=== PATIENT | male | born 1970 | race Caucasian/White ===

== ENCOUNTER 2022-05-15 11:40 | Emergency (ER) | payer MEDICARE, MEDICAID, SELFPAY ==
--- NOTE | ~2022-05-15 | XR_ITS ---
EXAMINATION: XR FINGER, LEFT CLINICAL INFORMATION: Index finger and infection COMPARISON: None TECHNIQUE: Three views of the left index finger. FINDINGS: Soft tissue swelling of the distal index finger with no soft tissue gas, radiopaque foreign body, or cortical erosion/periostitis to suggest osteomyelitis. There are degenerative changes of the distal interphalangeal joints, particularly the 2nd DIP joint. No acute osseous abnormalities. XR/XR finger LT min 2V IMPRESSION: Soft tissue swelling and possible skin defect at the dorsal aspect of the distal index finger. No soft tissue gas, radiopaque foreign body, or acute osseous abnormality.
[2022-05-15 12:18] VITALS: BP 130/76; BP 146/77; PULSE 108; PULSE 116; RESP 17; TEMP 36.4; O2SAT 96; BMI 40.7
--- NOTE | 2022-05-15 12:24 | ED.SKABFB ---
HPI - Skin/Abscess/Foreign Bdy General Chief complaint: Extremity Problem Stated complaint: FINGER PAIN /INF ON ANTIBIOTICS FROM SNF, PER EMS Time Seen by Provider: 05/15/22 12:09 Source: patient and old records reviewed Mode of arrival: EMS Limitations: other (dementia) History of Present Illness HPI narrative: 51 yo male with hx of dementia HTN obesity here with L index finger infection for 3 days started on doxycycline 05/12 - started as paronychia was not drained area is now more red and swollen. Not responding to doxycycline MD complaint: lesion Onset (ago): day(s) (3) Tetanus up to date: yes Location: L hand (index finger) Severity: mild Quality: dull Relieving factors: none Exacerbating factors: palpation Context: other (paronychia no drainage) Associated symptoms: denies other symptoms Treatments prior to arrival: antibiotic Related Data Allergies Allergy/AdvReac Type Severity Reaction Status Date / Time No Known Allergies Allergy Unverified 05/17/20 16:35 Review of Systems Review of Systems: Constitutional : No Fever, No Chills ENT/Mouth : No sore throat, No Rhinorrhea Eyes: No Eye Pain, No Swelling, No Redness Cardiovascular : No Chest Pain, No SOB Respiratory : No Cough, No Sputum Gastrointestinal : No Nausea, No Vomiting, No Diarrhea, No abdominal Pain Genitourinary : No Dysuria, No Hematuria Musculoskeletal : No joint pain, No Myalgias, No Joint Swelling Skin : No Skin Lesions, positive skin rash Neuro : No Weakness, No Numbness, No Headache Psych : No Anxiety, No Depression Heme/Lymph: No Bruising, No Bleeding,No Lymphadenopathy Endocrine : No Polyuria, No Polydipsia All other systems reviewed and are negative [facility] Past Medical History Attestation statement: The following information was validated with the patient. Medical History Dementia HTN (hypertension) Obesity Social History Social History (Updated 05/15/22 @ 12:39 by Jennie Muhammad DO) Alcohol intake: never Patient Tobacco Use Status: Never used Tobacco Use of substances other than those prescribed or required for medical reasons: No Advance Directives: Yes Advance Directives Information Provided: Yes Advance Directives on File: No Physical Exam Vital Signs: Vital Signs: Last Vital Signs Temp 97.6 F 05/15/22 12:18 Pulse 108 H 05/15/22 12:18 Resp 17 05/15/22 12:18 BP 146/77 H 05/15/22 12:18 Pulse Ox 96 05/15/22 12:18 O2 Del Method 05/15/22 12:18 BMI result Body Mass Index 40.7 Appearance: Alert. Oriented X to place and self. No acute distress. Eyes: Pupils equal, round and reactive to light. ENT: Pharynx normal. Neck: Normal inspection. Neck supple. CVS: Normal heart rate and rhythm. Pulses normal. Respiratory: No respiratory distress. Breath sounds normal. Abdomen: Soft and non-tender. Skin: Skin warm and dry. Normal skin color. L index finger moderate sized paronychia with overlying thin fragile blister ecchymosis and purulence noted - erythema extends on dorsum of distal phalanx and crosses the joint minimally he has full ROM no ttp or swelling on palmar surface no tendon ttp full flexion and extension Extremities: No lower extremity edema. Neuro: Oriented X 2. No motor deficit. No sensory deficit. Course Course Course Narrative: discussed with Dr. Ontiveros - send back to SNF will place midline and do IV abx at facility xray negative MDM - Skin/Abscess/Foreign Bdy MDM Narrative Medical decision making narrative: 51 yo male with hx of dementia HTN obesity here with L index finger infection for 3 days - at this time will obtain labs and start on vancomycin and zosyn there is no signs of deeper space infection what he has is progression of paronychia that needs to be drained. Will I/D at bedside. I suspect he can go back to SNF with either oral or IV abx - attending doctor at [facility] is aware agrees with plan Lab Data Result diagrams: 05/15/22 12:19 05/15/22 12:19 Labs: Lab Results 05/15/22 05/15/22 05/15/22 Range/Units 12:19 12:19 12:19 WBC 10.0 (4.8-10.8) X10*3/uL RBC 5.20 (4.60-5.80) X10*6/uL Hgb 14.7 (14.0-18.0) g/dl Hct 45.1 (42.0-52.0) % MCV 86.7 (80.0-98.0) fL MCH 28.3 (27.0-33.0) pg MCHC 32.6 (31.0-36.0) g/dl RDW 13.2 (11.0-16.0) % Plt Count 328 (160-400) X10*3/uL MPV 9.7 (9.4-12.4) fL Immature Gran % (Auto) 0.9 H (0.0-0.4) % Neut % (Auto) 69.8 (45-73) % Lymph % (Auto) 15.7 L (20-40) % [place] % (Auto) 9.2 (2-11) % Eos % (Auto) 4.1 H (0-4) % Baso % (Auto) 0.3 (0-2) % Lymph # (Auto) 1.6 (1.2-4.9) X10*3/uL [place] # (Auto) 0.9 (0.1-1.2) X10*3/uL Eos # (Auto) 0.4 (0.0-0.4) X10*3/uL Baso # (Auto) 0.0 (0.0-0.2) X10*3/uL Abs Immat Gran (auto) 0.09 H (0.00-0.03) X10*3/uL Absolute Neuts (auto) 7.0 (2.0-8.3) x10*3/uL Absolute Nucleated RBC 0.000 (0.0-0.012) X10*3/uL Nucleated RBC % (auto) 0.0 (0.0-0.2) /100WBC PT 11.6 (10.0-13.1) SEC INR 1.0 (0.9-1.1) Sodium 136 (135-145) mmol/L Potassium 4.7 (3.3-5.1) mmol/L Chloride 100 (96-108) mmol/L Carbon Dioxide 24 (22-29) mmol/L Anion Gap 17 (12-20) BUN 14 (9-16) mg/dL Creatinine 0.71 (0.5-1.4) mg/dL Estim Creat Clear Calc 167.0 Estimated GFR > 60 Random Glucose 80 (60-115) mg/dL Lactic Acid (0.5-2.0) mmol/L Calcium 9.6 (8.4-10.2) mg/dL Magnesium 2.0 (1.6-2.6) mg/dL COVID-19 ([facility]UARD) (Negative) COVID-19 Clin Com 05/15/22 05/15/22 Range/Units 12:19 13:30 WBC (4.8-10.8) X10*3/uL RBC (4.60-5.80) X10*6/uL Hgb (14.0-18.0) g/dl Hct (42.0-52.0) % MCV (80.0-98.0) fL MCH (27.0-33.0) pg MCHC (31.0-36.0) g/dl RDW (11.0-16.0) % Plt Count (160-400) X10*3/uL MPV (9.4-12.4) fL Immature Gran % (Auto) (0.0-0.4) % Neut % (Auto) (45-73) % Lymph % (Auto) (20-40) % [place] % (Auto) (2-11) % Eos % (Auto) (0-4) % Baso % (Auto) (0-2) % Lymph # (Auto) (1.2-4.9) X10*3/uL [place] # (Auto) (0.1-1.2) X10*3/uL Eos # (Auto) (0.0-0.4) X10*3/uL Baso # (Auto) (0.0-0.2) X10*3/uL Abs Immat Gran (auto) (0.00-0.03) X10*3/uL Absolute Neuts (auto) (2.0-8.3) x10*3/uL Absolute Nucleated RBC (0.0-0.012) X10*3/uL Nucleated RBC % (auto) (0.0-0.2) /100WBC PT (10.0-13.1) SEC INR (0.9-1.1) Sodium (135-145) mmol/L Potassium (3.3-5.1) mmol/L Chloride (96-108) mmol/L Carbon Dioxide (22-29) mmol/L Anion Gap (12-20) BUN (9-16) mg/dL Creatinine (0.5-1.4) mg/dL Estim Creat Clear Calc Estimated GFR Random Glucose (60-115) mg/dL Lactic Acid 0.8 (0.5-2.0) mmol/L Calcium (8.4-10.2) mg/dL Magnesium (1.6-2.6) mg/dL COVID-19 ([facility]) Negative (Negative) COVID-19 Clin Com See Note Procedures Abscess I/D Site: hand (L index finger) Side (if applicable): left Local Anesthetic: other anesthetic (LMX topical ) Amount of anesthesia used (mL): 3 Technique: incised with blade (unroofed skin that was sloughing off with scissors and forcep underlying was pink tissue, purulence noted) Amount of fluid expressed (mL): 3 Sent for culture/gram staining?: No Irrigation: Yes (also did betadine wash after and sterile non stick dressing) Packing used?: none Discharge Plan Discharge Clinical Impression: Paronychia of finger, Blister Cellulitis Qualifiers: Site of cellulitis of extremity: finger Laterality: left Patient Disposition: Xfer SNF Transfer Details: [facility] Instructions: Paronychia (ED), Cellulitis (ED) Additional Instructions: return to ED for any worsening symptoms or concerns continue IV antibiotics - zosyn and vancomcyin as planned, daily dressing changes would watch closely to make sure the redness does not extend onto hand or onto the palmar surface of the finger
[2022-05-15] MEDS: Lidocaine 4 % Cream KIT 1 APPL TOPICAL (12:32)
[2022-05-15 12:35] LABS: MANUAL DIFF FLAG NO
[2022-05-15 12:37] LABS: Basophils Percent Auto 0.3 % (0-2); Eosinophils Absolute Auto 0.4 X10*3/uL (0.0-0.4); Eosinophils Percent Auto 4.1 % (0-4); Hematocrit 45.1 % (42.0-52.0); Hemoglobin 14.7 g/dl (14.0-18.0); Imm Gran Abs Auto 0.09 X10*3/uL (0.00-0.03); Imm Gran Pct Auto 0.9 % (0.0-0.4); Lymphocytes Absolute Auto 1.6 X10*3/uL (1.2-4.9); Lymphocytes Percent Auto 15.7 % (20-40); Mean Corpuscular HGB Conc 32.6 g/dl (31.0-36.0); Mean Corpuscular Hemoglobin 28.3 pg (27.0-33.0); Mean Corpuscular Volume 86.7 fL (80.0-98.0); Mean Platelet Volume 9.7 fL (9.4-12.4); Monocytes Absolute Auto 0.9 X10*3/uL (0.1-1.2); Monocytes Percent Auto 9.2 % (2-11); Neutrophils Percent Auto 69.8 % (45-73); Platelet Count 328 X10*3/uL (160-400); Red Cell Distribution Width 13.2 % (11.0-16.0)
[2022-05-15 12:47] LABS: Lactic Acid 0.8 mmol/L (0.5-2.0)
[2022-05-15 12:48] LABS: Prothrombin Time 11.6 SEC (10.0-13.1)
[2022-05-15 12:51] LABS: Anion Gap 17 (12-20); Blood Urea Nitrogen 14 mg/dL (9-16); Calcium 9.6 mg/dL (8.4-10.2); Carbon Dioxide 24 mmol/L (22-29); Chloride 100 mmol/L (96-108); Estimated Glomerular Filt Rate > 60; Glucose Random 80 mg/dL (60-115); Potassium 4.7 mmol/L (3.3-5.1); Sodium 136 mmol/L (135-145)
[2022-05-15 13:59] LABS: COVID-19 Test Negative (Negative)
[2022-05-15] MEDS: Piperacillin Sodium/Tazobactam 3.375 GM in 0.9 % Sodium Chloride 50 ML IV (14:39)
== END 2022-05-15 19:19 | disposition skilled nursing facility (03) ==
PROVIDERS: Emergency Provider Emergency Medicine; PCP Hospitalist
DX: L03.012 Cellulitis of left finger (principal); L02.512 Cutaneous abscess of left hand; Z79.899 Other long term (current) drug therapy; Z20.822 Contact with and (suspected) exposure to COVID-19
CPT/HCPCS: 26010; 73140; 80048; 83605; 83735; 85025; 85610; 87040; 87635; 96365; 96366; 96367; 99284; J2543; J3370

== ENCOUNTER 2022-10-11 03:19 | Inpatient (IN) | payer MEDICARE, MEDICAID, SELFPAY ==
[2022-10-11] VITALS (11 sets, daily range): BP systolic 136–180; BP diastolic 73–97; PULSE 102–125; RESP 18–29; TEMP 36.1–37; O2SAT 93–97; BMI 41.7; BMI 41.5
--- NOTE | ~2022-10-11 | CT_ITS ---
EXAMINATION: CT CHEST, ABDOMEN AND PELVIS WITH CONTRAST CLINICAL INFORMATION: Shortness of breath, hypoxia. Abdominal pain, distention, vomiting. COMPARISON: Chest radiograph done earlier the same day. TECHNIQUE: Contiguous axial thin section helical images of the chest, abdomen and pelvis were performed following the administration of oral contrast and 100 mL of intravenous Omnipaque 350. The data set was reformatted in the coronal and sagittal planes and reviewed on an independent workstation. This CT examination was performed using dose optimization techniques as appropriate, variously including the following: *Automated exposure control *Adjustment of mA and/or kV according to patient size (this includes techniques or standardized protocols for targeted exams where dose is matched to indication/reason for exam; i.e. extremities or head) *Use of iterative reconstruction technique DLP: 2510 mGy-cm. FINDINGS: LUNGS: Evaluation somewhat limited secondary to patient motion. Bilateral dependent atelectasis. No large, confluent airspace consolidation. Subpleural nodule within the left lower lobe measuring up to 1.0 cm (axial image 332/517). No additional significant nodule or large pulmonary mass. PLEURA: No pleural effusion or pneumothorax. No pleural mass or thickening. MEDIASTINUM: Borderline cardiomegaly. No significant pericardial effusion. No coronary artery calcifications. No thoracic aortic dilatation or dissection. No significant mediastinal or hilar lymphadenopathy. CHEST WALL/AXILLA: No lymphadenopathy. THYROID: Unremarkable LIVER, GALLBLADDER, AND BILIARY TREE: Normal size, shape, and attenuation. No focal hepatic lesion. No intra or extrahepatic biliary ductal dilatation. The gallbladder is unremarkable with no evidence of radiopaque gallstones, gallbladder wall thickening, or obvious pericholecystic inflammatory changes. PANCREAS: Unremarkable. SPLEEN: Unremarkable. ADRENAL GLANDS: Unremarkable. KIDNEYS AND URETERS: Normal size, shape, and attenuation. Left mid/lower pole renal stones measuring up to 0.4 and 0.2 cm. These are located approximately 12.1 and 11.4 cm from the posterior axillary line. No additional renal or ureteral stone. No hydronephrosis or hydroureter. No perinephric stranding. BLADDER: Unremarkable. GASTROINTESTINAL TRACT: Severe stool within the rectum, which could indicate a degree of fecal impaction. There is prominent air and stool within the colon proximal to the rectum. No bowel wall thickening or inflammatory change. Largely nondistended and unremarkable small bowel. No evidence of bowel perforation. Appendix not identified; however, no right lower quadrant inflammatory change to suggest acute appendicitis. PERITONEAL CAVITY: No intra-abdominal free air or free fluid. No intra-abdominal mass or organized fluid collection/abscess formation. ABDOMINAL WALL: Fat-containing periumbilical hernia with a neck measuring up to 2.8 cm in ML dimension without associated inflammatory or ischemic change. LYMPH NODES: No significant lymphadenopathy. VASCULAR: Contrast opacifies the abdominal aorta and its branch vessels. No abdominal aortic dilatation or dissection. Scattered atherosclerotic calcifications. The IVC is unremarkable. PELVIC VISCERA: Unremarkable OSSEOUS STRUCTURES: Severe left hip osteoarthritis with bony remodeling and large marginal osteophytes. No acute fracture or dislocation. No concerning lytic or blastic osseous lesion. CT/CT abdomen pelvis w IV con IMPRESSION: 1. Severe stool within the rectum, which could indicate a degree of fecal impaction. Prominent air and stool within the colon proximal to the rectum. No bowel wall thickening or inflammatory change. No small-bowel obstruction. No evidence of bowel perforation. Appendix not identified; however, no right lower quadrant inflammatory change to suggest acute appendicitis. 2. No intra-abdominal mass, lymphadenopathy, or ascites. 3. Left-sided nonobstructing renal stones measuring up to 0.4 cm. No hydronephrosis or hydroureter. 4. Fat-containing periumbilical hernia without associated inflammatory or ischemic change. 5. Left lower lobe subpleural nodule measuring up to 1.0 cm. According to the UPDATED 2017 Fleischner Society recommendations, the advised followup imaging for a single solid nodule measuring 8 mm or greater is: Consider CT, PET/CT, or tissue sampling at 3 months.
--- NOTE | ~2022-10-11 | XR_ITS ---
EXAMINATION: XR CHEST CLINICAL INFORMATION: Dyspnea. Wheezing. COMPARISON: 08/20/2015 TECHNIQUE: Frontal view of the chest was obtained. FINDINGS: No significant abnormality is noted involving the heart, lungs, mediastinum, bony thorax or soft tissues. XR/XR chest 1V IMPRESSION: Unremarkable examination.
--- NOTE | ~2022-10-11 | CT_ITS ---
EXAMINATION: CT ABDOMEN AND PELVIS WITHOUT CONTRAST CLINICAL INFORMATION: Reassess fecal impaction and dilated colon COMPARISON: Previous CT of the abdomen and pelvis October 2022 TECHNIQUE: Multidetector volumetric imaging was performed from the superior aspect of the liver through the pubic symphysis. Sagittal and coronal reformatted images were obtained on the technologist's workstation. This CT examination was performed using dose optimization techniques as appropriate, variously including the following: *Automated exposure control *Adjustment of mA and/or kV according to patient size (this includes techniques or standardized protocols for targeted exams where dose is matched to indication/reason for exam; i.e. extremities or head) *Use of iterative reconstruction technique DLP: 1031 mGy-cm FINDINGS: LUNG BASES: Bilateral lower lobe atelectasis/consolidation. This is increased from previous exam. LIVER, GALLBLADDER, AND BILIARY TREE: The liver is normal in size, shape, and attenuation. No focal hepatic lesion or biliary ductal dilatation is present. The gallbladder is unremarkable with no evidence of radiopaque gallstones, gallbladder wall thickening, or obvious pericholecystic inflammatory changes. PANCREAS: Unremarkable. SPLEEN: Unremarkable. ADRENAL GLANDS: Unremarkable. KIDNEYS AND URETERS: Small nonobstructing left renal stones. The kidneys are otherwise normal. BLADDER: Unremarkable. GASTROINTESTINAL TRACT: There is still large amount of stool in the colon suggestive of constipation and fecal impaction. The colon appears less dilated than seen on prior exam. There is question of mild wall thickening of the distal sigmoid colon and stranding of the surrounding fat. This may represent stercoral colitis related to chronic constipation. No evidence of free air. No abscess. Normal appendix. Normal small bowel.. ABDOMINAL WALL: Upper midline ventral and umbilical and periumbilical hernias containing fat. LYMPH NODES: Normal. VASCULAR: Unremarkable. PELVIC VISCERA: Unremarkable. OSSEOUS STRUCTURES: Severe left hip arthritis. CT/CT abdomen pelvis wo IV con IMPRESSION: Severe constipation and fecal impaction. Question mild stercoral colitis of the sigmoid colon. Colon appears slightly less dilated than October 2022 exam. Left renal stones. Increasing bilateral lower lobe atelectasis/consolidation.. Fleischner guidelines were followed.
--- NOTE | 2022-10-11 03:36 | ECG_ITS ---
Test Reason : SOB Blood Pressure : / mmHG Vent. Rate : 115 BPM Atrial Rate : 115 BPM P-R Int : 186 ms QRS Dur : 094 ms QT Int : 322 ms P-R-T Axes : 018 056 021 degrees QTc Int : 445 ms Sinus tachycardia Septal infarct , age undetermined Possible Inferior infarct (cited on or before 27-APR-2009) Abnormal ECG When compared with ECG of 20-AUG-2015 16:03, Septal infarct is now Present Referred By: Generic ED Physician Electronically Signed By:QUINCY HERNANDEZ MD
[2022-10-11 03:56] LABS: MANUAL DIFF FLAG NO
[2022-10-11 03:57] LABS: Basophils Percent Auto 0.1 % (0-2); Eosinophils Percent Auto 0.1 % (0-4); Hematocrit 45.2 % (42.0-52.0); Hemoglobin 14.9 g/dl (14.0-18.0); Imm Gran Abs Auto 0.12 X10*3/uL (0.00-0.03); Imm Gran Pct Auto 0.6 % (0.0-0.4); Lymphocytes Absolute Auto 1.2 X10*3/uL (1.2-4.9); Lymphocytes Percent Auto 5.7 % (20-40); Mean Corpuscular Hemoglobin 27.9 pg (27.0-33.0); Mean Corpuscular Volume 84.6 fL (80.0-98.0); Mean Platelet Volume 9.3 fL (9.4-12.4); Monocytes Absolute Auto 1.4 X10*3/uL (0.1-1.2); Monocytes Percent Auto 6.5 % (2-11); Neutrophils Absolute Auto 18.8 x10*3/uL (2.0-8.3); Platelet Count 336 X10*3/uL (160-400); Red Blood Count 5.34 X10*6/uL (4.60-5.80); Red Cell Distribution Width 13.6 % (11.0-16.0); White Blood Count 21.6 X10*3/uL (4.8-10.8)
[2022-10-11 04:24] LABS: Troponin-I High Sensitivity 3.4 ng/L (<3.5-35.0)
[2022-10-11 04:33] LABS: Influenza A PCR NEGATIVE (Negative); Influenza B PCR NEGATIVE (Negative); Resp Syncy Virus RNA Qual PCR NEGATIVE (Negative); SARS COV2 PCR INHOUSE NEGATIVE (Negative)
[2022-10-11 04:34] LABS: Anion Gap 19 (12-20); Blood Urea Nitrogen 18 mg/dL (9-16); Calcium 9.5 mg/dL (8.4-10.2); Carbon Dioxide 22 mmol/L (22-29); Chloride 101 mmol/L (96-108); Creatinine Clr Calc Pharmacy 158.3; Estimated Glomerular Filt Rate > 60; Glucose Random 135 mg/dL (60-115); Potassium 4.3 mmol/L (3.3-5.1); Sodium 138 mmol/L (135-145)
[2022-10-11 04:41] LABS: B Type Natriuretic Peptide 76 pg/mL (<100)
--- OUTSIDE RECORDS SUMMARY | 2022-10-11 05:32 | XMS_ITS ---
:1970 Author Organization [facility] Address [address] [place] [address] Care Team Providers Name Role Phone EddieYoandy lindquist Jr Unavailable Unavailable PROBLEMS Type Condition ICD9-CM Code VEF74-LP Code Onset Condition SNO MED Code Dates Status Problem Colon cancer Z12.11 Active 0990209 04 screening ALLERGIES No Known Allergies ENCOUNTERS Encounter Location Date Diagnosis [facility] [address] [facility] [address] [place], [place] Z12.11 [id number] IMMUNIZATIONS Vaccine Route Administration Date Status Influenza Unknown Jul 03, 2021 Administered SOCIAL HISTORY Qualifiers Date Never Smoker REASON FOR REFERRAL FUNCTIONAL STATUS PLAN OF CARE VITAL SIGNS Weight 275 lbs 2021 Height 72 in 2021 BMI 37.29 kg/m2 2021 Temperature 97.3 degrees Fahrenheit 2021 Blood pressure systolic 000 mm Hg 2021 Blood pressure diastolic 00 mm Hg 2021 MEDICATIONS Medication Instructions Dosage Frequency Start End Duration Statu s Date Date OLANZapine 10 MG Orally Once a 1 tablet 24h 30 day(s ) Active day Breo Ellipta Inhalation Once 1 puff 24h Act lizbeth 100-25 MCG/INH a day Fleet Enema 7-19 as directed Act lizbeth GM/118ML Metoprolol & Diet as directed Ac tive Manage Prod 50 MG Multivitamin - as directed Activ e Dimethicone 1 % as directed Acti ve ibuprofen 1 tab 14 days Active Loperamide HCl 2 Orally Four 1 tablet as 6h Active MG times a day needed guaiFENesin AC Orally every 4 10 ml as 4h A ctive 100-10 MG/5ML hrs needed Omeprazole 20 MG Orally Once a 1 capsule 24h 30 day( s) Active day 30 minutes before morning meal Aspirin 81 81 MG Orally Once a 1 tablet 24h 30 day(s ) Active day Lisinopril 40 MG Orally Once a 1 tablet 24h 30 day(s ) Active day amLODIPine as directed Active Besy-Benazepril HCl 10-20 MG DocQLace 100 MG Orally Once a 1 capsule 24h 30 day(s ) Active day as needed Acetaminophen 325 Orally every 4 1 tablet as 4h Active MG hrs needed Senna 187 MG as directed Active Turmeric 500 MG as directed Acti ve Atorvastatin Orally Once a 1 tablet 24h 30 day(s) Ac tive Calcium 10 MG day Hibiclens 4 % as directed Active PROCEDURES Procedure Date Ordered Result Body Site [facility] 2021 RESULTS No Results REASON FOR VISIT Patient presents today for a screening colonoscopy Insurance Providers [facility] Member Patient Patient Patient Patient Patient Subscriber Subscriber Subscriber Group Insurance Plan Plan Plan Plan ID Relationship Address Phone Name Date of ID Name Date of No Type Insurance Insurance Insurance Coverage to Subscriber Address Phone Name Dates MEDICARE [phone] MEDICARE self RUPALI [id number] [place] [address] [place] [id number] CARE ONE [phone] CARE ONE self RUPALI [id number] [facility] [address] USE [place] [address]
--- NOTE | 2022-10-11 07:07 | ECG_ITS ---
Test Reason : SOB Blood Pressure : / mmHG Vent. Rate : 115 BPM Atrial Rate : 115 BPM P-R Int : 186 ms QRS Dur : 094 ms QT Int : 322 ms P-R-T Axes : 018 056 021 degrees QTc Int : 445 ms Sinus tachycardia Septal infarct , age undetermined Possible Inferior infarct (cited on or before 27-APR-2009) Abnormal ECG When compared with ECG of 20-AUG-2015 16:03, Septal infarct is now Present Referred By: Katerin Gonzales Electronically Signed By:QUICNY HERNANDEZ MD
--- NOTE | 2022-10-11 07:08 | ED_ITS ---
HPI - Abdominal Pain General Chief Complaint: Dyspnea Stated Complaint: nausea and vomiting Time Seen by Provider: 10/11/22 06:37 Source: patient Mode of arrival: EMS History of Present Illness HPI narrative: 52-year-old male who arrives, not oxygen dependent but currently on nasal cannula with onset of abdominal pain with multiple episodes of nausea and vomiting, hypoxia. Related Data Allergies Allergy/AdvReac Type Severity Reaction Status Date / Time No Known Allergies Allergy Unverified 05/17/20 16:35 Review of Systems Review of Systems Pertinent positives and negatives as stated in HPI [facility] Past Medical History Source: nursing notes reviewed Medical History Dementia HTN (hypertension) Obesity Social History Social History Alcohol intake: never Patient Tobacco Use Status: Never used Tobacco Advance Directives: No Advance Directives Information Provided: Yes Physical Exam ED Vital Signs: Vital Signs - 24 hr 10/11/22 03:31 10/11/22 04:14 10/11/22 04:17 Temperature 98.1 F 97.0 F Pulse Rate 118 H 125 H 123 H Respiratory Rate 26 H 28 H 20 Blood Pressure 149/97 H 149/97 H Pulse Oximetry 96 95 Oxygen Delivery Method Nasal Cannula Nasal Cannula Oxygen Flow Rate 2 10/11/22 06:29 10/11/22 08:06 10/11/22 10:39 Temperature 97.9 F 98.4 F Pulse Rate 117 H 115 H 116 H Respiratory Rate 18 29 H 20 Blood Pressure 163/91 H 180/90 H 153/87 H Pulse Oximetry 93 97 97 Oxygen Delivery Method Nasal Cannula Room Air Nasal Cannula Nasal Cannula Oxygen Flow Rate 2 3 3 BMI result Body Mass Index 41.7 VITAL SIGNS: Reviewed. GENERAL: Elevated BMI, Poor hygiene, vomitus on patient's chest in moderate distress. HEAD: Normocephalic/atraumatic EYES: PERRLA, EOMI EARS: Ext canals without abnormality OROPHARYNX: no oral lesions noted, posterior pharynx clear LUNGS: Patient is tachypneic, crackles noted in bilateral lung mora and decreased by basilar. SpO2<93> on nasal cannula 2 L CARDIOVASCULAR: Regular rate and rhythm without noted murmurs, no JVD bilateral lower extremity 1+ pitting ABDOMEN: Soft, diffusely tender, umbilical hernia noted that is tender to palpation and unable to reduce, distended with tympany, hypoactive bowel sounds. MUSCULOSKELETAL: No tenderness, deformities, or effusions noted on gross inspection. EXTREMITIES: No cyanosis, clubbing or edema. SKIN: Inspection of the skin reveals no rashes NEUROLOGIC: Alert and oriented x 3. Strength and sensation to light touch were grossly intact x 4. Procedures Rectal Disimpaction Time out performed rectal disimpaction: No Indication: fecal impaction Procedural Sedation: No Sedation/Analgesia: none Technique: manual disimpaction with gloved finger Result: unable to disimpact Patient Tolerated Procedure: well Complications: pain and unable to tolerate Medical Decision Making Medical Decision Making [facility] Narrative: 0709: I just received this patient on arrival to my shift and I suspect infection. 52-year-old male and I suspect possible bowel obstruction secondary to incarcerated umbilical hernia with multiple episodes of vomiting and concerns regarding possible aspiration pneumonia. Review of all investigations and my interpretation is that patient has significant fecal impaction that is likely led to multiple episodes of nausea and vomiting but he appears to be proximally decompressed and does not require an NG tube and the nausea and vomiting has progressively improved, patient has been rehydrated as well as provided with antiemetics. The significant leukocytosis that is noted is likely secondary to the vomiting inducing a stress response. I did attempt a fecal disimpaction, however patient was unable to tolerate. There was brown, claylike stool, there was blood intermixed as well. I discussed this with General surgery as well as the inpatient hospitalist and patient will be admitted for repeated enemas and as needed fecal disimpaction. Differential Diagnosis Differential Diagnoses: The differential diagnosis associated with the presentation includes Please see the discussion above. Consult Healthcare Provider Management of the patient was discussed with: Nurse Supervisor 1055: I discussed the case with General surgery, Dr. Garza, she currently recommends admission for repeated enemas and as needed disimpaction, the hernia does not appear to be incarcerated/strangulated and small bowel appears in good condition. 1159: I discussed with the inpatient hospitalist who accepts admission. Lab Data [facility] Lab Attestation statement: I reviewed the patient's lab results. Please see the above discussion 10/11/22 03:49 10/11/22 03:49 Labs: Lab Results 02/11/23 02/11/23 02/11/23 Range/Units 03:48 03:49 03:49 WBC 21.6 H (4.8-10.8) X10*3/uL RBC 5.34 (4.60-5.80) X10*6/uL Hgb 14.9 (14.0-18.0) g/dl Hct 45.2 (42.0-52.0) % MCV 84.6 (80.0-98.0) fL MCH 27.9 (27.0-33.0) pg MCHC 33.0 (31.0-36.0) g/dl RDW 13.6 (11.0-16.0) % Plt Count 336 (160-400) X10*3/uL MPV 9.3 L (9.4-12.4) fL Immature Gran % (Auto) 0.6 H (0.0-0.4) % Neut % (Auto) 87.0 H (45-73) % Lymph % (Auto) 5.7 L (20-40) % [place] % (Auto) 6.5 (2-11) % Eos % (Auto) 0.1 (0-4) % Baso % (Auto) 0.1 (0-2) % Lymph # (Auto) 1.2 (1.2-4.9) X10*3/uL [place] # (Auto) 1.4 H (0.1-1.2) X10*3/uL Eos # (Auto) 0.0 (0.0-0.4) X10*3/uL Baso # (Auto) 0.0 (0.0-0.2) X10*3/uL Abs Immat Gran (auto) 0.12 H (0.00-0.03) X10*3/uL Absolute Neuts (auto) 18.8 H (2.0-8.3) x10*3/uL Absolute Nucleated RBC 0.000 (0.0-0.012) X10*3/uL Nucleated RBC % (auto) 0.0 (0.0-0.2) /100WBC PT (10.0-13.1) SEC INR (0.9-1.1) Sodium 138 (135-145) mmol/L Potassium 4.3 (3.3-5.1) mmol/L Chloride 101 (96-108) mmol/L Carbon Dioxide 22 (22-29) mmol/L Anion Gap 19 (12-20) BUN 18 H (9-16) mg/dL Creatinine 0.75 (0.5-1.4) mg/dL Estim Creat Clear Calc 158.3 Estimated GFR > 60 Random Glucose 135 H (60-115) mg/dL Lactic Acid (0.5-2.0) mmol/L Calcium 9.5 (8.4-10.2) mg/dL Total Bilirubin 0.9 (0.0-1.0) mg/dL Direct Bilirubin 0.3 (0.0-0.5) mg/dL AST 20 (5-37) U/L ALT 22 (0-40) U/L Alkaline Phosphatase 122 H (39-117) U/L Troponin I High Sens (<3.5-35.0) ng/L B-Natriuretic Peptide (<100) pg/mL Total Protein 7.9 (6.5-8.0) g/dL Albumin 4.6 (3.5-5.0) g/dL Lipase 18 (8-78) U/L Urine Color Urine Appearance Urine pH (5.0-9.0) Ur Specific [place] (1.005-1.025) Urine Protein (Neg-Trace) mg/dL Urine Glucose (UA) (Negative) mg/dL Urine Ketones (Negative) mg/dL Urine Blood (Negative) Urine Nitrite (Negative) Ur Leukocyte Esterase (Negative) Influenza Type A (PCR) NEGATIVE (Negative) Influenza Type B (PCR) NEGATIVE (Negative) RSV RNA Qual (PCR) NEGATIVE (Negative) SARS-CoV-2 RNA (RT-PCR) NEGATIVE (Negative) 10/11/22 10/11/22 10/11/22 Range/Units 03:49 03:49 07:37 WBC (4.8-10.8) X10*3/uL RBC (4.60-5.80) X10*6/uL Hgb (14.0-18.0) g/dl Hct (42.0-52.0) % MCV (80.0-98.0) fL MCH (27.0-33.0) pg MCHC (31.0-36.0) g/dl RDW (11.0-16.0) % Plt Count (160-400) X10*3/uL MPV (9.4-12.4) fL Immature Gran % (Auto) (0.0-0.4) % Neut % (Auto) (45-73) % Lymph % (Auto) (20-40) % [place] % (Auto) (2-11) % Eos % (Auto) (0-4) % Baso % (Auto) (0-2) % Lymph # (Auto) (1.2-4.9) X10*3/uL [place] # (Auto) (0.1-1.2) X10*3/uL Eos # (Auto) (0.0-0.4) X10*3/uL Baso # (Auto) (0.0-0.2) X10*3/uL Abs Immat Gran (auto) (0.00-0.03) X10*3/uL Absolute Neuts (auto) (2.0-8.3) x10*3/uL Absolute Nucleated RBC (0.0-0.012) X10*3/uL Nucleated RBC % (auto) (0.0-0.2) /100WBC PT 13.1 (10.0-13.1) SEC INR 1.1 (0.9-1.1) Sodium (135-145) mmol/L Potassium (3.3-5.1) mmol/L Chloride (96-108) mmol/L Carbon Dioxide (22-29) mmol/L Anion Gap (12-20) BUN (9-16) mg/dL Creatinine (0.5-1.4) mg/dL Estim Creat Clear Calc Estimated GFR Random Glucose (60-115) mg/dL Lactic Acid (0.5-2.0) mmol/L Calcium (8.4-10.2) mg/dL Total Bilirubin (0.0-1.0) mg/dL Direct Bilirubin (0.0-0.5) mg/dL AST (5-37) U/L ALT (0-40) U/L Alkaline Phosphatase (39-117) U/L Troponin I High Sens 3.4 (<3.5-35.0) ng/L B-Natriuretic Peptide 76 (<100) pg/mL Total Protein (6.5-8.0) g/dL Albumin (3.5-5.0) g/dL Lipase (8-78) U/L Urine Color Urine Appearance Urine pH (5.0-9.0) Ur Specific [place] (1.005-1.025) Urine Protein (Neg-Trace) mg/dL Urine Glucose (UA) (Negative) mg/dL Urine Ketones (Negative) mg/dL Urine Blood (Negative) Urine Nitrite (Negative) Ur Leukocyte Esterase (Negative) Influenza Type A (PCR) (Negative) Influenza Type B (PCR) (Negative) RSV RNA Qual (PCR) (Negative) SARS-CoV-2 RNA (RT-PCR) (Negative) 10/11/22 10/11/22 Range/Units 07:37 12:11 WBC (4.8-10.8) X10*3/uL RBC (4.60-5.80) X10*6/uL Hgb (14.0-18.0) g/dl Hct (42.0-52.0) % MCV (80.0-98.0) fL MCH (27.0-33.0) pg MCHC (31.0-36.0) g/dl RDW (11.0-16.0) % Plt Count (160-400) X10*3/uL MPV (9.4-12.4) fL Immature Gran % (Auto) (0.0-0.4) % Neut % (Auto) (45-73) % Lymph % (Auto) (20-40) % [place] % (Auto) (2-11) % Eos % (Auto) (0-4) % Baso % (Auto) (0-2) % Lymph # (Auto) (1.2-4.9) X10*3/uL [place] # (Auto) (0.1-1.2) X10*3/uL Eos # (Auto) (0.0-0.4) X10*3/uL Baso # (Auto) (0.0-0.2) X10*3/uL Abs Immat Gran (auto) (0.00-0.03) X10*3/uL Absolute Neuts (auto) (2.0-8.3) x10*3/uL Absolute Nucleated RBC (0.0-0.012) X10*3/uL Nucleated RBC % (auto) (0.0-0.2) /100WBC PT (10.0-13.1) SEC INR (0.9-1.1) Sodium (135-145) mmol/L Potassium (3.3-5.1) mmol/L Chloride (96-108) mmol/L Carbon Dioxide (22-29) mmol/L Anion Gap (12-20) BUN (9-16) mg/dL Creatinine (0.5-1.4) mg/dL Estim Creat Clear Calc Estimated GFR Random Glucose (60-115) mg/dL Lactic Acid 1.6 (0.5-2.0) mmol/L Calcium (8.4-10.2) mg/dL Total Bilirubin (0.0-1.0) mg/dL Direct Bilirubin (0.0-0.5) mg/dL AST (5-37) U/L ALT (0-40) U/L Alkaline Phosphatase (39-117) U/L Troponin I High Sens (<3.5-35.0) ng/L B-Natriuretic Peptide (<100) pg/mL Total Protein (6.5-8.0) g/dL Albumin (3.5-5.0) g/dL Lipase (8-78) U/L Urine Color Dark Yellow Urine Appearance Clear Urine pH 6.0 (5.0-9.0) Ur Specific [place] >= 1.030 H (1.005-1.025) Urine Protein 100 (2+) H (Neg-Trace) mg/dL Urine Glucose (UA) Negative (Negative) mg/dL Urine Ketones 15 (Negative) mg/dL Urine Blood Negative (Negative) Urine Nitrite Negative (Negative) Ur Leukocyte Esterase Negative (Negative) Influenza Type A (PCR) (Negative) Influenza Type B (PCR) (Negative) RSV RNA Qual (PCR) (Negative) SARS-CoV-2 RNA (RT-PCR) (Negative) Independent Interpretation I performed an independent interpretation of an: EKG Interpretation: Sinus tachycardia, HR-115, right bundle branch block, AL/QRS/QTC is within normal limits. Radiology Impression Radiologist Impression: My interpretation is in agreement with radiology's impression of the imaging studies. External Record Review External record reviewed: Outpatient record and Prior outpatient labs Chronic Conditions Patient?s care impacted by: Hypertension Medications Administered Discontinued Medications Generic Name Dose Route Start Last Admin Trade Name Freq PRN Reason Stop Dose Admin Piperacillin Sod/Tazobactam 50 mls @ 100 mls/hr 10/11/22 07:06 10/11/22 08:45 Sod 3.375 gm/ Sodium Chloride IV 10/11/22 07:35 Infused ONCE ONE Infusion Sodium Chloride 1,000 mls @ 999 mls/hr 10/11/22 07:15 10/11/22 08:56 Ns IV 10/11/22 08:15 Infused .Q1H1M TOYIN Infusion Sodium Chloride 2,259 mls @ 2,259 mls/hr 10/11/22 08:40 10/11/22 10:03 Ns IV 10/11/22 09:39 Infused .Q1H STA Infusion Iohexol 100 ml 10/11/22 09:02 10/11/22 09:03 Iohexol 350 Mg/Ml 100 Ml Infus..Btl IV 10/11/22 09:03 100 ml ONCE ONE Administration Levalbuterol HCl 1.25 mg 10/11/22 03:54 10/11/22 03:58 Levalbuterol Hcl 1.25 Mg/0.5 Ml Vial.Neb INHALE 10/11/22 03:55 1.25 mg ONCE ONE Administration Critical Care Time Critical Care Time Critical Care Time: Yes Total Critical Care Time: 60 Attestation: I personally attest to this time spent taking care of the patient. Discharge Plan Discharge Clinical Impression: Fecal impaction, Dehydration, Nausea & vomiting Patient Disposition: Admitted As Inpatient
[2022-10-11 07:50] LABS: INTERNATIONAL NORM RATIO 1.1 (0.9-1.1); Prothrombin Time 13.1 SEC (10.0-13.1)
[2022-10-11] MEDS: Piperacillin Sodium/Tazobactam 3.375 GM in 0.9 % Sodium Chloride 50 ML IV (07:53)
[2022-10-11] MEDS: 0.9 % Sodium Chloride 1,000 ML 999 ML IV (07:53)
[2022-10-11 07:55] LABS: Lactic Acid 1.6 mmol/L (0.5-2.0)
--- NOTE | 2022-10-11 08:14 | PC.NURSE ---
Patient on O2 with good effect, patient vomiting dark brown vomit, ABD firm distendend BS hypoactive. HERNANDEZ alert to person place situation and confused to time with easy redirection. No guarding withauscultation light palpation. No respiratory distress or chest pain reported. Patient tolerating IVF and IV ABX with no ill effect. Second IV access obtained patient to CT will CTM
[2022-10-11] MEDS: 0.9 % Sodium Chloride 2,259 ML 2259 ML IV (08:50)
--- NOTE | 2022-10-11 08:56 | PC.NURSE ---
Verified fluid orders with MD will give total ordered for sepsis workup 8080 tolerating well will CTM
[2022-10-11] MEDS: iohexoL 350 MG/ML 100 ML INFUS..BTL IV (09:03)
[2022-10-11 09:10] LABS: Alanine Aminotransferase 22 U/L (0-40); Albumin Level 4.6 g/dL (3.5-5.0); Alkaline Phosphatase 122 U/L (39-117); Aspartate Amino Transferase 20 U/L (5-37); Bilirubin Direct 0.3 mg/dL (0.0-0.5); Bilirubin Total 0.9 mg/dL (0.0-1.0); Lipase 18 U/L (8-78); Total Protein 7.9 g/dL (6.5-8.0)
--- NOTE | 2022-10-11 10:05 | PC.NURSE ---
total of 2259 ml of NS admin as ordered report to Lora HENDERSON
[2022-10-11 12:18] LABS: Appearance Urine Clear; Color Urine Dark Yellow; Glucose Urine UA Negative (Negative); Leukocyte Esterase Urine Negative (Negative); Nitrite Urine Negative (Negative); Specific Gravity - Urine >= 1.030 (1.005-1.025); UMIC TRIGGER UACC YES; Urine Blood Negative (Negative); Urine Ketones 15 mg/dL (Negative); Urine Protein 100 (2+) mg/dL (Neg-Trace)
[2022-10-11 12:28] LABS: Bacteria Urine None Seen (None Seen); Calcium Oxalate Crystals Urine Present; Hyaline Casts Urine 0-2 /LPF (0-2); Other Crystals Urine Present; Squamous Epithelial Cell Urine 0-2 /HPF (0-2); WBC Urine 0-5 /HPF (0-5)
[2022-10-11] MEDS: ondansetron HCL 4 MG/2 ML VIAL IVPUSH (12:36)
--- NOTE | 2022-10-11 12:52 | PHA.MEDREC ---
Pharmacy Consult ? Medication Reconciliation Pharmacy has completed the medication reconciliation. Utilized med list from [email or web address].
--- NOTE | 2022-10-11 13:30 | P.HPHOSP_ITS ---
History of Present Illness Date of Service: 10/11/22 Attending physician on admission: Maria De Jesus Calero Chief Complaint: Vomiting, SOB This is a 52 year old [facility] resident who was sent to the emergency department for evaluation of vomiting. Patient reportedly had numerous episodes of vom iting overnight with associated left-sided abdominal pain. In the emergency department basic lab work was obtained which showed leukocytosis of 21.6. He was noted to have abdominal distension and umbilical hernia that was unable to be, Initially there was concern for incarcerated hernia. He underwent CT scan of the abdomen which showed severe stool within the rectum indicating a degree of fecal impaction, no bowel wall thickening or inflammatory changes, no evidence of obstruction, perforation. It noted fat containing periumbilical hernia without associated inflammatory or ischemic change. Manual disimpaction was attempted in the emergency department but patient was unable to tolerate. Case was discussed with the surgeon on-call who recommended admission for Fleet enemas. Patient also reports shortness of breath but denies and also describes cough which seemed to begin after vomiting. He denies any associated fever or chills. Review of Systems Review of Systems: Yes all other systems are reviewed and are negative Constitutional: Constitutional: Denies chills and Denies fever(s) Cardiovascular: Cardiovascular: Denies chest pain and Reports dyspnea Respiratory: Respiratory: Reports cough and Reports dyspnea Gastrointestinal: Gastrointestinal: Reports abdominal pain, Reports constipation and Reports vomiting [facility] Medical History (Updated 10/12/22 @ 11:23 by LINDA Knight) COPD (chronic obstructive pulmonary disease) Dementia Dysarthria HTN (hypertension) Mood disorder Obesity Osteoarthritis Functional capacity: wheelchair bound Social History (Updated 10/11/22 @ 13:37 by LINDA Knight) Household Members: Other Housing: Shelter Do you presently have visiting nurse or other home services: Yes Alcohol intake: never Patient Tobacco Use Status: Former Tobacco user Use of substances other than those prescribed or required for medical reasons: No Currently Displaying Signs/Symptoms of Drug Intoxication Withdrawal: No Have you been hit, kicked, punched, or otherwise hurt by someone within the past year? If so, by whom?: No Do you feel safe in your current relationship?: No Current Relationship Is there a partner from a previous relationship who is making you feel unsafe now?: No Are you made to feel afraid or neglected: No Advance Directives: No Advance Directives Information Provided: Yes Do you have thoughts of harming others: None Do you have a plan to hurt others: No Plan Recently lost weight without trying: No Eating poorly because of decreased appetite: No service: No Current occupational status: disabled Meds Allergies Allergy/AdvReac Type Severity Reaction Status Date / Time No Known Allergies Allergy Unverified 05/17/20 16:35 Active Medications: Current Medications Acetaminophen (Acetaminophen 325 Mg Tablet) 650 mg PO Q6H PRN PRN Reason: Pain, Mild (Pain Scale 1-3) Albuterol/Ipratropium (Albuterol/Iprat 2.5/0.5mg 3 Ml Ampul.Neb) 3 ml INHALE RQ6H WHILE AWAKE TOYIN Enoxaparin Sodium (Enoxaparin Sodium 30 Mg/0.3 Ml Syringe) 30 mg SUBCUT Q24H TOYIN Ampicillin Sodium/Sulbactam (Sodium 1.5 gm/ Sodium Chloride) 100 mls @ 200 mls/hr IV Q6H TOYIN Levalbuterol HCl (Levalbuterol Hcl 1.25 Mg/0.5 Ml Vial.Neb) 1.25 mg INHALE Q4H PRN PRN Reason: Shortness of Breath Methylprednisolone Sodium Succinate (Methylprednisolone Sod Succ 40 Mg/Ml Vial) 40 mg IVPUSH Q12H TOYIN Ondansetron HCl (Ondansetron Hcl 4 Mg/2 Ml Vial) 4 mg IVPUSH Q8H PRN PRN Reason: Nausea and Vomiting Pharmacy Consult (Consult Rx Perform Med Rec) 1 each MISCELLANE ONCE PRN PRN Reason: Consult order Sodium Biphosphate/Sodium Phosphate (Sodium Phosphate,[place]-Dibasic 133 Ml Enema) 133 ml SC ONCE ONE Stop: 10/11/22 13:28 Sodium Chloride (0.9 % Sodium Chloride Flush 3 Ml Syringe) 3 ml IVFLUSH QSHIFT [facility] Home Medications Medication Instructions Recorded Confirmed Last Taken Type acetaminophen 325 mg tablet 650 mg PO Q4H PRN Fever Or Pain 10/11/22 10/11/22 Unknown History aluminum-mag hydroxide-simethicone 30 ml PO Q4H PRN GI upset 10/11/22 10/11/22 Unknown History 200 mg-200 mg-20 mg/5 mL oral susp amlodipine 10 mg tablet 10 mg PO DAILY 10/11/22 10/11/22 Unknown History aspirin 81 mg tablet,delayed 81 mg PO DAILY 10/11/22 10/11/22 Unknown History release atorvastatin 10 mg tablet 10 mg PO BEDTIME 10/11/22 10/11/22 Unknown History bisacodyl 10 mg rectal suppository 10 mg SC DAILY PRN Constipation 10/11/22 10/11/22 Unknown History (Dulcolax (bisacodyl)) chlorhexidine gluconate 4 % 1 appl topical MOWEFR@1500 10/11/22 10/11/22 Unknown History topical liquid (Hibiclens) dimethicone 1 % topical cream 1 appl topical QID PRN skin 10/11/22 10/11/22 Unknown History breakdown docusate sodium 100 mg capsule 100 mg PO BEDTIME 10/11/22 10/11/22 Unknown History fluticasone furoate 100 1 inh inhalation DAILY 10/11/22 10/11/22 Unknown History mcg-vilanterol 25 mcg/dose inhalation powder (Breo Ellipta) guaifenesin 100 mg/5 mL oral liquid 200 mg PO Q4H PRN Cough 10/11/22 10/11/22 Unknown History ibuprofen 800 mg tablet 800 mg PO BID 10/11/22 10/11/22 Unknown History lisinopril 40 mg tablet 40 mg PO DAILY 10/11/22 10/11/22 Unknown History loperamide 2 mg capsule 2 mg PO Q2H PRN Loose Stool 10/11/22 10/11/22 Unknown History loperamide 2 mg capsule 4 mg PO Q24H PRN Loose Stool 10/11/22 10/11/22 Unknown History metoprolol tartrate 50 mg tablet 50 mg PO BID 10/11/22 10/11/22 Unknown History multivitamin 1 tab PO DAILY 10/11/22 10/11/22 Unknown History naloxone 4 mg/actuation nasal 4 mg intranasal Q3M PRN Opioid 10/11/22 10/11/22 Unknown History spray (Narcan) Overdose olanzapine 7.5 mg tablet 7.5 mg PO BEDTIME 10/11/22 10/11/22 Unknown History omeprazole 20 mg capsule,delayed 20 mg PO DAILY@0630 10/11/22 10/11/22 Unknown History release sennosides 8.6 mg tablet (senna) 8.6 mg PO DAILY PRN Constipation 10/11/22 10/11/22 Unknown History sodium phosphates 19 gram-7 118 ml SC DAILY PRN Constipation 10/11/22 10/11/22 Unknown History gram/118 mL enema (Fleet Enema) tramadol 50 mg tablet 50 mg PO TID 10/11/22 10/11/22 Unknown History turmeric 400 mg capsule 500 mg PO BID 10/11/22 10/11/22 Unknown History Physical Exam Vital Signs and Narrative: Vital Signs: Last Vital Signs Temp 98.4 F 10/11/22 10:39 Pulse 116 H 10/11/22 10:39 Resp 20 10/11/22 10:39 BP 153/87 H 10/11/22 10:39 Pulse Ox 97 10/11/22 10:39 O2 Del Method 10/11/22 10:39 O2 Flow Rate 3 10/11/22 10:39 Oxygen Flow Rate 2 10/11/22 03:31 BMI result Body Mass Index 41.7 Const: Other: appears somewhat short of breath, mild tachypnea h/o dysarthria, speech a little difficult to understand at times General: alert and awake Nutritional Appearance: obese Resp: Other: decreased respiratory effort, b/l wheezing Cardio: Rate: tachycardic Heart sounds: S1 normal heart sound present and S2 normal heart sound present GI: Other: abdominal distention, umbilical hernia - unable to reduce Palpation (GI): no guarding Extrem: General: Yes no pedal edema Results Labs 10/11/22 03:49 10/11/22 03:49 Labs: Laboratory Results - last 24 hr 10/11/22 10/11/22 10/11/22 03:48 03:49 03:49 MCV 84.6 MCH 27.9 MCHC 33.0 RDW 13.6 Plt Count 336 MPV 9.3 L Immature Gran % (Auto) 0.6 H Neut % (Auto) 87.0 H Lymph % (Auto) 5.7 L [place] % (Auto) 6.5 Eos % (Auto) 0.1 Baso % (Auto) 0.1 Lymph # (Auto) 1.2 [place] # (Auto) 1.4 H Eos # (Auto) 0.0 Baso # (Auto) 0.0 Abs Immat Gran (auto) 0.12 H Absolute Neuts (auto) 18.8 H Absolute Nucleated RBC 0.000 Nucleated RBC % (auto) 0.0 PT INR Anion Gap 19 Estim Creat Clear Calc 158.3 Estimated GFR > 60 Random Glucose 135 H Lactic Acid Calcium 9.5 Total Bilirubin 0.9 Direct Bilirubin 0.3 AST 20 ALT 22 Alkaline Phosphatase 122 H Troponin I High Sens B-Natriuretic Peptide Total Protein 7.9 Albumin 4.6 Lipase 18 Urine Color Urine Appearance Urine pH Ur Specific [place] Urine Protein Urine Glucose (UA) Urine Ketones Urine Blood Urine Nitrite Ur Leukocyte Esterase Urine RBC Urine WBC Ur Squamous Epith Cells Calcium Oxalate Crystal Other Crystals Urine Bacteria Hyaline Casts Influenza Type A (PCR) NEGATIVE Influenza Type B (PCR) NEGATIVE RSV RNA Qual (PCR) NEGATIVE SARS-CoV-2 RNA (RT-PCR) NEGATIVE 10/11/22 10/11/22 10/11/22 03:49 03:49 07:37 MCV MCH MCHC RDW Plt Count MPV Immature Gran % (Auto) Neut % (Auto) Lymph % (Auto) [place] % (Auto) Eos % (Auto) Baso % (Auto) Lymph # (Auto) [place] # (Auto) Eos # (Auto) Baso # (Auto) Abs Immat Gran (auto) Absolute Neuts (auto) Absolute Nucleated RBC Nucleated RBC % (auto) PT 13.1 INR 1.1 Anion Gap Estim Creat Clear Calc Estimated GFR Random Glucose Lactic Acid Calcium Total Bilirubin Direct Bilirubin AST ALT Alkaline Phosphatase Troponin I High Sens 3.4 B-Natriuretic Peptide 76 Total Protein Albumin Lipase Urine Color Urine Appearance Urine pH Ur Specific [place] Urine Protein Urine Glucose (UA) Urine Ketones Urine Blood Urine Nitrite Ur Leukocyte Esterase Urine RBC Urine WBC Ur Squamous Epith Cells Calcium Oxalate Crystal Other Crystals Urine Bacteria Hyaline Casts Influenza Type A (PCR) Influenza Type B (PCR) RSV RNA Qual (PCR) SARS-CoV-2 RNA (RT-PCR) 10/11/22 10/11/22 07:37 12:11 MCV MCH MCHC RDW Plt Count MPV Immature Gran % (Auto) Neut % (Auto) Lymph % (Auto) [place] % (Auto) Eos % (Auto) Baso % (Auto) Lymph # (Auto) [place] # (Auto) Eos # (Auto) Baso # (Auto) Abs Immat Gran (auto) Absolute Neuts (auto) Absolute Nucleated RBC Nucleated RBC % (auto) PT INR Anion Gap Estim Creat Clear Calc Estimated GFR Random Glucose Lactic Acid 1.6 Calcium Total Bilirubin Direct Bilirubin AST ALT Alkaline Phosphatase Troponin I High Sens B-Natriuretic Peptide Total Protein Albumin Lipase Urine Color Dark Yellow Urine Appearance Clear Urine pH 6.0 Ur Specific [place] >= 1.030 H Urine Protein 100 (2+) H Urine Glucose (UA) Negative Urine Ketones 15 Urine Blood Negative Urine Nitrite Negative Ur Leukocyte Esterase Negative Urine RBC 3-5 H Urine WBC 0-5 Ur Squamous Epith Cells 0-2 Calcium Oxalate Crystal Present Other Crystals Present Urine Bacteria None Seen Hyaline Casts 0-2 Influenza Type A (PCR) Influenza Type B (PCR) RSV RNA Qual (PCR) SARS-CoV-2 RNA (RT-PCR) Imaging Radiologist's Impressions: Impressions Chest X-Ray 10/11/22 04:04 IMPRESSION: Unremarkable examination. Abdomen/Pelvis CT 10/11/22 09:09 IMPRESSION: 1. Severe stool within the rectum, which could indicate a degree of fecal impaction. Prominent air and stool within the colon proximal to the rectum. No bowel wall thickening or inflammatory change. No small-bowel obstruction. No evidence of bowel perforation. Appendix not identified; however, no right lower quadrant inflammatory change to suggest acute appendicitis. 2. No intra-abdominal mass, lymphadenopathy, or ascites. 3. Left-sided nonobstructing renal stones measuring up to 0.4 cm. No hydronephrosis or hydroureter. 4. Fat-containing periumbilical hernia without associated inflammatory or ischemic change. 5. Left lower lobe subpleural nodule measuring up to 1.0 cm. According to the UPDATED 2017 Fleischner Society recommendations, the advised followup imaging for a single solid nodule measuring 8 mm or greater is: Consider CT, PET/CT, or tissue sampling at [address] 10/11/22 09:09 IMPRESSION: 1. Severe stool within the rectum, which could indicate a degree of fecal impaction. Prominent air and stool within the colon proximal to the rectum. No bowel wall thickening or inflammatory change. No small-bowel obstruction. No evidence of bowel perforation. Appendix not identified; however, no right lower quadrant inflammatory change to suggest acute appendicitis. 2. No intra-abdominal mass, lymphadenopathy, or ascites. 3. Left-sided nonobstructing renal stones measuring up to 0.4 cm. No hydronephrosis or hydroureter. 4. Fat-containing periumbilical hernia without associated inflammatory or ischemic change. 5. Left lower lobe subpleural nodule measuring up to 1.0 cm. According to the UPDATED 2017 Fleischner Society recommendations, the advised followup imaging for a single solid nodule measuring 8 mm or greater is: Consider CT, PET/CT, or tissue sampling at 3 months. Assessment and Plan (1) Nausea & vomiting: Status: Acute (2) Fecal impaction: Status: Acute Plan This is a 52-year-old to [facility] resident with history of stroke, mood disorder, dysarthria, COPD, hypertension, who presents to the emergency department with multiple episodes of vomiting found to have fecal impaction and hypoxia acute respiratory failure with hypoxia secondary to acute COPD exacerbation and suspected aspiration pneumonia in setting of vomiting meets SIRS criteria, no severe features. LA normal. Received IVF in ED, blood cultures pending - scheduled and as needed breathing treatments - systemic steroids - IV Unasyn - supplemental oxygen, wean as tolerated Fecal impaction manual disempaction attempted in ED, unable to toelrate -surgical consult -fleet enema N/V -symptomatic treatment LLL lung nodule 1.0cm recommend repeat CT in 3 months gerd continue prilosec HTN contiue lisinopril, lopressor, norvasc HLD continue statin dvt ppx - lovenox Code status - full code Attending - Dr. Calero Due to fecal impaction, hypoxia, aspiration pneumonia patient will likely require two midnight stay in the hospital. Time Spent With Patient Time: Total time managing care of this patient today ____ minutes. Quality Stroke Does the patient have a stroke diagnosis?: No VTE Prior VTE?: No VTE Risk Level:: Medical - moderate - high VTE Device Contraindication: N/A - Device Ordered VTE Drug Contraindication: N/A - Med Ordered
[2022-10-11] MEDS: Sodium Phosphate,Mono-Dibasic 133 ML ENEMA PR (13:59)
[2022-10-11] MEDS: methylPREDNISolone Sod Succ 40 MG/ML VIAL IVPUSH (13:59)
[2022-10-11] MEDS: Ampicillin Sodium/Sulbactam Na 1.5 GM in 0.9 % Sodium Chloride 100 ML IV ×2 (13:59→20:41)
[2022-10-11] MEDS: Enoxaparin Sodium 40 MG/0.4 ML SYRINGE SUBCUT (13:59)
[2022-10-11] MEDS: traMADoL HCL 50 MG TABLET PO ×2 (15:03→20:53)
[2022-10-11] MEDS: 0.9 % Sodium Chloride Flush 3 ML SYRINGE IVFLUSH (15:03)
[2022-10-11] MEDS: Albuterol/Iprat 2.5/0.5MG 3 ML AMPUL.NEB INHALE (19:28)
--- NOTE | 2022-10-11 20:32 | PC.NURSE ---
Assumed care of pt. at 1900. Pt. lying in bed at this time with dinner tray on table. Pt. reports being done with his food. Pt. only ate a small amount of meal (10%). Pt. reports abdominal pain at a 6 and abdomen is distended. IVF are almost complete. Pt. is going up to room 387. Called to give report. No answer. Will try again shortly.
--- NOTE | 2022-10-11 20:39 | PC.NURSE ---
Assumed care of pt. at 1900. Pt. lying in bed at this time with dinner tray on table. Pt. reports being done with his food. Pt. only ate a small amount of meal (10%). Pt. reports abdominal pain at a 6 and abdomen is distended. Pt. is going up to room 387. Called to give report. No answer. Will try again shortly.
[2022-10-11] MEDS: OLANZapine 7.5 MG TABLET PO (20:53)
[2022-10-11] MEDS: Metoprolol Tartrate 50 MG TABLET PO (20:53)
[2022-10-11] MEDS: Atorvastatin Calcium 10 MG TABLET PO (20:53)
[2022-10-11] MEDS: Docusate Sodium 100 MG CAPSULE PO (20:53)
--- NOTE | 2022-10-11 21:26 | PC.NURSE ---
Pt. IV became dislodged. Unable to save lines. New line placed in right hand.
[2022-10-12] VITALS (7 sets, daily range): BP systolic 133–169; BP diastolic 67–87; PULSE 86–105; RESP 19–20; TEMP 36.1–37.2; O2SAT 94–97
[2022-10-12] MEDS: methylPREDNISolone Sod Succ 40 MG/ML VIAL IVPUSH ×2 (02:25→14:18)
[2022-10-12] MEDS: Ampicillin Sodium/Sulbactam Na 1.5 GM in 0.9 % Sodium Chloride 100 ML IV ×4 (02:25→21:01)
[2022-10-12] MEDS: guaiFENesin 100 MG/5 ML LIQUID 10 ML PO (02:25)
[2022-10-12] MEDS: 0.9 % Sodium Chloride Flush 3 ML SYRINGE IVFLUSH ×4 (02:44→20:57)
[2022-10-12 06:13] LABS: Hematocrit 40.2 % (42.0-52.0); Hemoglobin 12.9 g/dl (14.0-18.0); Mean Corpuscular HGB Conc 32.1 g/dl (31.0-36.0); Mean Corpuscular Hemoglobin 28.6 pg (27.0-33.0); Mean Corpuscular Volume 89.1 fL (80.0-98.0); Mean Platelet Volume 9.9 fL (9.4-12.4); Platelet Count 299 X10*3/uL (160-400); Red Blood Count 4.51 X10*6/uL (4.60-5.80); Red Cell Distribution Width 13.8 % (11.0-16.0); White Blood Count 14.7 X10*3/uL (4.8-10.8)
[2022-10-12 06:34] LABS: Anion Gap 17 (12-20); Blood Urea Nitrogen 21 mg/dL (9-16); Calcium 8.9 mg/dL (8.4-10.2); Carbon Dioxide 25 mmol/L (22-29); Chloride 104 mmol/L (96-108); Creatinine Clr Calc Pharmacy 179.4; Estimated Glomerular Filt Rate > 60; Glucose Random 140 mg/dL (60-115); Potassium 4.6 mmol/L (3.3-5.1); Sodium 141 mmol/L (135-145)
[2022-10-12] MEDS: lisinopriL 40 MG TABLET PO (08:40)
[2022-10-12] MEDS: amLODIPine Besylate 10 MG TABLET PO (08:40)
[2022-10-12] MEDS: traMADoL HCL 50 MG TABLET PO ×2 (08:41→21:03)
[2022-10-12] MEDS: Metoprolol Tartrate 50 MG TABLET PO ×2 (08:41→21:04)
--- NOTE | 2022-10-12 10:42 | MHC.CM.PN ---
DUE TO PT'S MENTATION CM ATTEMPTED TO CONTACT PT'S MOTHER ROMEO AT 10:30AM [phone], NO ANSWER AND DETAILED MESSAGE LEFT, IMM TO BE SENT CERTIFIED MAIL. PT RESIDES AT [facility] AND PLAN WILL BE TO RETURN ONCE MEDICALLY CLEARED. PCP IS RUPALI HERNDON, CM HAS REQUEST FACILITY FAX COPY OF [facility]/HCP/ ANY ADVANCE DIRECTIVES & COVID VACCINE INFO TO CM OFFICE FAX.
--- NOTE | 2022-10-12 11:07 | HO.PM.IMPN ---
Subjective Subjective Date of Service: 10/12/22 Interval History: seen and examined this morning follow up for aspiration pneumonia, constipation no overnight events documented still reporting abdominal distension/discomfort denies sob, cough Review of Systems Review of Systems: Yes all other systems are reviewed and are negative Constitutional Constitutional: Denies chills and Denies fever(s) Cardiovascular Cardiovascular: Denies chest pain, Denies palpitations and Denies dyspnea Respiratory Respiratory: Denies cough and Denies dyspnea Gastrointestinal Gastrointestinal: Reports abdominal pain and Denies vomiting Endocrine Endocrine: Denies palpitations Physical Exam Vital Signs: Vital Signs: Last Vital Signs Temp 97.0 F 10/12/22 07:44 Pulse 91 10/12/22 07:44 Resp 20 10/12/22 07:44 BP 141/86 H 10/12/22 07:44 Pulse Ox 96 10/12/22 07:44 O2 Del Method 10/12/22 07:44 O2 Flow Rate 2 10/12/22 07:44 Oxygen Flow Rate 2 10/11/22 03:31 BMI result Body Mass Index 41.5 Const: Other: h/o dysarthria, speech a little difficult to understand at times General: comfortable, no acute distress, alert and awake Nutritional Appearance: obese Orientation/consciousness: oriented to person and oriented to place Resp: Other: diminished lung sounds, no wheezing Effort & Inspection: no respiratory distress and no use of accessory muscles Cardio: Rate: regular rate Heart sounds: S1 normal heart sound present and S2 normal heart sound present GI: Other: abdominal distention, umbilical hernia - unable to reduce Inspection: Yes obesity Palpation (GI): no guarding Neuro: General: oriented to person and oriented to place Extrem: General: Yes no pedal edema Objective Data Active Medications Acetaminophen (Acetaminophen 325 Mg Tablet) 650 mg PO Q6H PRN PRN Reason: Pain, Mild (Pain Scale 1-3) Al Hydroxide/Mg Hydroxide (Magnesium Hydrox/Alum Hydrox 30 Ml Oral.Susp) 30 ml PO Q4H PRN PRN Reason: GI upset Albuterol/Ipratropium (Albuterol/Iprat 2.5/0.5mg 3 Ml Ampul.Neb) 3 ml INHALE RQ6H WHILE AWAKE [facility] Last Admin: 10/12/22 07:46 Dose: Not Given Documented By: JORGITO Non-Admin Reason: Patient Asleep Amlodipine Besylate (Amlodipine Besylate 10 Mg Tablet) 10 mg PO DAILY [facility]; Protocol Last Admin: 10/12/22 08:40 Dose: 10 mg Documented By: OSBALDO Atorvastatin Calcium (Atorvastatin Calcium 10 Mg Tablet) 10 mg PO BEDTIME [facility] Last Admin: 10/11/22 20:53 Dose: 10 mg Documented By: TERESITA Bisacodyl (Bisacodyl 10 Mg Supp.Rect) 10 mg HI DAILY PRN PRN Reason: Constipation Docusate Sodium (Docusate Sodium 100 Mg Capsule) 100 mg PO BEDTIME [facility] Last Admin: 10/11/22 20:53 Dose: 100 mg Documented By: TERESITA Enoxaparin Sodium (Enoxaparin Sodium 40 Mg/0.4 Ml Syringe) 40 mg SUBCUT Q24H [facility] Last Admin: 10/11/22 13:59 Dose: 40 mg Documented By: NASH Fluticasone/Vilanterol (Fluticasone/Vilanterol 100/25 Blst.W.Dev) 1 puff INHALE RDAILY [facility] Last Admin: 10/12/22 07:46 Dose: Not Given Documented By: JORGITO Non-Admin Reason: Med Not Available Guaifenesin (Guaifenesin 100 Mg/5 Ml Liquid) 10 ml PO Q4H PRN PRN Reason: Cough Last Admin: 10/12/22 02:25 Dose: 10 ml Documented By: JOVANNY Ampicillin Sodium/Sulbactam (Sodium 1.5 gm/ Sodium Chloride) 100 mls @ 200 mls/hr IV Q6H [facility] Last Infusion: 10/12/22 09:59 Dose: 200 mls/hr Documented By: OSBALDO Levalbuterol HCl (Levalbuterol Hcl 1.25 Mg/0.5 Ml Vial.Neb) 1.25 mg INHALE RQ4H PRN PRN Reason: Shortness of Breath Lisinopril (Lisinopril 40 Mg Tablet) 40 mg PO DAILY [facility]; Protocol Last Admin: 10/12/22 08:40 Dose: 40 mg Documented By: OSBALDO Methylprednisolone Sodium Succinate (Methylprednisolone Sod Succ 40 Mg/Ml Vial) 40 mg IVPUSH Q12H [facility] Last Admin: 10/12/22 02:25 Dose: 40 mg Documented By: JOVANNY Metoprolol Tartrate (Metoprolol Tartrate 50 Mg Tablet) 50 mg PO BID [facility]; Protocol Last Admin: 10/12/22 08:41 Dose: 50 mg Documented By: OSBALDO Olanzapine (Olanzapine 7.5 Mg Tablet) 7.5 mg PO BEDTIME [facility] Last Admin: 10/11/22 20:53 Dose: 7.5 mg Documented By: TERESITA Omeprazole (Omeprazole 20 Mg Capsule.Dr) 20 mg PO DAILY@0630 [facility] Last Admin: 10/12/22 06:19 Dose: Not Given Documented By: JOVANNY Non-Admin Reason: Patient Refused Ondansetron HCl (Ondansetron Hcl 4 Mg/2 Ml Vial) 4 mg IVPUSH Q8H PRN PRN Reason: Nausea and Vomiting Pharmacy Consult (Consult Rx Perform Med Rec) 1 each MISCELLANE ONCE PRN PRN Reason: Consult order Senna (Sennosides 8.6 Mg Tablet) 8.6 mg PO DAILY PRN PRN Reason: Constipation Sodium Biphosphate/Sodium Phosphate (Sodium Phosphate,[place]-Dibasic 133 Ml Enema) 133 ml HI ONCE ONE Stop: 10/12/22 11:07 Sodium Chloride (0.9 % Sodium Chloride Flush 3 Ml Syringe) 3 ml IVFLUSH QSHIFT [facility] Last Admin: 10/12/22 08:42 Dose: 3 ml Documented By: OSBALDO Tramadol HCl (Tramadol Hcl 50 Mg Tablet) 50 mg PO TID [facility] Last Admin: 10/12/22 08:41 Dose: 50 mg Documented By: OSBALDO Labs 10/12/22 05:34 10/12/22 05:34 Labs: Laboratory Results - last 24 hr 10/11/22 10/12/22 10/12/22 12:11 05:34 05:34 MCV 89.1 MCH 28.6 MCHC 32.1 RDW 13.8 Plt Count 299 MPV 9.9 Absolute Nucleated RBC 0.000 Nucleated RBC % (auto) 0.0 Anion Gap 17 Estim Creat Clear Calc 179.4 Estimated GFR > 60 Random Glucose 140 H Calcium 8.9 D Urine Color Dark Yellow Urine Appearance Clear Urine pH 6.0 Ur Specific [place] >= 1.030 H Urine Protein 100 (2+) H Urine Glucose (UA) Negative Urine Ketones 15 Urine Blood Negative Urine Nitrite Negative Ur Leukocyte Esterase Negative Urine RBC 3-5 H Urine WBC 0-5 Ur Squamous Epith Cells 0-2 Calcium Oxalate Crystal Present Other Crystals Present Urine Bacteria None Seen Hyaline Casts 0-2 Microbiology Microbiology Results: Microbiology 10/11/22 07:44 Blood Culture - Final Blood - Venous 10/11/22 07:44 Blood Culture - Final Blood - Venous Assessment and Plan (1) Fecal impaction: Status: Acute (2) COPD exacerbation: Status: Acute Plan This is a 52-year-old to [facility] resident with history of stroke, mood disorder, dysarthria, COPD, hypertension, who presents to the emergency department with multiple episodes of vomiting found to have fecal impaction and hypoxia acute respiratory failure with hypoxia sepsis secondary to acute COPD exacerbation and suspected aspiration pneumonia in setting of vomiting met sirs criteria with leukocytosis and tachycardia, no severe features. LA normal. Received IVF in ED, blood cultures pending - scheduled and as needed breathing treatments - systemic steroids - IV Unasyn - supplemental oxygen, wean as tolerated abdominal distention/Fecal impaction - abdomen persistently distended, reporting ongoing abdominal pain manual disimpaction attempted in ED, unable to tolerate CT abdomen - no obstruction, inflammatory change or performation, eriumbilical hernia without inflammatory or ischemic change hold senna/colace until able to move bowels -repeat fleet enema -surgical consult pending N/V - resolved LLL lung nodule 1.0cm recommend repeat CT in 3 months gerd continue prilosec HTN continue lisinopril, lopressor, norvasc HLD continue statin Morid obesity bmi 41.5 r/t excess calories dvt ppx - lovenox Code status - full code Attending - Dr. Dorado dispo - back to [facility] when medically stable Requires ongoing inpatient hospitalization for management of constipation, abdominal pain and aspiration pneumonia Time Spent With Patient Time: Total time managing care of this patient today ____ minutes. Quality Stroke Does the patient have a stroke diagnosis?: No VTE Prior VTE?: No VTE Risk Level:: Medical - moderate - high VTE Device Contraindication: N/A - Device Ordered VTE Drug Contraindication: N/A - Med Ordered
[2022-10-12 11:31] LABS: Magnesium 2.2 mg/dL (1.6-2.6); Phosphorus 2.6 mg/dL (2.7-4.5)
[2022-10-12] MEDS: Sodium Phosphate,Mono-Dibasic 133 ML ENEMA PR (13:47)
[2022-10-12] MEDS: Enoxaparin Sodium 40 MG/0.4 ML SYRINGE SUBCUT (14:17)
--- NOTE | 2022-10-12 16:35 | P.CONGS_ITS ---
History of Present Illness Consult details Consult date: 10/12/22 Requesting physician: Jackie Judge Narrative: 52 year old male from [facility] brought to the ER due to nausea dn vomiting and hypoxia - in ER noted to be very distended and CTscan showed fecal impaction and idlated with gas and stool colon. partial disimpaction carried out and pt admitted-? aspiration pneumonia from vomiting. Here fleet done with some results. Pt still complaining of abdominal discomfort. Review of Systems Review of Systems: Yes Unobtainable due to mental condition PMFSH Past Medical History Medical History (Updated 10/12/22 @ 11:23 by LINDA Knight) COPD (chronic obstructive pulmonary disease) Dementia Dysarthria HTN (hypertension) Mood disorder Obesity Osteoarthritis Functional capacity: wheelchair bound Social History Social History (Updated 10/11/22 @ 13:37 by LINDA Knight) Household Members: Other Housing: [facility] Do you presently have visiting nurse or other home services: Yes Alcohol intake: never Patient Tobacco Use Status: Former Tobacco user Use of substances other than those prescribed or required for medical reasons: No Currently Displaying Signs/Symptoms of Drug Intoxication Withdrawal: No Have you been hit, kicked, punched, or otherwise hurt by someone within the past year? If so, by whom?: No Do you feel safe in your current relationship?: No Current Relationship Is there a partner from a previous relationship who is making you feel unsafe now?: No Are you made to feel afraid or neglected: No Advance Directives: No Advance Directives Information Provided: Yes Do you have thoughts of harming others: None Do you have a plan to hurt others: No Plan Recently lost weight without trying: No Eating poorly because of decreased appetite: No service: No Current occupational status: disabled Meds Allergies Allergy/AdvReac Type Severity Reaction Status Date / Time No Known Allergies Allergy Unverified 05/17/20 16:35 Active Medications: Current Medications Acetaminophen (Acetaminophen 325 Mg Tablet) 650 mg PO Q6H PRN PRN Reason: Pain, Mild (Pain Scale 1-3) Al Hydroxide/Mg Hydroxide (Magnesium Hydrox/Alum Hydrox 30 Ml Oral.Susp) 30 ml PO Q4H PRN PRN Reason: GI upset Albuterol/Ipratropium (Albuterol/Iprat 2.5/0.5mg 3 Ml Ampul.Neb) 3 ml INHALE RQ6H WHILE AWAKE [facility] Last Admin: 10/12/22 14:35 Dose: Not Given Amlodipine Besylate (Amlodipine Besylate 10 Mg Tablet) 10 mg PO DAILY [facility]; Protocol Last Admin: 10/12/22 08:40 Dose: 10 mg Atorvastatin Calcium (Atorvastatin Calcium 10 Mg Tablet) 10 mg PO BEDTIME [facility] Last Admin: 10/11/22 20:53 Dose: 10 mg Bisacodyl (Bisacodyl 10 Mg Supp.Rect) 10 mg AR DAILY PRN PRN Reason: Constipation Docusate Sodium (Docusate Sodium 100 Mg Capsule) 100 mg PO BEDTIME [facility] Last Admin: 10/11/22 20:53 Dose: 100 mg Enoxaparin Sodium (Enoxaparin Sodium 40 Mg/0.4 Ml Syringe) 40 mg SUBCUT Q24H [facility] Last Admin: 10/12/22 14:17 Dose: 40 mg Fluticasone/Vilanterol (Fluticasone/Vilanterol 100/25 Blst.W.Dev) 1 puff INHALE RDAILY [facility] Last Admin: 10/12/22 07:46 Dose: Not Given Guaifenesin (Guaifenesin 100 Mg/5 Ml Liquid) 10 ml PO Q4H PRN PRN Reason: Cough Last Admin: 10/12/22 02:25 Dose: 10 ml Ampicillin Sodium/Sulbactam (Sodium 1.5 gm/ Sodium Chloride) 100 mls @ 200 mls/hr IV Q6H [facility] Last Infusion: 10/12/22 15:20 Dose: Infused Levalbuterol HCl (Levalbuterol Hcl 1.25 Mg/0.5 Ml Vial.Neb) 1.25 mg INHALE RQ4H PRN PRN Reason: Shortness of Breath Lisinopril (Lisinopril 40 Mg Tablet) 40 mg PO DAILY [facility]; Protocol Last Admin: 10/12/22 08:40 Dose: 40 mg Methylprednisolone Sodium Succinate (Methylprednisolone Sod Succ 40 Mg/Ml Vial) 40 mg IVPUSH Q12H [facility] Last Admin: 10/12/22 14:18 Dose: 40 mg Metoprolol Tartrate (Metoprolol Tartrate 50 Mg Tablet) 50 mg PO BID [facility]; Protocol Last Admin: 10/12/22 08:41 Dose: 50 mg Olanzapine (Olanzapine 7.5 Mg Tablet) 7.5 mg PO BEDTIME [facility] Last Admin: 10/11/22 20:53 Dose: 7.5 mg Omeprazole (Omeprazole 20 Mg Capsule.Dr) 20 mg PO DAILY@0630 [facility] Last Admin: 10/12/22 06:19 Dose: Not Given Ondansetron HCl (Ondansetron Hcl 4 Mg/2 Ml Vial) 4 mg IVPUSH Q8H PRN PRN Reason: Nausea and Vomiting Pharmacy Consult (Consult Rx Perform Med Rec) 1 each MISCELLANE ONCE PRN PRN Reason: Consult order Senna (Sennosides 8.6 Mg Tablet) 8.6 mg PO DAILY PRN PRN Reason: Constipation Sodium Chloride (0.9 % Sodium Chloride Flush 3 Ml Syringe) 3 ml IVFLUSH QSHIFT [facility] Last Admin: 10/12/22 08:42 Dose: 3 ml Tramadol HCl (Tramadol Hcl 50 Mg Tablet) 50 mg PO TID [facility] Last Admin: 10/12/22 14:23 Dose: Not Given Home Medications Medication Instructions Recorded Confirmed Last Taken Type acetaminophen 325 mg tablet 650 mg PO Q4H PRN Fever Or Pain 10/11/22 10/11/22 Unknown History aluminum-mag hydroxide-simethicone 30 ml PO Q4H PRN GI upset 10/11/22 10/11/22 Unknown History 200 mg-200 mg-20 mg/5 mL oral susp amlodipine 10 mg tablet 10 mg PO DAILY 10/11/22 10/11/22 Unknown History aspirin 81 mg tablet,delayed 81 mg PO DAILY 10/11/22 10/11/22 Unknown History release atorvastatin 10 mg tablet 10 mg PO BEDTIME 10/11/22 10/11/22 Unknown History bisacodyl 10 mg rectal suppository 10 mg AR DAILY PRN Constipation 10/11/22 10/11/22 Unknown History (Dulcolax (bisacodyl)) chlorhexidine gluconate 4 % 1 appl topical MOWEFR@1500 10/11/22 10/11/22 Unknown History topical liquid (Hibiclens) dimethicone 1 % topical cream 1 appl topical QID PRN skin 10/11/22 10/11/22 Unknown History breakdown docusate sodium 100 mg capsule 100 mg PO BEDTIME 10/11/22 10/11/22 Unknown History fluticasone furoate 100 1 inh inhalation DAILY 10/11/22 10/11/22 Unknown History mcg-vilanterol 25 mcg/dose inhalation powder (Breo Ellipta) guaifenesin 100 mg/5 mL oral liquid 200 mg PO Q4H PRN Cough 10/11/22 10/11/22 Unknown History ibuprofen 800 mg tablet 800 mg PO BID 10/11/22 10/11/22 Unknown History lisinopril 40 mg tablet 40 mg PO DAILY 10/11/22 10/11/22 Unknown History loperamide 2 mg capsule 2 mg PO Q2H PRN Loose Stool 10/11/22 10/11/22 Unknown History loperamide 2 mg capsule 4 mg PO Q24H PRN Loose Stool 10/11/22 10/11/22 Unknown History metoprolol tartrate 50 mg tablet 50 mg PO BID 10/11/22 10/11/22 Unknown History multivitamin 1 tab PO DAILY 10/11/22 10/11/22 Unknown History naloxone 4 mg/actuation nasal 4 mg intranasal Q3M PRN Opioid 10/11/22 10/11/22 Unknown History spray (Narcan) Overdose olanzapine 7.5 mg tablet 7.5 mg PO BEDTIME 10/11/22 10/11/22 Unknown History omeprazole 20 mg capsule,delayed 20 mg PO DAILY@0630 10/11/22 10/11/22 Unknown H istory release sennosides 8.6 mg tablet (senna) 8.6 mg PO DAILY PRN Constipation 10/11/22 Unknown History sodium phosphates 19 gram-7 118 ml AR DAILY PRN Constipation 10/11/22 10/11/22 Unknown History gram/118 mL enema (Fleet Enema) tramadol 50 mg tablet 50 mg PO TID 10/11/22 10/11/22 Unknown History turmeric 400 mg capsule 500 mg PO BID 10/11/22 10/11/22 Unknown History Physical Exam Vital Signs: Vital Signs: Last Vital Signs Temp 99.0 F 10/12/22 16:00 Pulse 86 10/12/22 16:00 Resp 20 10/12/22 16:00 BP 133/69 10/12/22 16:00 Pulse Ox 96 10/12/22 16:00 O2 Del Method 10/12/22 16:00 O2 Flow Rate 2 10/12/22 16:00 Oxygen Flow Rate 2 10/11/22 03:31 BMI result Body Mass Index 41.5 Const: Nutritional Appearance: obese GI: Other: abdomen very obese soft but distended, nontender to palpation with no guarding or rebound or peritoneal signs. hypo bowel sounds. firm fat in incarcerated hernia but not tender Results Labs 10/12/22 05:34 10/12/22 05:34 Labs: Abnormal lab results 10/12/22 10/12/22 Range/Units 05:34 05:34 WBC 14.7 H (4.8-10.8) X10*3/uL RBC 4.51 L (4.60-5.80) X10*6/uL Hgb 12.9 L (14.0-18.0) g/dl Hct 40.2 L (42.0-52.0) % BUN 21 H (9-16) mg/dL Random Glucose 140 H (60-115) mg/dL Phosphorus 2.6 L (2.7-4.5) mg/dL Short CBC 10/12/22 Range/Units 05:34 WBC 14.7 H (4.8-10.8) X10*3/uL Hgb 12.9 L (14.0-18.0) g/dl Hct 40.2 L (42.0-52.0) % Plt Count 299 (160-400) X10*3/uL BMP 10/12/22 05:34 Sodium 141 Potassium 4.6 Chloride 104 Carbon Dioxide 25 BUN 21 H Creatinine 0.66 Calcium 8.9 D Urine 10/11/22 Range/Units 12:11 Urine Color Dark Yellow Urine Appearance Clear Urine pH 6.0 (5.0-9.0) Ur Specific [place] >= 1.030 H (1.005-1.025) Urine Protein 100 (2+) H (Neg-Trace) mg/dL Urine Glucose (UA) Negative (Negative) mg/dL All other labs normal. Imaging Abdomen CT scan report/results: report reviewed and image reviewed CT scan - pelvis: report reviewed and image reviewed Assessment and Plan (1) Fecal impaction: Status: Acute Plan 52 year old male with abdo pain prob secondary to semi colonic obstruction due to fecal impaction - digital rectal in ER and several fleet enemas to move things from below. if things improve moving below consider a mag citrate. pt may also have some degree of lisa syndrome where the colon is not con tracting well and distending especially the right side and now has pain - plan to correct electrolytes, ambulate and move as much as possible at some time consider cscope to rule out pathology in colon/rectum but CT scan doesnt seem to show this too much GI consult if not improving no surgical issues at this poing. Time Spent With Patient Time: Total time managing care of this patient today ____ minutes. Procedures Date of Service Date of Service: 10/12/22
[2022-10-12] MEDS: Albuterol/Iprat 2.5/0.5MG 3 ML AMPUL.NEB INHALE (19:19)
[2022-10-12] MEDS: OLANZapine 7.5 MG TABLET PO (21:04)
[2022-10-12] MEDS: Atorvastatin Calcium 10 MG TABLET PO (21:05)
[2022-10-12] MEDS: Acetaminophen 325 MG TABLET 650 MG PO (22:35)
[2022-10-13] VITALS (7 sets, daily range): BP systolic 120–144; BP diastolic 59–83; PULSE 82–97; RESP 15–20; TEMP 36–37.1; O2SAT 94–98
[2022-10-13] MEDS: ondansetron HCL 4 MG/2 ML VIAL IVPUSH (00:26)
[2022-10-13] MEDS: methylPREDNISolone Sod Succ 40 MG/ML VIAL IVPUSH ×2 (01:59→14:26)
[2022-10-13] MEDS: Ampicillin Sodium/Sulbactam Na 1.5 GM in 0.9 % Sodium Chloride 100 ML IV ×4 (02:01→21:15)
[2022-10-13] MEDS: Albuterol/Iprat 2.5/0.5MG 3 ML AMPUL.NEB INHALE ×2 (07:30→14:01)
[2022-10-13] MEDS: Fluticasone/Vilanterol 100/25 BLST.W.DEV 1 PUFF INHALE (07:30)
[2022-10-13] MEDS: amLODIPine Besylate 10 MG TABLET PO (09:06)
[2022-10-13] MEDS: traMADoL HCL 50 MG TABLET PO ×3 (09:06→21:34)
[2022-10-13] MEDS: lisinopriL 40 MG TABLET PO (09:07)
[2022-10-13] MEDS: Metoprolol Tartrate 50 MG TABLET PO ×2 (09:07→21:36)
[2022-10-13] MEDS: 0.9 % Sodium Chloride Flush 3 ML SYRINGE IVFLUSH ×3 (09:08→21:15)
[2022-10-13] MEDS: Enoxaparin Sodium 40 MG/0.4 ML SYRINGE SUBCUT (14:26)
--- NOTE | 2022-10-13 15:15 | MHC.CM.PN ---
UPDATES SENT TO [facility] [place]
--- NOTE | 2022-10-13 15:28 | HO.PM.IMPN ---
Subjective Subjective Date of Service: 10/13/22 Interval History: seen and examined this morning follow up for aspiration pneumonia, constipation no overnight events documented still reporting abdominal distension/discomfort denies sob, cough Review of Systems Review of Systems: Yes all other systems are reviewed and are negative Constitutional Constitutional: Denies chills and Denies fever(s) Cardiovascular Cardiovascular: Denies chest pain, Denies palpitations and Denies dyspnea Respiratory Respiratory: Denies cough and Denies dyspnea Gastrointestinal Gastrointestinal: Reports abdominal pain and Denies vomiting Endocrine Endocrine: Denies palpitations Physical Exam Vital Signs: Vital Signs: Last Vital Signs Temp 98.8 F 10/13/22 11:42 Pulse 82 10/13/22 14:02 Resp 18 10/13/22 14:02 BP 120/59 L 10/13/22 11:42 Pulse Ox 98 10/13/22 11:42 O2 Del Method 10/13/22 11:42 O2 Flow Rate 3.0 10/13/22 11:42 Oxygen Flow Rate 2 10/11/22 03:31 BMI result Body Mass Index 41.5 Appearing in no acute distress lung sounds are clear to auscultation heart regular rate rhythm, clear S1, S2 positive bowel sounds, abdomen is soft, nontender neuro patient is alert, confused Objective Data Active Medications Acetaminophen (Acetaminophen 325 Mg Tablet) 650 mg PO Q6H PRN PRN Reason: Pain, Mild (Pain Scale 1-3) Last Admin: 10/12/22 22:35 Dose: 650 mg Documented By: SALVADOR Al Hydroxide/Mg Hydroxide (Magnesium Hydrox/Alum Hydrox 30 Ml Oral.Susp) 30 ml PO Q4H PRN PRN Reason: GI upset Albuterol/Ipratropium (Albuterol/Iprat 2.5/0.5mg 3 Ml Ampul.Neb) 3 ml INHALE RQ6H WHILE AWAKE [facility] Last Admin: 10/13/22 14:01 Dose: 3 ml Documented By: PARKER Amlodipine Besylate (Amlodipine Besylate 10 Mg Tablet) 10 mg PO DAILY [facility]; Protocol Last Admin: 10/13/22 09:06 Dose: 10 mg Documented By: SAVANNAH Atorvastatin Calcium (Atorvastatin Calcium 10 Mg Tablet) 10 mg PO BEDTIME [facility] Last Admin: 10/12/22 21:05 Dose: 10 mg Documented By: SALVADOR Bisacodyl (Bisacodyl 10 Mg Supp.Rect) 10 mg DC DAILY PRN PRN Reason: Constipation Docusate Sodium (Docusate Sodium 100 Mg Capsule) 100 mg PO BEDTIME [facility] Last Admin: 10/11/22 20:53 Dose: 100 mg Documented By: TERESITA Enoxaparin Sodium (Enoxaparin Sodium 40 Mg/0.4 Ml Syringe) 40 mg SUBCUT Q24H [facility] Last Admin: 10/13/22 14:26 Dose: 40 mg Documented By: SAVANNAH Fluticasone/Vilanterol (Fluticasone/Vilanterol 100/25 Blst.W.Dev) 1 puff INHALE RDAILY [facility] Last Admin: 10/13/22 07:30 Dose: 1 puff Documented By: PARKER Guaifenesin (Guaifenesin 100 Mg/5 Ml Liquid) 10 ml PO Q4H PRN PRN Reason: Cough Last Admin: 10/12/22 02:25 Dose: 10 ml Documented By: JOVANNY Ampicillin Sodium/Sulbactam (Sodium 1.5 gm/ Sodium Chloride) 100 mls @ 200 mls/hr IV Q6H [facility] Last Infusion: 10/13/22 15:07 Dose: 0 mls/hr Documented By: SAVANNAH Levalbuterol HCl (Levalbuterol Hcl 1.25 Mg/0.5 Ml Vial.Neb) 1.25 mg INHALE RQ4H PRN PRN Reason: Shortness of Breath Lisinopril (Lisinopril 40 Mg Tablet) 40 mg PO DAILY [facility]; Protocol Last Admin: 10/13/22 09:07 Dose: 40 mg Documented By: SAVANNAH Methylprednisolone Sodium Succinate (Methylprednisolone Sod Succ 40 Mg/Ml Vial) 40 mg IVPUSH Q12H [facility] Last Admin: 10/13/22 14:26 Dose: 40 mg Documented By: SAVANNAH Metoprolol Tartrate (Metoprolol Tartrate 50 Mg Tablet) 50 mg PO BID [facility]; Protocol Last Admin: 10/13/22 09:07 Dose: 50 mg Documented By: SAVANNAH Olanzapine (Olanzapine 7.5 Mg Tablet) 7.5 mg PO BEDTIME [facility] Last Admin: 10/12/22 21:04 Dose: 7.5 mg Documented By: SALVADOR Omeprazole (Omeprazole 20 Mg Capsule.) 20 mg PO DAILY@0630 [facility] Last Admin: 10/13/22 06:14 Dose: Not Given Documented By: SALVADOR Non-Admin Reason: Patient Refused Ondansetron HCl (Ondansetron Hcl 4 Mg/2 Ml Vial) 4 mg IVPUSH Q8H PRN PRN Reason: Nausea and Vomiting Last Admin: 10/13/22 00:26 Dose: 4 mg Documented By: SALVADOR Pharmacy Consult (Consult Rx Perform Med Rec) 1 each MISCELLANE ONCE PRN PRN Reason: Consult order Senna (Sennosides 8.6 Mg Tablet) 8.6 mg PO DAILY PRN PRN Reason: Constipation Sodium Chloride (0.9 % Sodium Chloride Flush 3 Ml Syringe) 3 ml IVFLUSH QSHIFT [facility] Last Admin: 10/13/22 09:08 Dose: 3 ml Documented By: SAVANNAH Tramadol HCl (Tramadol Hcl 50 Mg Tablet) 50 mg PO TID [facility] Last Admin: 10/13/22 14:25 Dose: 50 mg Documented By: SAVANNAH Labs 10/12/22 05:34 10/12/22 05:34 Microbiology Microbiology Results: Microbiology 10/11/22 10:45 Blood Culture - Preliminary Blood - Venous No growth after 48 hours. 10/11/22 10:51 Blood Culture - Preliminary Blood - Venous No growth after 48 hours. Assessment and Plan (1) Fecal impaction: Status: Acute (2) COPD exacerbation: Status: Acute Plan This is a 52-year-old to [facility] resident with history of stroke, mood disorder, dysarthria, COPD, hypertension, who presents to the emergency department with multiple episodes of vomiting found to have fecal impaction and hypoxia acute respiratory failure with hypoxia. Resolved sepsis secondary to acute COPD exacerbation and suspected aspiration pneumonia in setting of vomiting scheduled and as needed breathing treatments systemic steroids IV Unasyn supplemental oxygen, wean as tolerated blood cx neg abdominal distention/Fecal impaction - abdomen persistently distended, reporting ongoing abdominal pain manual disimpaction attempted in ED, unable to tolerate CT abdomen - no obstruction, inflammatory change or performation, periumbilical hernia without inflammatory or ischemic change hold senna/colace until able to move bowels repeat fleet enema surgical consult rec consider mag citrate if having bm, possible degree of lisa syndrome will consult GI N/V . resolved LLL lung nodule 1.0cm recommend repeat CT in 3 months gerd continue prilosec HTN continue lisinopril, lopressor, norvasc HLD continue statin Morid obesity bmi 41.5 Discussed importance of weight management as this may be contributing to worsening of other comorbidities dvt ppx - lovenox Code status - full code Attending - Dr. Jovel dispo - back to [facility] when medically stable Requires ongoing inpatient hospitalization for management of constipation, abdominal pain and aspiration pneumonia Time Spent With Patient Time: Total time managing care of this patient today ____ minutes. Quality Stroke Does the patient have a stroke diagnosis?: No VTE Prior VTE?: No VTE Risk Level:: Medical - moderate - high VTE Device Contraindication: N/A - Device Ordered VTE Drug Contraindication: N/A - Med Ordered
--- NOTE | 2022-10-13 17:11 | P.EN_ITS ---
Event Note Date of Service: 10/13/22 Event Note: GI Consult-Full note dictated-History from EMR and his RN Imp: I suspect he has a chronic component of constipation with some recent worsening of symptoms. His CT from 10/11 did not show any definitive obstruction nor significant dilation of the colon. His abdominal exam is presently somewhat distended, but it is soft, NT, with some BS, and nontympanitic. Rec: Attempt some bowel clean out. Start Miralax Q 4 hours through tomorrow. Give a couple of Fleets enemas. Check TFT's, lytes, Magnesium level. Avoid narcotics and any other meds that will inhibit GI tract motility. Maximize mobility with OOB and walking if feasible. Full liquids for now. Repeat CT of a bdomen tomorrow to reassess GI tract...I suspect a KUB/Upright might be suboptimal given his size and limited mobility. If question of fecal impaction remains he would need a repeat surgical consult to reassess for disimpaction under anesthesia. Thanks Time Spent With Patient Time: Total time managing care of this patient today ____ minutes.
[2022-10-13] MEDS: polyethylene glycoL 3350 17 GM POWD.PACK PO ×2 (17:50→21:35)
[2022-10-13] MEDS: Mineral OiL enema 133 ML ENEMA PR (18:25)
[2022-10-13] MEDS: Docusate Sodium 100 MG CAPSULE PO (21:34)
[2022-10-13] MEDS: OLANZapine 7.5 MG TABLET PO (21:34)
[2022-10-13] MEDS: Atorvastatin Calcium 10 MG TABLET PO (21:35)
[2022-10-13] MEDS: Sennosides 8.6 MG TABLET PO (21:35)
[2022-10-14] VITALS (10 sets, daily range): BP systolic 115–140; BP diastolic 55–67; PULSE 69–99; RESP 18–20; TEMP 36–37; O2SAT 91–97
[2022-10-14] MEDS: methylPREDNISolone Sod Succ 40 MG/ML VIAL IVPUSH ×2 (02:39→14:21)
[2022-10-14] MEDS: Ampicillin Sodium/Sulbactam Na 1.5 GM in 0.9 % Sodium Chloride 100 ML IV ×4 (02:42→20:15)
--- NOTE | 2022-10-14 02:54 | CONS_ITS ---
DATE OF SERVICE: 10/13/2022 REASON FOR CONSULTATION: Constipation and reported fecal impaction on CT scan. HISTORY OF PRESENT ILLNESS: This has been obtained from the medical record and the patient's nurse. The patient is a 52-year-old male transferred to the hospital from [facility] on October 11 due to vomiting. He apparently developed some abdominal discomfort and vomiting at the facility and was transferred to the ER. There was no report of any bleeding. He was noted to have some abdominal distention and CT scan consistent with possible fecal impaction. He was subsequently admitted. He has not had any further vomiting. Apparently, manual disimpaction was attempted in the ER, but without any success as he was unable to tolerate it. He has received at least one enema here, but without much relief. Today, there has been no vomiting. He apparently had at least one sandwich and did okay with that. I discussed things with him today, in which the conversation was very limited, He denies any ongoing abdominal pain. His medications at the [facility] included acetaminophen, amlodipine, aspirin, atorvastatin, Dulcolax suppository p.r.n., Colace at bedtime, ibuprofen, lisinopril, loperamide p.r.n., metoprolol, vitamins, olanzapine, omeprazole, Senokot, Fleet enema p.r.n., Tramadol, and turmeric. His current medications here in the hospital include amlodipine, Unasyn IV, atorvastatin, Dulcolax suppository p.r.n., Colace 100 mg at bedtime, Lovenox, lisinopril, methylprednisolone 40 mg IV q.12 hours, metoprolol, Zyprexa, omeprazole, Zofran p.r.n., Senokot p.r.n., tramadol. PAST MEDICAL HISTORY: COPD, dementia, dysarthria, hypertension, mood disorder, obesity, arthritis, and umbilical hernia. SOCIAL HISTORY: He lives at the [facility]. He presently does not smoke nor use alcohol REVIEW OF SYSTEMS: Currently not obtainable. PHYSICAL EXAMINATION: GENERAL: The patient is alert male, in no distress. SKIN: Warm and dry. HEENT: Anicteric sclerae. NECK: Supple. CARDIAC: Normal S1 and S2. ABDOMEN: Soft and slightly distended. There are faint bowel sounds diffusely. There is no focal mass, rebound, guarding or tenderness. It is not tympanitic. LABORATORIES: Abdominal and pelvic CT scan on admission described stool in the rectum.There was some prominent air and stool in the colon proximal to that. There was no bowel wall thickening nor inflammatory changes. The small bowel appeared fairly normal without any significant signs of obstruction. There was no sign of any acute intra-abdominal inflammation nor free air. There was a fat containing periumbilical hernia without any associated inflammatory or ischemic changes. Kidney stones were noted as well. White blood cell count 21.6 on admission and 14.7 yesterday. Hemoglobin 12.9. Normal electrolytes. BUN 21, creatinine 0.7. Calcium 8.9, phosphorus 2.6, magnesium 2.2, and normal LFTs. Albumin 4.6, lipase 18. IMPRESSION: Given the patient's clinical history, I suspect we are dealing with some component of relatively chronic constipation given his medical history and relative immobility. It appears that he has had some worsening of his condition, based on the CT scan and his presentation with some vomiting. At the present time, his abdominal exam is slightly distended, but is otherwise benign. At this point, I think it would be important to attempt some bowel clean out to at least some degree. As such, I shall change his bowel regimen to include MiraLAX every four hours through at least tomorrow, I have ordered at least 1 Fleet enema. I would make his Colace and Senokot a standing order. I would try to maximize mobility if he is able to get out of bed and ambulate. I would just keep him on full liquids for now. I would check laboratories tomorrow including thyroid studies, electrolytes and repeat magnesium. I have ordered a repeat CT tomorrow as well to reassess the fecal impaction possibility to rule out any worsening of his proximl bowel dilatation. I think an abdominal x-ray would be suboptimal given his size and limited mobility. I do not think he need any type of endoscopic evaluation at this time. If the question of fecal impaction remains he may need a repeat surgical consultation to reassess for disimpaction under anesthesia. Thank you for this consultation. MD JODIE Trotter/BINDU / [phone] [place]
[2022-10-14] MEDS: Omeprazole 20 MG CAPSULE.DR PO (06:10)
[2022-10-14] MEDS: polyethylene glycoL 3350 17 GM POWD.PACK PO ×5 (06:10→20:15)
[2022-10-14 06:16] LABS: Hematocrit 39.8 % (42.0-52.0); Hemoglobin 12.5 g/dl (14.0-18.0); Mean Corpuscular HGB Conc 31.4 g/dl (31.0-36.0); Mean Corpuscular Hemoglobin 28.5 pg (27.0-33.0); Mean Corpuscular Volume 90.7 fL (80.0-98.0); Mean Platelet Volume 10.4 fL (9.4-12.4); Platelet Count 256 X10*3/uL (160-400); Red Blood Count 4.39 X10*6/uL (4.60-5.80); Red Cell Distribution Width 13.3 % (11.0-16.0); White Blood Count 11.9 X10*3/uL (4.8-10.8)
[2022-10-14 06:36] LABS: Anion Gap 11 (12-20); Blood Urea Nitrogen 24 mg/dL (9-16); Calcium 8.5 mg/dL (8.4-10.2); Carbon Dioxide 30 mmol/L (22-29); Chloride 101 mmol/L (96-108); Creatinine Clr Calc Pharmacy 185.1; Estimated Glomerular Filt Rate > 60; Glucose Random 132 mg/dL (60-115); Potassium 5.1 mmol/L (3.3-5.1); Sodium 137 mmol/L (135-145)
[2022-10-14 06:43] LABS: Magnesium 2.3 mg/dL (1.6-2.6)
[2022-10-14 06:58] LABS: Free T4 (Free Thyroxine) 1.07 ng/dL (0.71-1.85); Thyroid Stimulating Hormone 0.56 uIU/mL (0.32-4.0)
[2022-10-14] MEDS: Albuterol/Iprat 2.5/0.5MG 3 ML AMPUL.NEB INHALE ×3 (08:57→21:17)
[2022-10-14] MEDS: Fluticasone/Vilanterol 100/25 BLST.W.DEV 1 PUFF INHALE (08:57)
[2022-10-14] MEDS: lisinopriL 40 MG TABLET PO (09:12)
[2022-10-14] MEDS: traMADoL HCL 50 MG TABLET PO ×3 (09:12→20:15)
[2022-10-14] MEDS: Sennosides 8.6 MG TABLET PO ×2 (09:12→20:15)
[2022-10-14] MEDS: Metoprolol Tartrate 50 MG TABLET PO ×2 (09:12→20:16)
[2022-10-14] MEDS: Docusate Sodium 100 MG CAPSULE PO (09:12)
[2022-10-14] MEDS: amLODIPine Besylate 10 MG TABLET PO (09:13)
[2022-10-14] MEDS: 0.9 % Sodium Chloride Flush 3 ML SYRINGE IVFLUSH ×2 (09:13→20:17)
--- NOTE | 2022-10-14 11:33 | HO.PM.IMPN ---
Subjective Subjective Date of Service: 10/14/22 Interval History: seen and examined this morning follow up for aspiration pneumonia, constipation no overnight events documented still reporting abdominal distension/discomfort denies sob, cough Review of Systems Review of Systems: Yes all other systems are reviewed and are negative Constitutional Constitutional: Denies chills and Denies fever(s) Cardiovascular Cardiovascular: Denies chest pain, Denies palpitations and Denies dyspnea Respiratory Respiratory: Denies cough and Denies dyspnea Gastrointestinal Gastrointestinal: Reports abdominal pain and Denies vomiting Endocrine Endocrine: Denies palpitations Physical Exam Vital Signs: Vital Signs: Last Vital Signs Temp 98.1 F 10/14/22 08:00 Pulse 71 10/14/22 08:57 Resp 18 10/14/22 08:57 BP 115/58 L 10/14/22 08:00 Pulse Ox 96 10/14/22 08:00 O2 Del Method 10/14/22 08:00 O2 Flow Rate 2 10/14/22 08:00 Oxygen Flow Rate 2 10/11/22 03:31 BMI result Body Mass Index 41.5 Appearing in no acute distress lung sounds are clear to auscultation heart regular rate rhythm, clear S1, S2 positive bowel sounds, abdomen is soft, nontender neuro patient is alert x3, no focal deficits Objective Data Active Medications Acetaminophen (Acetaminophen 325 Mg Tablet) 650 mg PO Q6H PRN PRN Reason: Pain, Mild (Pain Scale 1-3) Last Admin: 10/12/22 22:35 Dose: 650 mg Documented By: SALVADOR Al Hydroxide/Mg Hydroxide (Magnesium Hydrox/Alum Hydrox 30 Ml Oral.Susp) 30 ml PO Q4H PRN PRN Reason: GI upset Albuterol/Ipratropium (Albuterol/Iprat 2.5/0.5mg 3 Ml Ampul.Neb) 3 ml INHALE RQ6H WHILE AWAKE [facility] Last Admin: 10/14/22 08:57 Dose: 3 ml Documented By: THAI Amlodipine Besylate (Amlodipine Besylate 10 Mg Tablet) 10 mg PO DAILY [facility]; Protocol Last Admin: 10/14/22 09:13 Dose: 10 mg Documented By: OKSANA Atorvastatin Calcium (Atorvastatin Calcium 10 Mg Tablet) 10 mg PO BEDTIME [facility] Last Admin: 10/13/22 21:35 Dose: 10 mg Documented By: SALVADOR Bisacodyl (Bisacodyl 10 Mg Supp.Rect) 10 mg ME DAILY PRN PRN Reason: Constipation Docusate Sodium (Docusate Sodium 100 Mg Capsule) 100 mg PO BID@0830,2030 [facility] Last Admin: 10/14/22 09:12 Dose: 100 mg Documented By: OKSANA Enoxaparin Sodium (Enoxaparin Sodium 40 Mg/0.4 Ml Syringe) 40 mg SUBCUT Q24H [facility] Last Admin: 10/13/22 14:26 Dose: 40 mg Documented By: SAVANNAH Fluticasone/Vilanterol (Fluticasone/Vilanterol 100/25 Blst.W.Dev) 1 puff INHALE RDAILY [facility] Last Admin: 10/14/22 08:57 Dose: 1 puff Documented By: THAI Guaifenesin (Guaifenesin 100 Mg/5 Ml Liquid) 10 ml PO Q4H PRN PRN Reason: Cough Last Admin: 10/12/22 02:25 Dose: 10 ml Documented By: JOVANNY Ampicillin Sodium/Sulbactam (Sodium 1.5 gm/ Sodium Chloride) 100 mls @ 200 mls/hr IV Q6H [facility] Last Infusion: 10/14/22 10:35 Dose: 0 mls/hr Documented By: OKSANA Levalbuterol HCl (Levalbuterol Hcl 1.25 Mg/0.5 Ml Vial.Neb) 1.25 mg INHALE RQ4H PRN PRN Reason: Shortness of Breath Lisinopril (Lisinopril 40 Mg Tablet) 40 mg PO DAILY [facility]; Protocol Last Admin: 10/14/22 09:12 Dose: 40 mg Documented By: OKSANA Methylprednisolone Sodium Succinate (Methylprednisolone Sod Succ 40 Mg/Ml Vial) 40 mg IVPUSH Q12H [facility] Last Admin: 10/14/22 02:39 Dose: 40 mg Documented By: SALVADOR Metoprolol Tartrate (Metoprolol Tartrate 50 Mg Tablet) 50 mg PO BID [facility]; Protocol Last Admin: 10/14/22 09:12 Dose: 50 mg Documented By: OKSANA Olanzapine (Olanzapine 7.5 Mg Tablet) 7.5 mg PO BEDTIME [facility] Last Admin: 10/13/22 21:34 Dose: 7.5 mg Documented By: SALVADOR Omeprazole (Omeprazole 20 Mg Capsule.) 20 mg PO DAILY@0630 [facility] Last Admin: 10/14/22 06:10 Dose: 20 mg Documented By: SALVADOR Ondansetron HCl (Ondansetron Hcl 4 Mg/2 Ml Vial) 4 mg IVPUSH Q8H PRN PRN Reason: Nausea and Vomiting Last Admin: 10/13/22 00:26 Dose: 4 mg Documented By: SALVADOR Pharmacy Consult (Consult Rx Perform Med Rec) 1 each MISCELLANE ONCE PRN PRN Reason: Consult order Polyethylene Glycol (Polyethylene Glycol 3350 17 Gm Powd.Pack) 17 gm PO Q4H [facility] Last Admin: 10/14/22 09:13 Dose: 17 gm Documented By: OKSANA Senna (Sennosides 8.6 Mg Tablet) 8.6 mg PO BID [facility] Last Admin: 10/14/22 09:12 Dose: 8.6 mg Documented By: OKSANA Sodium Chloride (0.9 % Sodium Chloride Flush 3 Ml Syringe) 3 ml IVFLUSH QSHIFT [facility] Last Admin: 10/14/22 09:13 Dose: 3 ml Documented By: OKSANA Tramadol HCl (Tramadol Hcl 50 Mg Tablet) 50 mg PO TID [facility] Last Admin: 10/14/22 09:12 Dose: 50 mg Documented By: OKSANA Labs 10/14/22 05:51 10/14/22 05:51 Labs: Laboratory Results - last 24 hr 10/14/22 10/14/22 10/14/22 05:51 05:51 05:51 MCV 90.7 MCH 28.5 MCHC 31.4 RDW 13.3 Plt Count 256 MPV 10.4 Absolute Nucleated RBC 0.000 Nucleated RBC % (auto) 0.0 Anion Gap 11 L Estim Creat Clear Calc 185.1 Estimated GFR > 60 Random Glucose 132 H Calcium 8.5 Magnesium 2.3 TSH 0.56 Free T4 1.07 Microbiology Microbiology Results: Microbiology 10/11/22 10:45 Blood Culture - Preliminary Blood - Venous No growth after 48 hours. 10/11/22 10:51 Blood Culture - Preliminary Blood - Venous No growth after 48 hours. Assessment and Plan (1) Fecal impaction: Status: Acute (2) COPD exacerbation: Status: Acute Plan This is a 52-year-old to [facility] resident with history of stroke, mood disorder, dysarthria, COPD, hypertension, who presents to the emergency department with multiple episodes of vomiting found to have fecal impaction and hypoxia acute respiratory failure with hypoxia. Resolved sepsis secondary to acute COPD exacerbation and suspected aspiration pneumonia in setting of vomiting scheduled and as needed breathing treatments systemic steroids IV Unasyn supplemental oxygen, wean as tolerated blood cx neg abdominal distention/Fecal impaction - abdomen persistently distended, reporting ongoing abdominal pain manual disimpaction attempted in ED, unable to tolerate CT abdomen - no obstruction, inflammatory change or performation, periumbilical hernia without inflammatory or ischemic change surgical consult rec consider mag citrate if having bm, possible degree of lisa syndrome GI rec aggresive bowel reg with miralax Q4, nicolas and colace as well as fleets repeat Abd CT pending, if continued stool burden reconsult gen surg N/V . resolved LLL lung nodule 1.0cm recommend repeat CT in 3 months gerd continue prilosec HTN continue lisinopril, lopressor, norvasc HLD continue statin Morid obesity bmi 41.5 Discussed importance of weight management as this may be contributing to worsening of other comorbidities dvt ppx - lovenox Code status - full code Attending - Dr. Jovel dispo - back to [facility] when medically stable Requires ongoing inpatient hospitalization for management of constipation, abdominal pain and aspiration pneumonia Time Spent With Patient Time: Total time managing care of this patient today ____ minutes. Quality Stroke Does the patient have a stroke diagnosis?: No VTE Prior VTE?: No VTE Risk Level:: Medical - moderate - high VTE Device Contraindication: N/A - Device Ordered VTE Drug Contraindication: N/A - Med Ordered
[2022-10-14] MEDS: Enoxaparin Sodium 40 MG/0.4 ML SYRINGE SUBCUT (14:21)
[2022-10-14] MEDS: Magnesium Hydrox/Alum Hydrox 30 ML ORAL.SUSP PO (15:37)
[2022-10-14] MEDS: Acetaminophen 325 MG TABLET 650 MG PO (15:38)
--- NOTE | 2022-10-14 16:02 | MHC.CM.PN ---
PATIENT IS STILL IMPACTED. NO PLAN FOR DISCHARGE TODAY
[2022-10-14] MEDS: Atorvastatin Calcium 10 MG TABLET PO (20:15)
[2022-10-14] MEDS: OLANZapine 7.5 MG TABLET PO (20:16)
[2022-10-15] VITALS (8 sets, daily range): BP systolic 127–164; BP diastolic 65–80; PULSE 84–97; RESP 16–20; TEMP 36–36.9; O2SAT 92–95
[2022-10-15] MEDS: Ampicillin Sodium/Sulbactam Na 1.5 GM in 0.9 % Sodium Chloride 100 ML IV ×4 (03:32→20:34)
[2022-10-15] MEDS: methylPREDNISolone Sod Succ 40 MG/ML VIAL IVPUSH (03:32)
[2022-10-15] MEDS: polyethylene glycoL 3350 17 GM POWD.PACK PO ×5 (05:55→20:53)
[2022-10-15] MEDS: Omeprazole 20 MG CAPSULE.DR PO (05:55)
[2022-10-15] MEDS: Acetaminophen 325 MG TABLET 650 MG PO (06:28)
[2022-10-15 06:58] LABS: Anion Gap 11 (12-20); Blood Urea Nitrogen 16 mg/dL (9-16); Calcium 8.6 mg/dL (8.4-10.2); Carbon Dioxide 29 mmol/L (22-29); Chloride 101 mmol/L (96-108); Creatinine Clr Calc Pharmacy 171.6; Estimated Glomerular Filt Rate > 60; Glucose Random 123 mg/dL (60-115); Potassium 4.9 mmol/L (3.3-5.1); Sodium 136 mmol/L (135-145)
[2022-10-15] MEDS: Fluticasone/Vilanterol 100/25 BLST.W.DEV 1 PUFF INHALE (07:55)
[2022-10-15] MEDS: Albuterol/Iprat 2.5/0.5MG 3 ML AMPUL.NEB INHALE ×3 (07:55→20:54)
[2022-10-15] MEDS: Docusate Sodium 100 MG CAPSULE PO ×2 (08:47→20:35)
[2022-10-15] MEDS: amLODIPine Besylate 10 MG TABLET PO (08:48)
[2022-10-15] MEDS: lisinopriL 40 MG TABLET PO (08:49)
[2022-10-15] MEDS: Sennosides 8.6 MG TABLET PO ×2 (08:49→20:35)
[2022-10-15] MEDS: Metoprolol Tartrate 50 MG TABLET PO ×2 (08:50→20:35)
[2022-10-15] MEDS: 0.9 % Sodium Chloride Flush 3 ML SYRINGE IVFLUSH ×2 (09:26→16:32)
[2022-10-15] MEDS: guaiFENesin 100 MG/5 ML LIQUID 10 ML PO ×2 (09:32→14:38)
[2022-10-15] MEDS: Magnesium Hydrox/Alum Hydrox 30 ML ORAL.SUSP PO (12:16)
--- NOTE | 2022-10-15 12:16 | HO.PM.IMPN ---
Subjective Subjective Date of Service: 10/15/22 Interval History: pt starting to have BMs denies any complaints Review of Systems Review of Systems: Yes all other systems are reviewed and are negative Physical Exam Vital Signs: Vital Signs: Last Vital Signs Temp 98.5 F 10/15/22 12:00 Pulse 84 10/15/22 12:00 Resp 18 10/15/22 12:00 BP 133/69 10/15/22 12:00 Pulse Ox 93 10/15/22 12:00 O2 Del Method 10/15/22 12:00 O2 Flow Rate 93 10/15/22 12:00 Oxygen Flow Rate 2 10/11/22 03:31 BMI result Body Mass Index 41.5 Const: Other: Gen: in no acute distress HEENT: sclera anicteric, moist mucus membranes Neck: supple Lungs: clear to auscultation bilaterally Heart: regular rate and rhythm, no murmurs Abd: somewhat distended, no rebound or guarding Ext: no edema Skin: warm/well-perfused Neuro: alert and oriented x3, no focal findings Psych: appropriate affect Objective Data Active Medications Acetaminophen (Acetaminophen 325 Mg Tablet) 650 mg PO Q6H PRN PRN Reason: Pain, Mild (Pain Scale 1-3) Last Admin: 10/15/22 06:28 Dose: 650 mg Documented By: KASEY Al Hydroxide/Mg Hydroxide (Magnesium Hydrox/Alum Hydrox 30 Ml Oral.Susp) 30 ml PO Q4H PRN PRN Reason: GI upset Last Admin: 10/14/22 15:37 Dose: 30 ml Documented By: OKSANA Albuterol/Ipratropium (Albuterol/Iprat 2.5/0.5mg 3 Ml Ampul.Neb) 3 ml INHALE RQ6H WHILE AWAKE [facility] Last Admin: 10/15/22 07:55 Dose: 3 ml Documented By: JORGITO Amlodipine Besylate (Amlodipine Besylate 10 Mg Tablet) 10 mg PO DAILY [facility]; Protocol Last Admin: 10/15/22 08:48 Dose: 10 mg Documented By: FABIO Atorvastatin Calcium (Atorvastatin Calcium 10 Mg Tablet) 10 mg PO BEDTIME [facility] Last Admin: 10/14/22 20:15 Dose: 10 mg Documented By: KASEY Bisacodyl (Bisacodyl 10 Mg Supp.Rect) 10 mg AR DAILY PRN PRN Reason: Constipation Docusate Sodium (Docusate Sodium 100 Mg Capsule) 100 mg PO BID@0830,2030 [facility] Last Admin: 10/15/22 08:47 Dose: 100 mg Documented By: FABIO Enoxaparin Sodium (Enoxaparin Sodium 40 Mg/0.4 Ml Syringe) 40 mg SUBCUT Q24H [facility] Last Admin: 10/14/22 14:21 Dose: 40 mg Documented By: OKSANA Fluticasone/Vilanterol (Fluticasone/Vilanterol 100/25 Blst.W.Dev) 1 puff INHALE RDAILY [facility] Last Admin: 10/15/22 07:55 Dose: 1 puff Documented By: JORGITO Guaifenesin (Guaifenesin 100 Mg/5 Ml Liquid) 10 ml PO Q4H PRN PRN Reason: Cough Last Admin: 10/15/22 09:32 Dose: 10 ml Documented By: OSBALDO Ampicillin Sodium/Sulbactam (Sodium 1.5 gm/ Sodium Chloride) 100 mls @ 200 mls/hr IV Q6H [facility] Last Infusion: 10/15/22 09:59 Dose: 200 mls/hr Documented By: OSBALDO Levalbuterol HCl (Levalbuterol Hcl 1.25 Mg/0.5 Ml Vial.Dana) 1.25 mg INHALE RQ4H PRN PRN Reason: Shortness of Breath Lisinopril (Lisinopril 40 Mg Tablet) 40 mg PO DAILY [facility]; Protocol Last Admin: 10/15/22 08:49 Dose: 40 mg Documented By: FABIO Methylprednisolone Sodium Succinate (Methylprednisolone Sod Succ 40 Mg/Ml Vial) 40 mg IVPUSH Q12H [facility] Last Admin: 10/15/22 03:32 Dose: 40 mg Documented By: KASEY Metoprolol Tartrate (Metoprolol Tartrate 50 Mg Tablet) 50 mg PO BID [facility]; Protocol Last Admin: 10/15/22 08:50 Dose: 50 mg Documented By: FABIO Olanzapine (Olanzapine 7.5 Mg Tablet) 7.5 mg PO BEDTIME [facility] Last Admin: 10/14/22 20:16 Dose: 7.5 mg Documented By: KASEY Omeprazole (Omeprazole 20 Mg Capsule.) 20 mg PO DAILY@0630 [facility] Last Admin: 10/15/22 05:55 Dose: 20 mg Documented By: KASEY Ondansetron HCl (Ondansetron Hcl 4 Mg/2 Ml Vial) 4 mg IVPUSH Q8H PRN PRN Reason: Nausea and Vomiting Last Admin: 10/13/22 00:26 Dose: 4 mg Documented By: SALVADOR Pharmacy Consult (Consult Rx Perform Med Rec) 1 each MISCELLANE ONCE PRN PRN Reason: Consult order Polyethylene Glycol (Polyethylene Glycol 3350 17 Gm Powd.Pack) 17 gm PO Q4H [facility] Last Admin: 10/15/22 08:51 Dose: 17 gm Documented By: FABIO Senna (Sennosides 8.6 Mg Tablet) 8.6 mg PO BID [facility] Last Admin: 10/15/22 08:49 Dose: 8.6 mg Documented By: FABIO Sodium Chloride (0.9 % Sodium Chloride Flush 3 Ml Syringe) 3 ml IVFLUSH QSHIFT [facility] Last Admin: 10/15/22 09:26 Dose: 3 ml Documented By: OSBALDO Tramadol HCl (Tramadol Hcl 50 Mg Tablet) 50 mg PO TID [facility] Last Admin: 10/15/22 09:27 Dose: Not Given Documented By: OSBALDO Non-Admin Reason: n/a Labs 10/14/22 05:51 10/15/22 06:23 Labs: Laboratory Results - last 24 hr 10/15/22 06:23 Anion Gap 11 L Estim Creat Clear Calc 171.6 Estimated GFR > 60 Random Glucose 123 H Calcium 8.6 Impressions Abdomen/Pelvis CT 10/14/22 09:09 IMPRESSION: Severe constipation and fecal impaction. Question mild stercoral colitis of the sigmoid colon. Colon appears slightly less dilated than October 2022 exam. Left renal stones. Increasing bilateral lower lobe atelectasis/consolidation.. Fleischner guidelines were followed. Assessment and Plan (1) Fecal impaction: Status: Acute (2) COPD exacerbation: Status: Acute Plan 52yo M resident of [facility] [place] [facility] with history of stroke, mood disorder, dysarthria, COPD, and hypertension, who presented to the emergency department with multiple episodes of vomiting and found to have fecal impaction and hypoxia # sepsis due to aspiration PNA - amp/sulbactam 10/11- # COPD exac - wean steroids, standing/prn nebs, ICS/LABA # acute hypoxic resp failure - resolved # fecal impaction - per GI aggressive bowel regimen with scheduled docusate/senna, MiraLax q4h - if fails to clear up, may require disimpaction though did not tolerate in the ED # LLL nodule, 1 cm - recommend repeat CT in 3 months # GERD - PPI # HTN - continue lisinopril, metoprolol, amlodipine # HLD - continue statin # morbid obesity - diet/exercise counseling # VTE ppx: LMWH # dispo: anticipate return to [facility] In my clinical judgment, the patient requires continued inpatient hospitalization for the following reasons: IV ABX, poss disimpaction Time Spent With Patient Time: Total time managing care of this patient today ___35_ minutes. Quality Stroke Does the patient have a stroke diagnosis?: No VTE Prior VTE?: No VTE Risk Level:: Medical - moderate - high VTE Device Contraindication: N/A - Device Ordered VTE Drug Contraindication: N/A - Med Ordered
[2022-10-15] MEDS: traMADoL HCL 50 MG TABLET PO ×2 (14:31→20:35)
[2022-10-15] MEDS: Enoxaparin Sodium 40 MG/0.4 ML SYRINGE SUBCUT (14:31)
--- NOTE | 2022-10-15 17:16 | PM.EVENT ---
Event Note Date of Service: 10/15/22 Event Note: GI Followup- Course noted and D/W hospitalist team yesterday. Patient continuing to have BM's today as per nursing staff. His acute episode of constipation, superimposed on his underlying chronic constipation, seems to be improving with the current bowel regimen. I would recommend his diet be advanced on 10/16 if things remain stable. At that point I would cut his Miralax back to just BID or TID, as well as continuing the rest of his bowel regimen including the Senokot and Colace. I would recommend he continue on the bowel regimen on a intermediate basis after discharge so as to hopefully prevent further recurrences of significant constipation and need for hospitalization. Please advise me if I can be of any further assistance during his hospitalization. Thanks. Time Spent With Patient Time: Total time managing care of this patient today ____ minutes.
[2022-10-15] MEDS: Atorvastatin Calcium 10 MG TABLET PO (20:36)
[2022-10-15] MEDS: OLANZapine 7.5 MG TABLET PO (20:36)
[2022-10-16] MEDS: Ampicillin Sodium/Sulbactam Na 1.5 GM in 0.9 % Sodium Chloride 100 ML IV ×2 (01:22→09:41)
[2022-10-16] MEDS: polyethylene glycoL 3350 17 GM POWD.PACK PO ×3 (01:22→09:42)
[2022-10-16] MEDS: 0.9 % Sodium Chloride Flush 3 ML SYRINGE IVFLUSH ×2 (01:23→09:41)
[2022-10-16 04:00] VITALS: BP 122/61; PULSE 76; RESP 18; TEMP 36.2; O2SAT 93
[2022-10-16] MEDS: Omeprazole 20 MG CAPSULE.DR PO (06:00)
[2022-10-16 07:06] VITALS: BP 129/72; PULSE 82; RESP 18; TEMP 36.2; O2SAT 93
[2022-10-16 08:20] VITALS: PULSE 80; RESP 18; O2SAT 97
[2022-10-16] MEDS: Fluticasone/Vilanterol 100/25 BLST.W.DEV 1 PUFF INHALE (08:46)
[2022-10-16 09:39] LABS: COVID-19 Test Negative (Negative); IDNOW Serial# 16C4AD1C
[2022-10-16] MEDS: Sennosides 8.6 MG TABLET PO (09:40)
[2022-10-16] MEDS: amLODIPine Besylate 10 MG TABLET PO (09:40)
[2022-10-16] MEDS: Metoprolol Tartrate 50 MG TABLET PO (09:40)
[2022-10-16] MEDS: methylPREDNISolone Sod Succ 40 MG/ML VIAL IVPUSH (09:40)
[2022-10-16] MEDS: Docusate Sodium 100 MG CAPSULE PO (09:40)
[2022-10-16] MEDS: traMADoL HCL 50 MG TABLET PO (09:40)
[2022-10-16] MEDS: lisinopriL 40 MG TABLET PO (09:40)
[2022-10-16] MEDS: Aspirin Enteric Coated 81 MG TABLET.DR PO (09:41)
--- NOTE | 2022-10-16 11:18 | PM.DS ---
DS: Providers Provider Date of Service: 10/16/22 Date of admission: 10/11/22 13:21 Date of discharge: 10/16/22 Primary care physician: Jose Manuel Ontiveros DO Consults: 10/11/22 13:27 Consult to General Surgery Routine Consulting Provider: Viola Garza Reason for consultation: fecal impaction, abdominal distention Has provider been notified: No 10/13/22 15:33 Consult to Gastroenterology Routine Consulting Provider: Robbie Cortez Reason for consultation: constipation Has provider been notified: No DS: Diagnosis Discharge Diagnosis (1) Fecal impaction: Status: Acute (2) COPD exacerbation: Status: Acute (3) Acute respiratory failure with hypoxia: Status: Acute (4) Pneumonia: Status: Acute (5) Lung nodule: Status: Acute DS: Summary Hospital Course Hospital Course: from admission history and physical by hospitalist LINDA Judge, 10/11/22: This is a 52 year old [facility] resident who was sent to the emergency department for evaluation of vomiting. ? Patient reportedly had numerous episodes of vomiting overnight with associated left-sided abdominal pain.? In the emergency department basic lab work was obtained which showed leukocytosis of 21.6. ? He was noted to have abdominal distension and umbilical hernia that was unable to be,? Initially there was concern for incarcerated hernia.? He underwent CT scan of the abdomen which showed severe stool within the rectum indicating a degree of fecal impaction, no bowel wall thickening or inflammatory changes, no evidence of obstruction, perforation.? It noted fat containing periumbilical hernia without associated inflammatory or ischemic change. ? Manual disimpaction was attempted in the emergency department but patient was unable to tolerate.? Case was discussed with the surgeon on-call who recommended admission for Fleet enemas. ? Patient also reports shortness of breath but denies and also describes cough which seemed to begin after vomiting.? He denies any associated fever or chills. 52yo M resident of [facility] [place] [facility] with history of stroke, TBI, mood disorder, dysarthria, COPD, and hypertension, who presented to the emergency department with multiple episodes of vomiting and found to have fecal impaction and hypoxia. Hospital course by problem: # sepsis due pneumonia - Treated with 5 days of ampicillin/sulbactam and transitioned to 2 days of amoxicillin/clavaulante upon discharge. Blood cultures negative. # acute hypoxic respiratory failure - Weaned off oxygen # COPD exacerbation - Treated with 5 days of steroids and nebs # fecal impaction - Did not tolerate manual disimpaction in ED. Per GI, given aggressive bowel regimen with scheduled docusate/senna, MiraLax q4h and improved. Discharged on MiraLax bid. # LLL nodule, 1 cm - Incidental finding; recommend repeat CT in 3 months. He was discharged back to [facility]. Time Spent with Patient Time attestation: Total time managing care of this patient today ___35_ minutes. Discharge coordination time: Greater than 30 minutes Quality: Safe Use of Opioids Does Pt have an Active Cancer Diagnosis on the Problem List?: No Quality: Stroke Does the patient have a stroke diagnosis?: No Physical Exam Vital Signs: Vital Signs: Last Vital Signs Temp 97.1 F 10/16/22 07:06 Pulse 80 10/16/22 08:20 Resp 18 10/16/22 08:20 BP 129/72 10/16/22 07:06 Pulse Ox 93 10/16/22 07:06 O2 Del Method 10/16/22 07:06 O2 Flow Rate 93 10/15/22 12:00 Oxygen Flow Rate 2 10/11/22 03:31 BMI result Body Mass Index 41.5 Const: Other: Gen: in no acute distress HEENT: sclera anicteric, moist mucus membranes Neck: supple Lungs: clear to auscultation bilaterally Heart: regular rate and rhythm, no murmurs Abd: somewhat distended, no rebound or guarding Ext: no edema Skin: warm/well-perfused Neuro: alert and oriented x3, no focal findings Psych: appropriate affect DS: Data Data Completed and Pending Completed studies during hospitalization [Text1]: Laboratory Results WBC 11.9 X10*3/uL (4.8-10.8) H 10/14/22 05:51 RBC 4.39 X10*6/uL (4.60-5.80) L 10/14/22 05:51 Hgb 12.5 g/dl (14.0-18.0) L 10/14/22 05:51 Hct 39.8 % (42.0-52.0) L 10/14/22 05:51 MCV 90.7 fL (80.0-98.0) 10/14/22 05:51 MCH 28.5 pg (27.0-33.0) 10/14/22 05:51 MCHC 31.4 g/dl (31.0-36.0) 10/14/22 05:51 RDW 13.3 % (11.0-16.0) 10/14/22 05:51 Plt Count 256 X10*3/uL (160-400) 10/14/22 05:51 MPV 10.4 fL (9.4-12.4) 10/14/22 05:51 Immature Gran % (Auto) 0.6 % (0.0-0.4) H 10/11/22 03:49 Neut % (Auto) 87.0 % (45-73) H 10/11/22 03:49 Lymph % (Auto) 5.7 % (20-40) L 10/11/22 03:49 [place] % (Auto) 6.5 % (2-11) 10/11/22 03:49 Eos % (Auto) 0.1 % (0-4) 10/11/22 03:49 Baso % (Auto) 0.1 % (0-2) 10/11/22 03:49 Lymph # (Auto) 1.2 X10*3/uL (1.2-4.9) 10/11/22 03:49 [place] # (Auto) 1.4 X10*3/uL (0.1-1.2) H 10/11/22 03:49 Eos # (Auto) 0.0 X10*3/uL (0.0-0.4) 10/11/22 03:49 Baso # (Auto) 0.0 X10*3/uL (0.0-0.2) 10/11/22 03:49 Abs Immat Gran (auto) 0.12 X10*3/uL (0.00-0.03) H 10/11/22 03:49 Absolute Neuts (auto) 18.8 x10*3/uL (2.0-8.3) H 10/11/22 03:49 Absolute Nucleated RBC 0.000 X10*3/uL (0.0-0.012) 10/14/22 05:51 Nucleated RBC % (auto) 0.0 /100WBC (0.0-0.2) 10/14/22 05:51 PT 13.1 SEC (10.0-13.1) 10/11/22 07:37 INR 1.1 (0.9-1.1) 10/11/22 07:37 Sodium 136 mmol/L (135-145) 10/15/22 06:23 Potassium 4.9 mmol/L (3.3-5.1) 10/15/22 06:23 Chloride 101 mmol/L (96-108) 10/15/22 06:23 Carbon Dioxide 29 mmol/L (22-29) 10/15/22 06:23 Anion Gap 11 (12-20) L 10/15/22 06:23 BUN 16 mg/dL (9-16) 10/15/22 06:23 Creatinine 0.69 mg/dL (0.5-1.4) 10/15/22 06:23 Estim Creat Clear Calc 171.6 10/15/22 06:23 Estimated GFR > 60 10/15/22 06:23 Random Glucose 123 mg/dL (60-115) H 10/15/22 06:23 Lactic Acid 1.6 mmol/L (0.5-2.0) 10/11/22 07:37 Calcium 8.6 mg/dL (8.4-10.2) 10/15/22 06:23 Phosphorus 2.6 mg/dL (2.7-4.5) L 10/12/22 05:34 Magnesium 2.3 mg/dL (1.6-2.6) 10/14/22 05:51 Total Bilirubin 0.9 mg/dL (0.0-1.0) 10/11/22 03:49 Direct Bilirubin 0.3 mg/dL (0.0-0.5) 10/11/22 03:49 AST 20 U/L (5-37) 10/11/22 03:49 ALT 22 U/L (0-40) 10/11/22 03:49 Alkaline Phosphatase 122 U/L (39-117) H 10/11/22 03:49 Troponin I High Sens 3.4 ng/L (<3.5-35.0) 10/11/22 03:49 B-Natriuretic Peptide 76 pg/mL (<100) 10/11/22 03:49 Total Protein 7.9 g/dL (6.5-8.0) 10/11/22 03:49 Albumin 4.6 g/dL (3.5-5.0) 10/11/22 03:49 Lipase 18 U/L (8-78) 10/11/22 03:49 TSH 0.56 uIU/mL (0.32-4.0) 10/14/22 05:51 Free T4 1.07 ng/dL (0.71-1.85) 10/14/22 05:51 Urine Color Dark Yellow 10/11/22 12:11 Urine Appearance Clear 10/11/22 12:11 Urine pH 6.0 (5.0-9.0) 10/11/22 12:11 Ur Specific [place] >= 1.030 (1.005-1.025) H 10/11/22 12:11 Urine Protein 100 (2+) mg/dL (Neg-Trace) H 10/11/22 12:11 Urine Glucose (UA) Negative mg/dL (Negative) 10/11/22 12:11 Urine Ketones 15 mg/dL (Negative) 10/11/22 12:11 Urine Blood Negative (Negative) 10/11/22 12:11 Urine Nitrite Negative (Negative) 10/11/22 12:11 Ur Leukocyte Esterase Negative (Negative) 10/11/22 12:11 Urine RBC 3-5 /HPF (0-2) H 10/11/22 12:11 Urine WBC 0-5 /HPF (0-5) 10/11/22 12:11 Ur Squamous Epith Cells 0-2 /HPF (0-2) 10/11/22 12:11 Calcium Oxalate Crystal Present 10/11/22 12:11 Other Crystals Present 10/11/22 12:11 Urine Bacteria None Seen (None Seen) 10/11/22 12:11 Hyaline Casts 0-2 /LPF (0-2) 10/11/22 12:11 COVID-19 (EDUARD) Negative (Negative) 10/16/22 09:00 COVID-19 Clin Com See Note 10/16/22 09:00 Influenza Type A (PCR) NEGATIVE (Negative) 10/11/22 03:48 Influenza Type B (PCR) NEGATIVE (Negative) 10/11/22 03:48 RSV RNA Qual (PCR) NEGATIVE (Negative) 10/11/22 03:48 SARS-CoV-2 RNA (RT-PCR) NEGATIVE (Negative) 10/11/22 03:48 Impressions Chest X-Ray 10/11/22 04:04 IMPRESSION: Unremarkable examination. Chest CT 10/11/22 09:09 IMPRESSION: 1. Severe stool within the rectum, which could indicate a degree of fecal impaction. Prominent air and stool within the colon proximal to the rectum. No bowel wall thickening or inflammatory change. No small-bowel obstruction. No evidence of bowel perforation. Appendix not identified; however, no right lower quadrant inflammatory change to suggest acute appendicitis. 2. No intra-abdominal mass, lymphadenopathy, or ascites. 3. Left-sided nonobstructing renal stones measuring up to 0.4 cm. No hydronephrosis or hydroureter. 4. Fat-containing periumbilical hernia without associated inflammatory or ischemic change. 5. Left lower lobe subpleural nodule measuring up to 1.0 cm. According to the UPDATED 2017 Fleischner Society recommendations, the advised followup imaging for a single solid nodule measuring 8 mm or greater is: Consider CT, PET/CT, or tissue sampling at 3 months. Abdomen/Pelvis CT 10/14/22 09:09 IMPRESSION: Severe constipation and fecal impaction. Question mild stercoral colitis of the sigmoid colon. Colon appears slightly less dilated than October 2022 exam. Left renal stones. Increasing bilateral lower lobe atelectasis/consolidation.. Fleischner guidelines were followed. Discharge Plan Discharge Anticipated Discharge Date/Time: 10/16/22 11:00 Patient Disposition: er [facility] Discharge Diagnosis: # sepsis due to pneumonia # hypoxic respiratory failure due to COPD exacerbation # fecal impaction # LLL nodule, 1 cm Referrals: Physician,None [Physician] - 1 Week Jose Manuel Ontiveros DO [Physician] - 1 Week Discharge Medications: New albuterol sulfate 2.5 mg /3 mL (0.083 %) Solution For Nebulization 2.5 mg inhalation RQ6H WHILE AWAKE PRN (Reason: Shortness Of Breath Or Wheezing) Qty: 30 0RF polyethylene glycol 3350 17 gram Powder In Packet 17 g PO BID Qty: 60 0RF amoxicillin-pot clavulanate 875-125 mg tablet 1 tab PO BID Qty: 4 0RF Continued multivitamin Tablet 1 tab PO DAILY sennosides [senna] 8.6 mg Tablet 8.6 mg PO DAILY PRN (Reason: Constipation) acetaminophen 325 mg Tablet 650 mg PO Q4H PRN (Reason: Fever Or Pain) Rx Instructions: do not exceed 3 grams / 24 hours dimethicone 1 % Cream 1 appl TOPICAL QID PRN (Reason: skin breakdown) Rx Instructions: apply to buttocks for irritated, reddened buttocks loperamide 2 mg Capsule 2 mg PO Q2H PRN (Reason: Loose Stool) Rx Instructions: administer after each loose stool until symptoms controlled; do not exceed 8 mg per 24 hrs loperamide 2 mg Capsule 4 mg PO Q24H PRN (Reason: Loose Stool) Rx Instructions: administer after each loose stool until symptoms controlled; do not exceed 8 mg per 24 hrs atorvastatin 10 mg Tablet 10 mg PO BEDTIME ibuprofen 800 mg Tablet 800 mg PO BID olanzapine 7.5 mg Tablet 7.5 mg PO BEDTIME aspirin 81 mg Tablet,Delayed Release (Dr/Ec) 81 mg PO DAILY tramadol 50 mg Tablet 50 mg PO TID guaifenesin 100 mg/5 mL Liquid 200 mg PO Q4H PRN (Reason: Cough) amlodipine 10 mg Tablet 10 mg PO DAILY bisacodyl [Dulcolax (bisacodyl)] 10 mg Suppository 10 mg VT DAILY PRN (Reason: Constipation) Rx Instructions: use if senna ineffective metoprolol tartrate 50 mg Tablet 50 mg PO BID Fleet Enema 19-7 gram/118 mL Enema 118 ml VT DAILY PRN (Reason: Constipation) Rx Instructions: use if dulcolax suppository ineffective docusate sodium 100 mg Capsule 100 mg PO BEDTIME omeprazole 20 mg Capsule,Delayed Release(Dr/Ec) 20 mg PO DAILY@0630 alum-mag hydroxide-simeth 200-200-20 mg/5 mL Suspension 30 ml PO Q4H PRN (Reason: GI upset) lisinopril 40 mg Tablet 40 mg PO DAILY chlorhexidine gluconate [Hibiclens] 4 % Liquid 1 appl TOPICAL MOWEFR@1500 Rx Instructions: apply to bilateral lower legs fluticasone furoate-vilanterol [Breo Ellipta] 100-25 mcg/dose Blister With Device 1 inh INHALATION DAILY Rx Instructions: rinse mouth after use naloxone [Narcan] 4 mg/actuation Lyle,Non-Aerosol 4 mg INTRANASAL Q3M PRN (Reason: Opioid Overdose) Rx Instructions: spray 1 dose into ONE nostril; alternate nostrils w each dose until help arrives turmeric 400 mg Capsule 500 mg PO BID Discharge Orders: Discharge Order (Routine); Ordered 10/16/22 Ordered By: Sylvester Taylor Diet: Advance to usual diet Activity on Discharge: As tolerated Stand Alone Forms: Patient Portal Discharge page Care Plan Goals: recovery from hospitalization Health Concerns: # sepsis due to aspiration PNA # hypoxic respiratory failure due to COPD exacerbation # fecal impaction # LLL nodule, 1 cm Plan of Treatment: take amoxicillin-clavulanate 875-125 mg twice daily weaned off oxygen, completed steroids as-needed albuterol use MiraLax 17 grams twice daily for maintenance repeat CT scan of the lungs in 3 months Assessment: See Discharge Summary.
--- NOTE | 2022-10-16 11:29 | MHC.CM.PN ---
PT WILL DC TODAY, BACK TO [facility] AT 1400 HOURS CALL PLACED TO PTS MOTHER ROMEO [phone] DETAILED MESSAGE LEFT WITH DC INFO AND IMM
== END 2022-10-16 17:27 | disposition skilled nursing facility (03) | DRG 871 ==
LOC: HO.ED 12:11 → HO.EDOVER 13:29 → HO.S3 19:54
PROVIDERS: Internal Medicine; Nurse Practitioner Acute Care; Admitting Provider Physician Assistant Medical; Emergency Provider Student in an Organized Health Care Education/Training Program; PCP Hospitalist; Visit Provider Family Medicine
DX: A41.9 Sepsis, unspecified organism (principal); J69.0 Pneumonitis due to inhalation of food and vomit; J96.01 Acute respiratory failure with hypoxia; J44.1 Chronic obstructive pulmonary disease with (acute) exacerbation; Z68.41 Body mass index [BMI] 40.0-44.9, adult; K56.41 Fecal impaction; K21.9 Gastro-esophageal reflux disease without esophagitis; I10 Essential (primary) hypertension; R91.1 Solitary pulmonary nodule; E78.5 Hyperlipidemia, unspecified; E66.01 Morbid (severe) obesity due to excess calories; F03.90 Unspecified dementia, unspecified severity, without behavioral disturbance, psychotic disturbance, mood disturbance, and anxiety; E86.0 Dehydration; Z20.822 Contact with and (suspected) exposure to COVID-19; Z99.3 Dependence on wheelchair; Z87.891 Personal history of nicotine dependence; Z71.3 Dietary counseling and surveillance; Z79.51 Long term (current) use of inhaled steroids; Z79.82 Long term (current) use of aspirin; Z79.899 Other long term (current) drug therapy
CPT/HCPCS: 0241U; 36415; 71045; 71260; 74176; 74177; 80048; 80076; 81001; 83605; 83690; 83735; 83880; 84100; 84439; 84443; 84484; 85025; 85027; 85610; 87040; 87635; 93005; 94640; 99285; J0295; J1650; J2405; J2543; J2920; Q9967

== ENCOUNTER 2022-10-17 14:25 | Inpatient (IN) | payer MEDICARE, MEDICAID, SELFPAY ==
--- NOTE | ~2022-10-17 | XR_ITS ---
EXAMINATION: XR ABDOMEN KUB CLINICAL INDICATION: SBO COMPARISON: October 17, 2022 TECHNIQUE: AP view of the abdomen. FINDINGS: There is improvement in appearance of the small bowel since previous day's study. There remains a a few distended loops of small bowel measuring up to 4.5 cm in diameter. No secondary signs of free air identified. No signs of wall thickening appreciated. Stool and gas seen throughout the colon. There is severe degenerative change of the left hip. There is loss of joint space with irregularity of the left femoral head and with prominent spurring. XR/XR KUB IMPRESSION: Improving small bowel pattern
--- NOTE | ~2022-10-17 | CT_ITS ---
EXAMINATION: CT ABDOMEN AND PELVIS WITH CONTRAST CLINICAL INFORMATION: Diffuse abdominal pain and vomiting COMPARISON: Previous CT scans most recent 10/14/2021 TECHNIQUE: Multidetector volumetric images were obtained from the superior aspect of the liver through the pubic symphysis following administration 85 mL of Omnipaque 350 intravenous contrast. Sagittal and coronal reformatted images were obtained on the technologist's workstation. Oral contrast: Yes This CT examination was performed using dose optimization techniques as appropriate, variously including the following: *Automated exposure control *Adjustment of mA and/or kV according to patient size (this includes techniques or standardized protocols for targeted exams where dose is matched to indication/reason for exam; i.e. extremities or head) *Use of iterative reconstruction technique DLP: 1422 mGy-cm FINDINGS: LUNG BASES: Bilateral lower lobe atelectasis consolidation/consolidation and trace effusions. This appears improved from 10/14/2021 exam. LIVER, GALLBLADDER, AND BILIARY TREE: The liver is normal in size, and shape. The liver is low in attenuation suggestive of fatty infiltration.. No focal hepatic lesion or biliary ductal dilatation is present. The gallbladder is unremarkable with no evidence of radiopaque gallstones, gallbladder wall thickening, or obvious pericholecystic inflammatory changes. PANCREAS: Unremarkable. SPLEEN: Unremarkable. ADRENAL GLANDS: Unremarkable. KIDNEYS AND URETERS: Small nonobstructing left renal stones. BLADDER: Unremarkable. GASTROINTESTINAL TRACT: The stomach and proximal small bowel is dilated and fluid-filled. This is new or increased from recent exam. There is a transition zone seen in the mid abdomen for example axial images [id number] and coronal reconstructed images [id number] questionable for transition point and cause of proximal small bowel obstruction. The distal small bowel is not dilated. The appendix is normal. There is a large amount of stool in the rectosigmoid region suggestive of fecal impaction. Appears improved from 10/14/2022 exam. There is question of mild wall thickening of the rectosigmoid region and stranding of the fat or a sterile full colitis related to chronic constipation.. The colon is slightly distended. No free air. No ascites. ABDOMINAL WALL: Umbilical, upper midline ventral and bilateral inguinal hernias containing fat. LYMPH NODES: Normal. VASCULAR: Unremarkable. PELVIC VISCERA: Unremarkable. OSSEOUS STRUCTURES: Severe arthritis at the left hip joint. CT/CT abdomen pelvis w IV con IMPRESSION: Question proximal small bowel obstruction. Improved constipation with decreased stool burden. Persistent fecal impaction. Small left renal stones. Mild fatty infiltration of the liver. Fleischner guidelines were followed.
--- NOTE | ~2022-10-17 | XR_ITS ---
EXAMINATION: XR ABDOMEN KUB CLINICAL INDICATION: Evaluate for NG tube placement COMPARISON: Correlation CT abdomen 10/17/2022 TECHNIQUE: 3 views of the abdomen. FINDINGS: Nasogastric tube extends below the diaphragm, tip projected over the body of the stomach. The side-port appears to below the expected region of the gastroesophageal junction. The tube can be advanced. Stomach is partially distended. There are dilated small bowel loops present diffusely in the abdomen. There is gas in the large colon. These findings are better evaluated on the recent CT scan. XR/XR KUB IMPRESSION: Nasogastric tube tip projected over the body of the stomach, site port appearing just below the gastroesophageal junction. Advancement of the tube can be considered. Dilated small bowel loops diffusely in the abdomen. This is better evaluated on the CT scan from today 10/17/2022. See CT report.
--- NOTE | ~2022-10-17 | XR_ITS ---
EXAMINATION: XR CHEST CLINICAL INFORMATION: Recent pneumonia COMPARISON: X-ray 10/11/2022 TECHNIQUE: Frontal view of the chest was obtained. FINDINGS: Rotated positioning. There is NG tube extending below the diaphragm beyond the [id number]. Prominence of the cardiac and mediastinal silhouette, similar to previous. Low lung volumes. There is peribronchial opacities and multifocal hazy airspace opacities in bilateral lungs, more prominent in the lower lobes. This may reflect infectious or inflammatory process. No pneumothorax. XR/XR chest 1V IMPRESSION: Peribronchial opacities and multifocal hazy/patchy opacity in bilateral lungs, could reflect infectious or inflammatory process. Recommendation is for a follow-up chest series to be obtained following treatment and/or resolution of symptoms to assure resolution of this appearance.
[2022-10-17 14:33] VITALS: BP 135/80; BP 143/85; PULSE 117; PULSE 122; RESP 20; TEMP 36.9; O2SAT 93; O2SAT 95; BMI 40.4
[2022-10-17] MEDS: ondansetron HCL 4 MG/2 ML VIAL IVPUSH (14:41)
--- NOTE | 2022-10-17 14:41 | ED_ITS ---
HPI - Nausea/Vomiting/Diarrhea General Chief complaint: Nausea/Vomiting/Diarrhea Stated complaint: Vomiting, recent d/c for fecal impaction Time Seen by Provider: 10/17/22 14:28 Source: patient and EMS Mode of arrival: EMS Limitations: no limitations History of Present Illness HPI Narrative: 52-year-old male coming from [facility] [place] [facility] with PMH of COPD, dementia, HTN, mood disorder with complaints of multiple episodes of vomiting today. Patient denies abdominal pain. Patient reports he did have a bowel movement this morning. Patient was discharged from this facility on September 15 after being admitted for fecal impaction, sepsis secondary to pneumonia, acute respiratory failure and COPD exacerbation. Patient was discharged on MiraLax and Augmentin. MD elicited complaint: nausea and vomiting Associated nausea: Yes Related Data Home Medications Medication Instructions Recorded Confirmed acetaminophen 325 mg tablet 650 mg PO Q4H PRN Fever Or Pain 10/11/22 10/17/22 aluminum-mag hydroxide-simethicone 30 ml PO Q4H PRN GI upset 10/11/22 10/17/22 200 mg-200 mg-20 mg/5 mL oral susp amlodipine 10 mg tablet 10 mg PO DAILY 10/11/22 10/17/22 aspirin 81 mg tablet,delayed 81 mg PO DAILY 10/11/22 10/17/22 release atorvastatin 10 mg tablet 10 mg PO BEDTIME 10/11/22 10/17/22 bisacodyl 10 mg rectal suppository 10 mg ID DAILY PRN Constipation 10/11/22 10/17/22 (Dulcolax (bisacodyl)) chlorhexidine gluconate 4 % 1 appl topical MOWEFR@1500 10/11/22 10/17/22 topical liquid (Hibiclens) dimethicone 1 % topical cream 1 appl topical QID PRN skin 10/11/22 10/17/22 breakdown docusate sodium 100 mg capsule 100 mg PO BEDTIME 10/11/22 10/17/22 fluticasone furoate 100 1 inh inhalation DAILY 10/11/22 10/17/22 mcg-vilanterol 25 mcg/dose inhalation powder (Breo Ellipta) guaifenesin 100 mg/5 mL oral liquid 200 mg PO Q4H PRN Cough 10/11/22 10/17/22 ibuprofen 800 mg tablet 800 mg PO BID 10/11/22 10/17/22 lisinopril 40 mg tablet 40 mg PO DAILY 10/11/22 10/17/22 loperamide 2 mg capsule 2 mg PO Q2H PRN Loose Stool 10/11/22 10/17/22 loperamide 2 mg capsule 4 mg PO Q24H PRN Loose Stool 10/11/22 10/17/22 metoprolol tartrate 50 mg tablet 50 mg PO BID 10/11/22 10/17/22 multivitamin 1 tab PO DAILY 10/11/22 10/17/22 naloxone 4 mg/actuation nasal 4 mg intranasal Q3M PRN Opioid 10/11/22 10/17/22 spray (Narcan) Overdose olanzapine 7.5 mg tablet 7.5 mg PO BEDTIME 10/11/22 10/17/22 omeprazole 20 mg capsule,delayed 20 mg PO DAILY@0630 10/11/22 10/17/22 release sennosides 8.6 mg tablet (senna) 8.6 mg PO DAILY PRN Constipation 10/11/22 10/17/22 sodium phosphates 19 gram-7 118 ml ID DAILY PRN Constipation 10/11/22 10/17/22 gram/118 mL enema (Fleet Enema) tramadol 50 mg tablet 50 mg PO TID 10/11/22 10/17/22 turmeric 400 mg capsule 500 mg PO BID 10/11/22 10/17/22 Previous Rx's Medication Instructions Recorded albuterol sulfate 2.5 mg/3 mL 2.5 mg (3 mL) inhalation RQ6H 10/16/22 (0.083 %) solution for nebulization WHILE AWAKE PRN Shortness Of Breath Or Wheezing #30 ea amoxicillin 875 mg-potassium 1 tab PO BID #4 tabs 10/16/22 clavulanate 125 mg tablet polyethylene glycol 3350 17 gram 17 g PO BID #60 ea 10/16/22 oral powder packet Allergies Allergy/AdvReac Type Severity Reaction Status Date / Time No Known Allergies Allergy Unverified 05/17/20 16:35 Review of Systems Review of Systems: Yes all other systems are reviewed and are negative Constitutional: Constitutional: Reports no additional constitutional complaints, Denies body ache(s), Denies chills, Denies fever(s), Denies headache(s) and Denies weakness Eyes: Eyes: Reports no additional eye complaints and Denies change in vision ENT: Reports system reviewed and no additional complaints, except as documented, Denies dizziness, Denies headache(s), Denies nasal congestion, Denies nasal discharge and Denies neck pain Cardiovascular: Cardiovascular: Reports no additional cardiovascular complain ts, Denies chest pain, Denies leg edema and Denies dyspnea Respiratory: Respiratory: Reports no additional respiratory complaints, Denies cough and Denies dyspnea Gastrointestinal: Gastrointestinal: Reports no additional gastrointestinal complaints, Denies abdominal pain, Denies diarrhea, Reports nausea and Reports vomiting Genitourinary: Genitourinary: Denies urinary incontinence Musculoskeletal: Musculoskeletal: Reports no additional musculoskeletal complaints, Denies back pain, Denies arthralgias, Denies joint swelling, Denies neck pain, Denies numbness and Denies tingling Integumentary/Breasts: Skin/Breast: Reports system reviewed and no additional complaints, except as docu and Denies rash Neurologic: Reports system reviewed and no additional complaints, except as documented, Denies Abnormal speech present, Denies dizziness, Denies headache(s), Denies numbness, Denies tingling and Denies weakness PMFSH Past Medical History Attestation statement: The following information was validated with the patient. Source: old records reviewed and nursing notes reviewed Medical History COPD (chronic obstructive pulmonary disease) Dementia Dysarthria HTN (hypertension) Mood disorder Obesity Osteoarthritis Social History Social History Household Members: Other Housing: Residential Do you presently have visiting nurse or other home services: Yes Alcohol intake: never Patient Tobacco Use Status: Former Tobacco user Smoked in Last 30 Days: No Use of substances other than those prescribed or required for medical reasons: No Advance Directives: No Advance Directives Information Provided: Yes service: No Current occupational status: disabled Physical Exam Vital Signs: Vital Signs: Last Vital Signs Temp 98.4 F 10/17/22 14:33 Pulse 106 H 10/17/22 15:09 Resp 20 10/17/22 15:09 BP 148/71 H 10/17/22 15:09 Pulse Ox 98 10/17/22 15:09 O2 Del Method 10/17/22 15:09 BMI result Body Mass Index 40.4 Const: General: cooperative, healthy appearing, comfortable and no acute distress Orientation/consciousness: patient oriented x3 Limitations: no limitations HEENT: Head: Yes normal to inspection Ears: hearing grossly normal bilaterally General nose exam: Normal external nose present Face and sinus: Yes normal facial exam Mouth: Normal oral and palatal mucosa present Throat: Yes posterior oropharynx normal Eyes: General: appearance normal, both eyes and all related structures Pupils: Equal, round and reactive pupils present Neck: Neck: Yes normal visual inspection Chest: Chest palpation & inspection: normal inspection of the chest Resp: Effort & Inspection: normal respiratory effort Auscultation: clear to auscultation bilaterally Cardio: Rate: regular rate Rhythm: regular rhythm Peripheral pulses: Peripheral pulses 2+ throughout GI: Inspection: Yes normal to inspection Palpation (GI): Soft to palpation and nontender Auscultation: normal bowel sounds Back/Spine/Pelvis: Thoracic/Lumbar Spine: thoracic and lumbar spine normal to inspection Skin: General skin exam: no rashes or lesions noted Neuro: General: patient oriented x3, no focal motor deficits and normal sensation to monofilament Cranial nerves: Yes Equal, round and reactive pupils present Cognition (Neuro): normal cognition Speech: No Abnormal speech present Gait exam (Neuro): Normal gait present Motor exam (neuro): 5/5 motor strength present throughout Extrem: General: Yes normal to inspection Course Course Course Narrative: 1715-patient with leukocytosis. Likely secondary to vomiting. However, patient was discharged from this facility yesterday with reported pneumonia. Repeat x- ray is pending. At this time infection is suspected. Blood cultures ordered. Antibiotics ordered. Reevaluation(s) Reevaluation #1: Patient had over 750 of output from his NG tube after placement. Will obtain post placement film Medications Administered Discontinued Medications Generic Name Dose Route Start Last Admin Trade Name Freq PRN Reason Stop Dose Admin Sodium Chloride 1,000 mls @ 999 mls/hr 10/17/22 14:32 10/17/22 15:42 Ns IV 10/17/22 15:32 Infused .Q1H1M STA Infusion Iohexol 100 ml 10/17/22 16:04 10/17/22 16:04 Iohexol 350 Mg/Ml 100 Ml Infus..Btl IV 10/17/22 16:05 100 ml ONCE ONE Administration Ondansetron HCl 4 mg 10/17/22 14:32 10/17/22 14:41 Ondansetron Hcl 4 Mg/2 Ml Vial IVPUSH 10/17/22 14:33 4 mg ONCE ONE Administration Medical Decision Making Medical Decision Making [facility] Narrative: 52-year-old male coming from [facility] with complaints of multiple episodes of vomiting today. Patient discharged from this facility yesterday after being admitted for fecal impaction and pneumonia requiring oxygen support. Patient has been on MiraLax since being back at his facility. He reports multiple episodes of vomiting today with no associated abdominal pain, diarrhea, fever, urinary symptoms. On arrival patient's abdomen is soft nontender. No focal tenderness. Normal bowel sounds. Patient is actively vomiting on arrival Will obtain labs, UA, CT. Patient will receive IV fluids, antiemetic Differential Diagnosis Differential Diagnoses: The differential diagnosis associated with the presentation includes gastroenteritis, SBO Admission/Observation Consideration of admission/observation: Escalation of care including admission/observation considered CT concerning for ileus requiring NGT placement, IV hydration , surgery consultation Consult Healthcare Provider Management of the patient was discussed with: Hospitalist and Medical Reception Specialist I spoke to Dr. Haley from general surgery. Reviewed CT scan which is concerning for ileus versus obstruction. Recommended placing an NG tube and consult taking medicine as patient is medically complex I spoke to Dr Win who accepted admission at 1715 Lab Data [facility] Lab Attestation statement: I reviewed the patient's lab results. 10/17/22 14:39 10/17/22 14:40 Labs: Lab Results 10/17/22 10/17/22 10/17/22 Range/Units 14:39 14:39 14:39 WBC 24.8 H (4.8-10.8) X10*3/uL RBC 5.50 D (4.60-5.80) X10*6/uL Hgb 15.4 D (14.0-18.0) g/dl Hct 47.3 (42.0-52.0) % MCV 86.0 (80.0-98.0) fL MCH 28.0 (27.0-33.0) pg MCHC 32.6 (31.0-36.0) g/dl RDW 13.7 (11.0-16.0) % Plt Count 357 D (160-400) X10*3/uL MPV 9.3 L (9.4-12.4) fL Immature Gran % (Auto) 0.8 H (0.0-0.4) % Neut % (Auto) 85.8 H (45-73) % Lymph % (Auto) 5.8 L (20-40) % [place] % (Auto) 7.3 (2-11) % Eos % (Auto) 0.2 (0-4) % Baso % (Auto) 0.1 (0-2) % Lymph # (Auto) 1.4 (1.2-4.9) X10*3/uL [place] # (Auto) 1.8 H (0.1-1.2) X10*3/uL Eos # (Auto) 0.1 (0.0-0.4) X10*3/uL Baso # (Auto) 0.0 (0.0-0.2) X10*3/uL Abs Immat Gran (auto) 0.20 H (0.00-0.03) X10*3/uL Absolute Neuts (auto) 21.3 H (2.0-8.3) x10*3/uL Absolute Nucleated RBC 0.000 (0.0-0.012) X10*3/uL Nucleated RBC % (auto) 0.0 (0.0-0.2) /100WBC Smear Tech's Comments VERIFIED Sodium (135-145) mmol/L Potassium (3.3-5.1) mmol/L Chloride (96-108) mmol/L Carbon Dioxide (22-29) mmol/L Anion Gap (12-20) BUN (9-16) mg/dL Creatinine (0.5-1.4) mg/dL Estim Creat Clear Calc Estimated GFR Random Glucose (60-115) mg/dL Lactic Acid 1.0 (0.5-2.0) mmol/L Calcium (8.4-10.2) mg/dL Total Bilirubin (0.0-1.0) mg/dL Direct Bilirubin (0.0-0.5) mg/dL AST (5-37) U/L ALT (0-40) U/L Alkaline Phosphatase (39-117) U/L Total Protein (6.5-8.0) g/dL Albumin (3.5-5.0) g/dL COVID-19 (EDUARD) Negative (Negative) COVID-19 Clin Com See Note 10/17/22 Range/Units 14:40 WBC (4.8-10.8) X10*3/uL RBC (4.60-5.80) X10*6/uL Hgb (14.0-18.0) g/dl Hct (42.0-52.0) % MCV (80.0-98.0) fL MCH (27.0-33.0) pg MCHC (31.0-36.0) g/dl RDW (11.0-16.0) % Plt Count (160-400) X10*3/uL MPV (9.4-12.4) fL Immature Gran % (Auto) (0.0-0.4) % Neut % (Auto) (45-73) % Lymph % (Auto) (20-40) % [place]ham % (Auto) (2-11) % Eos % (Auto) (0-4) % Baso % (Auto) (0-2) % Lymph # (Auto) (1.2-4.9) X10*3/uL [place] # (Auto) (0.1-1.2) X10*3/uL Eos # (Auto) (0.0-0.4) X10*3/uL Baso # (Auto) (0.0-0.2) X10*3/uL Abs Immat Gran (auto) (0.00-0.03) X10*3/uL Absolute Neuts (auto) (2.0-8.3) x10*3/uL Absolute Nucleated RBC (0.0-0.012) X10*3/uL Nucleated RBC % (auto) (0.0-0.2) /100WBC Smear Tech's Comments Sodium 139 (135-145) mmol/L Potassium 3.9 D (3.3-5.1) mmol/L Chloride 97 (96-108) mmol/L Carbon Dioxide 31 H (22-29) mmol/L Anion Gap 15 (12-20) BUN 22 H (9-16) mg/dL Creatinine 0.74 (0.5-1.4) mg/dL Estim Creat Clear Calc 162.3 Estimated GFR > 60 Random Glucose 126 H (60-115) mg/dL Lactic Acid (0.5-2.0) mmol/L Calcium 8.7 (8.4-10.2) mg/dL Total Bilirubin 1.0 (0.0-1.0) mg/dL Direct Bilirubin 0.3 (0.0-0.5) mg/dL AST 11 (5-37) U/L ALT 27 (0-40) U/L Alkaline Phosphatase 75 (39-117) U/L Total Protein 6.6 (6.5-8.0) g/dL Albumin 4.0 (3.5-5.0) g/dL COVID-19 (EDUARD) (Negative) COVID-19 Clin Com Independent Interpretation I performed an independent interpretation of an: CT Scan Interpretation: I independently reviewed the CT scan and agree with radiologist's report Radiology Impression Discussion of test interpretation with radiology: I have reviewed the radiologist's reading. Radiologist Impression: DLP: 1422 mGy-cm FINDINGS: LUNG BASES: Bilateral lower lobe atelectasis consolidation/consolidation and trace effusions. This appears improved from 10/14/2021 exam. LIVER, GALLBLADDER, AND BILIARY TREE: The liver is normal in size, and shape. The liver is low in attenuation suggestive of fatty infiltration.. No focal hepatic lesion or biliary ductal dilatation is present. The gallbladder is unremarkable with no evidence of radiopaque gallstones, gallbladder wall thickening, or obvious pericholecystic inflammatory changes.? PANCREAS: Unremarkable.? SPLEEN: Unremarkable.? ADRENAL GLANDS: Unremarkable.? KIDNEYS AND URETERS: Small nonobstructing left renal stones. BLADDER: Unremarkable.? GASTROINTESTINAL TRACT: The stomach and proximal small bowel is dilated and fluid-filled. This is new or increased from recent exam. There is a transition zone seen in the mid abdomen for example axial images 5255 and coronal reconstructed images [id number] questionable for? transition point and cause of proximal small bowel obstruction. The distal small bowel is not dilated. The appendix is normal. There is a large amount of stool in the rectosigmoid region suggestive of fecal impaction. Appears improved from 10/14/2022 exam. There is question of mild wall thickening of the rectosigmoid region and stranding of the fat or a sterile full colitis related to chronic constipation.. The colon is slightly distended. No free air. No ascites. ABDOMINAL WALL: Umbilical, upper midline ventral and bilateral inguinal hernias containing fat.? LYMPH NODES: Normal. VASCULAR: Unremarkable. PELVIC VISCERA: Unremarkable.? OSSEOUS STRUCTURES: Severe arthritis at the left hip joint. CT/CT abdomen pelvis w IV con IMPRESSION: Question proximal small bowel obstruction. Improved constipation with decreased stool burden. Persistent fecal impaction. Small left renal stones. Mild fatty infiltration of the liver. ? Fleischner guidelines were followed. Independent Historian Clinical information obtained from an independent historian. History obtained from or confirmed by: EMS External Record Review External record reviewed: Inpatient record and Outpatient record Reviewed records from inpatient admission Reviewed records from [facility] Discharge Plan Discharge Clinical Impression: Leukocytosis, Ileus Patient Disposition: Admitted As Inpatient
[2022-10-17] MEDS: 0.9 % Sodium Chloride 1,000 ML 999 ML IV (14:42)
[2022-10-17 14:47] LABS: Basophils Percent Auto 0.1 % (0-2); Eosinophils Absolute Auto 0.1 X10*3/uL (0.0-0.4); Eosinophils Percent Auto 0.2 % (0-4); Hematocrit 47.3 % (42.0-52.0); Hemoglobin 15.4 g/dl (14.0-18.0); Imm Gran Pct Auto 0.8 % (0.0-0.4); Lymphocytes Absolute Auto 1.4 X10*3/uL (1.2-4.9); Lymphocytes Percent Auto 5.8 % (20-40); MANUAL DIFF FLAG SCAN; Mean Corpuscular HGB Conc 32.6 g/dl (31.0-36.0); Mean Platelet Volume 9.3 fL (9.4-12.4); Monocytes Absolute Auto 1.8 X10*3/uL (0.1-1.2); Monocytes Percent Auto 7.3 % (2-11); Neutrophils Absolute Auto 21.3 x10*3/uL (2.0-8.3); Neutrophils Percent Auto 85.8 % (45-73); Platelet Count 357 X10*3/uL (160-400); Red Cell Distribution Width 13.7 % (11.0-16.0); SCAN SMEAR FLAG 1; White Blood Count 24.8 X10*3/uL (4.8-10.8)
[2022-10-17 15:01] LABS: Alanine Aminotransferase 27 U/L (0-40); Alkaline Phosphatase 75 U/L (39-117); Anion Gap 15 (12-20); Aspartate Amino Transferase 11 U/L (5-37); Bilirubin Direct 0.3 mg/dL (0.0-0.5); Blood Urea Nitrogen 22 mg/dL (9-16); Calcium 8.7 mg/dL (8.4-10.2); Carbon Dioxide 31 mmol/L (22-29); Chloride 97 mmol/L (96-108); Creatinine Clr Calc Pharmacy 162.3; Estimated Glomerular Filt Rate > 60; Glucose Random 126 mg/dL (60-115); Potassium 3.9 mmol/L (3.3-5.1); Sodium 139 mmol/L (135-145); Total Protein 6.6 g/dL (6.5-8.0)
--- NOTE | 2022-10-17 15:02 | MHC.EDTECH ---
Pt was soiled with lots of loose stools, pt cleaned up and new bed linens in place, repositioned @1500
[2022-10-17 15:09] VITALS: BP 148/71; PULSE 106; RESP 20; O2SAT 98
--- NOTE | 2022-10-17 15:12 | PC.NURSE ---
pt covered in massive amount of soft brown stool in brief, hospital linens changed and pt cleaned.
[2022-10-17 15:14] LABS: COVID-19 Test Negative (Negative); IDNOW Serial# 9DB6401D
[2022-10-17 15:19] LABS: SLIDE REVIEW VERIFIED
[2022-10-17] MEDS: iohexoL 350 MG/ML 100 ML INFUS..BTL IV (16:04)
--- NOTE | 2022-10-17 17:09 | P.CONGS_ITS ---
History of Present Illness Consult details Consult date: 10/17/22 Narrative: 52M with multiple medical problems, including traumatic brain injury, dementia, mood disorder, obesity, COPD, sent to the ER from [facility] today because of vomiting. He apparently had multiple episodes from the skilled nursing. He was admitted for a similar presentation last 10/11/2022. At that time, his CAT scan had shown fecal impaction but he given enemas and laxatives and he had started to pass good bowel movements. He describes he has a little bit of abdominal pain. He also has an umbilical hernia containing fat but this has been seen on previous CT scans and this does not involve any bowel loop. He was just discharged yesterday but he had stated episodes of vomiting this morning. He has had multiple bowel movements been here in the ER. His CAT scan today showed dilated patient of the stomach and proximal small bowel suggestive of partial small-bowel obstruction. Review of Systems Constitutional: Constitutional: Denies chills and Denies fever(s) Cardiovascular: Cardiovascular: Denies chest pain Gastrointestinal: Gastrointestinal: Reports constipation and Reports vomiting Genitourinary: Genitourinary: Reports urinary incontinence Neurologic: Reports memory loss Psychiatric: Psychiatric: Reports memory loss and Reports mood swings [facility] Past Medical History Medical History COPD (chronic obstructive pulmonary disease) Dementia Dysarthria HTN (hypertension) Mood disorder Obesity Osteoarthritis Social History Social History Household Members: Other Housing: Skilled Nursing Do you presently have visiting nurse or other home services: No Unable to assess alcohol history related to: Unable to respond Alcohol intake: never Patient Tobacco Use Status: Former Tobacco user Smoked in Last 30 Days: No Use of substances other than those prescribed or required for medical reasons: Unable to respond Currently Displaying Signs/Symptoms of Drug Intoxication Withdrawal: No Advance Directives: No Advance Directives Information Provided: Yes Do you have thoughts of harming others: None Do you have a plan to hurt others: No Plan Recently lost weight without trying: Unsure Nutrition Risks: Acute nausea or vomiting x1 week and Poor intake 0-25% >4 days Poor oral hygiene: Yes service: No Current occupational status: disabled Meds Allergies Allergy/AdvReac Type Severity Reaction Status Date / Time No Known Allergies Allergy Unverified 05/17/20 16:35 Active Medications: Current Medications Pharmacy Consult (Consult Rx Perform Med Rec) 1 each MISCELLANE ONCE PRN PRN Reason: Consult order Home Medications Medication Instructions Recorded Confirmed Last Taken Type acetaminophen 325 mg tablet 650 mg PO Q4H PRN Fever Or Pain 10/11/22 10/17/22 Un known History aluminum-mag hydroxide-simethicone 30 ml PO Q4H PRN GI upset 10/11/22 10/17/22 Unknown History 200 mg-200 mg-20 mg/5 mL oral susp amlodipine 10 mg tablet 10 mg PO DAILY 10/11/22 10/17/22 Unknown History aspirin 81 mg tablet,delayed 81 mg PO DAILY 10/11/22 10/17/22 Unknown History release atorvastatin 10 mg tablet 10 mg PO BEDTIME 10/11/22 10/17/22 Unknown History bisacodyl 10 mg rectal suppository 10 mg HI DAILY PRN Constipation 10/11/22 10/17/22 Unknown History (Dulcolax (bisacodyl)) chlorhexidine gluconate 4 % 1 appl topical MOWEFR@1500 10/11/22 10/17/22 Unknown History topical liquid (Hibiclens) dimethicone 1 % topical cream 1 appl topical QID PRN skin 10/11/22 10/17/22 Unknown History breakdown docusate sodium 100 mg capsule 100 mg PO BEDTIME 10/11/22 10/17/22 Unknown History fluticasone furoate 100 1 inh inhalation DAILY 10/11/22 10/17/22 Unknown History mcg-vilanterol 25 mcg/dose inhalation powder (Breo Ellipta) guaifenesin 100 mg/5 mL oral liquid 200 mg PO Q4H PRN Cough 10/11/22 10/17/22 Unknown History ibuprofen 800 mg tablet 800 mg PO BID 10/11/22 10/17/22 Unknown History lisinopril 40 mg tablet 40 mg PO DAILY 10/11/22 10/17/22 Unknown History loperamide 2 mg capsule 2 mg PO Q2H PRN Loose Stool 10/11/22 10/17/22 Unknown History loperamide 2 mg capsule 4 mg PO Q24H PRN Loose Stool 10/11/22 10/17/22 Unknown History metoprolol tartrate 50 mg tablet 50 mg PO BID 10/11/22 10/17/22 Unknown History multivitamin 1 tab PO DAILY 10/11/22 10/17/22 Unknown History naloxone 4 mg/actuation nasal 4 mg intranasal Q3M PRN Opioid 10/11/22 10/17/22 Unknown History spray (Narcan) Overdose olanzapine 7.5 mg tablet 7.5 mg PO BEDTIME 10/11/22 10/17/22 Unknown History omeprazole 20 mg capsule,delayed 20 mg PO DAILY@0630 10/11/22 10/17/22 Unknown History release sennosides 8.6 mg tablet (senna) 8.6 mg PO DAILY PRN Constipation 10/11/22 10/17/22 Unknown History sodium phosphates 19 gram-7 118 ml HI DAILY PRN Constipation 10/11/22 10/17/22 Unknown History gram/118 mL enema (Fleet Enema) tramadol 50 mg tablet 50 mg PO TID 10/11/22 10/17/22 Unknown History turmeric 400 mg capsule 500 mg PO BID 10/11/22 10/17/22 Unknown History Physical Exam Vital Signs: Vital Signs: Last Vital Signs Temp 98.4 F 10/17/22 14:33 Pulse 106 H 10/17/22 15:09 Resp 20 10/17/22 15:09 BP 148/71 H 10/17/22 15:09 Pulse Ox 98 10/17/22 15:09 O2 Del Method 10/17/22 15:09 BMI result Body Mass Index 40.4 Const: Other: Morbidly obese answers simple questions General: comfortable and no acute distress Neck: Neck: Yes no lymphadenopathy Resp: Auscultation: clear to auscultation bilaterally Cardio: Rhythm: regular rhythm GI: Other: surgical scar on the upper midline, umbilical hernia not tender Palpation (GI): Soft to palpation, nontender, no guarding and not rigid Results Labs 10/17/22 14:39 10/17/22 14:40 Labs: Abnormal lab results 10/17/22 10/17/22 Range/Units 14:39 14:40 WBC 24.8 H (4.8-10.8) X10*3/uL MPV 9.3 L (9.4-12.4) fL Immature Gran % (Auto) 0.8 H (0.0-0.4) % Neut % (Auto) 85.8 H (45-73) % Lymph % (Auto) 5.8 L (20-40) % [place] # (Auto) 1.8 H (0.1-1.2) X10*3/uL Abs Immat Gran (auto) 0.20 H (0.00-0.03) X10*3/uL Absolute Neuts (auto) 21.3 H (2.0-8.3) x10*3/uL Carbon Dioxide 31 H (22-29) mmol/L BUN 22 H (9-16) mg/dL Random Glucose 126 H (60-115) mg/dL Short CBC 10/17/22 Range/Units 14:39 WBC 24.8 H (4.8-10.8) X10*3/uL Hgb 15.4 D (14.0-18.0) g/dl Hct 47.3 (42.0-52.0) % Plt Count 357 D (160-400) X10*3/uL BMP 10/17/22 14:40 Sodium 139 Potassium 3.9 D Chloride 97 Carbon Dioxide 31 H BUN 22 H Creatinine 0.74 Calcium 8.7 Liver Function 10/17/22 Range/Units 14:40 Total Bilirubin 1.0 (0.0-1.0) mg/dL Direct Bilirubin 0.3 (0.0-0.5) mg/dL AST 11 (5-37) U/L ALT 27 (0-40) U/L Alkaline Phosphatase 75 (39-117) U/L Albumin 4.0 (3.5-5.0) g/dL All other labs normal. Imaging Additional studies: Laboratory Results WBC 24.8 X10*3/uL (4.8-10.8) H 10/17/22 14:39 RBC 5.50 X10*6/uL (4.60-5.80) D 10/17/22 14:39 Hgb 15.4 g/dl (14.0-18.0) D 10/17/22 14:39 Hct 47.3 % (42.0-52.0) 10/17/22 14:39 MCV 86.0 fL (80.0-98.0) 10/17/22 14:39 MCH 28.0 pg (27.0-33.0) 10/17/22 14:39 MCHC 32.6 g/dl (31.0-36.0) 10/17/22 14:39 RDW 13.7 % (11.0-16.0) 10/17/22 14:39 Plt Count 357 X10*3/uL (160-400) D 10/17/22 14:39 MPV 9.3 fL (9.4-12.4) L 10/17/22 14:39 Immature Gran % (Auto) 0.8 % (0.0-0.4) H 10/17/22 14:39 Neut % (Auto) 85.8 % (45-73) H 10/17/22 14:39 Lymph % (Auto) 5.8 % (20-40) L 10/17/22 14:39 [place] % (Auto) 7.3 % (2-11) 10/17/22 14:39 Eos % (Auto) 0.2 % (0-4) 10/17/22 14:39 Baso % (Auto) 0.1 % (0-2) 10/17/22 14:39 Lymph # (Auto) 1.4 X10*3/uL (1.2-4.9) 10/17/22 14:39 [place] # (Auto) 1.8 X10*3/uL (0.1-1.2) H 10/17/22 14:39 Eos # (Auto) 0.1 X10*3/uL (0.0-0.4) 10/17/22 14:39 Baso # (Auto) 0.0 X10*3/uL (0.0-0.2) 10/17/22 14:39 Abs Immat Gran (auto) 0.20 X10*3/uL (0.00-0.03) H 10/17/22 14:39 Absolute Neuts (auto) 21.3 x10*3/uL (2.0-8.3) H 10/17/22 14:39 Absolute Nucleated RBC 0.000 X10*3/uL (0.0-0.012) 10/17/22 14:39 Nucleated RBC % (auto) 0.0 /100WBC (0.0-0.2) 10/17/22 14:39 Smear Tech's Comments VERIFIED 10/17/22 14:39 Sodium 139 mmol/L (135-145) 10/17/22 14:40 Potassium 3.9 mmol/L (3.3-5.1) D 10/17/22 14:40 Chloride 97 mmol/L (96-108) 10/17/22 14:40 Carbon Dioxide 31 mmol/L (22-29) H 10/17/22 14:40 Anion Gap 15 (12-20) 10/17/22 14:40 BUN 22 mg/dL (9-16) H 10/17/22 14:40 Creatinine 0.74 mg/dL (0.5-1.4) 10/17/22 14:40 Estim Creat Clear Calc 162.3 10/17/22 14:40 Estimated GFR > 60 10/17/22 14:40 Random Glucose 126 mg/dL (60-115) H 10/17/22 14:40 Lactic Acid 1.0 mmol/L (0.5-2.0) 10/17/22 14:39 Calcium 8.7 mg/dL (8.4-10.2) 10/17/22 14:40 Total Bilirubin 1.0 mg/dL (0.0-1.0) 10/17/22 14:40 Direct Bilirubin 0.3 mg/dL (0.0-0.5) 10/17/22 14:40 AST 11 U/L (5-37) 10/17/22 14:40 ALT 27 U/L (0-40) 10/17/22 14:40 Alkaline Phosphatase 75 U/L (39-117) 10/17/22 14:40 Total Protein 6.6 g/dL (6.5-8.0) 10/17/22 14:40 Albumin 4.0 g/dL (3.5-5.0) 10/17/22 14:40 COVID-19 (EDUARD) Negative (Negative) 10/17/22 14:39 COVID-19 Clin Com See Note 10/17/22 14:39 Impressions Abdomen/Pelvis CT 10/17/22 16:05 IMPRESSION: Question proximal small bowel obstruction. Improved constipation with decreased stool burden. Persistent fecal impaction. Small left renal stones. Mild fatty infiltration of the liver. Fleischner guidelines were followed. Assessment and Plan (1) Nausea & vomiting: Status: Acute He was sent to the ER from [facility] because of vomiting. His CAT scan shows a distension of the stomach and proximal small bowel. He does have air in the colon and rectum. This CT scan is suggestive of partial small-bowel obstruction versus an ileus. His constipation has improved. Actually was passing good amounts of stool here in the emergency room when examined. Because of his vomiting and the CT scan picture, I have recommended putting in an NG tube to low wall suction. His exam is otherwise benign. His abdomen is soft. He does have leukocytosis so we should investigate for sources of infection. I have reviewed his CAT scan and there does not appear to be any significant intra-abdominal inflammatory process. He has a fat containing hernia without any involvement of the bowel loops. I will follow along closely while he is in the hospital. Time Spent With Patient Time: Total time managing care of this patient today ____ minutes. Procedures Date of Service Date of Service: 10/17/22
--- NOTE | 2022-10-17 17:22 | PC.NURSE ---
ng tube placed in r nare, immediate release of brown emesis, approx 800ml in suction canister, pt emesis frequency reducing at this time.
--- NOTE | 2022-10-17 17:27 | PHA.MEDREC ---
MED REC COMPLETE, PATIENT WAS JUST DISCHARGED Pharmacy Consult ? Medication Reconciliation Pharmacy has completed the medication reconciliation.
[2022-10-17] MEDS: LORazepam 2 MG/ML VIAL 0.5 MG IVPUSH (17:35)
[2022-10-17] MEDS: Piperacillin Sodium/Tazobactam 3.375 GM in 0.9 % Sodium Chloride 50 ML IV (17:35)
--- NOTE | 2022-10-17 17:46 | PM.IMHP ---
History of Present Illness Date of Service: 10/17/22 Attending physician on admission: [facility] Chief Complaint: Vomiting Pt is a 52-year-old male resident of [facility] with a PMH significant for?TBI, mood disorder, history of stroke, dysarthria, COPD, and HTN who presents to the ED after having multiple episodes of vomiting earlier today. Patient was just released yesterday from the hospital after being treated for fecal impaction, sepsis secondary to pneumonia, and acute respiratory failure in the setting of COPD exacerbation. Patient was discharged on MiraLax and 2 days of Augmentin. Patient states that this morning he began vomiting, similar to presentation for previous admission. Patient had bowel movement earlier today, continues to pass flatus. Patient denies hematemesis, abdominal pain, fever, chills. In the ED patient was tachycardic. Labs were significant for leukocytosis of 24.8, lactic acid WNL at 1.0. CT?of abdomen/pelvis showed question of proximal small bowel obstruction with improved constipation with decreased stool burden, and improved consolidation and trace effusions of lung bases. Pt was treated with a dancer drawn, IVF, lorazepam, and Zosyn. Pt will be admitted to the hospital treatment and further evaluation of possible partial small bowel obstruction versus ileus with NG, IVF, and bowel rest. Review of Systems Review of Systems: Vomiting x1 day Denies hematemesis No abdominal pain Denies chest pain/pressure No SOB Yes all other systems are reviewed and are negative [facility] Medical History COPD (chronic obstructive pulmonary disease) Dementia Dysarthria HTN (hypertension) Mood disorder Obesity Osteoarthritis Social History Household Members: Other Housing: Detention Do you presently have visiting nurse or other home services: Yes Alcohol intake: never Patient Tobacco Use Status: Former Tobacco user Smoked in Last 30 Days: No Use of substances other than those prescribed or required for medical reasons: No Advance Directives: No Advance Directives Information Provided: Yes Nutrition Risks: Difficulty chewing and Difficulty swallowing service: No Current occupational status: disabled Meds Allergies Allergy/AdvReac Type Severity Reaction Status Date / Time No Known Allergies Allergy Unverified 05/17/20 16:35 Active Medications: Current Medications Pharmacy Consult (Consult Rx Perform Med Rec) 1 each MISCELLANE ONCE PRN PRN Reason: Consult order Home Medications Medication Instructions Recorded Confirmed Last Taken Type acetaminophen 325 mg tablet 650 mg PO Q4H PRN Fever Or Pain 10/11/22 10/17/22 Unknown History aluminum-mag hydroxide-simethicone 30 ml PO Q4H PRN GI upset 10/11/22 10/17/22 Unknown History 200 mg-200 mg-20 mg/5 mL oral susp amlodipine 10 mg tablet 10 mg PO DAILY 10/11/22 10/17/22 Unknown History aspirin 81 mg tablet,delayed 81 mg PO DAILY 10/11/22 10/17/22 Unknown History release atorvastatin 10 mg tablet 10 mg PO BEDTIME 10/11/22 10/17/22 Unknown History bisacodyl 10 mg rectal suppository 10 mg AL DAILY PRN Constipation 10/11/22 10/17/22 Unknown History (Dulcolax (bisacodyl)) chlorhexidine gluconate 4 % 1 appl topical MOWEFR@1500 10/11/22 10/17/22 Unknown History topical liquid (Hibiclens) dimethicone 1 % topical cream 1 appl topical QID PRN skin 10/11/22 10/17/22 Unknown History breakdown docusate sodium 100 mg capsule 100 mg PO BEDTIME 10/11/22 10/17/22 Unknown History fluticasone furoate 100 1 inh inhalation DAILY 10/11/22 10/17/22 Unknown History mcg-vilanterol 25 mcg/dose inhalation powder (Breo Ellipta) guaifenesin 100 mg/5 mL oral liquid 200 mg PO Q4H PRN Cough 10/11/22 10/17/22 Unknown History ibuprofen 800 mg tablet 800 mg PO BID 10/11/22 10/17/22 Unknown History lisinopril 40 mg tablet 40 mg PO DAILY 10/11/22 10/17/22 Unknown History loperamide 2 mg capsule 2 mg PO Q2H PRN Loose Stool 10/11/22 10/17/22 Unknown History loperamide 2 mg capsule 4 mg PO Q24H PRN Loose Stool 10/11/22 10/17/22 Unknown History metoprolol tartrate 50 mg tablet 50 mg PO BID 10/11/22 10/17/22 Unknown History multivitamin 1 tab PO DAILY 10/11/22 10/17/22 Unknown History naloxone 4 mg/actuation nasal 4 mg intranasal Q3M PRN Opioid 10/11/22 10/17/22 Unknown History spray (Narcan) Overdose olanzapine 7.5 mg tablet 7.5 mg PO BEDTIME 10/11/22 10/17/22 Unknown History omeprazole 20 mg capsule,delayed 20 mg PO DAILY@0630 10/11/22 10/17/22 Unknown History release sennosides 8.6 mg tablet (senna) 8.6 mg PO DAILY PRN Constipation 10/11/22 10/17/22 Unknown History sodium phosphates 19 gram-7 118 ml AL DAILY PRN Constipation 10/11/22 10/17/22 Unknown History gram/118 mL enema (Fleet Enema) tramadol 50 mg tablet 50 mg PO TID 10/11/22 10/17/22 Unknown History turmeric 400 mg capsule 500 mg PO BID 10/11/22 10/17/22 Unknown History Physical Exam Vital Signs and Narrative: Vital Signs: Last Vital Signs Temp 98.4 F 10/17/22 14:33 Pulse 106 H 10/17/22 15:09 Resp 20 10/17/22 15:09 BP 148/71 H 10/17/22 15:09 Pulse Ox 98 10/17/22 15:09 O2 Del Method 10/17/22 15:09 BMI result Body Mass Index 40.4 Constitutional: Alert, in mild discomfort d/t NGT in place. Mental Status: Oriented to person, place and time. Eyes: Pupils are equal, round, and reactive to light. Ear, Nose, and Throat: Oropharynx clear, mucous membranes moist. Ears and nose without deformities. Trachea midline. Respiratory: Clear to auscultation bilaterally. No wheezing, rales, or rhonchi. Cardiovascular: S1, S2 regular, tachycardic. No murmurs, rubs, or gallops. Gastrointestinal: Abdomen soft, non-tender, mildly distended. Non-reducible umbilical hernia, nontender. Normal bowel sounds. Neurologic: Cranial nerves II-XII are grossly intact. No focal neurological deficits. Moves all extremities spontaneously. Skin: No rashes or lesions noted. Musculoskeletal: No cyanosis or clubbing. Extremities: Trace pitting edema bilaterally. Psychiatric: Normal mood and affect. Results Labs 10/17/22 14:39 10/17/22 14:40 Labs: Laboratory Results - last 24 hr 10/17/22 10/17/22 10/17/22 14:39 14:39 14:39 MCV 86.0 MCH 28.0 MCHC 32.6 RDW 13.7 Plt Count 357 D MPV 9.3 L Immature Gran % (Auto) 0.8 H Neut % (Auto) 85.8 H Lymph % (Auto) 5.8 L [place] % (Auto) 7.3 Eos % (Auto) 0.2 Baso % (Auto) 0.1 Lymph # (Auto) 1.4 [place] # (Auto) 1.8 H Eos # (Auto) 0.1 Baso # (Auto) 0.0 Abs Immat Gran (auto) 0.20 H Absolute Neuts (auto) 21.3 H Absolute Nucleated RBC 0.000 Nucleated RBC % (auto) 0.0 Smear Tech's Comments VERIFIED Anion Gap Estim Creat Clear Calc Estimated GFR Random Glucose Lactic Acid 1.0 Calcium Total Bilirubin Direct Bilirubin AST ALT Alkaline Phosphatase Total Protein Albumin COVID-19 ([facility]UARD) Negative COVID-19 Clin Com See Note 10/17/22 14:40 MCV MCH MCHC RDW Plt Count MPV Immature Gran % (Auto) Neut % (Auto) Lymph % (Auto) [place] % (Auto) Eos % (Auto) Baso % (Auto) Lymph # (Auto) [place] # (Auto) Eos # (Auto) Baso # (Auto) Abs Immat Gran (auto) Absolute Neuts (auto) Absolute Nucleated RBC Nucleated RBC % (auto) Smear Tech's Comments Anion Gap 15 Estim Creat Clear Calc 162.3 Estimated GFR > 60 Random Glucose 126 H Lactic Acid Calcium 8.7 Total Bilirubin 1.0 Direct Bilirubin 0.3 AST 11 ALT 27 Alkaline Phosphatase 75 Total Protein 6.6 Albumin 4.0 COVID-19 (EDUARD) COVID-19 Clin Com Imaging Radiologist's Impressions: Impressions Abdomen/Pelvis CT 10/17/22 16:05 IMPRESSION: Question proximal small bowel obstruction. Improved constipation with decreased stool burden. Persistent fecal impaction. Small left renal stones. Mild fatty infiltration of the liver. Fleischner guidelines were followed. Assessment and Plan (1) Leukocytosis: Status: Acute (2) Nausea & vomiting: Status: Acute Plan Pt is a 52-year-old male resident of [facility] with a PMH significant for?TBI, mood disorder, history of stroke, dysarthria, COPD, and HTN who presents to the ED after having multiple episodes of vomiting earlier today. Pt will be admitted to the hospital for treatment and further evaluation of possible partial small bowel obstruction versus ileus. Nausea and vomiting Patient has had episodes of vomiting since this morning CT suggestive of partial small bowel obstruction versus ileus Patient passing flatus, had BM earlier today NGT NPO IVF: D5W 1/2 NS @100 mls/hr Ondansetron, analgesics p.r.n. General surgery consult Leukocytosis Patient had leukocytosis of 24.8 upon presentation Etiology unclear, patient diagnosed with pneumonia during last admission and treated with 5 days of Unasyn and transitioned to 2 days of Augmentin with last day of ABX tomorrow Pt given Zosyn in the ED UA pending Follow blood cultures Check chest x-ray Hold last day of Augmentin, and on any additional abx for now, re-evaluate tomorrow Umbilical hernia Pt has fat containing hernia without any involvement of the bowel loops No intervention necessary at this time, per general surgery HLD Continue home meds HTN Continue home meds GERD Continue home meds Full Code Attending:?Dr. Dorado DVT Prophylaxis: Lovenox Pt will require a hospitalization of at least two nights for treatment of?possible partial SBO versus ileus with NG, IVF, and bowel rest. Time Spent With Patient Time: Total time managing care of this patient today ____ minutes. Quality Stroke Does the patient have a stroke diagnosis?: No VTE Prior VTE?: No VTE Risk Level:: Medical - moderate - high VTE Device Contraindication: Treatment Not Indicated VTE Drug Contraindication: N/A - Med Ordered
[2022-10-17] MEDS: Dextrose 5 % and 0.45 % NaCl 1,000 ML 100 ML IVCONT (18:48)
[2022-10-17 18:49] VITALS: BP 158/100; PULSE 89; RESP 20; O2SAT 96
--- NOTE | 2022-10-17 18:58 | PC.NURSE ---
assumed care of pt
--- NOTE | 2022-10-17 18:59 | PC.NURSE ---
Addendum entered by Liliam Corrales 10/17/22 19:02: asked to c/b in 5-10min Original Note: Called to give report; no answer [phone]
--- NOTE | 2022-10-17 19:16 | PC.NURSE ---
called to give report
--- NOTE | 2022-10-17 19:33 | PC.NURSE ---
report given to SANTIAGO Thompson; p to room [id number] awaiting trnsport
--- NOTE | 2022-10-17 19:45 | PC.NURSE ---
Addendum entered by Liliam Corrales 10/17/22 19:50: RN notified Original Note: Pt inadvertently dislodged his NGT when prepping pt for transport.
[2022-10-17] MEDS: Enoxaparin Sodium 40 MG/0.4 ML SYRINGE SUBCUT (21:29)
[2022-10-17] MEDS: Metoprolol Tartrate 50 MG TABLET PO (21:31)
[2022-10-17] MEDS: Atorvastatin Calcium 10 MG TABLET PO (21:31)
[2022-10-17] MEDS: traMADoL HCL 50 MG TABLET PO (21:31)
[2022-10-17] MEDS: OLANZapine 7.5 MG TABLET PO (21:31)
[2022-10-18 03:38] VITALS: BP 131/66; PULSE 95; RESP 17; TEMP 36.3; O2SAT 94
[2022-10-18] MEDS: Omeprazole 20 MG CAPSULE.DR PO (05:37)
[2022-10-18] MEDS: Dextrose 5 % and 0.45 % NaCl 1,000 ML 100 ML IVCONT ×2 (05:40→16:12)
[2022-10-18 06:21] LABS: Hematocrit 46.2 % (42.0-52.0); Hemoglobin 14.6 g/dl (14.0-18.0); Mean Corpuscular HGB Conc 31.6 g/dl (31.0-36.0); Mean Corpuscular Hemoglobin 28.3 pg (27.0-33.0); Mean Corpuscular Volume 89.7 fL (80.0-98.0); Mean Platelet Volume 9.8 fL (9.4-12.4); Platelet Count 324 X10*3/uL (160-400); Red Blood Count 5.15 X10*6/uL (4.60-5.80); Red Cell Distribution Width 13.8 % (11.0-16.0); White Blood Count 23.7 X10*3/uL (4.8-10.8)
[2022-10-18 06:40] LABS: Anion Gap 16 (12-20); Blood Urea Nitrogen 25 mg/dL (9-16); Calcium 8.5 mg/dL (8.4-10.2); Carbon Dioxide 29 mmol/L (22-29); Chloride 100 mmol/L (96-108); Creatinine Clr Calc Pharmacy 155.9; Estimated Glomerular Filt Rate > 60; Glucose Random 112 mg/dL (60-115); Potassium 4.5 mmol/L (3.3-5.1); Sodium 140 mmol/L (135-145)
[2022-10-18 08:00] VITALS: BP 121/59; PULSE 93; RESP 17; TEMP 37.2; O2SAT 93
[2022-10-18 08:16] LABS: Procalcitonin 0.11 ng/mL
[2022-10-18] MEDS: Fluticasone/Vilanterol 100/25 BLST.W.DEV 1 PUFF INHALE (09:23)
[2022-10-18 09:24] VITALS: PULSE 90; RESP 16; O2SAT 93
[2022-10-18] MEDS: amLODIPine Besylate 10 MG TABLET PO (10:01)
[2022-10-18] MEDS: Metoprolol Tartrate 50 MG TABLET PO ×2 (10:01→20:56)
[2022-10-18] MEDS: lisinopriL 40 MG TABLET PO (10:01)
[2022-10-18] MEDS: Aspirin Enteric Coated 81 MG TABLET.DR PO (10:01)
[2022-10-18] MEDS: traMADoL HCL 50 MG TABLET PO ×3 (10:02→20:55)
[2022-10-18] MEDS: 0.9 % Sodium Chloride Flush 3 ML SYRINGE IVFLUSH (10:03)
--- NOTE | 2022-10-18 10:45 | P.PNGS_ITS ---
Subjective Subjective Date of Service: 10/18/22 Interval history: he pulled out his NGT overnight denies abdl pain hungry continues to pass stools Physical Exam Vital Signs: Vital Signs: Last Vital Signs Temp 98.9 F 10/18/22 08:00 Pulse 90 10/18/22 09:24 Resp 16 10/18/22 09:24 BP 121/59 L 10/18/22 08:00 Pulse Ox 93 10/18/22 08:00 O2 Del Method 10/18/22 08:00 BMI result Body Mass Index 40.4 Const: General: comfortable and no acute distress Nutritional Appearance: obese Resp: Effort & Inspection: normal respiratory effort Cardio: Rate: regular rate GI: Palpation (GI): Soft to palpation, not firm, nontender and no guarding Objective Data Active Medications Albuterol Sulfate (Albuterol Sulfate (0.083%) 2.5 Mg/3 Ml Vial.Neb) 2.5 mg INHALE RQ6H WHILE AWAKE PRN PRN Reason: Shortness Of Breath Or Wheezing Amlodipine Besylate (Amlodipine Besylate 10 Mg Tablet) 10 mg PO DAILY [facility]; Protocol Last Admin: 10/18/22 10:01 Dose: 10 mg Documented By: OSWALDO Aspirin (Aspirin Enteric Coated 81 Mg Tablet.Dr) 81 mg PO DAILY [facility] Last Admin: 10/18/22 10:01 Dose: 81 mg Documented By: OSWALDO Atorvastatin Calcium (Atorvastatin Calcium 10 Mg Tablet) 10 mg PO BEDTIME [facility] Last Admin: 10/17/22 21:31 Dose: 10 mg Documented By: ADA Bisacodyl (Bisacodyl 10 Mg Supp.Rect) 10 mg [place] DAILY PRN PRN Reason: Constipation Enoxaparin Sodium (Enoxaparin Sodium 40 Mg/0.4 Ml Syringe) 40 mg SUBCUT Q24H [facility] Last Admin: 10/17/22 21:29 Dose: 40 mg Documented By: ADA Fluticasone/Vilanterol (Fluticasone/Vilanterol 100/25 Blst.W.Dev) 1 puff INHALE RDAILY [facility] Last Admin: 10/18/22 09:23 Dose: 1 puff Documented By: THAI Dextrose/Sodium Chloride (D51/2ns) 1,000 mls @ 100 mls/hr IVCONT .Q10H [facility] Last Admin: 10/18/22 05:40 Dose: 100 mls/hr Documented By: ADA Lisinopril (Lisinopril 40 Mg Tablet) 40 mg PO DAILY [facility]; Protocol Last Admin: 10/18/22 10:01 Dose: 40 mg Documented By: OSWALDO Metoprolol Tartrate (Metoprolol Tartrate 50 Mg Tablet) 50 mg PO BID [facility]; Protocol Last Admin: 10/18/22 10:01 Dose: 50 mg Documented By: OSWALDO Olanzapine (Olanzapine 7.5 Mg Tablet) 7.5 mg PO BEDTIME [facility] Last Admin: 10/17/22 21:31 Dose: 7.5 mg Documented By: ADA Omeprazole (Omeprazole 20 Mg Capsule.Dr) 20 mg PO DAILY@0630 [facility] Last Admin: 10/18/22 05:37 Dose: 20 mg Documented By: ADA Ondansetron HCl (Ondansetron Hcl 4 Mg/2 Ml Vial) 4 mg IVPUSH Q8H PRN PRN Reason: Nausea and Vomiting Pharmacy Consult (Consult Rx Perform Med Rec) 1 each MISCELLANE ONCE PRN PRN Reason: Consult order Sodium Chloride (0.9 % Sodium Chloride Flush 3 Ml Syringe) 3 ml IVFLUSH QSHIFT [facility] Last Admin: 10/18/22 10:03 Dose: 3 ml Documented By: OSWALDO Tramadol HCl (Tramadol Hcl 50 Mg Tablet) 50 mg PO TID [facility] Last Admin: 10/18/22 10:02 Dose: 50 mg Documented By: OSWALDO Labs 10/18/22 06:02 10/18/22 06:02 Labs: Laboratory Results - last 24 hr 10/17/22 10/17/22 10/17/22 14:39 14:39 14:39 MCV 86.0 MCH 28.0 MCHC 32.6 RDW 13.7 Plt Count 357 D MPV 9.3 L Immature Gran % (Auto) 0.8 H Neut % (Auto) 85.8 H Lymph % (Auto) 5.8 L [place] % (Auto) 7.3 Eos % (Auto) 0.2 Baso % (Auto) 0.1 Lymph # (Auto) 1.4 [place] # (Auto) 1.8 H Eos # (Auto) 0.1 Baso # (Auto) 0.0 Abs Immat Gran (auto) 0.20 H Absolute Neuts (auto) 21.3 H Absolute Nucleated RBC 0.000 Nucleated RBC % (auto) 0.0 Smear Tech's Comments VERIFIED Anion Gap Estim Creat Clear Calc Estimated GFR Random Glucose Lactic Acid 1.0 Calcium Total Bilirubin Direct Bilirubin AST ALT Alkaline Phosphatase Total Protein Albumin Procalcitonin COVID-19 ([facility]) Negative COVID-19 Clin Com See Note 10/17/22 10/18/22 10/18/22 14:40 06:02 06:02 MCV 89.7 MCH 28.3 MCHC 31.6 RDW 13.8 Plt Count 324 MPV 9.8 Immature Gran % (Auto) Neut % (Auto) Lymph % (Auto) [place] % (Auto) Eos % (Auto) Baso % (Auto) Lymph # (Auto) [place] # (Auto) Eos # (Auto) Baso # (Auto) Abs Immat Gran (auto) Absolute Neuts (auto) Absolute Nucleated RBC 0.000 Nucleated RBC % (auto) 0.0 Smear Tech's Comments Anion Gap 15 16 Estim Creat Clear Calc 162.3 155.9 Estimated GFR > 60 > 60 Random Glucose 126 H 112 Lactic Acid Calcium 8.7 8.5 Total Bilirubin 1.0 Direct Bilirubin 0.3 AST 11 ALT 27 Alkaline Phosphatase 75 Total Protein 6.6 Albumin 4.0 Procalcitonin 0.11 COVID-19 ([facility]) COVID-[place] Com Procedures Date of Service Date of Service: 10/18/22 Progress Note: A&P Assessment and plan (1) Ileus: Status: Acute Assessment and Plan: continues to pass BMs no vomitting after he pulled out NGT abd remains soft and benign pt says he is hungry KUB pending would keep NPO for now, ok to have ice chips and sips of clear liquids WBC slightly lower - no fever Time Spent With Patient Time: Total time managing care of this patient today ____ minutes. Quality Stroke Does the patient have a stroke diagnosis?: No VTE Prior VTE?: No VTE Risk Level:: Medical - moderate - high VTE Device Contraindication: Treatment Not Indicated VTE Drug Contraindication: N/A - Med Ordered
--- NOTE | 2022-10-18 11:32 | P.PNIM_ITS ---
Subjective Subjective Date of Service: 10/18/22 Interval History: pulled out NGT having BMs wants to eat Review of Systems Review of Systems: Yes all other systems are reviewed and are negative Physical Exam Vital Signs: Vital Signs: Last Vital Signs Temp 98.9 F 10/18/22 08:00 Pulse 90 10/18/22 09:24 Resp 16 10/18/22 09:24 BP 121/59 L 10/18/22 08:00 Pulse Ox 93 10/18/22 08:00 O2 Del Method 10/18/22 08:00 BMI result Body Mass Index 40.4 Gen: in no acute distress HEENT: sclera anicteric, moist mucus membranes Neck: supple Lungs: clear to auscultation bilaterally Heart: regular rate and rhythm, no murmurs Abd: somewhat distended, no rebound or guarding Ext: no edema Skin: warm/well-perfused Neuro: alert and oriented x3, no focal findings Psych: appropriate affect Objective Data Active Medications Albuterol Sulfate (Albuterol Sulfate (0.083%) 2.5 Mg/3 Ml Vial.Neb) 2.5 mg INHALE RQ6H WHILE AWAKE PRN PRN Reason: Shortness Of Breath Or Wheezing Amlodipine Besylate (Amlodipine Besylate 10 Mg Tablet) 10 mg PO DAILY [facility]; Protocol Last Admin: 10/18/22 10:01 Dose: 10 mg Documented By: OSWADLO Aspirin (Aspirin Enteric Coated 81 Mg Tablet.) 81 mg PO DAILY [facility] Last Admin: 10/18/22 10:01 Dose: 81 mg Documented By: OSWALDO Atorvastatin Calcium (Atorvastatin Calcium 10 Mg Tablet) 10 mg PO BEDTIME [facility] Last Admin: 10/17/22 21:31 Dose: 10 mg Documented By: ADA Bisacodyl (Bisacodyl 10 Mg Supp.Rect) 10 mg [place] DAILY PRN PRN Reason: Constipation Enoxaparin Sodium (Enoxaparin Sodium 40 Mg/0.4 Ml Syringe) 40 mg SUBCUT Q24H [facility] Last Admin: 10/17/22 21:29 Dose: 40 mg Documented By: ADA Fluticasone/Vilanterol (Fluticasone/Vilanterol 100/25 Blst.W.Dev) 1 puff INHALE RDAILY [facility] Last Admin: 10/18/22 09:23 Dose: 1 puff Documented By: THAI Dextrose/Sodium Chloride (D51/2ns) 1,000 mls @ 100 mls/hr IVCONT .Q10H [facility] Last Admin: 10/18/22 05:40 Dose: 100 mls/hr Documented By: ADA Lisinopril (Lisinopril 40 Mg Tablet) 40 mg PO DAILY [facility]; Protocol Last Admin: 10/18/22 10:01 Dose: 40 mg Documented By: OSWALDO Metoprolol Tartrate (Metoprolol Tartrate 50 Mg Tablet) 50 mg PO BID [facility]; Protocol Last Admin: 10/18/22 10:01 Dose: 50 mg Documented By: OSWALDO Olanzapine (Olanzapine 7.5 Mg Tablet) 7.5 mg PO BEDTIME [facility] Last Admin: 10/17/22 21:31 Dose: 7.5 mg Documented By: ADA Omeprazole (Omeprazole 20 Mg Capsule.Dr) 20 mg PO DAILY@0630 [facility] Last Admin: 10/18/22 05:37 Dose: 20 mg Documented By: ADA Ondansetron HCl (Ondansetron Hcl 4 Mg/2 Ml Vial) 4 mg IVPUSH Q8H PRN PRN Reason: Nausea and Vomiting Pharmacy Consult (Consult Rx Perform Med Rec) 1 each MISCELLANE ONCE PRN PRN Reason: Consult order Sodium Chloride (0.9 % Sodium Chloride Flush 3 Ml Syringe) 3 ml IVFLUSH QSHIFT [facility] Last Admin: 10/18/22 10:03 Dose: 3 ml Documented By: OSWALDO Tramadol HCl (Tramadol Hcl 50 Mg Tablet) 50 mg PO TID [facility] Last Admin: 10/18/22 10:02 Dose: 50 mg Documented By: OSWALDO Labs 10/18/22 06:02 10/18/22 06:02 Labs: Laboratory Results - last 24 hr 10/17/22 10/17/22 10/17/22 14:39 14:39 14:39 MCV 86.0 MCH 28.0 MCHC 32.6 RDW 13.7 Plt Count 357 D MPV 9.3 L Immature Gran % (Auto) 0.8 H Neut % (Auto) 85.8 H Lymph % (Auto) 5.8 L [place] % (Auto) 7.3 Eos % (Auto) 0.2 Baso % (Auto) 0.1 Lymph # (Auto) 1.4 [place] # (Auto) 1.8 H Eos # (Auto) 0.1 Baso # (Auto) 0.0 Abs Immat Gran (auto) 0.20 H Absolute Neuts (auto) 21.3 H Absolute Nucleated RBC 0.000 Nucleated RBC % (auto) 0.0 Smear Tech's Comments VERIFIED Anion Gap Estim Creat Clear Calc Estimated GFR Random Glucose Lactic Acid 1.0 Calcium Total Bilirubin Direct Bilirubin AST ALT Alkaline Phosphatase Total Protein Albumin Procalcitonin COVID-19 ([facility]) Negative COVID-19 Clin Com See Note 10/17/22 10/18/22 10/18/22 14:40 06:02 06:02 MCV 89.7 MCH 28.3 MCHC 31.6 RDW 13.8 Plt Count 324 MPV 9.8 Immature Gran % (Auto) Neut % (Auto) Lymph % (Auto) [place] % (Auto) Eos % (Auto) Baso % (Auto) Lymph # (Auto) [place] # (Auto) Eos # (Auto) Baso # (Auto) Abs Immat Gran (auto) Absolute Neuts (auto) Absolute Nucleated RBC 0.000 Nucleated RBC % (auto) 0.0 Smear Tech's Comments Anion Gap 15 16 Estim Creat Clear Calc 162.3 155.9 Estimated GFR > 60 > 60 Random Glucose 126 H 112 Lactic Acid Calcium 8.7 8.5 Total Bilirubin 1.0 Direct Bilirubin 0.3 AST 11 ALT 27 Alkaline Phosphatase 75 Total Protein 6.6 Albumin 4.0 Procalcitonin 0.11 COVID-19 ([facility]) COVID-19 Clin Com Assessment and Plan (1) Fecal impaction: Status: Acute (2) COPD exacerbation: Status: Acute Plan hospital d#2 52yo M resident of [facility] with history of stroke, mood disorder, dysarthria, COPD, and hypertension, who was recently admitted to [facility] 10/11-10/16/22 with multiple episodes of vomiting and found to have fecal impaction and hypoxia from pneumonia, re-admitted 10/18/22 with concern of pSBO # pSBO - appears to be resolving, Gen Surg following, ice chips and sips of clears OK at this point. Pt pulled out NGT # PNA - completed ABX # COPD, not in acute exac - continue home inhalers # constipation - bowel regimen # LLL nodule, 1 cm - recommend repeat CT in 3 months # GERD - PPI # HTN - continue lisinopril, metoprolol, amlodipine # HLD - continue statin # mood disorder - olanzapine # morbid obesity - diet/exercise counseling # VTE ppx: LMWH # dispo: anticipate return to [facility] In my clinical judgment, the patient requires continued inpatient hospitalization for the following reasons: pSBO Time Spent With Patient Time: Total time managing care of this patient today ___35_ minutes. Quality Stroke Does the patient have a stroke diagnosis?: No VTE Prior VTE?: No VTE Risk Level:: Medical - moderate - high VTE Device Contraindication: Treatment Not Indicated VTE Drug Contraindication: N/A - Med Ordered
[2022-10-18 15:31] VITALS: BP 112/58; PULSE 90; RESP 17; TEMP 36.4; O2SAT 93
[2022-10-18 19:54] VITALS: BP 122/65; PULSE 88; RESP 18; TEMP 36.5; O2SAT 94
[2022-10-18] MEDS: Enoxaparin Sodium 40 MG/0.4 ML SYRINGE SUBCUT (20:55)
[2022-10-18] MEDS: Atorvastatin Calcium 10 MG TABLET PO (20:56)
[2022-10-18] MEDS: OLANZapine 7.5 MG TABLET PO (20:56)
[2022-10-19 02:58] VITALS: BP 125/61; PULSE 70; RESP 17; TEMP 36.6; O2SAT 95
[2022-10-19] MEDS: Omeprazole 20 MG CAPSULE.DR PO (05:15)
[2022-10-19] MEDS: 0.9 % Sodium Chloride Flush 3 ML SYRINGE IVFLUSH ×2 (05:15→16:49)
[2022-10-19] MEDS: Dextrose 5 % and 0.45 % NaCl 1,000 ML 100 ML IVCONT (05:15)
[2022-10-19 06:42] LABS: Hematocrit 42.5 % (42.0-52.0); Hemoglobin 13.4 g/dl (14.0-18.0); Mean Corpuscular HGB Conc 31.5 g/dl (31.0-36.0); Mean Corpuscular Hemoglobin 27.9 pg (27.0-33.0); Mean Corpuscular Volume 88.5 fL (80.0-98.0); Mean Platelet Volume 9.3 fL (9.4-12.4); Platelet Count 278 X10*3/uL (160-400); Red Cell Distribution Width 13.3 % (11.0-16.0); White Blood Count 14.9 X10*3/uL (4.8-10.8)
[2022-10-19 07:09] LABS: Anion Gap 14 (12-20); Blood Urea Nitrogen 16 mg/dL (9-16); Calcium 7.9 mg/dL (8.4-10.2); Carbon Dioxide 26 mmol/L (22-29); Chloride 98 mmol/L (96-108); Creatinine Clr Calc Pharmacy 181.9; Estimated Glomerular Filt Rate > 60; Glucose Random 86 mg/dL (60-115); Potassium 3.9 mmol/L (3.3-5.1); Sodium 134 mmol/L (135-145)
[2022-10-19 08:00] VITALS: BP 121/58; PULSE 81; RESP 17; TEMP 36.3; O2SAT 94
[2022-10-19] MEDS: Metoprolol Tartrate 50 MG TABLET PO ×2 (08:24→21:00)
[2022-10-19] MEDS: Aspirin Enteric Coated 81 MG TABLET.DR PO (08:24)
[2022-10-19] MEDS: amLODIPine Besylate 10 MG TABLET PO (08:25)
[2022-10-19] MEDS: lisinopriL 40 MG TABLET PO (08:25)
[2022-10-19] MEDS: traMADoL HCL 50 MG TABLET PO ×3 (08:25→21:00)
[2022-10-19] MEDS: Fluticasone/Vilanterol 100/25 BLST.W.DEV 1 PUFF INHALE (08:58)
[2022-10-19 08:59] VITALS: PULSE 81; RESP 17; O2SAT 94
--- NOTE | 2022-10-19 09:06 | MHC.CM.PN ---
PT IS A LTC RESIDENT OF [facility] [place] T/C TO PTS MOTHER/GUARDIAN, ROMEO SHRESTHAEMILI [phone] VM MESSAGE LEFT WITH IMM PT WILL NEED BLS TRANSPORT TO RETURN
--- NOTE | 2022-10-19 11:10 | P.PNGS_ITS ---
Subjective Subjective Date of Service: 10/19/22 Interval history: says he is hungry and wants to eat as per staff - passing a lot of stools denies abd pain no further vomitting Physical Exam Vital Signs: Vital Signs: Last Vital Signs Temp 97.4 F 10/19/22 08:00 Pulse 81 10/19/22 08:59 Resp 17 10/19/22 08:59 BP 121/58 L 10/19/22 08:00 Pulse Ox 94 10/19/22 08:00 O2 Del Method 10/19/22 08:00 BMI result Body Mass Index 40.4 Const: General: comfortable and no acute distress Resp: Effort & Inspection: normal respiratory effort Cardio: Rate: regular rate GI: Other: obese, soft Palpation (GI): not soft, not firm and nontender Objective Data Active Medications Albuterol Sulfate (Albuterol Sulfate (0.083%) 2.5 Mg/3 Ml Vial.Neb) 2.5 mg INHALE RQ6H WHILE AWAKE PRN PRN Reason: Shortness Of Breath Or Wheezing Amlodipine Besylate (Amlodipine Besylate 10 Mg Tablet) 10 mg PO DAILY [facility]; Protocol Last Admin: 10/19/22 08:25 Dose: 10 mg Documented By: KRUNAL Aspirin (Aspirin Enteric Coated 81 Mg Tablet.Dr) 81 mg PO DAILY [facility] Last Admin: 10/19/22 08:24 Dose: 81 mg Documented By: KRUNAL Atorvastatin Calcium (Atorvastatin Calcium 10 Mg Tablet) 10 mg PO BEDTIME [facility] Last Admin: 10/18/22 20:56 Dose: 10 mg Documented By: ADA Bisacodyl (Bisacodyl 10 Mg Supp.Rect) 10 mg [place] DAILY PRN PRN Reason: Constipation Enoxaparin Sodium (Enoxaparin Sodium 40 Mg/0.4 Ml Syringe) 40 mg SUBCUT Q24H [facility] Last Admin: 10/18/22 20:55 Dose: 40 mg Documented By: ADA Fluticasone/Vilanterol (Fluticasone/Vilanterol 100/25 Blst.W.Dev) 1 puff INHALE RDAILY [facility] Last Admin: 10/19/22 08:58 Dose: 1 puff Documented By: ALESSANDRA Dextrose/Sodium Chloride (D51/2ns) 1,000 mls @ 100 mls/hr IVCONT .Q10H [facility] Last Admin: 10/19/22 10:15 Dose: Not Given Documented By: KRUNAL Non-Admin Reason: IV Running Lisinopril (Lisinopril 40 Mg Tablet) 40 mg PO DAILY [facility]; Protocol Last Admin: 10/19/22 08:25 Dose: 40 mg Documented By: KRUNAL Metoprolol Tartrate (Metoprolol Tartrate 50 Mg Tablet) 50 mg PO BID [facility]; Protocol Last Admin: 10/19/22 08:24 Dose: 50 mg Documented By: KRUNAL Olanzapine (Olanzapine 7.5 Mg Tablet) 7.5 mg PO BEDTIME [facility] Last Admin: 10/18/22 20:56 Dose: 7.5 mg Documented By: ADA Omeprazole (Omeprazole 20 Mg Capsule.Dr) 20 mg PO DAILY@0630 [facility] Last Admin: 10/19/22 05:15 Dose: 20 mg Documented By: ADA Ondansetron HCl (Ondansetron Hcl 4 Mg/2 Ml Vial) 4 mg IVPUSH Q8H PRN PRN Reason: Nausea and Vomiting Pharmacy Consult (Consult Rx Perform Med Rec) 1 each MISCELLANE ONCE PRN PRN Reason: Consult order Sodium Chloride (0.9 % Sodium Chloride Flush 3 Ml Syringe) 3 ml IVFLUSH QSHIFT [facility] Last Admin: 10/19/22 07:47 Dose: Not Given Documented By: KRUNAL Non-Admin Reason: IV Running Tramadol HCl (Tramadol Hcl 50 Mg Tablet) 50 mg PO TID [facility] Last Admin: 10/19/22 08:25 Dose: 50 mg Documented By: KRUNAL Labs 10/19/22 06:32 10/19/22 06:32 Labs: Laboratory Results - last 24 hr 10/19/22 10/19/22 06:32 06:32 MCV 88.5 MCH 27.9 MCHC 31.5 RDW 13.3 Plt Count 278 MPV 9.3 L Absolute Nucleated RBC 0.000 Nucleated RBC % (auto) 0.0 Anion Gap 14 Estim Creat Clear Calc 181.9 Estimated GFR > 60 Random Glucose 86 Calcium 7.9 L D Microbiology Microbiology Results: Microbiology 10/17/22 17:31 Blood Culture - Preliminary Blood - Venous No growth after 24 hours. 10/17/22 17:25 Blood Culture - Preliminary Blood - Venous No growth after 24 hours. Procedures Date of Service Date of Service: 10/19/22 Progress Note: A&P Assessment and plan (1) Ileus: Status: Acute Assessment and Plan: looks well abd soft no vomitting ok to slowly advance diet has had a lot of BMs Time Spent With Patient Time: Total time managing care of this patient today ____ minutes. Quality Stroke Does the patient have a stroke diagnosis?: No VTE Prior VTE?: No VTE Risk Level:: Medical - moderate - high VTE Device Contraindication: Treatment Not Indicated VTE Drug Contraindication: N/A - Med Ordered
--- NOTE | 2022-10-19 11:22 | P.PNIM_ITS ---
Subjective Subjective Date of Service: 10/19/22 Interval History: Feeling hungry requesting for food. no further bout of nausea, vomiting, moving bowels was incontinent of large brown stool tolerating clear liquid diet, no fevers no chills no other acute events overnight. Review of Systems Review of Systems: Yes all other systems are reviewed and are negative Physical Exam Vital Signs: Vital Signs: Last Vital Signs Temp 97.4 F 10/19/22 08:00 Pulse 81 10/19/22 08:59 Resp 17 10/19/22 08:59 BP 121/58 L 10/19/22 08:00 Pulse Ox 94 10/19/22 08:00 O2 Del Method 10/19/22 08:00 BMI result Body Mass Index 40.4 Const: Other: Gen: in no acute distress HEENT: sclera anicteric, moist mucus membranes Neck: supple Lungs: clear to auscultation bilaterally Heart: regular rate and rhythm, no murmurs Abd: Obese, nontender, bowel sounds audible, no rebound or guarding Ext: no edema Skin: warm/well-perfused Neuro: alert and oriented x3, no focal findings Psych: appropriate affect Objective Data Active Medications Albuterol Sulfate (Albuterol Sulfate (0.083%) 2.5 Mg/3 Ml Vial.Neb) 2.5 mg INHALE RQ6H WHILE AWAKE PRN PRN Reason: Shortness Of Breath Or Wheezing Amlodipine Besylate (Amlodipine Besylate 10 Mg Tablet) 10 mg PO DAILY [facility]; Protocol Last Admin: 10/19/22 08:25 Dose: 10 mg Documented By: KRUNAL Aspirin (Aspirin Enteric Coated 81 Mg Tablet.) 81 mg PO DAILY [facility] Last Admin: 10/19/22 08:24 Dose: 81 mg Documented By: KRUNAL Atorvastatin Calcium (Atorvastatin Calcium 10 Mg Tablet) 10 mg PO BEDTIME [facility] Last Admin: 10/18/22 20:56 Dose: 10 mg Documented By: ADA Bisacodyl (Bisacodyl 10 Mg Supp.Rect) 10 mg [place] DAILY PRN PRN Reason: Constipation Enoxaparin Sodium (Enoxaparin Sodium 40 Mg/0.4 Ml Syringe) 40 mg SUBCUT Q24H [facility] Last Admin: 10/18/22 20:55 Dose: 40 mg Documented By: ADA Fluticasone/Vilanterol (Fluticasone/Vilanterol 100/25 Blst.W.Dev) 1 puff INHALE RDAILY [facility] Last Admin: 10/19/22 08:58 Dose: 1 puff Documented By: ALESSANDRA Dextrose/Sodium Chloride (D51/2ns) 1,000 mls @ 100 mls/hr IVCONT .Q10H [facility] Last Admin: 10/19/22 10:15 Dose: Not Given Documented By: KRUNAL Non-Admin Reason: IV Running Lisinopril (Lisinopril 40 Mg Tablet) 40 mg PO DAILY [facility]; Protocol Last Admin: 10/19/22 08:25 Dose: 40 mg Documented By: KRUNAL Metoprolol Tartrate (Metoprolol Tartrate 50 Mg Tablet) 50 mg PO BID [facility]; Protocol Last Admin: 10/19/22 08:24 Dose: 50 mg Documented By: KRUNAL Olanzapine (Olanzapine 7.5 Mg Tablet) 7.5 mg PO BEDTIME [facility] Last Admin: 10/18/22 20:56 Dose: 7.5 mg Documented By: ADA Omeprazole (Omeprazole 20 Mg Capsule.Dr) 20 mg PO DAILY@0630 [facility] Last Admin: 10/19/22 05:15 Dose: 20 mg Documented By: ADA Ondansetron HCl (Ondansetron Hcl 4 Mg/2 Ml Vial) 4 mg IVPUSH Q8H PRN PRN Reason: Nausea and Vomiting Pharmacy Consult (Consult Rx Perform Med Rec) 1 each MISCELLANE ONCE PRN PRN Reason: Consult order Sodium Chloride (0.9 % Sodium Chloride Flush 3 Ml Syringe) 3 ml IVFLUSH QSHIFT [facility] Last Admin: 10/19/22 07:47 Dose: Not Given Documented By: KRUNAL Non-Admin Reason: IV Running Tramadol HCl (Tramadol Hcl 50 Mg Tablet) 50 mg PO TID [facility] Last Admin: 10/19/22 08:25 Dose: 50 mg Documented By: KRUNAL Labs 10/19/22 06:32 10/19/22 06:32 Labs: Laboratory Results - last 24 hr 10/19/22 10/19/22 06:32 06:32 MCV 88.5 MCH 27.9 MCHC 31.5 RDW 13.3 Plt Count 278 MPV 9.3 L Absolute Nucleated RBC 0.000 Nucleated RBC % (auto) 0.0 Anion Gap 14 Estim Creat Clear Calc 181.9 Estimated GFR > 60 Random Glucose 86 Calcium 7.9 L D Microbiology Microbiology Results: Microbiology 10/17/22 17:31 Blood Culture - Preliminary Blood - Venous No growth after 24 hours. 10/17/22 17:25 Blood Culture - Preliminary Blood - Venous No growth after 24 hours. Assessment and Plan (1) Fecal impaction: Status: Acute (2) COPD exacerbation: Status: Acute Plan 52[facility] M resident [facility] with history of stroke, mood disorder, dysarthria, COPD, and hypertension, who was recently admitted to [facility] [place] [facility] 10/11-10/16/22 with multiple episodes of vomiting and found to have fecal impaction and hypoxia from pneumonia, re-admitted 10/18/22 with concern of pSBO # pSBO - appears to be resolving, repeat KUB showed improving bowel pattern, will advance diet to full liquids, and gradually advance as tolerated case discussed with surgery, stable electrolytes, WBC trending down. # PNA - completed ABX # COPD, not in acute exac - continue home inhalers # constipation - bowel regimen # LLL nodule, 1 cm - recommend repeat CT in 3 months # GERD - PPI # HTN - continue lisinopril, metoprolol, amlodipine # HLD - continue statin # mood disorder - olanzapine # morbid obesity - diet/exercise counseling # VTE ppx: LMWH # dispo: anticipate return to [facility] In my clinical judgment, the patient requires continued inpatient hospitalization for the following reasons: pSBO Time Spent With Patient Time: Total time managing care of this patient today ____ minutes. Quality Stroke Does the patient have a stroke diagnosis?: No VTE Prior VTE?: No VTE Risk Level:: Medical - moderate - high VTE Device Contraindication: Treatment Not Indicated VTE Drug Contraindication: N/A - Med Ordered
[2022-10-19 15:39] VITALS: BP 121/62; PULSE 82; RESP 16; TEMP 36.1; O2SAT 94
[2022-10-19 19:10] VITALS: BP 141/66; PULSE 92; RESP 18; TEMP 36; O2SAT 97
[2022-10-19] MEDS: Atorvastatin Calcium 10 MG TABLET PO (21:00)
[2022-10-19] MEDS: Enoxaparin Sodium 40 MG/0.4 ML SYRINGE SUBCUT (21:00)
[2022-10-19] MEDS: OLANZapine 7.5 MG TABLET PO (21:00)
[2022-10-20] MEDS: 0.9 % Sodium Chloride Flush 3 ML SYRINGE IVFLUSH ×5 (01:04→19:39)
[2022-10-20 04:00] VITALS: BP 189/81; PULSE 73; RESP 18; TEMP 36.1; O2SAT 96
[2022-10-20 05:04] VITALS: BP 134/68; PULSE 76; RESP 18; TEMP 35.9; O2SAT 96
[2022-10-20] MEDS: Omeprazole 20 MG CAPSULE.DR PO (06:30)
[2022-10-20 06:34] LABS: Hematocrit 40.9 % (42.0-52.0); Hemoglobin 13.2 g/dl (14.0-18.0); Mean Corpuscular HGB Conc 32.3 g/dl (31.0-36.0); Mean Corpuscular Hemoglobin 28.2 pg (27.0-33.0); Mean Corpuscular Volume 87.4 fL (80.0-98.0); Mean Platelet Volume 9.5 fL (9.4-12.4); Platelet Count 321 X10*3/uL (160-400); Red Blood Count 4.68 X10*6/uL (4.60-5.80); Red Cell Distribution Width 13.3 % (11.0-16.0); White Blood Count 13.6 X10*3/uL (4.8-10.8)
[2022-10-20 06:57] LABS: Anion Gap 14 (12-20); Blood Urea Nitrogen 9 mg/dL (9-16); Carbon Dioxide 26 mmol/L (22-29); Chloride 98 mmol/L (96-108); Creatinine Clr Calc Pharmacy 190.6; Estimated Glomerular Filt Rate > 60; Glucose Random 88 mg/dL (60-115); Potassium 4.2 mmol/L (3.3-5.1); Sodium 134 mmol/L (135-145)
[2022-10-20 07:25] VITALS: BP 126/66; PULSE 80; RESP 16; TEMP 36.1; O2SAT 96
--- NOTE | 2022-10-20 08:09 | P.PNGS_ITS ---
Subjective Subjective Date of Service: 10/20/22 Interval history: no vomitting continues to have a lot of loose stools denies abdl pain Physical Exam Vital Signs: Vital Signs: Last Vital Signs Temp 96.9 F 10/20/22 07:25 Pulse 80 10/20/22 07:25 Resp 16 10/20/22 07:25 BP 126/66 10/20/22 07:25 Pulse Ox 96 10/20/22 07:25 O2 Del Method 10/20/22 07:25 O2 Flow Rate 95 10/19/22 15:39 BMI result Body Mass Index 40.4 Const: General: comfortable and no acute distress Resp: Effort & Inspection: normal respiratory effort Cardio: Rate: regular rate GI: Other: soft, obese, not tender Objective Data Active Medications Albuterol Sulfate (Albuterol Sulfate (0.083%) 2.5 Mg/3 Ml Vial.Neb) 2.5 mg INHALE RQ6H WHILE AWAKE PRN PRN Reason: Shortness Of Breath Or Wheezing Amlodipine Besylate (Amlodipine Besylate 10 Mg Tablet) 10 mg PO DAILY [facility]; Protocol Last Admin: 10/19/22 08:25 Dose: 10 mg Documented By: KRUNAL Aspirin (Aspirin Enteric Coated 81 Mg Tablet.Dr) 81 mg PO DAILY [facility] Last Admin: 10/19/22 08:24 Dose: 81 mg Documented By: KRUNAL Atorvastatin Calcium (Atorvastatin Calcium 10 Mg Tablet) 10 mg PO BEDTIME [facility] Last Admin: 10/19/22 21:00 Dose: 10 mg Documented By: RAMSEY Bisacodyl (Bisacodyl 10 Mg Supp.Rect) 10 mg AR DAILY PRN PRN Reason: Constipation Enoxaparin Sodium (Enoxaparin Sodium 40 Mg/0.4 Ml Syringe) 40 mg SUBCUT Q24H [facility] Last Admin: 10/19/22 21:00 Dose: 40 mg Documented By: RAMSEY Fluticasone/Vilanterol (Fluticasone/Vilanterol 100/25 Blst.W.Dev) 1 puff INHALE RDAILY [facility] Last Admin: 10/20/22 07:58 Dose: Not Given Documented By: JORGITO Non-Admin Reason: label wrong on med unable to scan Lisinopril (Lisinopril 40 Mg Tablet) 40 mg PO DAILY [facility]; Protocol Last Admin: 10/19/22 08:25 Dose: 40 mg Documented By: KRUNAL Metoprolol Tartrate (Metoprolol Tartrate 50 Mg Tablet) 50 mg PO BID [facility]; Protocol Last Admin: 10/19/22 21:00 Dose: 50 mg Documented By: RAMSEY Olanzapine (Olanzapine 7.5 Mg Tablet) 7.5 mg PO BEDTIME [facility] Last Admin: 10/19/22 21:00 Dose: 7.5 mg Documented By: RAMSEY Omeprazole (Omeprazole 20 Mg Capsule.Dr) 20 mg PO DAILY@0630 [facility] Last Admin: 10/20/22 06:30 Dose: 20 mg Documented By: COLLIN Ondansetron HCl (Ondansetron Hcl 4 Mg/2 Ml Vial) 4 mg IVPUSH Q8H PRN PRN Reason: Nausea and Vomiting Pharmacy Consult (Consult Rx Perform Med Rec) 1 each MISCELLANE ONCE PRN PRN Reason: Consult order Sodium Chloride (0.9 % Sodium Chloride Flush 3 Ml Syringe) 3 ml IVFLUSH QSHIFT [facility] Last Admin: 10/20/22 01:04 Dose: 3 ml Documented By: COLLIN Tramadol HCl (Tramadol Hcl 50 Mg Tablet) 50 mg PO TID [facility] Last Admin: 10/19/22 21:00 Dose: 50 mg Documented By: RAMSEY Labs 10/20/22 06:00 10/20/22 06:00 Labs: Laboratory Results - last 24 hr 10/20/22 10/20/22 06:00 06:00 MCV 87.4 MCH 28.2 MCHC 32.3 RDW 13.3 Plt Count 321 MPV 9.5 Absolute Nucleated RBC 0.000 Nucleated RBC % (auto) 0.0 Anion Gap 14 Estim Creat Clear Calc 190.6 Estimated GFR > 60 Random Glucose 88 Calcium 8.0 L Microbiology Microbiology Results: Microbiology 10/17/22 17:31 Blood Culture - Preliminary Blood - Venous No growth after 48 hours. 10/17/22 17:25 Blood Culture - Preliminary Blood - Venous No growth after 48 hours. Procedures Date of Service Date of Service: 10/20/22 Progress Note: A&P Assessment and plan (1) Ileus: Status: Acute Assessment and Plan: no further vomitting has multiple BMs abd soft and benign ok to advance diet as tolerated appears comfortable Time Spent With Patient Time: Total time managing care of this patient today ____ minutes. Quality Stroke Does the patient have a stroke diagnosis?: No VTE Prior VTE?: No VTE Risk Level:: Medical - moderate - high VTE Device Contraindication: Treatment Not Indicated VTE Drug Contraindication: N/A - Med Ordered
[2022-10-20] MEDS: Aspirin Enteric Coated 81 MG TABLET.DR PO (10:20)
[2022-10-20] MEDS: traMADoL HCL 50 MG TABLET PO ×3 (10:21→19:37)
[2022-10-20] MEDS: lisinopriL 40 MG TABLET PO (10:21)
[2022-10-20] MEDS: Metoprolol Tartrate 50 MG TABLET PO ×2 (10:21→19:37)
[2022-10-20] MEDS: amLODIPine Besylate 10 MG TABLET PO (10:21)
--- NOTE | 2022-10-20 12:49 | P.PNIM_ITS ---
Subjective Subjective Date of Service: 10/20/22 Interval History: Feeling better denies nausea,no vomiting, no abdominal pain, tolerating full liquid diet, feels hungry,moving bowels. No acute events overnight, no fevers, no chills. Review of Systems Review of Systems: Yes all other systems are reviewed and are negative Physical Exam Vital Signs: Vital Signs: Last Vital Signs Temp 96.9 F 10/20/22 07:25 Pulse 80 10/20/22 07:25 Resp 16 10/20/22 07:25 BP 126/66 10/20/22 07:25 Pulse Ox 96 10/20/22 07:25 O2 Del Method 10/20/22 07:25 O2 Flow Rate 95 10/19/22 15:39 BMI result Body Mass Index 40.4 Const: Other: Gen: in no acute distress HEENT: sclera anicteric, moist mucus membranes Neck: supple Lungs: clear to auscultation bilaterally Heart: regular rate and rhythm, no murmurs Abd:? Obese, nontender, bowel sounds audible, no rebound or guarding Ext: no edema Skin: warm/well-perfused Neuro: alert and oriented x3, no focal findings Psych: appropriate affect Objective Data Active Medications Albuterol Sulfate (Albuterol Sulfate (0.083%) 2.5 Mg/3 Ml Vial.Neb) 2.5 mg INHALE RQ6H WHILE AWAKE PRN PRN Reason: Shortness Of Breath Or Wheezing Amlodipine Besylate (Amlodipine Besylate 10 Mg Tablet) 10 mg PO DAILY [facility]; Protocol Last Admin: 10/20/22 10:21 Dose: 10 mg Documented By: COTEMA Aspirin (Aspirin Enteric Coated 81 Mg Tablet.Dr) 81 mg PO DAILY [facility] Last Admin: 10/20/22 10:20 Dose: 81 mg Documented By: COTFRANCK Atorvastatin Calcium (Atorvastatin Calcium 10 Mg Tablet) 10 mg PO BEDTIME [facility] Last Admin: 10/19/22 21:00 Dose: 10 mg Documented By: RAMSEY Bisacodyl (Bisacodyl 10 Mg Supp.Rect) 10 mg CA DAILY PRN PRN Reason: Constipation Enoxaparin Sodium (Enoxaparin Sodium 40 Mg/0.4 Ml Syringe) 40 mg SUBCUT Q24H [facility] Last Admin: 10/19/22 21:00 Dose: 40 mg Documented By: RAMSEY Fluticasone/Vilanterol (Fluticasone/Vilanterol 100/25 Blst.W.Dev) 1 puff INHALE RDAILY [facility] Last Admin: 10/20/22 07:58 Dose: Not Given Documented By: JORGITO Non-Admin Reason: label wrong on med unable to scan Lisinopril (Lisinopril 40 Mg Tablet) 40 mg PO DAILY [facility]; Protocol Last Admin: 10/20/22 10:21 Dose: 40 mg Documented By: DEONNA Metoprolol Tartrate (Metoprolol Tartrate 50 Mg Tablet) 50 mg PO BID [facility]; Protocol Last Admin: 10/20/22 10:21 Dose: 50 mg Documented By: DEONNA Olanzapine (Olanzapine 7.5 Mg Tablet) 7.5 mg PO BEDTIME [facility] Last Admin: 10/19/22 21:00 Dose: 7.5 mg Documented By: RAMSEY Omeprazole (Omeprazole 20 Mg Capsule.Dr) 20 mg PO DAILY@0630 [facility] Last Admin: 10/20/22 06:30 Dose: 20 mg Documented By: COLLIN Ondansetron HCl (Ondansetron Hcl 4 Mg/2 Ml Vial) 4 mg IVPUSH Q8H PRN PRN Reason: Nausea and Vomiting Pharmacy Consult (Consult Rx Perform Med Rec) 1 each MISCELLANE ONCE PRN PRN Reason: Consult order Sodium Chloride (0.9 % Sodium Chloride Flush 3 Ml Syringe) 3 ml IVFLUSH QSHIFT [facility] Last Admin: 10/20/22 10:20 Dose: 3 ml Documented By: DEONNA Tramadol HCl (Tramadol Hcl 50 Mg Tablet) 50 mg PO TID [facility] Last Admin: 10/20/22 10:21 Dose: 50 mg Documented By: DEONNA Labs 10/20/22 06:00 10/20/22 06:00 Labs: Laboratory Results - last 24 hr 10/20/22 10/20/22 06:00 06:00 MCV 87.4 MCH 28.2 MCHC 32.3 RDW 13.3 Plt Count 321 MPV 9.5 Absolute Nucleated RBC 0.000 Nucleated RBC % (auto) 0.0 Anion Gap 14 Estim Creat Clear Calc 190.6 Estimated GFR > 60 Random Glucose 88 Calcium 8.0 L Microbiology Microbiology Results: Microbiology 10/17/22 17:31 Blood Culture - Preliminary Blood - Venous No growth after 48 hours. 10/17/22 17:25 Blood Culture - Preliminary Blood - Venous No growth after 48 hours. Assessment and Plan (1) Fecal impaction: Status: Acute (2) COPD exacerbation: Status: Acute Plan 52yo M resident of [facility] with history of stroke, mood disorder, dysarthria, COPD, and hypertension, who was recently admitted to [facility] [place] 10/11-10/16/22 with multiple episodes of vomiting and found to have fecal impaction and hypoxia from pneumonia, re-admitted 10/18/22 with concern of pSBO # pSBO - resolving patient tolerating full liquid diet moving bowels, repeat KUB showed improving bowel pattern, will advance diet to regular diet, stable electrolytes, WBC trending down but will check stool for C diff due to loose stools and significantly elevated WBC on arrival. # PNA - completed ABX # COPD, not in acute exac - continue home inhalers # constipation resolved - bowel regimen # LLL nodule, 1 cm - recommend repeat CT in 3 months # GERD - PPI # HTN - continue lisinopril, metoprolol, amlodipine # HLD - continue statin # mood disorder - olanzapine # morbid obesity - diet/exercise counseling # VTE ppx: LMWH # dispo: anticipate return to [facility] In my clinical judgment, the patient requires continued inpatient hospitalizat ion for the following reasons: pSBO Time Spent With Patient Time: Total time managing care of this patient today ____ minutes. Quality Stroke Does the patient have a stroke diagnosis?: No VTE Prior VTE?: No VTE Risk Level:: Medical - moderate - high VTE Device Contraindication: Treatment Not Indicated VTE Drug Contraindication: N/A - Med Ordered
[2022-10-20 15:55] VITALS: BP 137/77; PULSE 106; RESP 22; TEMP 37; O2SAT 98
[2022-10-20 19:30] VITALS: BP 133/63; PULSE 85; RESP 18; TEMP 36.5; O2SAT 96
[2022-10-20] MEDS: Enoxaparin Sodium 40 MG/0.4 ML SYRINGE SUBCUT (19:38)
[2022-10-20] MEDS: OLANZapine 7.5 MG TABLET PO (19:44)
[2022-10-20] MEDS: Atorvastatin Calcium 10 MG TABLET PO (19:46)
[2022-10-21 03:51] VITALS: BP 130/62; PULSE 70; RESP 17; TEMP 36.8; O2SAT 95
[2022-10-21] MEDS: Omeprazole 20 MG CAPSULE.DR PO ×2 (05:50→05:57)
[2022-10-21 07:17] LABS: Hematocrit 39.6 % (42.0-52.0); Hemoglobin 13.2 g/dl (14.0-18.0); Mean Corpuscular HGB Conc 33.3 g/dl (31.0-36.0); Mean Corpuscular Hemoglobin 28.7 pg (27.0-33.0); Mean Corpuscular Volume 86.1 fL (80.0-98.0); Mean Platelet Volume 9.6 fL (9.4-12.4); Platelet Count 286 X10*3/uL (160-400); Red Cell Distribution Width 13.4 % (11.0-16.0); White Blood Count 14.3 X10*3/uL (4.8-10.8)
[2022-10-21 07:25] VITALS: BP 136/66; PULSE 84; RESP 20; TEMP 36.1; O2SAT 96
[2022-10-21] MEDS: Fluticasone/Vilanterol 100/25 BLST.W.DEV 1 PUFF INHALE (08:55)
[2022-10-21 08:57] VITALS: PULSE 86; RESP 18; O2SAT 96
[2022-10-21] MEDS: Metoprolol Tartrate 50 MG TABLET PO (09:15)
[2022-10-21] MEDS: traMADoL HCL 50 MG TABLET PO (09:15)
[2022-10-21] MEDS: amLODIPine Besylate 10 MG TABLET PO (09:16)
[2022-10-21] MEDS: lisinopriL 40 MG TABLET PO (09:16)
[2022-10-21] MEDS: Aspirin Enteric Coated 81 MG TABLET.DR PO (09:16)
--- NOTE | 2022-10-21 11:27 | MHC.CM.PN ---
Patient has been medically cleared for dc to return to LTC today. Patient will return to LTC at [facility] today at 1:30 PM, via [facility]. Last IMM addressed on 10/19/2022. CM has left a detailed message for Patient's Mother/Britney @ [phone], informing her of the dc plan.
--- NOTE | 2022-10-21 11:30 | PM.DS ---
DS: Providers Provider Date of Service: 10/21/22 Date of admission: 10/17/22 18:00 Primary care physician: Jose Manuel Ontiveros DO Consults: 10/17/22 18:42 Consult to General Surgery Routine Consulting Provider: Binh Haley Reason for consultation: Partial SBO vs ileus Has provider been notified: Yes DS: Diagnosis Discharge Diagnosis (1) Fecal impaction: Status: Acute (2) COPD exacerbation: Status: Acute DS: Summary Hospital Course Hospital Course: Date of Service: 10/17/22 Attending physician on admission: [facility] Chief Complaint: Vomiting Pt is a 52-year-old male resident of [facility] with a PMH significant for?TBI, mood disorder, history of stroke, dysarthria, COPD, and HTN who presents to the ED after having multiple episodes of vomiting earlier today.? Patient was just released yesterday from the hospital after being treated for fecal impaction, sepsis secondary to pneumonia, and acute respiratory failure in the setting of COPD exacerbation.? Patient was discharged on MiraLax and 2 days of Augmentin.? Patient states that this morning he began vomiting, similar to presentation for previous admission.? Patient had bowel movement earlier today, continues to pass flatus.? Patient denies hematemesis, abdominal pain, fever, chills. In the ED patient was tachycardic. Labs were significant for leukocytosis of 24.8, lactic acid WNL at 1.0. CT?of abdomen/pelvis showed question of proximal small bowel obstruction with improved constipation with decreased stool burden, and improved consolidation and trace effusions of lung bases. Pt was treated with a dancer drawn, IVF, lorazepam, and Zosyn. Pt will be admitted to the hospital treatment and further evaluation of possible partial small bowel obstruction versus ileus with NG, IVF, and bowel rest. Hospital course 52yo M resident of [facility] with history of stroke, mood disorder, dysarthria, COPD, and hypertension, who was recently admitted [place] [facility] [place]10[place]16[place] with multiple episodes of vomiting and found to have fecal impaction and hypoxia from pneumonia, re-admitted 10/18/22 with concern of pSBO # pSBO patient was treated conservatively with NG tube, IV fluids and NPO, repeat KUB showed improvement in bowel pattern, diet was gradually advanced, patient was continued on bowel regimen, at present patient is tolerating regular diet with no recurrent nausea vomiting or abdominal pain, WBC has trended down but not completely normalized, patient has no diarrhea suggestive of C diff infection, urine is unremarkable recommend repeat CBC in 1 week # pneumonia patient completed course of antibiotics # COPD, continue home inhalers no acute exacerbation noted # left lower lobe nodule, [address] in 3 months # HTN is stable blood pressures, continue lisinopril, metoprolol, amlodipine # mood disorder continue home medications # morbid obesity recommend low-calorie diet and exercise # rash localized to neck likely dermatitis with some component of fungal infection placed on Lotrisone cream. Time Spent with Patient Time attestation: Total time managing care of this patient today ____ minutes. Discharge coordination time: Greater than 30 minutes Quality: Safe Use of Opioids Does Pt have an Active Cancer Diagnosis on the Problem List?: No Quality: Stroke Does the patient have a stroke diagnosis?: No Physical Exam Vital Signs: Vital Signs: Last Vital Signs Temp 96.9 F 10/21/22 07:25 Pulse 86 10/21/22 08:57 Resp 18 10/21/22 08:57 BP 136/66 10/21/22 07:25 Pulse Ox 96 10/21/22 07:25 O2 Del Method 10/21/22 07:25 O2 Flow Rate 95 10/19/22 15:39 BMI result Body Mass Index 40.4 Const: Other: Gen: in no acute d istress HEENT: scl era anicteric, [address] st mucus membranes Neck: supple, hyp eremic rash , no o pen ulcers no drai nage Lungs: clear to auscultation bi laterally Heart: r egular rate and rh ythm, no murmurs A bd:? Obese, non te nder, bowel sounds audible, no rebou nd or guarding Ext : no edema Skin: w arm/well-perfused Neuro: alert and o riented x3, no foc al findings Psych: appropriate affec t DS: Data Data Completed and Pending Completed studies during hospitalization [Text1]: Procedures Extirpation of Matter from Rectum, Via Natural or Artificial Opening (10/11/22) Labs on day of discharge: Laboratory Results - last 24 hr 10/21/22 07:01 WBC 14.3 H RBC 4.60 Hgb 13.2 L Hct 39.6 L MCV 86.1 MCH 28.7 MCHC 33.3 RDW 13.4 Plt Count 286 MPV 9.6 Absolute Nucleated RBC 0.000 Nucleated RBC % (auto) 0.0 Preliminary micro results at discharge 10/17/22 17:31 Blood Culture - Preliminary Blood - Venous No growth after 48 hours. 10/17/22 17:25 Blood Culture - Preliminary Blood - Venous No growth after 48 hours. Discharge Plan Discharge Anticipated Discharge Date/Time: 10/21/22 11:10 Patient Disposition: er [facility] Discharge Diagnosis: Partial small-bowel obstruction Left lower lobe nodule Constipation Referrals: [facility] [Outside] - 1 Week Jose Manuel Ontiveros DO [Primary Care Provider] - 1 Week Discharge Medications: New nystatin-triamcinolone 100,000-0.1 unit/g-% Cream 1 appl topical BID Qty: 30 0RF Protocol: Apply to: Apply to: neck Continued multivitamin Tablet 1 tab PO DAILY sennosides [senna] 8.6 mg Tablet 8.6 mg PO DAILY PRN (Reason: Constipation) acetaminophen 325 mg Tablet 650 mg PO Q4H PRN (Reason: Fever Or Pain) Rx Instructions: do not exceed 3 grams / 24 hours dimethicone 1 % Cream 1 appl TOPICAL QID PRN (Reason: skin breakdown) Rx Instructions: apply to buttocks for irritated, reddened buttocks loperamide 2 mg Capsule 2 mg PO Q2H PRN (Reason: Loose Stool) Rx Instructions: administer after each loose stool until symptoms controlled; do not exceed 8 mg per 24 hrs loperamide 2 mg Capsule 4 mg PO Q24H PRN (Reason: Loose Stool) Rx Instructions: administer after each loose stool until symptoms controlled; do not exceed 8 mg per 24 hrs atorvastatin 10 mg Tablet 10 mg PO BEDTIME olanzapine 7.5 mg Tablet 7.5 mg PO BEDTIME aspirin 81 mg Tablet,Delayed Release (Dr/Ec) 81 mg PO DAILY tramadol 50 mg Tablet 50 mg PO TID guaifenesin 100 mg/5 mL Liquid 200 mg PO Q4H PRN (Reason: Cough) amlodipine 10 mg Tablet 10 mg PO DAILY bisacodyl [Dulcolax (bisacodyl)] 10 mg Suppository 10 mg MO DAILY PRN (Reason: Constipation) Rx Instructions: use if senna ineffective metoprolol tartrate 50 mg Tablet 50 mg PO BID Fleet Enema 19-7 gram/118 mL Enema 118 ml MO DAILY PRN (Reason: Constipation) Rx Instructions: use if dulcolax suppository ineffective docusate sodium 100 mg Capsule 100 mg PO BEDTIME omeprazole 20 mg Capsule,Delayed Release(Dr/Ec) 20 mg PO DAILY@0630 alum-mag hydroxide-simeth 200-200-20 mg/5 mL Suspension 30 ml PO Q4H PRN (Reason: GI upset) lisinopril 40 mg Tablet 40 mg PO DAILY chlorhexidine gluconate [Hibiclens] 4 % Liquid 1 appl TOPICAL MOWEFR@1500 Rx Instructions: apply to bilateral lower legs fluticasone furoate-vilanterol [Breo Ellipta] 100-25 mcg/dose Blister With Device 1 inh INHALATION DAILY Rx Instructions: rinse mouth after use naloxone [Narcan] 4 mg/actuation [place],Non-Aerosol 4 mg INTRANASAL Q3M PRN (Reason: Opioid Overdose) Rx Instructions: spray 1 dose into ONE nostril; alternate nostrils w each dose until help arrives turmeric 400 mg Capsule 500 mg PO BID albuterol sulfate 2.5 mg /3 mL (0.083 %) Solution For Nebulization 2.5 mg inhalation RQ6H WHILE AWAKE PRN (Reason: Shortness Of Breath Or Wheezing) Qty: 30 0RF polyethylene glycol 3350 17 gram Powder In Packet 17 g PO BID Qty: 60 0RF Discontinued ibuprofen 800 mg Tablet 800 mg PO BID amoxicillin-pot clavulanate 875-125 mg tablet 1 tab PO BID Qty: 4 0RF Discharge Orders: Discharge Order (Routine); Ordered 10/21/22 Ordered By: Mateo Miller Diet: Advance to usual diet Activity on Discharge: As tolerated Stand Alone Forms: Patient Portal Discharge page Care Plan Goals: Partial small-bowel obstruction resolved tolerating diet, recommend low-calorie diet Continue good bowel regimen Follow CBC in 1 week Health Concerns: Continue all home medications as before, use Naprosyn only as needed for pain. Plan of Treatment: Outpatient follow-up with primary care physician Assessment: As above
[2022-10-21 12:19] LABS: COVID-19 Test Negative (Negative)
[2022-10-21] MEDS: Nystatin/Triamcinolone Cream 15 GM TUBE 1 APPL TOPICAL (13:13)
== END 2022-10-21 14:13 | disposition skilled nursing facility (03) | DRG 190 ==
LOC: HO.ED 17:18 → HO.EDOVER 18:22 → HO.S3 18:59
PROVIDERS: Family Medicine; Nurse Practitioner Family; Admitting Provider Student in an Organized Health Care Education/Training Program; Emergency Provider Emergency Medicine; PCP Hospitalist; Visit Provider Hospitalist
DX: J44.0 Chronic obstructive pulmonary disease with (acute) lower respiratory infection (principal); J18.9 Pneumonia, unspecified organism; K56.7 Ileus, unspecified; Z68.41 Body mass index [BMI] 40.0-44.9, adult; F03.90 Unspecified dementia, unspecified severity, without behavioral disturbance, psychotic disturbance, mood disturbance, and anxiety; K59.00 Constipation, unspecified; E66.01 Morbid (severe) obesity due to excess calories; B36.9 Superficial mycosis, unspecified; R91.1 Solitary pulmonary nodule; D72.829 Elevated white blood cell count, unspecified; E78.5 Hyperlipidemia, unspecified; J44.1 Chronic obstructive pulmonary disease with (acute) exacerbation; Z20.822 Contact with and (suspected) exposure to COVID-19; Z87.891 Personal history of nicotine dependence; Z87.820 Personal history of traumatic brain injury; Z86.73 Personal history of transient ischemic attack (TIA), and cerebral infarction without residual deficits; Z79.82 Long term (current) use of aspirin; Z79.51 Long term (current) use of inhaled steroids; Z79.899 Other long term (current) drug therapy
CPT/HCPCS: 36415; 71045; 74018; 74177; 80048; 80076; 83605; 84145; 85025; 85027; 87040; 87635; 99285; J1650; J2060; J2405; J2543; Q9967

== ENCOUNTER 2023-04-17 13:14 | Outpatient (REF) | payer MEDICARE, SELFPAY ==
--- NOTE | ~2023-04-17 | CT_ITS ---
EXAMINATION: CT CHEST WITHOUT CONTRAST CLINICAL INFORMATION: Left lower lobe nodule COMPARISON: Previous chest x-ray and chest CT October 2022 TECHNIQUE: Multidetector volumetric CT imaging of the chest was done. Axial MIP volume rendering provided. Sagittal and coronal reformatted images were obtained. This CT examination was performed using dose optimization techniques as appropriate, variously including the following: *Automated exposure control *Adjustment of mA and/or kV according to patient size (this includes techniques or standardized protocols for targeted exams where dose is matched to indication/reason for exam; i.e. extremities or head) *Use of iterative reconstruction technique DLP: 290 mGy-cm FINDINGS: PLANT PULLER: Widened mediastinum LUNGS: Comparison with prior exam October 2022 is difficult due to degradation of images from motion artifact on October 2022 exam. The 1 cm left lower lobe nodule seen on October 2022 exam is no longer seen. 3 mm perivascular central right upper lobe nodule axial image 173 series 5. 4 mm peripheral or subpleural left lower lobe nodule adjacent to the fissure axial image 289 series 5. 5 mm peripheral or subpleural left lower lobe nodule adjacent to the fissure axial image 309 series 5. 4 mm right lower lobe nodules axial image 278 and 276 series 5. 5 mm right lower lobe nodule axial image 282 series 5. There is scarring or subsegmental atelectasis at the lung bases. MEDIASTINUM: Small mediastinal lymph nodes. Evaluation for hilar adenopathy is limited due to lack of IV contrast. The widened contour of the mediastinum on topogram is related to prominent mediastinal fat. Normal heart size. Normal caliber thoracic aorta. No pericardial effusion. CORONARY ARTERY CALCIFICATION: Mild to moderate PLEURA: There is no pleural effusion. No pleural mass or thickening. AXILLA: Small bilateral axillary lymph nodes. Asymmetric right-sided gynecomastia. This appears increased from October 2022 exam and correlation with physical exam and mammogram and/or ultrasound recommended. UPPER ABDOMEN: Unremarkable. OSSEOUS STRUCTURES: Degenerative changes of the spine. CT/CT chest wo IV con IMPRESSION: Indexed 1 cm left lower lobe nodule seen on October 2022 exam is no longer seen. There are additional pulmonary nodules, largest measuring 5 mm in the right lower lobe. These are difficult to compare with October 2022 exam due to motion artifact on that exam. According to the UPDATED 2017 Fleischner Society recommendations, the advised follow-up imaging for solid nodules < 6 mm is: LOW RISK PATIENT: No routine follow-up. HIGH RISK PATIENT: Optional CT at 12 months. Right-sided gynecomastia. This appears increased from October 2022 exam. Correlation with physical exam and mammogram and/or ultrasound recommended. Fleischner guidelines were followed.
== END 2023-04-17 13:15 | disposition home or self-care (01) ==
LOC: HO.CT 13:14
PROVIDERS: Visit Provider Hospitalist
DX: R91.1 Solitary pulmonary nodule (principal)
CPT/HCPCS: 71250

== ENCOUNTER 2023-09-22 14:03 | Outpatient (REF) | payer MEDICARE, MEDICAID, SELFPAY ==
--- NOTE | ~2023-09-22 | US_ITS ---
EXAMINATION: US DIAGNOSTIC ULTRASOUND BREAST, BILATERAL CLINICAL INFORMATION: Chest CT from April 17 2023 noted right-sided gynecomastia.. Bilateral diagnostic mammogram and ultrasound were requested. Due to the patient's body habitus, mammography wasn't able to be performed. The patient's bilateral breast ultrasound was performed with the patient in his wheelchair. This was also somewhat limited due to the patient's ability to cooperate with the examination. COMPARISON: No prior ultrasound of the breasts available. TECHNIQUE: Ultrasound of the breast is performed with real-time mcnamara scale imaging and color Doppler. FINDINGS: There are subareolar hypoechoic areas of breast tissue in each breast. In the right breast, this is flame-shaped on the ultrasound. This finding is characteristic of gynecomastia. There is bilateral, mild, right slightly greater than left gynecomastia. There are no suspicious findings. US/US breast RT limited mamm only IMPRESSION: Bilateral, mild, right greater than left gynecomastia. No sonographic signs of malignancy. Clinical follow-up is advised. ASSESSMENT: BI-RADS 2 - Benign Findings This patient's information was entered into a reminder system with a target due date for their next mammogram.
== END 2023-09-22 14:04 | disposition home or self-care (01) ==
LOC: HO.MAMMO 14:03
PROVIDERS: PCP Hospitalist; Visit Provider Hospitalist
DX: N62 Hypertrophy of breast (principal)
CPT/HCPCS: 76642

== ENCOUNTER → 2023-09-22 14:30 | Outpatient (BNV) | payer MEDICARE, SELFPAY | PROVIDERS: PCP Hospitalist; Visit Provider Radiology Diagnostic Radiology | DX: N62 Hypertrophy of breast (principal) | CPT/HCPCS: 76642 ==

== ENCOUNTER 2024-10-09 06:40 | Inpatient (IN) | payer MEDICARE, MEDICAID, SELFPAY ==
[2024-10-09] VITALS (7 sets, daily range): BP systolic 125–156; BP diastolic 75–86; PULSE 105–124; RESP 16–25; TEMP 36.3–37; O2SAT 93–97; BMI 38.1
--- NOTE | ~2024-10-09 | XR_ITS ---
CLINICAL HISTORY: NG tube placement 1 view chest x-ray Comparison: CR - XR CHEST 1V - 10/09/24 13:31 EST Findings: Similar diffuse bronchial wall thickening with left lower lobe interstitial opacities. No significant pleural effusion or pneumothorax. Enteric tube courses below the diaphragm, tip not seen. Similar prominent/enlarged cardiac silhouette. No acute fracture. IMPRESSION: Enteric tube courses below the diaphragm, tip not seen. This document has been electronically signed by: Rayo Coyle MD on 10/09/2024 21:22:26
--- NOTE | ~2024-10-09 | XR_ITS ---
CLINICAL HISTORY: NG confirmation 1 view chest x-ray Comparison: CR - XR CHEST 1V - 10/09/24 08:[address]/REG/TX/SR - CT CHEST WO IV CON - 04/17/23 13:40 EDT Findings: The nasogastric tube projects to the proximal stomach just below the GE junction. If feasible, advancement of approximately 10 cm suggested. Continued low lung volumes. No consolidation or edema. Stable cardiomediastinal silhouette. Right apex not fully included. Bones unchanged. Similar obstructive small bowel gas pattern. Impression: Enteric tube just of the proximal stomach. If feasible, advancement of approximately 10 cm suggested. This document has been electronically signed by: Cain Perez MD on 10/09/2024 10:38:24
--- NOTE | ~2024-10-09 | XR_ITS ---
CLINICAL HISTORY: NG tube placement, again. 1 view chest x-ray Comparison: CR - XR CHEST 1V - 10/09/24 09:28 EST Findings: No consolidation. Mildly enlarged heart. No acute fracture. IMPRESSION: Nasogastric tube at the level of the proximal body of the stomach. This document has been electronically signed by: Cammy Bhatt MD on 10/09/2024 14:32:31
--- NOTE | ~2024-10-09 | XR_ITS ---
EXAMINATION: XR ABDOMEN KUB CLINICAL INDICATION: ffup for SBO COMPARISON: CT abdomen and pelvis 10/09/2024. TECHNIQUE: AP view of the abdomen, supine. FINDINGS: NG tube extends into the antrum of the stomach. Previously seen mildly dilated small bowel loops are no longer evident. Mild gaseous distention of the colon. No thumbprinting. No indirect evidence of free air. Left basilar linear lung opacities, likely atelectasis. End-stage arthropathy again demonstrated left hip. XR/XR KUB IMPRESSION: 1. NG tube in good position. 2. No persistent small bowel dilatation seen. Electronically signed by: Piyush Aldana MD 10/11/2024 09:54 AM [facility]
--- NOTE | ~2024-10-09 | XR_ITS ---
CLINICAL HISTORY: cough, vomiting 1 view chest x-ray Comparison: CR/SR - XR CHEST 1V - 10/17/22 18:04 EST Findings: No consolidation or effusion. Normal size heart. No acute fracture. IMPRESSION: 1. No acute findings. This document has been electronically signed by: Zakia Drew MD on 10/09/2024 08:53:59
--- NOTE | ~2024-10-09 | CT_ITS ---
CLINICAL HISTORY: abdominal pain, probable GI bleed CTA abdomen/pelvis without and with IV contrast. 3D post-processing. Comparison: CT/SR - CT ABDOMEN PELVIS W IV CON - 10/17/22 15:[address]/REG/SR - CT ABDOMEN PELVIS WO IV CON - 10/14/22 08:38 EST Findings: No appreciable mucosal hyperenhancement or contrast pooling to identify an active GI bleeding site. Slight hyperdense material in the dependent stomach present on precontrast images. Distended stomach with large air-fluid level. Dilated small bowel loops greater than 4 cm suggesting partial small bowel obstruction. Transition zone not well delineated although appears to be in the right mid to lower abdomen with distal ileum normal caliber. Colon nondilated. Nonspecific liquid stool and air distention without features of diverticulitis. Luminal narrowing of the sigmoid colon most likely peristalsis. Normal appendix. Mild fibrotic/atelectatic basilar lung changes with generalized peribronchial thickening. Upper normal heart size. No pericardial or pleural effusion. No opaque gallstones or gallbladder wall thickening. No biliary dilatation. Liver, spleen and adrenals intact. Atrophic pancreas without focal abnormality or acute duct dilatation. Small nonobstructing 3-4 mm mid pole stones left kidney. Punctate mid and lower pole stones right kidney. No obstructing stones or hydronephrosis. Normal caliber aorta. Mild plaque. No stenosis or dissection. No apparent stenosis of the renal arteries, celiac trunk or SMA. Patent hepatic veins, IVC and portal vein. No pathologic adenopathy. Urinary bladder decompressed. Prostate in Situ without exophytic abnormality. Incompletely assessed enhancing focus along the left common femoral artery and vein in the order of 3 x 6.5 x 4.5 cm, indeterminate for arterial venous fistula, or large pseudo aneurysm. Zluf-vywyxfd-hvjd-right fat containing inguinal hernias. 7.8 cm fat containing umbilical hernia. No bowel hernia. Severe degenerative arthritis left hip suggesting sequela of prior fracture. No acute appearing bone abnormality. Impression: Findings compatible with moderate to high-grade partial small bowel obstruction. No identifiable site of active GI bleeding. Normal caliber aorta. No plaque, stenosis or dissection. Large enhancing focus centered at the left common femoral artery and vein suggesting possible large although incompletely assessed arterial venous fistula versus pseudo aneurysm versus other. Directed ultrasound follow-up suggested. Other findings as noted. This document has been electronically signed by: Cain Perez MD on 10/09/2024 09:41:21
--- NOTE | ~2024-10-09 | XR_ITS ---
EXAMINATION: XR CHEST CLINICAL INFORMATION: NG placement COMPARISON: Chest 10/09/2024 TECHNIQUE: Frontal view of the chest was obtained. FINDINGS: The lungs are hypoexpanded with mild blunting of right CP angle from pleural effusion. Rest of lungs are expanded with bibasilar atelectasis. Heart size is borderline enlarged. Pulmonary vascularity is normal. Endotracheal tube tip is in the fundus and sidehole at the GE junction. No gross bony abnormality. XR/XR chest 1V IMPRESSION: Bibasilar atelectasis with small right pleural effusion. The effusion appears new since the last exam 10/09/2024. No change in endotracheal tube tip. The sidehole is at GE junction and needs to be advanced by 5 cm Electronically signed by: Dylon Gaines MD 10/10/2024 12:05 PM [facility]
--- NOTE | 2024-10-09 06:56 | ED_ITS ---
HPI - General Adult General Chief complaint: GI Bleed Stated complaint: Coffee ground Vomiting started 1hr ago no hx of GI Time Seen by Provider: 10/09/24 06:46 Source: patient and EMS Mode of arrival: EMS Limitations: no limitations History of Present Illness ED Provider: Yohana Mancia PA-C HPI narrative: Patient is a 54 year old assigned male at with a history of GERD, HLD, HTN, hemiplegia and hemiparesis following a CVA, mood disorder, and dysphasia presenting to the emergency department today with nausea, vomiting, and abdominal pain. Patient states that he has been having upper abdominal pain, nausea, and vomiting. [facility] staff states that the patient was vomiting coffee ground emesis. Patient denies any dizziness, lightheadedness, fever, chills, blurry vision, double vision, loss of vision, chest pain, difficulty breathing, shortness of breath, back pain, night sweats, pain with urination, increased urinary frequency, increased urinary urgency, blood in his urine or stool, syncope or a near syncopal episode, recent trauma or falls, bowel incontinence, bladder incontinence, or any other complaints at this time. While reviewing the patient's previous visits to [facility] it appears he has had a similar presentation requiring an NG tube. Relieving factors: none Exacerbating factors: none Associated symptoms: nausea/vomiting Treatments prior to arrival: none Related Data Home Medications ?Medication ?Instructions ?Recorded ?Confirmed acetaminophen 325 mg tablet 650 mg PO Q6H PRN Fever Or Pain 10/11/22 10/09/24 aluminum-mag hydroxide-simethicone 30 ml PO Q4H PRN GI upset 10/11/22 10/09/24 200 mg-200 mg-20 mg/5 mL oral susp amlodipine 10 mg tablet 10 mg PO DAILY 10/11/22 10/09/24 aspirin 81 mg tablet,delayed 81 mg PO DAILY 10/11/22 10/09/24 release atorvastatin 10 mg tablet 10 mg PO BEDTIME 10/11/22 10/09/24 bisacodyl 10 mg rectal suppository 10 mg MS DAILY PRN Constipation 10/11/22 10/09/24 (Dulcolax (bisacodyl)) chlorhexidine gluconate 4 % 1 appl topical DAILY 10/11/22 10/09/24 topical liquid (Hibiclens) docusate sodium 100 mg capsule 100 mg PO BEDTIME 10/11/22 10/09/24 fluticasone furoate 100 1 inh inhalation DAILY 10/11/22 10/09/24 mcg-vilanterol 25 mcg/dose inhalation powder (Breo Ellipta) guaifenesin 100 mg/5 mL oral liquid 200 mg PO Q4H PRN Cough 10/11/22 10/09/24 lisinopril 40 mg tablet 40 mg PO DAILY 10/11/22 10/09/24 metoprolol tartrate 50 mg tablet 50 mg PO BID 10/11/22 10/09/24 multivitamin 1 tab PO DAILY 10/11/22 10/09/24 naloxone 4 mg/actuation nasal 4 mg intranasal Q3M PRN Opioid 10/11/22 10/09/24 spray (Narcan) Overdose omeprazole 20 mg capsule,delayed 20 mg PO DAILY@0630 10/11/22 10/09/24 release sennosides 8.6 mg tablet (senna) 8.6 mg PO DAILY PRN Constipation 10/11/22 10/09/24 sodium phosphates 19 gram-7 118 ml MS DAILY PRN Constipation 10/11/22 10/09/24 gram/118 mL enema (Fleet Enema) tramadol 50 mg tablet 50 mg PO TID 10/11/22 10/09/24 turmeric 400 mg capsule 500 mg PO BID 10/11/22 10/09/24 olanzapine 5 mg tablet 5 mg PO BEDTIME 10/09/24 10/09/24 ondansetron HCl 4 mg tablet 4 mg PO Q4H PRN Nausea 10/09/24 10/09/24 Previous Rx's ?Medication ?Instructions ?Recorded albuterol sulfate 2.5 mg/3 mL 2.5 mg (3 mL) inhalation RQ6H 10/16/22 (0.083 %) solution for nebulization WHILE AWAKE PRN Shortness Of Breath Or Wheezing #30 ea polyethylene glycol 3350 17 gram 17 g PO BID #60 ea 10/16/22 oral powder packet Allergies Allergy/AdvReac Type Severity Reaction Status Date / Time No Known Allergies Allergy Verified 10/09/24 06:51 Review of Systems 2 Constitutional: Constitutional: Reports no additional constitutional complaints, Denies chills, Denies fever(s) and Denies night sweats Eyes: Eyes: Reports no additional eye complaints, Denies blurry vision, Denies change in vision, Denies diplopia, Denies eye discharge, Denies loss of vision and Denies eye pain ENT: Denies dizziness Cardiovascular: Cardiovascular: Reports no additional cardiovascular complaints, Denies chest pain, Denies lightheadedness, Denies Loss of Consciousness and Denies dyspnea Respiratory: Respiratory: Reports no additional respiratory complaints and Denies dyspnea Gastrointestinal: Gastrointestinal: Reports no additional gastrointestinal complaints, Reports abdominal pain, Denies melena, Denies hematochezia, Denies change in bowel habits, Denies change in stool character, Reports nausea and Reports vomiting Genitourinary: Genitourinary: Reports no additional male genitourinary complaints, Denies hematuria, Denies oliguria, Denies difficulty urinating, Denies dysuria, Denies urinary frequency, Denies urinary hesitancy, Denies urinary incontinence and Denies urinary urgency Musculoskeletal: Musculoskeletal: Reports no additional musculoskeletal complaints, Denies numbness and Denies tingling Neurologic: Denies dizziness, Denies loss of vision, Denies numbness and Denies tingling Psychiatric: Psychiatric: Reports no additional psychiatric complaints Endocrine: Endocrine: Reports no additional endocrine complaints Hematologic/Lymphatic: Hematologic/Lymphatic: Reports no additional hematologic/lymphatic complaints Allergic/Immunologic: Allergic/Immunologic: Reports no additional allergic/immunologic complaints PMFSH Past Medical History Attestation statement: The following information was validated with the patient. Source: old records reviewed, nursing notes reviewed and other ([facility] staff provided additional history and confirmed the history provided by the patient.) Medical History Osteoarthritis Mood disorder COPD (chronic obstructive pulmonary disease) Dysarthria Obesity HTN (hypertension) Dementia Social History Social History Household Members: Other Housing: Retirement Do you presently have visiting nurse or other home services: No Unable to assess alcohol history related to: Unknown Alcohol intake: never Comment: S3 Patient Tobacco Use Status: Former Tobacco user Smoked in Last 30 Days: No Use of substances other than those prescribed or required for medical reasons: Unknown Advance Directives: No Advance Directives Information Provided: No Do you have a plan to hurt others: No Plan service: No Current occupational status: disabled Physical Exam ED Vital Signs: Vital Signs - 24 hr 10/09/24 06:48 10/09/24 07:54 Temperature 97.4 F Pulse Rate 118 H 110 H Respiratory Rate 23 H 16 Blood Pressure 143/75 H 130/86 Pulse Oximetry 96 95 Oxygen Delivery Method Room Air BMI result Body Mass Index 38.1 Const General: cooperative, no acute distress, alert and awake Nutritional Appearance: well nourished Orientation/consciousness: patient oriented x3 Limitations: no limitations HENMT Head: Yes normal to inspection and Yes atraumatic Ears: hearing grossly normal bilaterally and external ears normal General nose exam: Normal external nose present, no nasal discharge noted and no epistaxis Face and sinus: Yes normal facial exam, No abrasion and No laceration Mouth: Normal oral and palatal mucosa present, no drooling and no muffled voice Eyes General: appearance normal, both eyes and all related structures Periorbital: periorbital findings normal Eyelids: Yes eyelids normal Conjunctivae: conjunctivae normal Pupils: Equal, round and reactive pupils present EOM: EOMs intact bilaterally Neck Neck: Yes normal visual inspection, Yes full ROM and Yes no lymphadenopathy Chest Chest palpation & inspection: normal inspection of the chest Resp Effort & Inspection: normal respiratory effort and able to speak in complete sentences Cardio Rate: tachycardic Rhythm: regular rhythm GI Inspection: Yes normal to inspection Palpation (GI): not soft, Firmness to palpation present (GI), Tenderness to palpation present (GI) (diffuse), no guarding and not rigid Neuro General: patient oriented x3 Cranial nerves: Yes Equal, round and reactive pupils present Cognition (Neuro): normal cognition Extrem Other: pain with palpation of the left thigh and pain with rolling on the left thigh left lower extremity has intact PMS and there is no obvious evidence of a hematoma / contusion / injury General: Yes normal to inspection and Yes capillary refill normal Psych Appearance: grossly normal Mental Status: mental status grossly normal Affect: normal affect Attitude: cooperative Thought process: Normal thought process present Thought content: Normal thought content present Insight: Good insight present (Psych) Medications Administered Generic Name Dose Route Start Last Admin Trade Name Freq PRN Reason Stop Dose Admin Sodium Chloride 1,000 mls @ 125 mls/hr 10/09/24 10:15 10/09/24 11:10 Ns IVCONT 125 mls/hr .Q8H TOYIN Administration Discontinued Medications Generic Name Dose Route Start Last Admin Trade Name Freq PRN Reason Stop Dose Admin Iohexol 100 ml 10/09/24 08:49 10/09/24 08:49 Iohexol 350 Mg/Ml 100 Ml Infus..Btl IV 10/09/24 08:50 80 ml ONCE ONE Administration Lidocaine HCl 5 ml 10/09/24 08:42 10/09/24 09:30 Lidocaine Hcl 1 % Mpf 5 Ml Vial SUBCUT 10/09/24 08:43 5 ml ONCE ONE Administration Lorazepam 2 mg 10/09/24 09:20 10/09/24 09:30 Lorazepam 2 Mg/Ml Vial IVPUSH 10/09/24 09:21 2 mg ONCE ONE Administration Ondansetron HCl 4 mg 10/09/24 06:56 10/09/24 07:05 Ondansetron Hcl 4 Mg/2 Ml Vial IVPUSH 10/09/24 06:57 4 mg ONCE ONE Administration Pantoprazole Sodium 80 mg 10/09/24 06:56 10/09/24 07:04 Pantoprazole Sodium 40 Mg/10 Ml Vial IVPUSH 10/09/24 06:57 80 mg ONCE ONE Administration Procedures EJ/Peripheral Line Arm R: Skin Cleansed in Sterile Fashion: Yes Size (gauge): 20 IV Secured and Dressing Applied: Yes Patient Tolerated Procedure: well Additional Comments: Ultrasound was used visualize what I suspect was the cephalic vein. Skin was prepped with Betadine. Using ultrasound guidance I placed a 20 gauge IV catheter in the vein with good blood return. Line flushes appropriately. Medical Decision Making Medical Decision Making MDM Narrative: Patient is a 54 year old assigned male at with a history of GERD, HLD, HTN, hemiplegia and hemiparesis following a CVA, mood disorder, and dysphasia presenting to the emergency department today with nausea, vomiting, and abdominal pain. Patient's physical exam was as noted in the physical exam portion of this note. Patient's blood work showed an elevated WBC count of 12.4 but otherwise unremarkable. Patient's chest x-ray showed no acute process. Patient's CT abd/pelvis showed evidence of a partial small bowel obstruction as well as an incidental finding of a large enhancing focus in the left common femoral artert + vein suggesting a possible AV fistula vs. pseudo aneurysm. Patient's clinical presentation is most consistent with a partial small bowel obstruction. I spoke with the general surgeon operations liaison, Dr. Garza, who agreed with my request to place an NG tube and recommended admission to the surgical service. I placed the NG tube without incident. Patient's chest x-ray confirmed correct placement however, my attending physician, Dr. Ricci, recommended further insertion which he adjusted. I explained my physical exam findings as well as all test results to the patient. I answered all questions asked by the patient. Patient verbalized agreement and understanding with this treatment plan and admission. Differential Diagnosis Differential Diagnoses: The differential diagnosis associated with the presentation includes Small bowel obstruction Abdominal pain Nausea Vomiting Admission/Observation Consideration of admission/observation: Escalation of care including admission/observation considered Patient admitted as noted in the MDM Rationale portion of this note. Consult Healthcare Provider Management of the patient was discussed with: Vp Director Of Creative Strategy (spoke with Dr. Garza as noted in the MDM Rationale portion of this note.) Lab Data [facility] Lab Attestation statement: I reviewed the patient's lab results. My interpretation of these results are in the MDM Rationale portion of this note. 10/09/24 07:46 10/09/24 07:10 Labs: Lab Results 10/09/24 10/09/24 Range/Units 07:10 07:46 WBC 12.4 H (4.8-10.8) X10*3/uL RBC 6.08 H D (4.60-5.80) X10*6/uL Hgb 16.6 D (14.0-18.0) g/dl Hct 52.0 D (42.0-52.0) % MCV 85.5 (80.0-98.0) fL MCH 27.3 (27.0-33.0) pg MCHC 31.9 (31.0-36.0) g/dl RDW 14.9 (11.0-16.0) % Plt Count 292 (160-400) X10*3/uL MPV 9.4 (9.4-12.4) fL Immature Gran % (Auto) 0.4 (0.0-0.4) % Neut % (Auto) 78.8 H (45-73) % Lymph % (Auto) 8.0 L (20-40) % [place] % (Auto) 12.6 H (2-11) % Eos % (Auto) 0.0 (0-4) % Baso % (Auto) 0.2 (0-2) % Lymph # (Auto) 1.0 L (1.2-4.9) X10*3/uL [place] # (Auto) 1.6 H (0.1-1.2) X10*3/uL Eos # (Auto) 0.0 (0.0-0.4) X10*3/uL Baso # (Auto) 0.0 (0.0-0.2) X10*3/uL Abs Immat Gran (auto) 0.05 H (0.00-0.03) X10*3/uL Absolute Neuts (auto) 9.8 H (2.0-8.3) x10*3/uL Absolute Nucleated RBC 0.000 (0.0-0.012) X10*3/uL Nucleated RBC % (auto) 0.0 (0.0-0.2) /100WBC Smear Tech's Comments VERIFIED PT 13.4 H (10.9-12.4) SEC INR 1.2 H (0.9-1.1) APTT 30.8 (26.0-36.8) SEC Sodium 141 (135-145) mmol/L Potassium 4.3 (3.3-5.1) mmol/L Chloride 104 (96-108) mmol/L Carbon Dioxide 25 (22-29) mmol/L Anion Gap 16 (12-20) BUN 19 H (9-16) mg/dL Creatinine 0.71 (0.5-1.4) mg/dL Estim Creat Clear Calc 156.9 Estimated GFR > 60 Random Glucose 140 H (60-115) mg/dL Calcium 9.6 D (8.4-10.2) mg/dL Magnesium 2.1 (1.6-2.6) mg/dL Total Bilirubin 0.4 (0.0-1.0) mg/dL AST 22 (5-37) U/L ALT 23 (0-40) U/L Alkaline Phosphatase 107 (39-117) U/L Troponin I High Sens < 2.7 (<3.5-35.0) ng/L Total Protein 8.7 H (6.5-8.0) g/dL Albumin 4.4 (3.5-5.0) g/dL Influenza Type A (PCR) NEGATIVE (Negative) Influenza Type B (PCR) NEGATIVE (Negative) RSV RNA Qual (PCR) NEGATIVE (Negative) SARS-CoV-2 RNA (RT-PCR) NEGATIVE (Negative) Blood Type AB Positive Antibody Screen NEGATIVE Independent Interpretation I performed an independent interpretation of an: Plain X-Ray and CT Scan Interpretation: My interpretation is in agreement with the radiologist's impression of these imaging studies. L CLINICAL HISTORY: cough, vomiting 1 view chest x-ray Comparison: CR/SR - XR CHEST 1V - 10/17/22 18:04 EST Findings: No consolidation or effusion. Normal size heart. No acute fracture. IMPRESSION: 1. No acute findings. This document has been electronically signed by: Zakia Drew MD on 10/09/2024 08:53:59 Dictated By: Zakia Drew MD Signed By: Electronically signed by Zakia Drew MD 10/09/24 0855 Report Number: [id number]: Total DLP = 2752.00 mGy-cm ADDENDUM: This report was discussed with Gavino Muller on Oct 09, 2024 09:43:00 EST. Addendum Signed By: Cain Perez MD TD/TT: 10/09/2405/25/943 CLINICAL HISTORY: abdominal pain, probable GI bleed CTA abdomen/pelvis without and with IV contrast. 3D post-processing. Comparison: CT/SR - CT ABDOMEN PELVIS W IV CON - 10/17/22 15:[address]/REG/SR - CT ABDOMEN PELVIS WO IV CON - 10/14/22 08:38 EST Findings: No appreciable mucosal hyperenhancement or contrast pooling to identify an active GI bleeding site. Slight hyperdense material in the dependent stomach present on precontrast images. Distended stomach with large air-fluid level. Dilated small bowel loops greater than 4 cm suggesting partial small bowel obstruction. Transition zone not well delineated although appears to be in the right mid to lower abdomen with distal ileum normal caliber. Colon nondilated. Nonspecific liquid stool and air distention without features of diverticulitis. Luminal narrowing of the sigmoid colon most likely peristalsis. Normal appendix. Mild fibrotic/atelectatic basilar lung changes with generalized peribronchial thickening. Upper normal heart size. No pericardial or pleural effusion. No opaque gallstones or gallbladder wall thickening. No biliary dilatation. Liver, spleen and adrenals intact. Atrophic pancreas without focal abnormality or acute duct dilatation. Small nonobstructing 3-4 mm mid pole stones left kidney. Punctate mid and lower pole stones right kidney. No obstructing stones or hydronephrosis. Normal caliber aorta. Mild plaque. No stenosis or dissection. No apparent stenosis of the renal arteries, celiac trunk or SMA. Patent hepatic veins, IVC and portal vein. No pathologic adenopathy. Urinary bladder decompressed. Prostate in Situ without exophytic abnormality. Incompletely assessed enhancing focus along the left common femoral artery and vein in the order of 3 x 6.5 x 4.5 cm, indeterminate for arterial venous fistula, or large pseudo aneurysm. [id number]-[id number]-right fat containing inguinal hernias. 7.8 cm fat containing umbilical hernia. No bowel hernia. Severe degenerative arthritis left hip suggesting sequela of prior fracture. No acute appearing bone abnormality. Impression: Findings compatible with moderate to high-grade partial small bowel obstruction. No identifiable site of active GI bleeding. Normal caliber aorta. No plaque, stenosis or dissection. Large enhancing focus centered at the left common femoral artery and vein suggesting possible large although incompletely assessed arterial venous fistula versus pseudo aneurysm versus other. Directed ultrasound follow-up suggested. Other findings as noted. This document has been electronically signed by: Cain Perez MD on 10/09/2024 09:41:21 Dictated By: Cain Perez MD Signed By: Electronically signed by Cain Perez MD 10/09/24 0941 Independent Historian Clinical information obtained from an independent historian. History obtained from or confirmed by: EMS (EMS provided additional history and confirmed the history provided by the patient and [facility] staff) and Other ([facility] staff provided additional history and confirmed the history provided by the patient and EMS) Critical Care Time Critical Care Time Critical Care Time: Yes Total Critical Care Time: 56 Attestation: I spent 56 minutes of Critical Care Time with this patient. This does not include time spent on separately reported billable procedures. Discharge Plan Discharge Clinical Impression: Partial obstruction of small intestine, Femoral artery pseudo-aneurysm, left Patient Disposition: Admitted As Inpatient Interventions: Admission Worksheet (ED) Last Done: 10/09/24 10:27
[2024-10-09] MEDS: Pantoprazole Sodium 40 MG/10 ML VIAL 80 MG IVPUSH (07:04)
[2024-10-09] MEDS: ondansetron HCL 4 MG/2 ML VIAL IVPUSH (07:05)
--- OUTSIDE RECORDS SUMMARY | 2024-10-09 07:33 | XMS_ITS | Encounter Summary ---
Author Organization [facility] Address [address] [place] [address] Care Team Providers Care Vp Ad Products And Planning Name Role Phone Jose Manuel Ontiveros MD Primary Care Provider [phone] Encounter Details Date Type Department Care Team (Late st Contact Info) Description 08/22/2024 Lab Requisition [facility] - Main Lab [address] [facility] [place] [address] Jose Manuel Ontiveros MD [address] [place] [address] [address] [place], [place] Obesity, unspecified; Dysphagia, oropharyngeal phase; Encounter for screening for malignant neoplasm of prostate; Hyperlipidemia, unspecified; Other specified intracranial injury without loss of consciousness, initial encounter (CMS/[facility]) Social History Tobacco Use Types Packs/Day Years Used Date Smoking Tobacco: Never Smokeless Tobacco: Never Alcohol Use Standard Drinks/Week Comments Not Currently 0 (1 standard drink = 0.6 oz pur e alcohol) Sex and Gender Information Value Date Recorded Sex Assigned at Not on file Legal Sex Male 9:06 PM EST Gender Identity Not on file Sexual Orientation Not on file documented as of this encounter Plan of Treatment Upcoming Encounters Date Type Department Care Team (Late st Contact Info) Description 10/25/2024 1:10 PM EST Office Visit [facility] [address] [place] [address] Mandie Higginbotham NP [address] [place] [address] [address] [place] [address] documented as of this encounter Procedures Procedure Name Priority Date/Time Associated Diagnosis Comments LIPID PANEL WITH REFLEX TO DIRECT LDL Routine 08/22/2024 6:45 AM EST Dysphagia, oropharyngeal phase Encounter for screening for malignant neoplasm of prostate Hyperlipidemia, unspecified Other specified intracranial injury without loss of consciousness, initial encounter (CMS/HCC) Obesity, unspecified PROSTATE SPECIFIC ANTIGEN DIAGNOSTIC Routine 08/22/2024 6:45 AM EST Dysphagia, oropharyngeal phase Encounter for screening for malignant neoplasm of prostate Hyperlipidemia, unspecified Other specified intracranial injury without loss of consciousness, initial encounter ([facility]) Obesity, unspecified CBC WITH AUTO DIFFERENTIAL Routine 08/22/2024 6:45 AM EST Dysphagia, oropharyngeal phase Encounter for screening for malignant neoplasm of prostate Hyperlipidemia, unspecified Other specified intracranial injury without loss of consciousness, initial encounter ([facility]) Obesity, unspecified CBC AND DIFFERENTIAL Routine 08/22/2024 6:45 AM EST Dysphagia, oropharyngeal phase Encounter for screening for malignant neoplasm of prostate Hyperlipidemia, unspecified Other specified intracranial injury without loss of consciousness, initial encounter ([facility]) Obesity, unspecified THYROID STIMULATING HORMONE Routine 08/22/2024 6:45 AM EST Dysphagia, oropharyngeal phase Encounter for screening for malignant neoplasm of prostate Hyperlipidemia, unspecified Other specified intracranial injury without loss of consciousness, initial encounter ([facility]) Obesity, unspecified COMPREHENSIVE METABOLIC PANEL Routine 08/22/2024 6:45 AM EST Dysphagia, oropharyngeal phase Encounter for screening for malignant neoplasm of prostate Hyperlipidemia, unspecified Other specified intracranial injury without loss of consciousness, initial encounter ([facility]) Obesity, unspecified documented in this encounter Results * (ABNORMAL) CBC auto differential (08/22/2024 6:45 AM EST) WBC 9.6 4.8 - 10.8 K/mcL LAB HEMETOLOGY METHOD 08/22/2024 8:34 AM EST [facility] RBC 5.30 4.50 - 5.50 M/[facility] LAB HEMETOLOGY METHOD 08/22/2024 8:34 AM EST [facility] LAB Hemoglobin 14.3 13.5 - 17.5 g/dL LAB HEMETOLOGY METHOD 08/22/2024 8:34 AM EST [facility] LAB Hematocrit 46.2 42.0 - 54.0 % LAB HEMETOLOGY METHOD 08/22/2024 8:34 AM [facility] MCV 87.2 79.0 - 98.0 FL LAB HEMETOLOGY METHOD 08/22/2024 8:34 AM [facility] MCH 27.0 27.0 - 32.0 pcg LAB HEMETOLOGY METHOD 08/22/2024 8:34 AM [facility] MCHC 31.0(L) 32.0 - 37.0 g/dL LAB HEMETOLOGY METHOD 08/22/2024 8:34 AM [facility] RDW 14.6 11.0 - 15.0 % LAB HEMETOLOGY METHOD 08/22/2024 8:34 AM [facility] Platelets 339 130 - 400 K/mcL LAB HEMETOLOGY METHOD 08/22/2024 8:34 AM [facility] MPV 9.6 7.0 - 11.0 FL LAB HEMETOLOGY METHOD 08/22/2024 8:34 AM [facility] NRBC 0.0 <1.0 % LAB HEMETOLOGY METHOD 08/22/2024 8:34 AM [facility] NRBC Absolute 0.00 <0.10 K/mcL LAB HEMETOLOGY METHOD 08/22/2024 8:34 AM [facility] Neutrophils Relative 67.7 % LAB HEMETOLOGY METHOD 08/22/2024 8:34 AM [facility] Lymphocytes Relative 17.8 % LAB HEMETOLOGY METHOD 08/22/2024 8:34 AM [facility] Monocytes Relative 8.1 % LAB HEMETOLOGY METHOD 08/22/2024 8:34 AM [facility] Eosinophils Relative 5.4 % LAB HEMETOLOGY METHOD 08/22/2024 8:34 AM [facility] Basophils Relative 0.4 % LAB HEMETOLOGY METHOD 08/22/2024 8:34 AM EST [facility] Immature Granulocytes Relative 0.6 % LAB HEMETOLOGY METHOD 08/22/2024 8:34 AM EST [facility] Neutrophils Absolute 6.51 1.50 - 7.00 K/mcL LAB HEMETOLOGY METHOD 08/22/2024 8:34 AM EST [facility] Lymphocytes Absolute 1.71 1.00 - 5.00 K/mcL LAB HEMETOLOGY METHOD 08/22/2024 8:34 AM EST [facility] Monocytes Absolute 0.78 0.20 - 1.00 K/mcL LAB HEMETOLOGY METHOD 08/22/2024 8:34 AM [facility] Eosinophils Absolute 0.52(H) 0.00 - 0.50 K/mcL LAB HEMETOLOGY METHOD 08/22/2024 8:34 AM EST [facility] Basophils Absolute 0.04 0.00 - 0.20 K/mcL LAB HEMETOLOGY METHOD 08/22/2024 8:34 AM [facility] Immature Granulocytes Absolute 0.06(H) 0.00 - 0.03 K/mcL LAB HEMETOLOGY METHOD 08/22/2024 8:34 AM [facility] Blood Venous blood specimen / Unknown 08/22/2024 6:45 AM EST 08/22/2024 7:25 AM EST us Jose Manuel Ontiveros MD LAB BLOOD ORDERABLES Final Resul t [facility] [address] [place] [address], * Prostate specific antigen diagnostic (08/22/2024 6:45 AM EST) PSA 1.68 0.00 - 4.00 ng/mL LAB CHEMISTRY METHOD 08/22/2024 9:48 AM EST [facility] Blood Venous blood specimen / Unknown 08/22/2024 6:45 AM EST 08/22/2024 7:25 AM EST Narrative [facility] - 08/22/2024 9:48 AM EST The Siemens Advia Centaur Chemiluminescent Immunoassay is used. Results obtained with different assay methods or kits cannot be used interchangeably. Results cannot be interpreted as absolute evidence of the presence or absence of malignant disease. us Jose Manuel Ontiveros MD LAB BLOOD ORDERABLES Final Resul t Performing Organization Address [facility]/ZIP Co de Phone Number [facility] [address] [place] [address], [place] [phone] * Thyroid stimulating hormone (08/22/2024 6:45 AM EST) TSH 2.06 0.40 - 4.00 mcIU/mL LAB CHEMISTRY METHOD 08/22/2024 9:47 AM EST [facility] Blood Venous blood specimen / Unknown 08/22/2024 6:45 AM EST 08/22/2024 7:25 AM EST us Jose Manuel Ontiveros MD LAB BLOOD ORDERABLES Final Resul t Performing Organization Address [facility] Co de Phone Number [facility] [address] [place] [address], [place] [phone] * (ABNORMAL) Lipid panel with reflex to direct LDL (08/22/2024 6:45 AM EST) Cholesterol 115 0 - 200 mg/dL LAB CHEMISTRY METHOD 08/22/2024 9:37 AM EST [facility] Triglycerides 110 0 - 150 mg/dL LAB CHEMISTRY METHOD 08/22/2024 9:37 AM EST [facility] HDL 38(L) >=40 mg/dL LAB CHEMISTRY METHOD 08/22/2024 9:37 AM EST [facility] LDL Calculated 55 0 - 100 mg/dL LAB CHEMISTRY METHOD 08/22/2024 9:37 AM EST [facility] VLDL Cholesterol Kamron 22 mg/dL LAB CHEMISTRY METHOD 08/22/2024 9:37 AM [facility] Non HDL Chol. (LDL+VLDL) 77 <145 mg/dL LAB CHEMISTRY METHOD 08/22/2024 9:37 AM [facility] Chol/HDL Ratio 3.0 0.0 - 4.4 LAB CHEMISTRY METHOD 08/22/2024 9:37 AM [facility] Blood Venous blood specimen / Unknown 08/22/2024 6:45 AM EST 08/22/2024 7:25 AM EST us Jose Manuel Ontiveros MD LAB BLOOD ORDERABLES Final Resul t [facility] [address] [place] [address], [place] [phone] * (ABNORMAL) Comprehensive metabolic panel (08/22/2024 6:45 AM EST) Sodium 139 133 - 145 mmol/L LAB CHEMISTRY METHOD 08/22/2024 8:44 AM [facility] Potassium 4.8 3.5 - 5.5 mmol/L LAB CHEMISTRY METHOD 08/22/2024 8:44 AM [facility] Chloride 107 96 - 110 mmol/L LAB CHEMISTRY METHOD 08/22/2024 8:44 AM [facility] CO2 28 21 - 32 mmol/L LAB CHEMISTRY METHOD 08/22/2024 8:44 AM [facility] Anion Gap 4 3 - 11 LAB CHEMISTRY METHOD 08/22/2024 8:44 AM [facility] Glucose 87 70 - 100 mg/dL LAB CHEMISTRY METHOD 08/22/2024 8:44 AM [facility] BUN 13 5 - 25 mg/dL LAB CHEMISTRY METHOD 08/22/2024 8:44 AM [facility] Creatinine 0.65(L) 0.70 - 1.30 mg/dL LAB CHEMISTRY METHOD 08/22/2024 8:44 AM [facility] eGFR 111 >=60 mL/min/1. 73m2 LAB CHEMISTRY METHOD 08/22/2024 8:44 AM [facility] Comment:Calculation based on the??Chronic Kidney Disease Epidemiology Collaboration (CKD-EPI) equation refit??without adjustment for race. BUN/Creatinine Ratio 20.0 LAB CHEMISTRY METHOD 08/22/2024 8:44 AM [facility] Calcium 8.9 8.5 - 10.5 mg/dL LAB CHEMISTRY METHOD 08/22/2024 8:44 AM [facility] AST (SGOT) 18 10 - 42 unit/L LAB CHEMISTRY METHOD 08/22/2024 8:44 AM [facility] ALT (SGPT) 21 10 - 60 unit/L LAB CHEMISTRY METHOD 08/22/2024 8:44 AM [facility] Alkaline Phosphatase 108 42 - 121 unit/L LAB CHEMISTRY METHOD 08/22/2024 8:44 AM [facility] Total Protein 7.1 6.0 - 8.0 g/dL LAB CHEMISTRY METHOD 08/22/2024 8:44 AM [facility] Albumin 3.4 3.2 - 5.0 g/dL LAB CHEMISTRY METHOD 08/22/2024 8:44 AM [facility] Total Bilirubin 0.3 0.0 - 1.4 mg/dL LAB CHEMISTRY METHOD 08/22/2024 8:44 AM [facility] Blood Venous blood specimen / Unknown 08/22/2024 6:45 AM EST 08/22/2024 7:25 AM EST us Jose Manuel Ontiveros MD LAB BLOOD ORDERABLES Final Resul t [facility] [address] [place] [address], documented in this encounter Visit Diagnoses Diagnosis Obesity, unspecified Dysphagia, oropharyngeal phase Encounter for screening for malignant neoplasm of prostate Hyperlipidemia, unspecified Other specified intracranial injury without loss of consciousness, initial encounter (CMS/[facility]) documented in this encounter Care Teams Vp Ad Products And Planning Relationship Specialty Start Date End Date Jose Manuel Ontiveros MD [address] [place] [address] [address] [place], [place] PCP - General 12/13/12 documented as of this encounter
--- OUTSIDE RECORDS SUMMARY | 2024-10-09 07:33 | XMS_ITS | Encounter Summary ---
Author Organization [facility] Address [address] [place] [address] Care Team Providers Care Marble Cutter Name Role Phone Jose Manuel Ontiveros MD Primary Care Provider [phone] Encounter Details Date Type Department Care Team (Late st Contact Info) Description 07/07/2024 Lab Requisition [facility] - Main Lab [address] [facility] [place] [address] Jose Manuel Ontiveros MD [address] [place] [address] [address] [place], [place] Hyperlipidemia, unspecified; Other specified intracranial injury without loss of consciousness, sequela (CMS/HCC) Social History Tobacco Use Types Packs/Day Years [...] Description 10/25/2024 1:10 PM EST Office Visit [facility] [address] [place] [address] Mandie Higginbotham NP [address] [place] [address] [address] [place] [address] documented as of this encounter Procedures Procedure Name Priority Date/Time Associated Diagnosis Comments LIPID PANEL WITH REFLEX TO DIRECT LDL Routine 07/07/2024 5:35 AM EST Hyperlipidemia, unspecified Other specified intracranial injury without loss of consciousness, sequela (CMS/HCC) documented in this encounter Results * (ABNORMAL) Lipid panel with reflex to direct LDL (07/07/2024 5:35 AM EST) Cholesterol 110 0 - 200 mg/dL LAB CHEMISTRY METHOD 07/07/2024 8:16 AM [facility] Triglycerides 116 0 - 150 mg/dL LAB CHEMISTRY METHOD 07/07/2024 8:16 AM [facility] LAB HDL 35(L) >=40 mg/dL LAB CHEMISTRY METHOD 07/07/2024 8:16 AM [facility] LAB LDL Calculated 52 0 - 100 mg/dL LAB CHEMISTRY METHOD 07/07/2024 8:16 AM [facility] LAB VLDL Cholesterol Kamron 23.2 mg/dL LAB CHEMISTRY METHOD 07/07/2024 8:16 AM [facility] LAB Non HDL Chol. (LDL+VLDL) 75 <145 mg/dL LAB CHEMISTRY METHOD 07/07/2024 8:16 AM [facility] LAB Chol/HDL Ratio 3.1 0.0 - 4.4 LAB CHEMISTRY METHOD 07/07/2024 8:16 AM [facility] LAB Blood Venous blood specimen / Unknown 07/07/2024 5:35 AM EST 07/07/2024 6:26 AM EST us Jose Manuel Ontiveros MD LAB BLOOD ORDERABLES Final Resul t [facility] [address] [place] [address], documented in this encounter Visit Diagnoses Diagnosis Hyperlipidemia, unspecified Other specified intracranial injury without loss of consciousness, sequela (CMS/HCC) documented in this encounter Care Teams Marble Cutter Relationship Specialty Start Date End Date Jose Manuel Ontiveros MD [address] [place] [address] Dr [address] [facility] [place] PCP - General 12/13/12 documented as of this encounter
--- OUTSIDE RECORDS SUMMARY | 2024-10-09 07:33 | XMS_ITS | Patient Health Record ---
Author Organization [facility] Address [address] [place] [address] Care Team Providers Care Traffic Agent Name Role Phone Rupali Ontiveros Primary Care Provider Yoandy Jama Jr Unavailable [phone] ALLERGIES No Known Allergies REASON FOR REFERRAL No Information MEDICATIONS Medication SIG (Take, Route, Frequency, Duration) Notes Start Date End Date Status Multivitamin - as directed Orally Active Atorvastatin Calcium 10 MG 1 tablet Oral ly Once a day for 30 day(s) Active OLANZapine 10 MG 1 tablet Orally Once a day for 30 day(s) Active Breo Ellipta 100-25 MCG/INH 1 puff Inhal ation Once a day Active Omeprazole 20 MG 1 capsule 30 minutes before morning meal Orally Once a day for 30 day(s) Active Dimethicone 1 % as directed Externally Active Senna 187 MG as directed Orally Active DocQLace 100 MG 1 capsule as needed Orally Once a day for 30 day(s) Active Lisinopril 40 MG 1 tablet Orally Once a day for 30 day(s) Active Loperamide HCl 2 MG 1 tablet as needed Orally Four times a day Active amLODIPine Besy-Benazepril HCl 10-20 MG as directed Orally Active Metoprolol & Diet Manage Prod 50 MG as directed Orally Active Aspirin 81 81 MG 1 tablet Orally Once a day for 30 day(s) Active Acetaminophen 325 MG 1 tablet as needed Orally every 4 hrs Active Turmeric 500 MG as directed Orally Active Fleet Enema 7-19 GM/118ML as directed Rectal Active guaiFENesin AC 100-10 MG/5ML 10 ml as ne eded Orally every 4 hrs Active Hibiclens 4 % as directed Externally Active ibuprofen 1 tab Oral for 14 days Active IMMUNIZATIONS Vaccine Route Administration Date Status Comme nts Influenza Unknown 07/03/2021 Administered SOCIAL HISTORY Tobacco Use: Social History Observation Description Date Details (start date - stop date) Never Smoker NA - NA Sex Assigned At : Social History Observation Description Sex Assigned At Unknown Tobacco Use/Smoking Question Answer Notes Patient is a nonsmoker Alcohol Screen Question Answer Notes Did you have a drink containing alcohol in the p ast year? No Points 0 Interpretation Negative PROBLEMS Problem Type ICD Code Onset Dates Problem Status W/U Status Risk SNOMED Code Notes Problem Colon cancer screening (Z12.11) Active confirmed 262316645 Problem Constipation (K59.00) Active confirmed Constipation (94014800) PLAN OF TREATMENT No Information Insurance Providers Payer Name Payer Address Payer Phone Subscriber Number Group Number Insured Name Patient Relationship to Insured Coverage Start Date Coverage End Date MEDICARE OF [place] [address] [place] [address] [phone] [id number] RUPALI HEAD Self - patient is the insured CARE [address] [address] [id number] [place] RUPALI CHOI Self - patient is the insured MEDICAL (GENERAL) HISTORY Medical History History ICD Code concussion with loss of consciousness of unspecified duration preglaucoma myopia 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
--- OUTSIDE RECORDS SUMMARY | 2024-10-09 07:34 | XMS_ITS | Clinical Summary ---
Author Organization LL [address] [place] [address] Address [address] [place] [address] Phone Care Team Providers Care Cardiac Catheterization Technician Name Role Phone Jose Manuel Ontiveros MD Primary Care Provider [phone] Allergies No known active allergies Medications acetaminophen (TYLENOL) 325 mg tablet Take by mouth every 6 hours as needed. Active amLODIPine (NORVASC) 10 mg tablet Take by mouth daily. Active aspirin 81 mg EC tablet Take by mouth daily. Active atorvastatin (LIPITOR) 10 mg tablet Take 10 mg by mouth daily. Active fluticasone furoate-vilante roL (BREO ELLIPTA) 100-25 mcg/dose inhaler Inhale into the lungs. Active ibuprofen (ADVIL,MOTRIN) 800 mg tablet Take 800 mg by mouth every 8 hours as needed. Active lisinopril (PRINIVIL,ZESTR IL) 40 mg tablet Take by mouth daily. Active loperamide (IMODIUM) 2 mg capsule Take 2 Capsules by mouth daily. Active metoprolol tartrate (LOPRESSOR) 50 mg tablet Take 50 mg by mouth 2 times daily. Active OLANZapine (ZyPREXA) 5 mg tablet Take 1 Tablet by mouth at bedtime. Active omeprazole (PriLOSEC) [address] capsule Take 20 mg by mouth daily. Active senna (SENOKOT) 8.6 mg tablet Take 1 Tablet by mouth as needed. Active traMADoL (ULTRAM) 50 mg tablet Take 1 Tablet by mouth 3 times daily. Active turmeric root extract 500 mg capsule Take by mouth. 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 His blood pressure is under good control at this time. He is doing well on his metoprolol, lisinopril and Norvasc. I have made no changes to these. Pure hypercholesterolemia 07/01/2021 Overview (08/04/2024): Last Assessment & Plan: His lipids have been under good control. He is due for lipid check. Its been sometime since his last check. Encounters Date Type Department Care Team Description 08/22/2024 Lab Requisition [facility] - Main Lab [address] Pending Sale To [facility] [place] [id number] Jose Manuel Ontiveros MD Obesity, unspecified; Dysphagia, oropharyngeal phase; Encounter for screening for malignant neoplasm of prostate; Hyperlipidemia, unspecified; Other specified intracranial injury without loss of consciousness, initial encounter ([facility]) from Last 3 Months Medical History Medical History Date Comments Cerebrovascular accident (CVA) ([facility]) DX:Cerebrovascular accident (CVA) ([facility]) Social History Tobacco Use Types Packs/Day Years Used Date Smoking Tobacco: Never Smokeless Tobacco: Never Alcohol Use Standard Drinks/Week Comments Not Currently 0 (1 standard drink = 0.6 oz pur e alcohol) Sex and Gender Information Value Date Recorded Sex Assigned at Not on file Legal Sex Male 9:06 PM EST Gender Identity Not on file Sexual Orientation Not on file Obstetrics History Last Filed Vital Signs Vital Sign Reading Time Taken Comments Blood Pressure 110/62 06/30/2023 8:52 AM EDT Sit ting L Arm Pulse 76 06/30/2023 8:52 AM EDT Temperature - - Respiratory Rate - - Oxygen Saturation - - Inhaled Oxygen Concentration - - Weight 127 kg (280 lb) 06/30/2023 8:52 AM EDT Height 180.3 cm (5' 11 ) 06/30/2023 8:52 AM EDT Body Mass Index 39.05 06/30/2023 8:52 AM EDT Plan of Treatment Upcoming Encounters Date Type Department Care Team (Late st Contact Info) Description 10/25/2024 1:10 PM EST Office Visit [facility] [address] [place] [phone] Mandie Higginbotham NP [address] [place] [address] [address] [place] [address] Health Maintenance Due Date Last Done Comments DTaP,Tdap,and Td Vaccines (1 - Tdap) 1987 Hepatitis B Vaccines (1 of 3 - 19+ 3-dose series) 1987 Zoster Vaccines (1 of 2) 2018 Colorectal Cancer Screening: Colonoscopy 08/02/2022 Depression Screening 08/02/2022 HIV Screening 08/02/2022 Hepatitis C Screening 08/02/2022 Medicare Annual Wellness Visit 08/02/2022 Social Influencers of Health Screening 08/02/2022 COVID-19 Vaccine (1 - 2023-2 5 season) 2024 Influenza Vaccine (#1) 2024 Hypertension/CHF/CAD Annual BMP Blood Test 08/22/2025 08/22/2024 Cholesterol Screening (Lipid Panel) 08/22/2029 08/22/2024, 07/07/2024 HIB Vaccines Aged Out No longer eligi ble based on patient's age to complete this topic HPV Vaccines Aged Out No longer eligi ble based on patient's age to complete this topic Hepatitis A Vaccines Aged Out No long er eligible based on patient's age to complete this topic IPV Vaccines Aged Out No longer eligi ble based on patient's age to complete this topic MMR Vaccines Aged Out No longer eligi ble based on patient's age to complete this topic Meningococcal ACWY Vaccine Aged Out N o longer eligible based on patient's age to complete this topic Pneumococcal Vaccine: Pediatrics (0 to 5 Years) and At-Risk Patients (6 to 64 Years) Aged Out No longer eligible b ased on patient's age to complete this topic RSV Immunization Patients Under 20 months Aged Out No longer eligible b ased on patient's age to complete this topic Varicella Vaccines Aged Out No longer eligible based on patient's age to complete this topic Procedures Procedure Name Priority Date/Time Associated Diagnosis Comments CBC WITH AUTO DIFFERENTIAL Routine 08/22/2024 6:45 AM EST Dysphagia, oropharyngeal phase Encounter for screening for malignant neoplasm of prostate Hyperlipidemia, unspecified Other specified intracranial injury without loss of consciousness, initial encounter ([facility]) Obesity, unspecified PROSTATE SPECIFIC ANTIGEN DIAGNOSTIC Routine 08/22/2024 6:45 AM EST Dysphagia, oropharyngeal phase Encounter for screening for malignant neoplasm of prostate Hyperlipidemia, unspecified Other specified intracranial injury without loss of consciousness, initial encounter ([facility]) Obesity, unspecified THYROID STIMULATING HORMONE Routine 08/22/2024 6:45 AM EST Dysphagia, oropharyngeal phase Encounter for screening for malignant neoplasm of prostate Hyperlipidemia, unspecified Other specified intracranial injury without loss of consciousness, initial encounter ([facility]) Obesity, unspecified LIPID PANEL WITH REFLEX TO DIRECT LDL Routine 08/22/2024 6:45 AM EST Dysphagia, oropharyngeal phase Encounter for screening for malignant neoplasm of prostate Hyperlipidemia, unspecified Other specified intracranial injury without loss of consciousness, initial encounter ([facility]) Obesity, unspecified COMPREHENSIVE METABOLIC PANEL Routine 08/22/2024 6:45 AM EST Dysphagia, oropharyngeal phase Encounter for screening for malignant neoplasm of prostate Hyperlipidemia, unspecified Other specified intracranial injury without loss of consciousness, initial encounter ([facility]) Obesity, unspecified CBC AND DIFFERENTIAL Routine 08/22/2024 6:45 AM EST Dysphagia, oropharyngeal phase Encounter for screening for malignant neoplasm of prostate Hyperlipidemia, unspecified Other specified intracranial injury without loss of consciousness, initial encounter ([facility]) Obesity, unspecified from Last 3 Months Results * (ABNORMAL) Lipid panel with reflex to direct LDL (08/22/2024 6:45 AM EST) Cholesterol 115 0 - 200 mg/dL LAB CHEMISTRY METHOD 08/22/2024 9:37 AM EST [facility] Triglycerides 110 0 - 150 mg/dL LAB CHEMISTRY METHOD 08/22/2024 9:37 AM [facility] HDL 38(L) >=40 mg/dL LAB CHEMISTRY METHOD 08/22/2024 9:37 AM EST [facility] LDL Calculated 55 0 - 100 mg/dL LAB CHEMISTRY METHOD 08/22/2024 9:37 AM [facility] VLDL Cholesterol [place] 22 mg/dL LAB CHEMISTRY METHOD 08/22/2024 9:37 AM EST [facility] Non HDL Chol. (LDL+VLDL) 77 <145 mg/dL LAB CHEMISTRY METHOD 08/22/2024 9:37 AM EST [facility] Chol/HDL Ratio 3.0 0.0 - 4.4 LAB CHEMISTRY METHOD 08/22/2024 9:37 AM EST [facility] Blood Venous blood specimen / Unknown 08/22/2024 6:45 AM EST 08/22/2024 7:25 AM EST us Jose Manuel Ontiveros MD LAB BLOOD ORDERABLES Final Resul t Performing Organization Address [facility] Co de Phone Number [facility] [address] [place] [address], [place] [phone] * Prostate specific antigen diagnostic (08/22/2024 6:45 AM EST) PSA 1.68 0.00 - 4.00 ng/mL LAB CHEMISTRY METHOD 08/22/2024 9:48 AM EST [facility] Blood Venous blood specimen / Unknown 08/22/2024 6:45 AM EST 08/22/2024 7:25 AM EST Narrative [facility] - 08/22/2024 9:48 AM EST The Siemens Advia Centaur Chemiluminescent Immunoassay is used. Results obtained with different assay methods or kits cannot be used interchangeably. Results cannot be interpreted as absolute evidence of the presence or absence of malignant disease. us Jose Manuel Ontiveros MD LAB BLOOD ORDERABLES Final Resul t [facility] [address] [place] [address], [place] [phone] * (ABNORMAL) CBC auto differential (08/22/2024 6:45 AM EST) WBC 9.6 4.8 - 10.8 K/mcL LAB HEMETOLOGY METHOD 08/22/2024 8:34 AM [facility] RBC 5.30 4.50 - 5.50 M/mcL LAB HEMETOLOGY METHOD 08/22/2024 8:34 AM [facility] Hemoglobin 14.3 13.5 - 17.5 g/dL LAB HEMETOLOGY METHOD 08/22/2024 8:34 AM [facility] Hematocrit 46.2 42.0 - 54.0 % LAB HEMETOLOGY METHOD 08/22/2024 8:34 AM [facility] MCV 87.2 79.0 - 98.0 FL LAB HEMETOLOGY METHOD 08/22/2024 8:34 AM [facility] MCH 27.0 27.0 - 32.0 pcg LAB HEMETOLOGY METHOD 08/22/2024 8:34 AM [facility] MCHC 31.0(L) 32.0 - 37.0 g/dL LAB HEMETOLOGY METHOD 08/22/2024 8:34 AM [facility] RDW 14.6 11.0 - 15.0 % LAB HEMETOLOGY METHOD 08/22/2024 8:34 AM [facility] Platelets 339 130 - 400 K/mcL LAB HEMETOLOGY METHOD 08/22/2024 8:34 AM [facility] MPV 9.6 7.0 - 11.0 FL LAB HEMETOLOGY METHOD 08/22/2024 8:34 AM [facility] NRBC 0.0 <1.0 % LAB HEMETOLOGY METHOD 08/22/2024 8:34 AM [facility] NRBC Absolute 0.00 <0.10 K/mcL LAB HEMETOLOGY METHOD 08/22/2024 8:34 AM [facility] Neutrophils Relative 67.7 % LAB HEMETOLOGY METHOD 08/22/2024 8:34 AM [facility] Lymphocytes Relative 17.8 % LAB HEMETOLOGY METHOD 08/22/2024 8:34 AM [facility] Monocytes Relative 8.1 % LAB HEMETOLOGY METHOD 08/22/2024 8:34 AM [facility] Eosinophils Relative 5.4 % LAB HEMETOLOGY METHOD 08/22/2024 8:34 AM [facility] Basophils Relative 0.4 % LAB HEMETOLOGY METHOD 08/22/2024 8:34 AM [facility] Immature Granulocytes Relative 0.6 % LAB HEMETOLOGY METHOD 08/22/2024 8:34 AM [facility] Neutrophils Absolute 6.51 1.50 - 7.00 K/mcL LAB HEMETOLOGY METHOD 08/22/2024 8:34 AM [facility] Lymphocytes Absolute 1.71 1.00 - 5.00 K/mcL LAB HEMETOLOGY METHOD 08/22/2024 8:34 AM [facility] Monocytes Absolute 0.78 0.20 - 1.00 K/mcL LAB HEMETOLOGY METHOD 08/22/2024 8:34 AM [facility] Eosinophils Absolute 0.52(H) 0.00 - 0.50 K/mcL LAB HEMETOLOGY METHOD 08/22/2024 8:34 AM [facility] Basophils Absolute 0.04 0.00 - 0.20 K/mcL LAB HEMETOLOGY METHOD 08/22/2024 8:34 AM [facility] Immature Granulocytes Absolute 0.06(H) 0.00 - 0.03 K/mcL LAB HEMETOLOGY METHOD 08/22/2024 8:34 AM [facility] Blood Venous blood specimen / Unknown 08/22/2024 6:45 AM EST 08/22/2024 7:25 AM EST Jose Manuel Ontiveros MD LAB BLOOD ORDERABLES Final Resul t [facility] [address] [place] [address], [place] [phone] * Thyroid stimulating hormone (08/22/2024 6:45 AM EST) TSH 2.06 0.40 - 4.00 mcIU/mL LAB CHEMISTRY METHOD 08/22/2024 9:47 AM EST [facility] Blood Venous blood specimen / Unknown 08/22/2024 6:45 AM EST 08/22/2024 7:25 AM EST Jose Manuel Ontiveros MD LAB BLOOD ORDERABLES Final Resul t Performing Organization Address [facility] Co de Phone Number [facility] [address] [place] [address], [place] [phone] * (ABNORMAL) Comprehensive metabolic panel (08/22/2024 6:45 AM EST) [facility] Sodium 139 133 - 145 mmol/L LAB CHEMISTRY METHOD 08/22/2024 8:44 AM [facility] Potassium 4.8 3.5 - 5.5 mmol/L LAB CHEMISTRY METHOD 08/22/2024 8:44 AM [facility] Chloride 107 96 - 110 mmol/L LAB CHEMISTRY METHOD 08/22/2024 8:44 AM [facility] CO2 28 21 - 32 mmol/L LAB CHEMISTRY METHOD 08/22/2024 8:44 AM [facility] Anion Gap 4 3 - 11 LAB CHEMISTRY METHOD 08/22/2024 8:44 AM [facility] Glucose 87 70 - 100 mg/dL LAB CHEMISTRY METHOD 08/22/2024 8:44 AM [facility] BUN 13 5 - 25 mg/dL LAB CHEMISTRY METHOD 08/22/2024 8:44 AM [facility] Creatinine 0.65(L) 0.70 - 1.30 mg/dL LAB CHEMISTRY METHOD 08/22/2024 8:44 AM [facility] eGFR 111 >=60 mL/min/1. 73m2 LAB CHEMISTRY METHOD 08/22/2024 8:44 AM [facility] Comment:Calculation based on the??Chronic Kidney Disease Epidemiology Collaboration (CKD-EPI) equation refit??without adjustment for race. BUN/Creatinine Ratio 20.0 LAB CHEMISTRY METHOD 08/22/2024 8:44 AM [facility] Calcium 8.9 8.5 - 10.5 mg/dL LAB CHEMISTRY METHOD 08/22/2024 8:44 AM [facility] AST (SGOT) 18 10 - 42 unit/L LAB CHEMISTRY METHOD 08/22/2024 8:44 AM [facility] ALT (SGPT) 21 10 - 60 unit/L LAB CHEMISTRY METHOD 08/22/2024 8:44 AM [facility] Alkaline Phosphatase 108 42 - 121 unit/L LAB CHEMISTRY METHOD 08/22/2024 8:44 AM [facility] Total Protein 7.1 6.0 - 8.0 g/dL LAB CHEMISTRY METHOD 08/22/2024 8:44 AM [facility] Albumin 3.4 3.2 - 5.0 g/dL LAB CHEMISTRY METHOD 08/22/2024 8:44 AM [facility] Total Bilirubin 0.3 0.0 - 1.4 mg/dL LAB CHEMISTRY METHOD 08/22/2024 8:44 AM [facility] Blood Venous blood specimen / Unknown 08/22/2024 6:45 AM EST 08/22/2024 7:25 AM EST us Jose Manuel Ontiveros MD LAB BLOOD ORDERABLES Final Resul t [facility] [address] [place] [address], from Last 3 Months Insurance MEDICARE Care Teams Cardiac Catheterization Technician Relationship Specialty Start Date End Date Jose Manuel Ontiveros MD [address] [place] [address] [address] [place] PCP - General 12/13/12
[2024-10-09 07:41] LABS: Alanine Aminotransferase 23 U/L (0-40); Albumin Level 4.4 g/dL (3.5-5.0); Alkaline Phosphatase 107 U/L (39-117); Anion Gap 16 (12-20); Aspartate Amino Transferase 22 U/L (5-37); Bilirubin Total 0.4 mg/dL (0.0-1.0); Blood Urea Nitrogen 19 mg/dL (9-16); Calcium 9.6 mg/dL (8.4-10.2); Carbon Dioxide 25 mmol/L (22-29); Chloride 104 mmol/L (96-108); Creatinine Clr Calc Pharmacy 156.9; Estimated Glomerular Filt Rate > 60; Glucose Random 140 mg/dL (60-115); Magnesium 2.1 mg/dL (1.6-2.6); Potassium 4.3 mmol/L (3.3-5.1); Sodium 141 mmol/L (135-145); Total Protein 8.7 g/dL (6.5-8.0)
[2024-10-09 07:52] LABS: Troponin-I High Sensitivity < 2.7 ng/L (<3.5-35.0)
[2024-10-09 07:54] LABS: Basophils Percent Auto 0.2 % (0-2); Hemoglobin 16.6 g/dl (14.0-18.0); Imm Gran Abs Auto 0.05 X10*3/uL (0.00-0.03); Imm Gran Pct Auto 0.4 % (0.0-0.4); MANUAL DIFF FLAG SCAN; Mean Corpuscular HGB Conc 31.9 g/dl (31.0-36.0); Mean Corpuscular Hemoglobin 27.3 pg (27.0-33.0); Mean Corpuscular Volume 85.5 fL (80.0-98.0); Mean Platelet Volume 9.4 fL (9.4-12.4); Monocytes Absolute Auto 1.6 X10*3/uL (0.1-1.2); Monocytes Percent Auto 12.6 % (2-11); Neutrophils Absolute Auto 9.8 x10*3/uL (2.0-8.3); Neutrophils Percent Auto 78.8 % (45-73); Platelet Count 292 X10*3/uL (160-400); Red Blood Count 6.08 X10*6/uL (4.60-5.80); Red Cell Distribution Width 14.9 % (11.0-16.0); SCAN SMEAR FLAG 1; White Blood Count 12.4 X10*3/uL (4.8-10.8)
[2024-10-09 07:56] LABS: Influenza A PCR NEGATIVE (Negative); Influenza B PCR NEGATIVE (Negative); Resp Syncy Virus RNA Qual PCR NEGATIVE (Negative); SARS COV2 PCR INHOUSE NEGATIVE (Negative)
[2024-10-09 07:58] LABS: INTERNATIONAL NORM RATIO 1.2 (0.9-1.1); Prothrombin Time 13.4 SEC (10.9-12.4)
[2024-10-09 08:01] LABS: Partial Thromboplastin Time 30.8 SEC (26.0-36.8)
[2024-10-09 08:16] LABS: SLIDE REVIEW VERIFIED
[2024-10-09] MEDS: iohexoL 350 MG/ML 100 ML INFUS..BTL IV (08:49)
--- NOTE | 2024-10-09 09:00 | PC.NURSE ---
patient complaint of left thigh pain when turning to clean patient. pt kept stating LEFT LEG IS BROKEN no obvious deformity/brusing/swelling or redness noted and + pulses. made aware.
[2024-10-09] MEDS: Lidocaine HCl 1 % MPF 5 ML VIAL SUBCUT (09:30)
[2024-10-09] MEDS: LORazepam 2 MG/ML VIAL IVPUSH ×2 (09:30→21:30)
[2024-10-09] MEDS: 0.9 % Sodium Chloride 1,000 ML 125 ML IVCONT ×2 (11:10→18:49)
--- NOTE | 2024-10-09 11:37 | PHA.MEDREC ---
Addendum entered by Nuris Gonzalez RPh 10/09/24 13:06: Med rec was reviewed by [facility]. Original Note: Pharmacy Consult ? Medication Reconciliation Pharmacy has completed the medication reconciliation. Utilized med list from [employer].
[2024-10-09] MEDS: LORazepam 2 MG/ML VIAL 1 MG IVPUSH (14:00)
--- NOTE | 2024-10-09 14:10 | PC.NURSE ---
patient awoke from sleeping and pulled out NG tube on own. Pt educated on importance of NG tube and safety of not touching it, if painful to call RN. Pt repositioned, medications given for anxiety and NG tube replaced. Reconfirmation of placement by auscultation and xray prior to reconnection to low wall suction. Patient did not tolerate reinsertion well and kept trying to grab RN hand to keep pulling back out but RN was able to calm pt and allow for completed procedure and pt stopped attempting to dislodge. NG tube to right nare at 26cm. secured.
--- NOTE | 2024-10-09 14:51 | P.CONHOSP_ITS ---
History of Present Illness Data of Consult Service Date: 10/09/24 Primary Care Provider: Jose Manuel Ontiveros, DO HPI 54-year-old male from [facility] long[facility]term [facility] facility with a history of hypertension (HTN), hyperlipidemia (HLD), early dementia, and mood disorder presented to the ED with acute onset of coffee-ground emesis and upper abdominal pain. CT abdomen and pelvis: High-grade small bowel obstruction (SBO). I was not able to get any meaningful history from the patient Review of Systems 2 Review of Systems: Gen: no fever Resp: no sob, no cough CV: no chest, no FRANKS, no leg edema GI: No n/v, no abd pain Neuro: No confusion [facility] Medical History Osteoarthritis Mood disorder COPD (chronic obstructive pulmonary disease) Dysarthria Obesity HTN (hypertension) Dementia Social History Household Members: None Housing: Skilled Nursing Do you presently have visiting nurse or other home services: No Unable to assess alcohol history related to: Unknown Alcohol intake: never Comment: S3 Patient Tobacco Use Status: Former Tobacco user service: No Current occupational status: disabled Meds Allergies Allergy/AdvReac Type Severity Reaction Status Date / Time No Known Allergies Allergy Verified 10/09/24 06:51 Active Medications: Current Medications Sodium Chloride (Ns) 1,000 mls @ 125 mls/hr IVCONT .Q8H TOYIN Last Admin: 10/09/24 11:10 Dose: 125 mls/hr Pantoprazole Sodium (Pantoprazole Sodium 40 Mg/10 Ml Vial) 40 mg IVPUSH DAILY MRX1 TOYIN Sodium Chloride (0.9 % Sodium Chloride Flush 3 Ml Syringe) 3 ml IVFLUSH QSHIFT TOYIN Home Medications ?Medication ?Instructions ?Recorded ?Confirmed ?Last Taken ?Type acetaminophen 325 mg tablet 650 mg PO Q6H PRN Fever Or Pain 10/11/22 10/09/24 Unknown History aluminum-mag hydroxide-simethicone 30 ml PO Q4H PRN GI upset 10/11/22 10/09/24 Unknown History 200 mg-200 mg-20 mg/5 mL oral susp amlodipine 10 mg tablet 10 mg PO DAILY 10/11/22 10/09/24 Unknown History aspirin 81 mg tablet,delayed 81 mg PO DAILY 10/11/22 10/09/24 Unknown History release atorvastatin 10 mg tablet 10 mg PO BEDTIME 10/11/22 10/09/24 Unknown History bisacodyl 10 mg rectal suppository 10 mg LA DAILY PRN Constipation 10/11/22 10/09/24 Unknown History (Dulcolax (bisacodyl)) chlorhexidine gluconate 4 % 1 appl topical DAILY 10/11/22 10/09/24 Unknown History topical liquid (Hibiclens) docusate sodium 100 mg capsule 100 mg PO BEDTIME 10/11/22 10/09/24 Unknown History fluticasone furoate 100 1 inh inhalation DAILY 10/11/22 10/09/24 Unknown History mcg-vilanterol 25 mcg/dose inhalation powder (Breo Ellipta) guaifenesin 100 mg/5 mL oral liquid 200 mg PO Q4H PRN Cough 10/11/22 10/09/24 Unknown History lisinopril 40 mg tablet 40 mg PO DAILY 10/11/22 10/09/24 Unknown History metoprolol tartrate 50 mg tablet 50 mg PO BID 10/11/22 10/09/24 Unknown History multivitamin 1 tab PO DAILY 10/11/22 10/09/24 Unknown History naloxone 4 mg/actuation nasal 4 mg intranasal Q3M PRN Opioid 10/11/22 10/09/24 Unknown History spray (Narcan) Overdose omeprazole 20 mg capsule,delayed 20 mg PO DAILY@0630 10/11/22 10/09/24 Unknown History release sennosides 8.6 mg tablet (senna) 8.6 mg PO DAILY PRN Constipation 10/11/22 10/09/24 Unknown History sodium phosphates 19 gram-7 118 ml LA DAILY PRN Constipation 10/11/22 10/09/24 Unknown History gram/118 mL enema (Fleet Enema) tramadol 50 mg tablet 50 mg PO TID 10/11/22 10/09/24 Unknown History turmeric 400 mg capsule 500 mg PO BID 10/11/22 10/09/24 Unknown History olanzapine 5 mg tablet 5 mg PO BEDTIME 10/09/24 10/09/24 Unknown History ondansetron HCl 4 mg tablet 4 mg PO Q4H PRN Nausea 10/09/24 10/09/24 Unknown History Physical Exam 2 Vital Signs and Narrative: Vital Signs: Last Vital Signs Temp 97.4 F 10/09/24 06:48 Pulse 112 H 10/09/24 10:08 Resp 22 H 10/09/24 10:08 BP 134/77 10/09/24 10:08 Pulse Ox 97 10/09/24 10:08 O2 Del Method Nasal Cannula 10/09/24 10:08 O2 Flow Rate 2 10/09/24 10:08 BMI result Body Mass Index 38.1 Const: Other: General: Alert but not talking to me Heent: NGT in plce with bile coming out Resp: CTA bilateral CVS: S1,S2,RRR GI: -BS, NT, no distention,very soft Skin: No rash, scratch florez on legs Neuro: motor grossly intact Psych: appropriate affect Results Labs 10/10/24 08:15 10/10/24 08:15 Labs: Laboratory Results - last 24 hr 10/09/24 10/09/24 07:10 07:46 MCV 85.5 MCH 27.3 MCHC 31.9 RDW 14.9 Plt Count 292 MPV 9.4 Immature Gran % (Auto) 0.4 Neut % (Auto) 78.8 H Lymph % (Auto) 8.0 L [place] % (Auto) 12.6 H Eos % (Auto) 0.0 Baso % (Auto) 0.2 Lymph # (Auto) 1.0 L [place] # (Auto) 1.6 H Eos # (Auto) 0.0 Baso # (Auto) 0.0 Abs Immat Gran (auto) 0.05 H Absolute Neuts (auto) 9.8 H Absolute Nucleated RBC 0.000 Nucleated RBC % (auto) 0.0 Smear Tech's Comments VERIFIED PT 13.4 H INR 1.2 H APTT 30.8 Anion Gap 16 Estim Creat Clear Calc 156.9 Estimated GFR > 60 Random Glucose 140 H Calcium 9.6 D Magnesium 2.1 Total Bilirubin 0.4 AST 22 ALT 23 Alkaline Phosphatase 107 Troponin I High Sens < 2.7 Total Protein 8.7 H Albumin 4.4 Influenza Type A (PCR) NEGATIVE Influenza Type B (PCR) NEGATIVE RSV RNA Qual (PCR) NEGATIVE SARS-CoV-2 RNA (RT-PCR) NEGATIVE Blood Type AB Positive Antibody Screen NEGATIVE Assessment and Plan (1) Partial obstruction of small intestine: Status: Acute Plan 54-year-old male from [facility] long[facility]term [facility] with a history of hypertension (HTN), hyperlipidemia (HLD), early dementia, and mood disorder presented to the ED with acute onset of coffee-ground emesis and upper abdominal pain. CT abdomen and pelvis: High-grade small bowel obstruction (SBO) Small Bowel Obstruction (SBO): Nasogastric tube (NGT) in place Admitted to surgery for further management If surgical intervention is indicated, no further cardiopulmonary testing required prior to surgery Upper GI Bleeding (Coffee-Ground Emesis): Initiate IV proton pump inhibitor (PPI) Monitor hemoglobin and hematocrit (H&H) Consult GI if H&H trends downward or if bleeding persists Hypertension (HTN): Continue amlodipine (Norvasc) and metoprolol Hold lisinopril for now Hyperlipidemia (HLD): Continue atorvastatin (Lipitor) Mood Disorder: Continue olanzapine at bedtime DVT Prophylaxis: sequential compression devices Consider pharmacologic prophylaxis as appropriate based on further bleeding risk assessment
--- NOTE | 2024-10-09 15:55 | PM.HPGS ---
History of Present Illness History of Present Illness Date of Service: 10/09/24 Chief complaint: Nausea vomiting Narrative: Patient is a 54 year old with a history of GERD, HLD, HTN, hemiplegia and hemiparesis following a CVA, mood disorder, and dysphasia presenting to the emergency department today with nausea, vomiting, and abdominal pain. Patient states that he has been having upper abdominal pain, nausea, and vomiting. [facility] staff states that the patient was vomiting coffee ground emesis. Here CT scan was carried out which showed findings consistent with small-bowel obstruction and NG-tube placed and a large amount of dark fluid immediately returning. Patient has had an episode of partial small bowel obstruction improved with NG tube placement in the past. [facility] Past Medical History Medical History Osteoarthritis Mood disorder COPD (chronic obstructive pulmonary disease) Dysarthria Obesity HTN (hypertension) Dementia Social History Social History Household Members: Other Housing: Half-Way Do you presently have visiting nurse or other home services: No Unable to assess alcohol history related to: Unknown Alcohol intake: never Comment: S3 Patient Tobacco Use Status: Former Tobacco user Smoked in Last 30 Days: No Use of substances other than those prescribed or required for medical reasons: Unknown Advance Directives: No Advance Directives Information Provided: No Do you have a plan to hurt others: No Plan service: No Current occupational status: disabled Meds Allergies Allergy/AdvReac Type Severity Reaction Status Date / Time No Known Allergies Allergy Verified 10/09/24 06:51 Active Medications: Current Medications Al Hydroxide/Mg Hydroxide (Magnesium Hydrox/Alum Hydrox 30 Ml Oral.Susp) 30 ml PO Q4H PRN PRN Reason: GI upset Albuterol Sulfate (Albuterol Sulfate (0.083%) 2.5 Mg/3 Ml Vial.Neb) 2.5 mg INHALE RQ6H WHILE AWAKE PRN PRN Reason: Shortness Of Breath Or Wheezing Amlodipine Besylate (Amlodipine Besylate 10 Mg Tablet) 10 mg PO DAILY TOYIN; Protocol Atorvastatin Calcium (Atorvastatin Calcium 10 Mg Tablet) 10 mg PO BEDTIME TOYIN Bisacodyl (Bisacodyl 10 Mg Supp.Rect) 10 mg PA DAILY PRN PRN Reason: Constipation Docusate Sodium (Docusate Sodium 100 Mg Capsule) 100 mg PO BEDTIME [facility] Fluticasone/Vilanterol (Fluticasone/Vilanterol 100/25 Blst.W.Dev) 1 puff INHALE RDAILY [facility] Guaifenesin (Guaifenesin 200 Mg/10 Ml 10 Ml Liquid) 10 ml PO Q4H PRN PRN Reason: Cough Sodium Chloride (Ns) 1,000 mls @ 125 mls/hr IVCONT .Q8H [facility] Last Admin: 10/09/24 11:10 Dose: 125 mls/hr Metoprolol Tartrate (Metoprolol Tartrate 50 Mg Tablet) 50 mg PO BID [facility]; Protocol Multivitamins/Vitamin C (Multivitamin Tablet) 1 tab PO DAILY [facility] Naloxone HCl (Naloxone Hcl Nasal 4 Mg [place]) 4 mg NOSTRILALT Q3M PRN PRN Reason: Opioid Overdose Non-Formulary Medication (Chlorhexidine Gluconate [Hibiclens]) 1 appl TOPICAL DAILY [facility] Olanzapine (Olanzapine 5 Mg Tablet) 5 mg PO BEDTIME [facility] Omeprazole (Omeprazole 20 Mg Capsule.Dr) 20 mg PO DAILY@0630 [facility] Ondansetron HCl (Ondansetron Odt 4 Mg Tab.Rapdis) 4 mg TRANSLINGU Q4H PRN PRN Reason: Nausea Pantoprazole Sodium (Pantoprazole Sodium 40 Mg/10 Ml Vial) 40 mg IVPUSH DAILY MRX1 [facility] Polyethylene Glycol (Polyethylene Glycol 3350 17 Gm Powd.Pack) 17 gm PO BID [facility] Senna (Sennosides 8.6 Mg Tablet) 8.6 mg PO DAILY PRN PRN Reason: Constipation Sodium Biphosphate/Sodium Phosphate (Sodium Phosphate,Oktibbeha-Dibasic 133 Ml Enema) 118 ml PA DAILY PRN PRN Reason: Constipation Sodium Chloride (0.9 % Sodium Chloride Flush 3 Ml Syringe) 3 ml IVFLUSH QSHIFT [facility] Last Admin: 10/09/24 15:48 Dose: Not Given Tramadol HCl (Tramadol Hcl 50 Mg Tablet) 50 mg PO TID PRN PRN Reason: Pain, Moderate(Pain Scale 4-6) Home Medications ?Medication ?Instructions ?Recorded ?Confirmed ?Last Taken ?Type acetaminophen 325 mg tablet 650 mg PO Q6H PRN Fever Or Pain 10/11/22 10/09/24 Unknown History aluminum-mag hydroxide-simethicone 30 ml PO Q4H PRN GI upset 10/11/22 10/09/24 Unknown History 200 mg-200 mg-20 mg/5 mL oral susp amlodipine 10 mg tablet 10 mg PO DAILY 10/11/22 10/09/24 Unknown History aspirin 81 mg tablet,delayed 81 mg PO DAILY 10/11/22 10/09/24 Unknown History release atorvastatin 10 mg tablet 10 mg PO BEDTIME 10/11/22 10/09/24 Unknown History bisacodyl 10 mg rectal suppository 10 mg PA DAILY PRN Constipation 10/11/22 10/09/24 Unknown History (Dulcolax (bisacodyl)) chlorhexidine gluconate 4 % 1 appl topical DAILY 10/11/22 10/09/24 Unknown History topical liquid (Hibiclens) docusate sodium 100 mg capsule 100 mg PO BEDTIME 10/11/22 10/09/24 Unknown History fluticasone furoate 100 1 inh inhalation DAILY 10/11/22 10/09/24 Unknown History mcg-vilanterol 25 mcg/dose inhalation powder (Breo Ellipta) guaifenesin 100 mg/5 mL oral liquid 200 mg PO Q4H PRN Cough 10/11/22 10/09/24 Unknown History lisinopril 40 mg tablet 40 mg PO DAILY 10/11/22 10/09/24 Unknown History metoprolol tartrate 50 mg tablet 50 mg PO BID 10/11/22 10/09/24 Unknown History multivitamin 1 tab PO DAILY 10/11/22 10/09/24 Unknown History naloxone 4 mg/actuation nasal 4 mg intranasal Q3M PRN Opioid 10/11/22 10/09/24 Unknown History spray (Narcan) Overdose omeprazole 20 mg capsule,delayed 20 mg PO DAILY@0630 10/11/22 10/09/24 Unknown History release sennosides 8.6 mg tablet (senna) 8.6 mg PO DAILY PRN Constipation 10/11/22 10/09/24 Unknown History sodium phosphates 19 gram-7 118 ml PA DAILY PRN Constipation 10/11/22 10/09/24 Unknown History gram/118 mL enema (Fleet Enema) tramadol 50 mg tablet 50 mg PO TID 10/11/22 10/09/24 Unknown History turmeric 400 mg capsule 500 mg PO BID 10/11/22 10/09/24 Unknown History olanzapine 5 mg tablet 5 mg PO BEDTIME 10/09/24 10/09/24 Unknown History ondansetron HCl 4 mg tablet 4 mg PO Q4H PRN Nausea 10/09/24 10/09/24 Unknown History Physical Exam Vital Signs: Vital Signs: Last Vital Signs Temp 97.4 F 10/09/24 06:48 Pulse 112 H 10/09/24 10:08 Resp 22 H 10/09/24 10:08 BP 134/77 10/09/24 10:08 Pulse Ox 97 10/09/24 10:08 O2 Del Method Nasal Cannula 10/09/24 10:08 O2 Flow Rate 2 10/09/24 10:08 BMI result Body Mass Index 38.1 Const: General: lethargic Nutritional Appearance: obese Orientation/consciousness: lethargic Resp: Effort & Inspection: normal respiratory effort Auscultation: clear to auscultation bilaterally Cardio: Rate: regular rate Rhythm: regular rhythm GI: Other: Abdomen is distended but soft has an umbilical hernia which is partially reducible. Decreased bowel sounds no masses otherwise noted Skin: Other: Nonicteric Results Results Labs: Short CBC 10/09/24 Range/Units 07:46 WBC 12.4 H (4.8-10.8) X10*3/uL Hgb 16.6 D (14.0-18.0) g/dl Hct 52.0 D (42.0-52.0) % Plt Count 292 (160-400) X10*3/uL BMP 10/09/24 07:10 Sodium 141 Potassium 4.3 Chloride 104 Carbon Dioxide 25 BUN 19 H Creatinine 0.71 Calcium 9.6 D Liver Function 10/09/24 Range/Units 07:10 Total Bilirubin 0.4 (0.0-1.0) mg/dL AST 22 (5-37) U/L ALT 23 (0-40) U/L Alkaline Phosphatase 107 (39-117) U/L Albumin 4.4 (3.5-5.0) g/dL Abdomen CT scan report/results: report reviewed and image reviewed CT scan - pelvis: report reviewed and image reviewed Additional studies: [address] [address] [address] Scan Report Signed with Laney Patient: Jose Manuel García MR#: [id number] : 1970 Acct:[id number] Age/Sex: 54 / M ADM Date: 10/09/24 Loc: HO.ED Attending Dr: Ordering Physician: Yohana Mancia Date of Service: 10/09/24 Procedure(s): CT gi bleed abd pel wo/w IVcon Accession Number(s): [id number] cc: Yohana Mancia; Jose Manuel Ontiveros DO~ Report Number: [id number]: Total DLP = 2752.00 mGy-cm ADDENDUMThis document has been electronically signed by: Cain Perez MD on 10/09/2024 09:41:21 ADDENDUM: This report was discussed with Gavino Muller on Oct 09, 2024 09:43:00 EST. This document has been electronically signed by: Joanne Vasquez on 10/09/2024 09:43:46 Addendum Dictated By: Cain Perez MD Addendum Signed By: <Electronically signed by Cain Perez MD in [place]> 10/09/24943 Addendum Cosigned By: DD/ /25/941 TD/TT: 10/09/2405/25/943 CLINICAL HISTORY: abdominal pain, probable GI bleed CTA abdomen/pelvis without and with IV contrast. 3D post-processing. Comparison: CT/SR - CT ABDOMEN PELVIS W IV CON - 10/17/22 15:[address]/REG/SR - CT ABDOMEN PELVIS WO IV CON - 10/14/22 08:38 EST Findings: No appreciable mucosal hyperenhancement or contrast pooling to identify an active GI bleeding site. Slight hyperdense material in the dependent stomach present on precontrast images. Distended stomach with large air-fluid level. Dilated small bowel loops greater than 4 cm suggesting partial small bowel obstruction. Transition zone not well delineated although appears to be in the right mid to lower abdomen with distal ileum normal caliber. Colon nondilated. Nonspecific liquid stool and air distention without features of diverticulitis. Luminal narrowing of the sigmoid colon most likely peristalsis. Normal appendix. Mild fibrotic/atelectatic basilar lung changes with generalized peribronchial thickening. Upper normal heart size. No pericardial or pleural effusion. No opaque gallstones or gallbladder wall thickening. No biliary dilatation. Liver, spleen and adrenals intact. Atrophic pancreas without focal abnormality or acute duct dilatation. Small nonobstructing 3-4 mm mid pole stones left kidney. Punctate mid and lower pole stones right kidney. No obstructing stones or hydronephrosis. Normal caliber aorta. Mild plaque. No stenosis or dissection. No apparent stenosis of the renal arteries, celiac trunk or SMA. Patent hepatic veins, IVC and portal vein. No pathologic adenopathy. Urinary bladder decompressed. Prostate in Situ without exophytic abnormality. Incompletely assessed enhancing focus along the left common femoral artery and vein in the order of 3 x 6.5 x 4.5 cm, indeterminate for arterial venous fistula, or large pseudo aneurysm. Assb-sgpdybs-lgcw-right fat containing inguinal hernias. 7.8 cm fat containing umbilical hernia. No bowel hernia. Severe degenerative arthritis left hip suggesting sequela of prior fracture. No acute appearing bone abnormality. Impression: Findings compatible with moderate to high-grade partial small bowel obstruction. No identifiable site of active GI bleeding. Normal caliber aorta. No plaque, stenosis or dissection. Large enhancing focus centered at the left common femoral artery and vein suggesting possible large although incompletely assessed arterial venous fistula versus pseudo aneurysm versus other. Directed ultrasound follow-up suggested. Other findings as noted. This document has been electronically signed by: Cain Perez MD on 10/09/2024 09:41:21 Dictated By: Cain Perez MD Signed By: <Electronically signed by Cain Perez MD in [place]> 10/09/24940 DD/ 0 TD/TT: 10/09/24940 [employer]: Assessment and Plan (1) Partial obstruction of small intestine: Status: Acute Plan 54-year-old male care 1 multiple medical problems comes in with nausea and vomiting partial small-bowel obstruction question GI bleed as this is guaiac positive material as well. Patient doing well with NG tube placement and decompression. Medical team following medical issues. This point no findings that require urgent surgical intervention and would try to see if this improves with conservative care NPO IV fluids etc.. Can consider Gastrografin challenge test tomorrow once NG Yun drains enteral passage as best as possible. Vascular surgery to determine any further investigation for left femoral artery pseudoaneurysm. Quality Stroke Does the patient have a stroke diagnosis?: No VTE Prior VTE?: No VTE Risk Level:: Medical - moderate - high VTE Device Contraindication: N/A - Device Ordered VTE Drug Contraindication: Treatment Not Indicated Procedures Date of Service Date of Service: 10/09/24
--- NOTE | 2024-10-09 19:30 | PC.NURSE ---
pt self removed his NG tube, was told previously that if he removed it again he would have to be placed in medical restraints to avoid future removal of tube. hospitalist aware. pt states if he got a sip of water he would not have removed the tube. explained to pt why he is NPO at this time
--- NOTE | 2024-10-09 20:40 | PC.NURSE ---
MD mixayed via [employer] for soft non behavioral restraints for pt d/t removing NG tube x2
--- NOTE | 2024-10-09 20:42 | PC.NURSE ---
NG tube replaced. medical restraints in place. pt calm at this time but was unhappy with tube placement
--- NOTE | 2024-10-09 21:16 | PC.NURSE ---
nighttime meds not given d/t NG tube
--- NOTE | 2024-10-09 22:21 | PC.NURSE ---
pt resting comfortably at this time, soft restraints remain in place, VSS
[2024-10-10] VITALS (13 sets, daily range): BP systolic 125–157; BP diastolic 59–86; PULSE 79–119; RESP 12–25; TEMP 36.1–37.9; O2SAT 91–100
[2024-10-10] MEDS: 0.9 % Sodium Chloride 1,000 ML 125 ML IVCONT ×3 (02:59→19:00)
--- NOTE | 2024-10-10 05:59 | PC.NURSE ---
pt incont of urine, bed changed, assist with washing, clean gown on. [place] cath placed
[2024-10-10 06:43] LABS: Appearance Urine Clear; Color Urine Dark Yellow; Glucose Urine UA Negative (Negative); Leukocyte Esterase Urine Trace (Negative); Nitrite Urine Negative (Negative); Specific Gravity - Urine >= 1.030 (1.005-1.025); UMIC TRIGGER UACC YES; Urine Blood Negative (Negative); Urine Ketones Trace mg/dL (Negative); Urine Protein 100 (2+) mg/dL (Neg-Trace)
[2024-10-10 06:57] LABS: Bacteria Urine None Seen (None Seen); Hyaline Casts Urine 0-2 /LPF (0-2); RBC Urine 0-2 /HPF (0-2); WBC Urine 0-5 /HPF (0-5)
[2024-10-10] MEDS: Fluticasone/Vilanterol 100/25 BLST.W.DEV 1 PUFF INHALE (07:50)
--- NOTE | 2024-10-10 08:29 | PC.NURSE ---
pt NPO. ice chips oked by but not sips of water. Miralax held for this reason
[2024-10-10] MEDS: Metoprolol Tartrate 50 MG TABLET PO ×2 (08:39→20:10)
[2024-10-10] MEDS: Multivitamin TABLET 1 TAB PO (08:39)
[2024-10-10] MEDS: amLODIPine Besylate 10 MG TABLET PO (08:39)
[2024-10-10] MEDS: Pantoprazole Sodium 40 MG/10 ML VIAL IVPUSH ×2 (08:44→11:08)
[2024-10-10 09:47] LABS: MANUAL DIFF FLAG NO
[2024-10-10 09:51] LABS: Basophils Percent Auto 0.2 % (0-2); Eosinophils Absolute Auto 0.1 X10*3/uL (0.0-0.4); Eosinophils Percent Auto 1.1 % (0-4); Hematocrit 43.7 % (42.0-52.0); Hemoglobin 13.6 g/dl (14.0-18.0); Imm Gran Abs Auto 0.05 X10*3/uL (0.00-0.03); Imm Gran Pct Auto 0.5 % (0.0-0.4); Lymphocytes Absolute Auto 1.6 X10*3/uL (1.2-4.9); Lymphocytes Percent Auto 15.6 % (20-40); Mean Corpuscular HGB Conc 31.1 g/dl (31.0-36.0); Mean Corpuscular Hemoglobin 27.2 pg (27.0-33.0); Mean Corpuscular Volume 87.4 fL (80.0-98.0); Mean Platelet Volume 10.4 fL (9.4-12.4); Monocytes Absolute Auto 1.3 X10*3/uL (0.1-1.2); Monocytes Percent Auto 12.3 % (2-11); Neutrophils Absolute Auto 7.2 x10*3/uL (2.0-8.3); Neutrophils Percent Auto 70.3 % (45-73); Platelet Count 239 X10*3/uL (160-400); White Blood Count 10.2 X10*3/uL (4.8-10.8)
[2024-10-10 10:06] LABS: Anion Gap 12 (12-20); Blood Urea Nitrogen 19 mg/dL (9-16); Calcium 8.5 mg/dL (8.4-10.2); Carbon Dioxide 28 mmol/L (22-29); Chloride 109 mmol/L (96-108); Creatinine Clr Calc Pharmacy 152.6; Estimated Glomerular Filt Rate > 60; Glucose Random 92 mg/dL (60-115); Potassium 3.7 mmol/L (3.3-5.1); Sodium 145 mmol/L (135-145)
--- NOTE | 2024-10-10 11:13 | PC.NURSE ---
this RN went into room and NG tube was on pts lap pulled out of nose. Per bob Vazquez NG tube. NG tube placed, XR ordered.
--- NOTE | 2024-10-10 12:04 | MHC.CM.PN ---
PT FROM [facility] WHERE HE WILL RETURN WHEN DD
--- NOTE | 2024-10-10 12:36 | P.PNGS_ITS ---
Subjective Subjective Date of Service: 10/10/24 Interval history: Answers some simple questions Denies abdominal Has been pulling out NG-tube Physical Exam 2 Vital Signs: Vital Signs: Last Vital Signs Temp 100.2 F 10/10/24 11:43 Pulse 98 10/10/24 11:43 Resp 19 10/10/24 11:43 BP 150/78 H 10/10/24 11:43 Pulse Ox 95 10/10/24 11:43 O2 Del Method Room Air 10/10/24 11:43 O2 Flow Rate 2 10/10/24 06:45 BMI result Body Mass Index 38.1 Const: Other: Not very communicative General: comfortable and no acute distress Resp: Effort & Inspection: normal respiratory effort Cardio: Rate: regular rate GI: Inspection: Yes distended Palpation (GI): Soft to palpation, not firm and no guarding Objective Data Active Medications Al Hydroxide/Mg Hydroxide (Magnesium Hydrox/Alum Hydrox 30 Ml Oral.Susp) 30 ml PO Q4H PRN PRN Reason: GI upset Albuterol Sulfate (Albuterol Sulfate (0.083%) 2.5 Mg/3 Ml Vial.Neb) 2.5 mg INHALE RQ6H WHILE AWAKE PRN PRN Reason: Shortness Of Breath Or Wheezing Amlodipine Besylate (Amlodipine Besylate 10 Mg Tablet) 10 mg PO DAILY [facility]; Protocol Last Admin: 10/10/24 08:39 Dose: 10 mg Documented By: SHAWN Atorvastatin Calcium (Atorvastatin Calcium 10 Mg Tablet) 10 mg PO BEDTIME [facility] Last Admin: 10/09/24 21:15 Dose: Not Given Documented By: EMIR Non-Admin Reason: Patient Condition Contraindication Bisacodyl (Bisacodyl 10 Mg Supp.Rect) 10 mg [place] DAILY PRN PRN Reason: Constipation Docusate Sodium (Docusate Sodium 100 Mg Capsule) 100 mg PO BEDTIME [facility] Last Admin: 10/09/24 21:15 Dose: Not Given Documented By: EMIR Non-Admin Reason: Patient Condition Contraindication Fluticasone/Vilanterol (Fluticasone/Vilanterol 100/25 Blst.W.Dev) 1 puff INHALE RDAILY [facility] Last Admin: 10/10/24 07:50 Dose: 1 puff Documented By: RONY Guaifenesin (Guaifenesin 200 Mg/10 Ml 10 Ml Liquid) 10 ml PO Q4H PRN PRN Reason: Cough Sodium Chloride (Ns) 1,000 mls @ 125 mls/hr IVCONT .Q8H [facility] Last Admin: 10/10/24 10:43 Dose: 125 mls/hr Documented By: SHAWN Lorazepam (Lorazepam 2 Mg/Ml Vial) 2 mg IVPUSH ONCE PRN PRN Reason: restlessness Last Admin: 10/09/24 21:30 Dose: 2 mg Documented By: EMIR Metoprolol Tartrate (Metoprolol Tartrate 50 Mg Tablet) 50 mg PO BID [facility]; Protocol Last Admin: 10/10/24 08:39 Dose: 50 mg Documented By: SHAWN Multivitamins/Vitamin C (Multivitamin Tablet) 1 tab PO DAILY [facility] Last Admin: 10/10/24 08:39 Dose: 1 tab Documented By: SHAWN Naloxone HCl (Naloxone Hcl Nasal 4 Mg [place]) 4 mg NOSTRILALT Q3M PRN PRN Reason: Opioid Overdose Non-Formulary Medication (Chlorhexidine Gluconate [Hibiclens]) 1 appl TOPICAL DAILY [facility] Olanzapine (Olanzapine 5 Mg Tablet) 5 mg PO BEDTIME [facility] Last Admin: 10/09/24 21:16 Dose: Not Given Documented By: EMIR Non-Admin Reason: Patient Condition Contraindication Omeprazole (Omeprazole 20 Mg Capsule.Dr) 20 mg PO DAILY@0630 [facility] Last Admin: 10/10/24 06:01 Dose: Not Given Documented By: EMIR Non-Admin Reason: Patient Condition Contraindication Ondansetron HCl (Ondansetron Odt 4 Mg Tab.Rapdis) 4 mg TRANSLINGU Q4H PRN PRN Reason: Nausea Pantoprazole Sodium (Pantoprazole Sodium 40 Mg/10 Ml Vial) 40 mg IVPUSH DAILY MRX1 [facility] Last Admin: 10/10/24 11:08 Dose: 40 mg Documented By: SHAWN Polyethylene Glycol (Polyethylene Glycol 3350 17 Gm Powd.Pack) 17 gm PO BID [facility] Last Admin: 10/10/24 08:28 Dose: Not Given Documented By: SHAWN Non-Admin Reason: See Note Senna (Sennosides 8.6 Mg Tablet) 8.6 mg PO DAILY PRN PRN Reason: Constipation Sodium Biphosphate/Sodium Phosphate (Sodium Phosphate,[place]-Dibasic 133 Ml Enema) 118 ml [place] DAILY PRN PRN Reason: Constipation Sodium Chloride (0.9 % Sodium Chloride Flush 3 Ml Syringe) 3 ml IVFLUSH QSHIFT TOYIN Last Admin: 10/10/24 08:07 Dose: Not Given Documented By: SHAWN Non-Admin Reason: IV Running Tramadol HCl (Tramadol Hcl 50 Mg Tablet) 50 mg PO TID PRN PRN Reason: Pain, Moderate(Pain Scale 4-6) Labs 10/10/24 08:15 10/10/24 08:15 Labs: Laboratory Results - last 24 hr 10/10/24 10/10/24 06:32 08:15 MCV 87.4 MCH 27.2 MCHC 31.1 RDW 15.0 Plt Count 239 MPV 10.4 Immature Gran % (Auto) 0.5 H Neut % (Auto) 70.3 Lymph % (Auto) 15.6 L [place] % (Auto) 12.3 H Eos % (Auto) 1.1 Baso % (Auto) 0.2 Lymph # (Auto) 1.6 [place] # (Auto) 1.3 H Eos # (Auto) 0.1 Baso # (Auto) 0.0 Abs Immat Gran (auto) 0.05 H Absolute Neuts (auto) 7.2 Absolute Nucleated RBC 0.000 Nucleated RBC % (auto) 0.0 Anion Gap 12 Estim Creat Clear Calc 152.6 Estimated GFR > 60 Random Glucose 92 Calcium 8.5 D Urine Color Dark Yellow Urine Appearance Clear Urine pH 6.0 Ur Specific [place] >= 1.030 H Urine Protein 100 (2+) H Urine Glucose (UA) Negative Urine Ketones Trace Urine Blood Negative Urine Nitrite Negative Ur Leukocyte Esterase Trace H Urine RBC 0-2 Urine WBC 0-5 Ur Squamous Epith Cells 3-5 Urine Bacteria None Seen Hyaline Casts 0-2 Procedures Date of Service Date of Service: 10/10/24 Progress Note: A&P Assessment and plan (1) Partial obstruction of small intestine: Status: Acute Assessment and Plan: Abdominal exam is soft and benign CT scan reviewed -he does have some air distally in the colon Keep NG tube in place Monitor NG tube output Appreciate hospitalist consult Vascular consult for question of pseudo aneurysm of the femoral Labs okay Time Spent With Patient Time: Total time managing care of this patient today ____ minutes. Quality Stroke Does the patient have a stroke diagnosis?: No VTE Prior VTE?: No VTE Risk Level:: Medical - moderate - high VTE Device Contraindication: N/A - Device Ordered VTE Drug Contraindication: Treatment Not Indicated
--- NOTE | 2024-10-10 14:31 | P.PNIM_ITS ---
Subjective Subjective Date of Service: 10/10/24 Interval History: Seen and examined, pt removed multiple NGTs overnight, appears medically stable. Physical Exam 2 Vital Signs: Vital Signs: Last Vital Signs Temp 97.7 F 10/10/24 13:10 Pulse 83 10/10/24 13:10 Resp 18 10/10/24 13:10 BP 128/59 L 10/10/24 13:10 Pulse Ox 91 L 10/10/24 13:10 O2 Del Method Room Air 10/10/24 13:10 O2 Flow Rate 2 10/10/24 06:45 BMI result Body Mass Index 38.1 General: alert, no distress Resp: CTA bilateral CVS: S1,S2,RRR GI: +BS, NT, no distention Skin: No rash Neuro: motor grossly intact Psych: appropriate affect Objective Data Active Medications Al Hydroxide/Mg Hydroxide (Magnesium Hydrox/Alum Hydrox 30 Ml Oral.Susp) 30 ml PO Q4H PRN PRN Reason: GI upset Albuterol Sulfate (Albuterol Sulfate (0.083%) 2.5 Mg/3 Ml Vial.Neb) 2.5 mg INHALE RQ6H WHILE AWAKE PRN PRN Reason: Shortness Of Breath Or Wheezing Amlodipine Besylate (Amlodipine Besylate 10 Mg Tablet) 10 mg PO DAILY [facility]; Protocol Last Admin: 10/10/24 08:39 Dose: 10 mg Documented By: SHAWN Atorvastatin Calcium (Atorvastatin Calcium 10 Mg Tablet) 10 mg PO BEDTIME [facility] Last Admin: 10/09/24 21:15 Dose: Not Given Documented By: EMIR Non-Admin Reason: Patient Condition Contraindication Bisacodyl (Bisacodyl 10 Mg Supp.Rect) 10 mg [place] DAILY PRN PRN Reason: Constipation Docusate Sodium (Docusate Sodium 100 Mg Capsule) 100 mg PO BEDTIME [facility] Last Admin: 10/09/24 21:15 Dose: Not Given Documented By: EMIR Non-Admin Reason: Patient Condition Contraindication Fluticasone/Vilanterol (Fluticasone/Vilanterol 100/25 Blst.W.Dev) 1 puff INHALE RDAILY [facility] Last Admin: 10/10/24 07:50 Dose: 1 puff Documented By: RONY Guaifenesin (Guaifenesin 200 Mg/10 Ml 10 Ml Liquid) 10 ml PO Q4H PRN PRN Reason: Cough Sodium Chloride (Ns) 1,000 mls @ 125 mls/hr IVCONT .Q8H [facility] Last Admin: 10/10/24 10:43 Dose: 125 mls/hr Documented By: SHAWN Lorazepam (Lorazepam 2 Mg/Ml Vial) 2 mg IVPUSH ONCE PRN PRN Reason: restlessness Last Admin: 10/09/24 21:30 Dose: 2 mg Documented By: EMIR Metoprolol Tartrate (Metoprolol Tartrate 50 Mg Tablet) 50 mg PO BID [facility]; Protocol Last Admin: 10/10/24 08:39 Dose: 50 mg Documented By: SHAWN Multivitamins/Vitamin C (Multivitamin Tablet) 1 tab PO DAILY [facility] Last Admin: 10/10/24 08:39 Dose: 1 tab Documented By: SHAWN Naloxone HCl (Naloxone Hcl Nasal 4 Mg [place]) 4 mg NOSTRILALT Q3M PRN PRN Reason: Opioid Overdose Non-Formulary Medication (Chlorhexidine Gluconate [Hibiclens]) 1 appl TOPICAL DAILY [facility] Olanzapine (Olanzapine 5 Mg Tablet) 5 mg PO BEDTIME [facility] Last Admin: 10/09/24 21:16 Dose: Not Given Documented By: EMIR Non-Admin Reason: Patient Condition Contraindication Omeprazole (Omeprazole 20 Mg Capsule.Dr) 20 mg PO DAILY@0630 [facility] Last Admin: 10/10/24 06:01 Dose: Not Given Documented By: EMIR Non-Admin Reason: Patient Condition Contraindication Ondansetron HCl (Ondansetron Odt 4 Mg Tab.Rapdis) 4 mg TRANSLINGU Q4H PRN PRN Reason: Nausea Pantoprazole Sodium (Pantoprazole Sodium 40 Mg/10 Ml Vial) 40 mg IVPUSH DAILY MRX1 [facility] Last Admin: 10/10/24 11:08 Dose: 40 mg Documented By: SHAWN Polyethylene Glycol (Polyethylene Glycol 3350 17 Gm Powd.Pack) 17 gm PO BID [facility] Last Admin: 10/10/24 08:28 Dose: Not Given Documented By: SHAWN Non-Admin Reason: See Note Senna (Sennosides 8.6 Mg Tablet) 8.6 mg PO DAILY PRN PRN Reason: Constipation Sodium Biphosphate/Sodium Phosphate (Sodium Phosphate,[place]-Dibasic 133 Ml Enema) 118 ml [place] DAILY PRN PRN Reason: Constipation Sodium Chloride (0.9 % Sodium Chloride Flush 3 Ml Syringe) 3 ml IVFLUSH QSHIFT TOYIN Last Admin: 10/10/24 08:07 Dose: Not Given Documented By: SHAWN Non-Admin Reason: IV Running Tramadol HCl (Tramadol Hcl 50 Mg Tablet) 50 mg PO TID PRN PRN Reason: Pain, Moderate(Pain Scale 4-6) Labs 10/10/24 08:15 10/10/24 08:15 Labs: Laboratory Results - last 24 hr 10/10/24 10/10/24 06:32 08:15 MCV 87.4 MCH 27.2 MCHC 31.1 RDW 15.0 Plt Count 239 MPV 10.4 Immature Gran % (Auto) 0.5 H Neut % (Auto) 70.3 Lymph % (Auto) 15.6 L [place] % (Auto) 12.3 H Eos % (Auto) 1.1 Baso % (Auto) 0.2 Lymph # (Auto) 1.6 [place] # (Auto) 1.3 H Eos # (Auto) 0.1 Baso # (Auto) 0.0 Abs Immat Gran (auto) 0.05 H Absolute Neuts (auto) 7.2 Absolute Nucleated RBC 0.000 Nucleated RBC % (auto) 0.0 Anion Gap 12 Estim Creat Clear Calc 152.6 Estimated GFR > 60 Random Glucose 92 Calcium 8.5 D Urine Color Dark Yellow Urine Appearance Clear Urine pH 6.0 Ur Specific [place] >= 1.030 H Urine Protein 100 (2+) H Urine Glucose (UA) Negative Urine Ketones Trace Urine Blood Negative Urine Nitrite Negative Ur Leukocyte Esterase Trace H Urine RBC 0-2 Urine WBC 0-5 Ur Squamous Epith Cells 3-5 Urine Bacteria None Seen Hyaline Casts 0-2 Assessment and Plan (1) Partial obstruction of small intestine: Status: Acute Plan 54-year-old [facility] with a history of hypertension (HTN), hyperlipidemia (HLD), early dementia, and mood disorder presented to the ED with acute onset of coffee-ground emesis and upper abdominal pain. CT abdomen and pelvis: High-grade small bowel obstruction (SBO) Small Bowel Obstruction (SBO): Nasogastric tube (NGT) in place Management per surgery If surgical intervention is indicated, no further cardiopulmonary testing required prior to surgery Upper GI Bleeding (Coffee-Ground Emesis), appear self-limitted and H/H is stable Initiate IV proton pump inhibitor (PPI) Monitor hemoglobin and hematocrit (H&H) Consult GI if H&H trends downward or if bleeding persists Hypertension (HTN): Continue amlodipine (Norvasc) and metoprolol Hold lisinopril for now Hyperlipidemia (HLD): Continue atorvastatin (Lipitor) Mood Disorder: Continue olanzapine at bedtime DVT Prophylaxis: sequential compression devices Consider pharmacologic prophylaxis as appropriate based on further bleeding risk assessment Quality Stroke Does the patient have a stroke diagnosis?: No VTE Prior VTE?: No VTE Risk Level:: Medical - moderate - high VTE Device Contraindication: N/A - Device Ordered VTE Drug Contraindication: Treatment Not Indicated
--- NOTE | 2024-10-10 17:03 | PM.EVENT ---
Event Note Date of Service: 10/10/24 Event Note: Seen on afternoon rounds Appears comfortable Does not appear to be in pain No obvious tenderness Abdomen distended but soft No guarding or rebound We will monitor NG tube output overnight Plan to do trial of clamping tomorrow depending on NG tube output Time Spent With Patient Time: Total time managing care of this patient today ____ minutes.
[2024-10-10] MEDS: Atorvastatin Calcium 10 MG TABLET PO (20:10)
[2024-10-10] MEDS: OLANZapine 5 MG TABLET PO (20:10)
[2024-10-10] MEDS: traMADoL HCL 50 MG TABLET PO (20:11)
[2024-10-11] VITALS (12 sets, daily range): BP systolic 129–178; BP diastolic 60–84; PULSE 83–103; RESP 16–20; TEMP 36.2–37.5; O2SAT 92–98
[2024-10-11] MEDS: 0.9 % Sodium Chloride 1,000 ML 125 ML IVCONT ×3 (02:39→20:14)
--- NOTE | 2024-10-11 06:03 | PC.NURSE ---
Pt put out 1000 ml from NG tube, but that was total from when he came up to the floor yesterday around 1300. Pt also had about 4 cups of ice chips yesterday afternoon during day shift and about 5 cups of ice chips overnight.
--- NOTE | 2024-10-11 07:33 | PM.PNGS ---
Subjective Subjective Date of Service: 10/11/24 Interval history: pt uncooperative as per staff NGT output signifcant overnight not very communicative Physical Exam Vital Signs: Vital Signs: Last Vital Signs Temp 97.2 F 10/11/24 07:11 Pulse 90 10/11/24 07:11 Resp 18 10/11/24 07:11 BP 129/60 10/11/24 07:11 Pulse Ox 92 10/11/24 07:11 O2 Del Method Room Air 10/11/24 07:11 O2 Flow Rate 2 10/10/24 06:45 BMI result Body Mass Index 38.1 Const: Other: confused as baseline General: no acute distress and confusion Orientation/consciousness: confusion Resp: Effort & Inspection: normal respiratory effort Cardio: Rate: regular rate GI: Inspection: Yes distended Palpation (GI): Soft to palpation, not firm and no guarding Neuro: General: confusion Objective Data Active Medications Al Hydroxide/Mg Hydroxide (Magnesium Hydrox/Alum Hydrox 30 Ml Oral.Susp) 30 ml PO Q4H PRN PRN Reason: GI upset Albuterol Sulfate (Albuterol Sulfate (0.083%) 2.5 Mg/3 Ml Vial.Neb) 2.5 mg INHALE RQ6H WHILE AWAKE PRN PRN Reason: Shortness Of Breath Or Wheezing Amlodipine Besylate (Amlodipine Besylate 10 Mg Tablet) 10 mg PO DAILY [facility]; Protocol Last Admin: 10/10/24 08:39 Dose: 10 mg Documented By: SHAWN Atorvastatin Calcium (Atorvastatin Calcium 10 Mg Tablet) 10 mg PO BEDTIME [facility] Last Admin: 10/10/24 20:10 Dose: 10 mg Documented By: FRANCISCO Bisacodyl (Bisacodyl 10 Mg Supp.Rect) 10 mg [place] DAILY PRN PRN Reason: Constipation Docusate Sodium (Docusate Sodium 100 Mg Capsule) 100 mg PO BEDTIME [facility] Last Admin: 10/10/24 20:12 Dose: Not Given Documented By: FRANCISCO Non-Admin Reason: NG tube Fluticasone/Vilanterol (Fluticasone/Vilanterol 100/25 Blst.W.Dev) 1 puff INHALE RDAILY [facility] Last Admin: 10/10/24 07:50 Dose: 1 puff Documented By: RONY Guaifenesin (Guaifenesin 200 Mg/10 Ml 10 Ml Liquid) 10 ml PO Q4H PRN PRN Reason: Cough Sodium Chloride (Ns) 1,000 mls @ 125 mls/hr IVCONT .Q8H [facility] Last Admin: 10/11/24 02:39 Dose: 125 mls/hr Documented By: FRANCISCO Lorazepam (Lorazepam 2 Mg/Ml Vial) 2 mg IVPUSH ONCE PRN PRN Reason: restlessness Last Admin: 10/09/24 21:30 Dose: 2 mg Documented By: EMIR Metoprolol Tartrate (Metoprolol Tartrate 50 Mg Tablet) 50 mg PO BID [facility]; Protocol Last Admin: 10/10/24 20:10 Dose: 50 mg Documented By: FRANCISCO Multivitamins/Vitamin C (Multivitamin Tablet) 1 tab PO DAILY [facility] Last Admin: 10/10/24 08:39 Dose: 1 tab Documented By: SHAWN Naloxone HCl (Naloxone Hcl Nasal 4 Mg [place]) 4 mg NOSTRILALT Q3M PRN PRN Reason: Opioid Overdose Non-Formulary Medication (Chlorhexidine Gluconate [Hibiclens]) 1 appl TOPICAL DAILY [facility] Olanzapine (Olanzapine 5 Mg Tablet) 5 mg PO BEDTIME [facility] Last Admin: 10/10/24 20:10 Dose: 5 mg Documented By: FRANCISCO Omeprazole (Omeprazole 20 Mg Capsule.Dr) 20 mg PO DAILY@0630 [facility] Last Admin: 10/11/24 05:31 Dose: Not Given Documented By: FRANCISCO Non-Admin Reason: NG tube Ondansetron HCl (Ondansetron Odt 4 Mg Tab.Rapdis) 4 mg TRANSLINGU Q4H PRN PRN Reason: Nausea Pantoprazole Sodium (Pantoprazole Sodium 40 Mg/10 Ml Vial) 40 mg IVPUSH DAILY MRX1 [facility] Last Admin: 10/10/24 11:08 Dose: 40 mg Documented By: SHAWN Polyethylene Glycol (Polyethylene Glycol 3350 17 Gm Powd.Pack) 17 gm PO BID [facility] Last Admin: 10/10/24 20:13 Dose: Not Given Documented By: FRANCISCO Non-Admin Reason: ng tube Senna (Sennosides 8.6 Mg Tablet) 8.6 mg PO DAILY PRN PRN Reason: Constipation Sodium Biphosphate/Sodium Phosphate (Sodium Phosphate,[place]-Dibasic 133 Ml Enema) 118 ml [place] DAILY PRN PRN Reason: Constipation Sodium Chloride (0.9 % Sodium Chloride Flush 3 Ml Syringe) 3 ml IVFLUSH QSHIFT [facility] Last Admin: 10/10/24 20:19 Dose: Not Given Documented By: FRANCISCO Non-Admin Reason: IV Running Tramadol HCl (Tramadol Hcl 50 Mg Tablet) 50 mg PO TID PRN PRN Reason: Pain, Moderate(Pain Scale 4-6) Last Admin: 10/10/24 20:11 Dose: 50 mg Documented By: FRANCISCO Labs 10/11/24 12:35 10/11/24 12:35 Labs: Laboratory Results - last 24 hr 10/10/24 08:15 MCV 87.4 MCH 27.2 MCHC 31.1 RDW 15.0 Plt Count 239 MPV 10.4 Immature Gran % (Auto) 0.5 H Neut % (Auto) 70.3 Lymph % (Auto) 15.6 L [place] % (Auto) 12.3 H Eos % (Auto) 1.1 Baso % (Auto) 0.2 Lymph # (Auto) 1.6 [place] # (Auto) 1.3 H Eos # (Auto) 0.1 Baso # (Auto) 0.0 Abs Immat Gran (auto) 0.05 H Absolute Neuts (auto) 7.2 Absolute Nucleated RBC 0.000 Nucleated RBC % (auto) 0.0 Anion Gap 12 Estim Creat Clear Calc 152.6 Estimated GFR > 60 Random Glucose 92 Calcium 8.5 D Procedures Date of Service Date of Service: 10/11/24 Progress Note: A&P Assessment and plan (1) Partial obstruction of small intestine: Status: Acute Assessment and Plan: NG tube output reported to be high Will monitor NG tube output this morning Follow-up KUB Exam otherwise benign Confused and uncooperative - mental status as baseline with known cognitive deficiencies Time Spent With Patient Time: Total time managing care of this patient today ____ minutes. Quality Stroke Does the patient have a stroke diagnosis?: No VTE Prior VTE?: No VTE Risk Level:: Medical - moderate - high VTE Device Contraindication: N/A - Device Ordered VTE Drug Contraindication: Treatment Not Indicated
[2024-10-11] MEDS: Fluticasone/Vilanterol 100/25 BLST.W.DEV 1 PUFF INHALE (08:18)
[2024-10-11] MEDS: Pantoprazole Sodium 40 MG/10 ML VIAL IVPUSH ×2 (08:49→11:32)
[2024-10-11] MEDS: 0.9 % Sodium Chloride Flush 3 ML SYRINGE IVFLUSH (08:52)
--- NOTE | 2024-10-11 09:31 | P.CONGS_ITS ---
<Statement entered by Juan Camp MD - 10/11/24 12:30> CT scan reviewed. Once stable can see us as an outpatient. Thank you for allowing us to assist in his care. History of Present Illness Consult details Consult date: 10/11/24 Narrative: We were consulted for Jose Manuel for incidental finding on CT abdomen/pelvis of a question of a pseudo aneurysm versus AV fistula in the left common femoral artery/vein. Jose Manuel initially presented to the ER for coffee-ground emesis. He currently resides at [facility]. He has a lengthy medical history including a CVA with hemiparesis and hemiplegia, dysphagia status post CVA, hypertension, GERD, hyperlipidemia, and mood disorder. He was found to have a high-grade small- bowel obstruction on CT imaging. On CT there was an incidental finding of the pseudoaneurysm. Review of Systems 2 Constitutional: Constitutional: Reports as per HPI and Denies weakness ENT: Reports Normal hearing present and Denies dizziness Cardiovascular: Cardiovascular: Reports as per HPI, Denies chest pain, Denies chest pain at rest, Denies chest pain with activity, Denies dyspnea and Denies dyspnea on exertion Respiratory: Respiratory: Reports as per HPI, Denies cough, Denies dyspnea and Denies dyspnea on exertion Gastrointestinal: Gastrointestinal: Reports as per HPI, Denies abdominal pain, Denies nausea and Denies vomiting Musculoskeletal: Musculoskeletal: Denies numbness Integumentary/Breasts: Skin/Breast: Reports as per HPI, Denies erythema and Denies wounds Neurologic: Reports Normal hearing present, Denies dizziness, Denies numbness, Denies Sensory deficit (Neuro) and Denies weakness Psychiatric: Psychiatric: Reports no additional psychiatric complaints Endocrine: Endocrine: Reports no additional endocrine complaints [facility] Past Medical History Medical History Osteoarthritis Mood disorder COPD (chronic obstructive pulmonary disease) Dysarthria Obesity HTN (hypertension) Dementia Social History Social History Household Members: None Housing: Retirement Do you presently have visiting nurse or other home services: No Unable to assess alcohol history related to: Unknown Alcohol intake: never Comment: 1:1 sitter Patient Tobacco Use Status: Former Tobacco user service: No Current occupational status: disabled Meds Allergies Allergy/AdvReac Type Severity Reaction Status Date / Time No Known Allergies Allergy Verified 10/09/24 06:51 Active Medications: Current Medications Al Hydroxide/Mg Hydroxide (Magnesium Hydrox/Alum Hydrox 30 Ml Oral.Susp) 30 ml PO Q4H PRN PRN Reason: GI upset Albuterol Sulfate (Albuterol Sulfate (0.083%) 2.5 Mg/3 Ml Vial.Neb) 2.5 mg INHALE RQ6H WHILE AWAKE PRN PRN Reason: Shortness Of Breath Or Wheezing Amlodipine Besylate (Amlodipine Besylate 10 Mg Tablet) 10 mg PO DAILY [facility]; Protocol Last Admin: 10/10/24 08:39 Dose: 10 mg Atorvastatin Calcium (Atorvastatin Calcium 10 Mg Tablet) 10 mg PO BEDTIME [facility] Last Admin: 10/10/24 20:10 Dose: 10 mg Bisacodyl (Bisacodyl 10 Mg Supp.Rect) 10 mg NE DAILY PRN PRN Reason: Constipation Docusate Sodium (Docusate Sodium 100 Mg Capsule) 100 mg PO BEDTIME [facility] Last Admin: 10/10/24 20:12 Dose: Not Given Fluticasone/Vilanterol (Fluticasone/Vilanterol 100/25 Blst.W.Dev) 1 puff INHALE RDAILY [facility] Last Admin: 10/11/24 08:18 Dose: 1 puff Guaifenesin (Guaifenesin 200 Mg/10 Ml 10 Ml Liquid) 10 ml PO Q4H PRN PRN Reason: Cough Sodium Chloride (Ns) 1,000 mls @ 125 mls/hr IVCONT .Q8H [facility] Last Admin: 10/11/24 02:39 Dose: 125 mls/hr Lorazepam (Lorazepam 2 Mg/Ml Vial) 2 mg IVPUSH ONCE PRN PRN Reason: restlessness Last Admin: 10/09/24 21:30 Dose: 2 mg Metoprolol Tartrate (Metoprolol Tartrate 50 Mg Tablet) 50 mg PO BID [facility]; Protocol Last Admin: 10/10/24 20:10 Dose: 50 mg Multivitamins/Vitamin C (Multivitamin Tablet) 1 tab PO DAILY [facility] Last Admin: 10/10/24 08:39 Dose: 1 tab Naloxone HCl (Naloxone Hcl Nasal 4 Mg [place]) 4 mg NOSTRILALT Q3M PRN PRN Reason: Opioid Overdose Non-Formulary Medication (Chlorhexidine Gluconate [Hibiclens]) 1 appl TOPICAL DAILY [facility] Olanzapine (Olanzapine 5 Mg Tablet) 5 mg PO BEDTIME [facility] Last Admin: 10/10/24 20:10 Dose: 5 mg Omeprazole (Omeprazole 20 Mg Capsule.Dr) 20 mg PO DAILY@0630 [facility] Last Admin: 10/11/24 05:31 Dose: Not Given Ondansetron HCl (Ondansetron Odt 4 Mg Tab.Rapdis) 4 mg TRANSLINGU Q4H PRN PRN Reason: Nausea Pantoprazole Sodium (Pantoprazole Sodium 40 Mg/10 Ml Vial) 40 mg IVPUSH DAILY MRX1 [facility] Last Admin: 10/11/24 08:49 Dose: 40 mg Polyethylene Glycol (Polyethylene Glycol 3350 17 Gm Powd.Pack) 17 gm PO BID [facility] Last Admin: 10/10/24 20:13 Dose: Not Given Senna (Sennosides 8.6 Mg Tablet) 8.6 mg PO DAILY PRN PRN Reason: Constipation Sodium Biphosphate/Sodium Phosphate (Sodium Phosphate,[place]-Dibasic 133 Ml Enema) 118 ml NE DAILY PRN PRN Reason: Constipation Sodium Chloride (0.9 % Sodium Chloride Flush 3 Ml Syringe) 3 ml IVFLUSH QSHIFT [facility] Last Admin: 10/11/24 08:52 Dose: 3 ml Tramadol HCl (Tramadol Hcl 50 Mg Tablet) 50 mg PO TID PRN PRN Reason: Pain, Moderate(Pain Scale 4-6) Last Admin: 10/10/24 20:11 Dose: 50 mg Home Medications ?Medication ?Instructions ?Recorded ?Confirmed ?Last Taken ?Type acetaminophen 325 mg tablet 650 mg PO Q6H PRN Fever Or Pain 10/11/22 10/09/24 Unknown History aluminum-mag hydroxide-simethicone 30 ml PO Q4H PRN GI upset 10/11/22 10/09/24 Unknown History 200 mg-200 mg-20 mg/5 mL oral susp amlodipine 10 mg tablet 10 mg PO DAILY 10/11/22 10/09/24 Unknown History aspirin 81 mg tablet,delayed 81 mg PO DAILY 10/11/22 10/09/24 Unknown History release atorvastatin 10 mg tablet 10 mg PO BEDTIME 10/11/22 10/09/24 Unknown History bisacodyl 10 mg rectal suppository 10 mg NE DAILY PRN Constipation 10/11/22 10/09/24 Unknown History (Dulcolax (bisacodyl)) chlorhexidine gluconate 4 % 1 appl topical DAILY 10/11/22 10/09/24 Unknown History topical liquid (Hibiclens) docusate sodium 100 mg capsule 100 mg PO BEDTIME 10/11/22 10/09/24 Unknown History fluticasone furoate 100 1 inh inhalation DAILY 10/11/22 10/09/24 Unknown History mcg-vilanterol 25 mcg/dose inhalation powder (Breo Ellipta) guaifenesin 100 mg/5 mL oral liquid 200 mg PO Q4H PRN Cough 10/11/22 10/09/24 Unknown History lisinopril 40 mg tablet 40 mg PO DAILY 10/11/22 10/09/24 Unknown History metoprolol tartrate 50 mg tablet 50 mg PO BID 10/11/22 10/09/24 Unknown History multivitamin 1 tab PO DAILY 10/11/22 10/09/24 Unknown History naloxone 4 mg/actuation nasal 4 mg intranasal Q3M PRN Opioid 10/11/22 10/09/24 Unknown History spray (Narcan) Overdose omeprazole 20 mg capsule,delayed 20 mg PO DAILY@0630 10/11/22 10/09/24 Unknown History release sennosides 8.6 mg tablet (senna) 8.6 mg PO DAILY PRN Constipation 10/11/22 10/09/24 Unknown History sodium phosphates 19 gram-7 118 ml NE DAILY PRN Constipation 10/11/22 10/09/24 Unknown History gram/118 mL enema (Fleet Enema) tramadol 50 mg tablet 50 mg PO TID 10/11/22 10/09/24 Unknown History turmeric 400 mg capsule 500 mg PO BID 10/11/22 10/09/24 Unknown History olanzapine 5 mg tablet 5 mg PO BEDTIME 10/09/24 10/09/24 Unknown History ondansetron HCl 4 mg tablet 4 mg PO Q4H PRN Nausea 10/09/24 10/09/24 Unknown History Physical Exam 2 Vital Signs: Vital Signs: Last Vital Signs Temp 99.5 F 10/11/24 08:47 Pulse 97 10/11/24 08:47 Resp 18 10/11/24 08:47 BP 133/65 10/11/24 08:47 Pulse Ox 93 10/11/24 08:47 O2 Del Method Room Air 10/11/24 08:47 O2 Flow Rate 2 10/10/24 06:45 BMI result Body Mass Index 38.1 Const: Other: PE limited due to pt inability to follow commands well. General: comfortable and no acute distress HEENT: Ears: hearing grossly normal bilaterally Resp: Effort & Inspection: normal respiratory effort and able to speak in complete sentences Auscultation: clear to auscultation bilaterally Cardio: Rate: regular rate Rhythm: regular rhythm Heart sounds: S1 normal heart sound present and S2 normal heart sound present Bruits: no abdominal aortic bruits, no carotid bruits, no femoral bruits and no renal bruits GI: Palpation (GI): No Abdominal aortic bruit present Neuro: Cranial nerves: Yes Normal hearing present Sensory Exam: No Sensory deficit (Neuro) Results Labs 10/10/24 08:15 10/10/24 08:15 Labs: Abnormal lab results 10/10/24 Range/Units 08:15 Hgb 13.6 L (14.0-18.0) g/dl Immature Gran % (Auto) 0.5 H (0.0-0.4) % Lymph % (Auto) 15.6 L (20-40) % [place] % (Auto) 12.3 H (2-11) % [place] # (Auto) 1.3 H (0.1-1.2) X10*3/uL Abs Immat Gran (auto) 0.05 H (0.00-0.03) X10*3/uL Chloride 109 H (96-108) mmol/L BUN 19 H (9-16) mg/dL Short CBC 10/10/24 Range/Units 08:15 WBC 10.2 (4.8-10.8) X10*3/uL Hgb 13.6 L (14.0-18.0) g/dl Hct 43.7 (42.0-52.0) % Plt Count 239 (160-400) X10*3/uL BMP 10/10/24 08:15 Sodium 145 Potassium 3.7 Chloride 109 H Carbon Dioxide 28 BUN 19 H Creatinine 0.73 Calcium 8.5 D Urine 10/10/24 Range/Units 06:32 Urine Color Dark Yellow Urine Appearance Clear Urine pH 6.0 (5.0-9.0) Ur Specific [place] >= 1.030 H (1.005-1.025) Urine Protein 100 (2+) H (Neg-Trace) mg/dL Urine Glucose (UA) Negative (Negative) mg/dL All other labs normal. Assessment and Plan (1) Femoral artery pseudo-aneurysm, left: Status: Acute Plan We are consulted for Jose Manuel, who is found to have an incidental finding of a pseudoaneurysm versus AV fistula on CT of abdomen and pelvis. He is currently NPO with an NG tube placed. There has been difficulties keeping the NG tube in, the patient continues to remove it himself. There is no acute vascular surgery intervention at this time. We will follow up with the patient in the outpatient setting. Thank you for the consult. If there are any questions or concerns, please do not hesitate to reach out to us. Procedures Date of Service Date of Service: 10/11/24
--- NOTE | 2024-10-11 11:24 | PC.NURSE ---
Assumed care of patient at 0645. Patient remains in soft restraints. Order renewed by Dr. Haley at 0733 due to patient continuing to attempt to remove NG tube. Patient has removed x3 NG tubes previously. Trial release attempted without success. Patient calm and cooperative with restraints on. Becomes restless and agitated during care. Skin checked with repositioning and ROM performed every 2 hours per care flow sheet. Vital signs Q2hr- see flowsheet for details. Vital signs stable. Plan to reassess for restraint needs per care flow sheet and notify provider as needed.
--- NOTE | 2024-10-11 11:41 | HO.PM.IMPN ---
Subjective Subjective Date of Service: 10/11/24 Interval History: No new issues, NGT remains in place xray today show no persistent obstruction Physical Exam Vital Signs: Vital Signs: Last Vital Signs Temp 97.4 F 10/11/24 10:52 Pulse 97 10/11/24 10:52 Resp 20 10/11/24 10:52 BP 141/66 H 10/11/24 10:52 Pulse Ox 92 10/11/24 10:52 O2 Del Method Room Air 10/11/24 10:52 O2 Flow Rate 2 10/10/24 06:45 BMI result Body Mass Index 38.1 General: alert, no distress Resp: CTA bilateral CVS: S1,S2,RRR GI: +BS, NT, no distention Skin: No rash Neuro: motor grossly intact Psych: appropriate affect Objective Data Active Medications Al Hydroxide/Mg Hydroxide (Magnesium Hydrox/Alum Hydrox 30 Ml Oral.Susp) 30 ml PO Q4H PRN PRN Reason: GI upset Albuterol Sulfate (Albuterol Sulfate (0.083%) 2.5 Mg/3 Ml Vial.Neb) 2.5 mg INHALE RQ6H WHILE AWAKE PRN PRN Reason: Shortness Of Breath Or Wheezing Amlodipine Besylate (Amlodipine Besylate 10 Mg Tablet) 10 mg PO DAILY [facility]; Protocol Last Admin: 10/10/24 08:39 Dose: 10 mg Documented By: SHAWN Atorvastatin Calcium (Atorvastatin Calcium 10 Mg Tablet) 10 mg PO BEDTIME [facility] Last Admin: 10/10/24 20:10 Dose: 10 mg Documented By: FRANCISCO Bisacodyl (Bisacodyl 10 Mg Supp.Rect) 10 mg [place] DAILY PRN PRN Reason: Constipation Docusate Sodium (Docusate Sodium 100 Mg Capsule) 100 mg PO BEDTIME [facility] Last Admin: 10/10/24 20:12 Dose: Not Given Documented By: FRANCISCO Non-Admin Reason: NG tube Fluticasone/Vilanterol (Fluticasone/Vilanterol 100/25 Blst.W.Dev) 1 puff INHALE RDAILY [facility] Last Admin: 10/11/24 08:18 Dose: 1 puff Documented By: RONY Guaifenesin (Guaifenesin 200 Mg/10 Ml 10 Ml Liquid) 10 ml PO Q4H PRN PRN Reason: Cough Lorazepam (Lorazepam 2 Mg/Ml Vial) 2 mg IVPUSH ONCE PRN PRN Reason: restlessness Last Admin: 10/09/24 21:30 Dose: 2 mg Documented By: EMIR Metoprolol Tartrate (Metoprolol Tartrate 50 Mg Tablet) 50 mg PO BID [facility]; Protocol Last Admin: 10/10/24 20:10 Dose: 50 mg Documented By: FRANCISCO Multivitamins/Vitamin C (Multivitamin Tablet) 1 tab PO DAILY [facility] Last Admin: 10/10/24 08:39 Dose: 1 tab Documented By: SHAWN Naloxone HCl (Naloxone Hcl Nasal 4 Mg [place]) 4 mg NOSTRILALT Q3M PRN PRN Reason: Opioid Overdose Non-Formulary Medication (Chlorhexidine Gluconate [Hibiclens]) 1 appl TOPICAL DAILY [facility] Olanzapine (Olanzapine 5 Mg Tablet) 5 mg PO BEDTIME [facility] Last Admin: 10/10/24 20:10 Dose: 5 mg Documented By: FRANCISCO Omeprazole (Omeprazole 20 Mg Capsule.Dr) 20 mg PO DAILY@0630 [facility] Last Admin: 10/11/24 05:31 Dose: Not Given Documented By: FRANCISCO Non-Admin Reason: NG tube Ondansetron HCl (Ondansetron Odt 4 Mg Tab.Rapdis) 4 mg TRANSLINGU Q4H PRN PRN Reason: Nausea Pantoprazole Sodium (Pantoprazole Sodium 40 Mg/10 Ml Vial) 40 mg IVPUSH DAILY MRX1 [facility] Last Admin: 10/11/24 11:32 Dose: 40 mg Documented By: ARSH Polyethylene Glycol (Polyethylene Glycol 3350 17 Gm Powd.Pack) 17 gm PO BID [facility] Last Admin: 10/10/24 20:13 Dose: Not Given Documented By: FRANCISCO Non-Admin Reason: ng tube Senna (Sennosides 8.6 Mg Tablet) 8.6 mg PO DAILY PRN PRN Reason: Constipation Sodium Biphosphate/Sodium Phosphate (Sodium Phosphate,[place]-Dibasic 133 Ml Enema) 118 ml [place] DAILY PRN PRN Reason: Constipation Sodium Chloride (0.9 % Sodium Chloride Flush 3 Ml Syringe) 3 ml IVFLUSH QSHIFT [facility] Last Admin: 10/11/24 08:52 Dose: 3 ml Documented By: ARIADNA Tramadol HCl (Tramadol Hcl 50 Mg Tablet) 50 mg PO TID PRN PRN Reason: Pain, Moderate(Pain Scale 4-6) Last Admin: 10/10/24 20:11 Dose: 50 mg Documented By: FRANCISCO Labs 10/10/24 08:15 10/10/24 08:15 Assessment and Plan (1) Partial obstruction of small intestine: Status: Acute Plan 54[facility] with a history of hypertension (HTN), hyperlipidemia (HLD), early dementia, and mood disorder presented to the ED with acute onset of coffee-ground emesis and upper abdominal pain. CT abdomen and pelvis: High-grade small bowel obstruction (SBO) Small Bowel Obstruction (SBO): Nasogastric tube (NGT) in place Xray looks promission Management per surgery If surgical intervention is indicated, no further cardiopulmonary testing required prior to surgery Upper GI Bleeding (Coffee-Ground Emesis), appear self-limitted and H/H is stable IV PPI to oral PPI once eating Monitor hemoglobin and hematocrit (H&H) Consult GI if H&H trends downward or if bleeding persists Hypertension (HTN): Continue amlodipine (Norvasc) and metoprolol Hold lisinopril for now Hyperlipidemia (HLD): Continue atorvastatin (Lipitor) Mood Disorder: Continue olanzapine at bedtime DVT Prophylaxis: sequential compression devices Consider pharmacologic prophylaxis as appropriate based on further bleeding risk assessment Quality Stroke Does the patient have a stroke diagnosis?: No VTE Prior VTE?: No VTE Risk Level:: Medical - moderate - high VTE Device Contraindication: N/A - Device Ordered VTE Drug Contraindication: Treatment Not Indicated
[2024-10-11 12:43] LABS: Hematocrit 40.3 % (42.0-52.0); Hemoglobin 12.5 g/dl (14.0-18.0); Mean Corpuscular Hemoglobin 27.1 pg (27.0-33.0); Mean Corpuscular Volume 87.2 fL (80.0-98.0); Mean Platelet Volume 9.5 fL (9.4-12.4); Platelet Count 226 X10*3/uL (160-400); Red Blood Count 4.62 X10*6/uL (4.60-5.80); Red Cell Distribution Width 14.8 % (11.0-16.0); White Blood Count 10.1 X10*3/uL (4.8-10.8)
[2024-10-11 12:57] LABS: Anion Gap 10 (12-20); Blood Urea Nitrogen 17 mg/dL (9-16); Calcium 8.4 mg/dL (8.4-10.2); Carbon Dioxide 25 mmol/L (22-29); Chloride 114 mmol/L (96-108); Creatinine Clr Calc Pharmacy 182.6; Estimated Glomerular Filt Rate > 60; Glucose Random 75 mg/dL (60-115); Potassium 3.8 mmol/L (3.3-5.1); Sodium 145 mmol/L (135-145)
--- NOTE | 2024-10-11 14:17 | MHC.CM.PN ---
Patient from [facility] [place], DX Small bowel obstruction. No discharge today per MD rounds. Patient continues with an NG tube. DP Return to [facility] via BLS. when medically cleared.
--- NOTE | 2024-10-11 14:34 | PC.NURSE ---
NGT removed at 1420 per provider's order. Soft restraints removed at 1427 per Doctor's order. Vital signs obtained. No signs or symptoms of distress. Skin intact. Performed ROM and provided mouth care. Patient resting in bed, remains in behavioral control. Bed alarm on. Call warren within reach. VMT camera in room.
--- NOTE | 2024-10-11 14:34 | PM.EVENT ---
Event Note Date of Service: 10/11/24 Event Note: NG tube output minimal today KUB reviewed -good amounts of air in the colon Abdomen very soft and benign DC NG tube Keep on sips of clears for Okay to discontinue soft restraints Time Spent With Patient Time: Total time managing care of this patient today ____ minutes.
--- NOTE | 2024-10-11 18:15 | MHC.SL.SWA ---
Speech Pathologist Impression: Mild oropharyngeal dysphagia, moderate dysarthria/resonance d/o Dysphasia Diet Status: No change at this time Liquid Consistency and Strategies for Safe Swallow: Liquid Intake Recommendation: NPO Solid Food Consistency: Dietary Recommendations: NPO Additional Modifications to Solid Foods: Patient seen for bedside swallow evaluation as ordered per Kimberly Wang after patient failed his RN swallow screening, NGT had been d/c'ed per Dr. Haley. Paperwork from [facility] indicates patient is on a soft and bite sized diet and mildly thick liquids at bedside. Patient tolerated these textures when seen by bedside dysphagia evaluation today. Discussed w/ Dr. Haley, patient is admitted with SBO and is not yet cleared to start a solid diet. He continues NPO, will likely resume baseline diet once cleared by surgical team. Oral Medication Intake: NPO Please contact the pharmacy regarding appropriate crushable or liquid drug formulations that are available whenever modified delivery is recommended. Recommendation for Speech: Inpatient Speech Therapy Comment: RESEARCH ARCHAEOLOGIST to f/u once cleared by surgical team to resume diet Frequency/Duration: Date Range for Service Req: Timeline to reassess: Transportation Operations Manager Clinican/Clinical Fellow: No Supervisory Statement: I have reviewed and agree with the student/clinical fellow's documentation: N/A Speech Language Pathologist: Ivy Kirk M.A., CCC-RESEARCH ARCHAEOLOGIST
[2024-10-11] MEDS: polyethylene glycoL 3350 17 GM POWD.PACK PO (20:13)
[2024-10-11] MEDS: Docusate Sodium 100 MG CAPSULE PO (20:13)
[2024-10-11] MEDS: Atorvastatin Calcium 10 MG TABLET PO (20:14)
[2024-10-11] MEDS: Metoprolol Tartrate 50 MG TABLET PO (20:14)
[2024-10-11] MEDS: OLANZapine 5 MG TABLET PO (20:14)
[2024-10-12 03:43] VITALS: BP 174/80; PULSE 88; RESP 18; TEMP 36.4; O2SAT 94
[2024-10-12] MEDS: 0.9 % Sodium Chloride 1,000 ML 125 ML IVCONT ×3 (03:43→16:55)
[2024-10-12] MEDS: Omeprazole 20 MG CAPSULE.DR PO (05:51)
[2024-10-12 06:11] LABS: Hematocrit 37.5 % (42.0-52.0); Hemoglobin 11.9 g/dl (14.0-18.0); Mean Corpuscular HGB Conc 31.7 g/dl (31.0-36.0); Mean Corpuscular Hemoglobin 27.3 pg (27.0-33.0); Mean Platelet Volume 9.7 fL (9.4-12.4); Platelet Count 230 X10*3/uL (160-400); Red Blood Count 4.36 X10*6/uL (4.60-5.80); Red Cell Distribution Width 14.5 % (11.0-16.0); White Blood Count 10.3 X10*3/uL (4.8-10.8)
[2024-10-12 06:25] LABS: Anion Gap 13 (12-20); Blood Urea Nitrogen 12 mg/dL (9-16); Calcium 8.3 mg/dL (8.4-10.2); Carbon Dioxide 23 mmol/L (22-29); Chloride 112 mmol/L (96-108); Creatinine Clr Calc Pharmacy 179.7; Estimated Glomerular Filt Rate > 60; Glucose Random 80 mg/dL (60-115); Potassium 3.7 mmol/L (3.3-5.1); Sodium 144 mmol/L (135-145)
[2024-10-12 06:48] VITALS: BP 174/83; PULSE 88; RESP 18; TEMP 37; O2SAT 94
--- NOTE | 2024-10-12 08:00 | PM.PNGS ---
Subjective Subjective Date of Service: 10/12/24 Interval history: Denies abdominal pain no reported nausea or vomiting had swallow eval yesterday - speech pathologist had recommended chopped solids and nectar thick liquids, with pills crushed in puree Physical Exam Vital Signs: Vital Signs: Last Vital Signs Temp 98.6 F 10/12/24 06:48 Pulse 88 10/12/24 06:48 Resp 18 10/12/24 06:48 BP 174/83 H 10/12/24 06:48 Pulse Ox 94 10/12/24 06:48 O2 Del Method Room Air 10/12/24 03:43 O2 Flow Rate 2 10/10/24 06:45 BMI result Body Mass Index 38.1 Const: Other: Mental status as baseline General: comfortable and no acute distress Resp: Effort & Inspection: normal respiratory effort Cardio: Rate: regular rate GI: Palpation (GI): Soft to palpation, not firm, nontender and no guarding Objective Data Active Medications Al Hydroxide/Mg Hydroxide (Magnesium Hydrox/Alum Hydrox 30 Ml Oral.Susp) 30 ml PO Q4H PRN PRN Reason: GI upset Albuterol Sulfate (Albuterol Sulfate (0.083%) 2.5 Mg/3 Ml Vial.Neb) 2.5 mg INHALE RQ6H WHILE AWAKE PRN PRN Reason: Shortness Of Breath Or Wheezing Amlodipine Besylate (Amlodipine Besylate 10 Mg Tablet) 10 mg PO DAILY [facility]; Protocol Last Admin: 10/11/24 13:37 Dose: Not Given Documented By: ARIADNA Non-Admin Reason: Physician Approved Atorvastatin Calcium (Atorvastatin Calcium 10 Mg Tablet) 10 mg PO BEDTIME [facility] Last Admin: 10/11/24 20:14 Dose: 10 mg Documented By: TONY Bisacodyl (Bisacodyl 10 Mg Supp.Rect) 10 mg ID DAILY PRN PRN Reason: Constipation Docusate Sodium (Docusate Sodium 100 Mg Capsule) 100 mg PO BEDTIME [facility] Last Admin: 10/11/24 20:13 Dose: 100 mg Documented By: TONY Fluticasone/Vilanterol (Fluticasone/Vilanterol 100/25 Blst.W.Dev) 1 puff INHALE RDAILY [facility] Last Admin: 10/11/24 08:18 Dose: 1 puff Documented By: RONY Guaifenesin (Guaifenesin 200 Mg/10 Ml 10 Ml Liquid) 10 ml PO Q4H PRN PRN Reason: Cough Sodium Chloride (Ns) 1,000 mls @ 125 mls/hr IVCONT .Q8H [facility] Last Admin: 10/12/24 03:43 Dose: 125 mls/hr Documented By: TONY Acetaminophen (Ofirmev) 1,000 mg in 100 mls @ 400 mls/hr IV Q6H PRN PRN Reason: Pain, Mild 1-3,fever,headache Lorazepam (Lorazepam 2 Mg/Ml Vial) 2 mg IVPUSH ONCE PRN PRN Reason: restlessness Last Admin: 10/09/24 21:30 Dose: 2 mg Documented By: EMIR Metoprolol Tartrate (Metoprolol Tartrate 50 Mg Tablet) 50 mg PO BID [facility]; Protocol Last Admin: 10/11/24 20:14 Dose: 50 mg Documented By: TONY Morphine Sulfate (Morphine Sulfate 4 Mg/Ml Cartridge) 3 mg IVPUSH Q4H PRN; Protocol PRN Reason: Pain, Severe (Pain Scale 7-10) Multivitamins/Vitamin C (Multivitamin Tablet) 1 tab PO DAILY [facility] Last Admin: 10/11/24 13:37 Dose: Not Given Documented By: ARIADNA Non-Admin Reason: Physician Approved Naloxone HCl (Naloxone Hcl Nasal 4 Mg [place]) 4 mg NOSTRILALT Q3M PRN PRN Reason: Opioid Overdose Non-Formulary Medication (Chlorhexidine Gluconate [Hibiclens]) 1 appl TOPICAL DAILY [facility] Olanzapine (Olanzapine 5 Mg Tablet) 5 mg PO BEDTIME [facility] Last Admin: 10/11/24 20:14 Dose: 5 mg Documented By: TONY Omeprazole (Omeprazole 20 Mg Capsule.Dr) 20 mg PO DAILY@0630 [facility] Last Admin: 10/12/24 05:51 Dose: 20 mg Documented By: TONY Ondansetron HCl (Ondansetron Odt 4 Mg Tab.Rapdis) 4 mg TRANSLINGU Q4H PRN PRN Reason: Nausea Pantoprazole Sodium (Pantoprazole Sodium 40 Mg/10 Ml Vial) 40 mg IVPUSH DAILY MRX1 [facility] Last Admin: 10/11/24 11:32 Dose: 40 mg Documented By: ARSH Polyethylene Glycol (Polyethylene Glycol 3350 17 Gm Powd.Pack) 17 gm PO BID [facility] Last Admin: 10/11/24 20:13 Dose: 17 gm Documented By: TONY Senna (Sennosides 8.6 Mg Tablet) 8.6 mg PO DAILY PRN PRN Reason: Constipation Sodium Biphosphate/Sodium Phosphate (Sodium Phosphate,[place]-Dibasic 133 Ml Enema) 118 ml ID DAILY PRN PRN Reason: Constipation Sodium Chloride (0.9 % Sodium Chloride Flush 3 Ml Syringe) 3 ml IVFLUSH QSHIFT [facility] Last Admin: 10/12/24 00:40 Dose: Not Given Documented By: TONY Non-Admin Reason: IV Running Tramadol HCl (Tramadol Hcl 50 Mg Tablet) 50 mg PO TID PRN PRN Reason: Pain, Moderate(Pain Scale 4-6) Last Admin: 10/10/24 20:11 Dose: 50 mg Documented By: MANDYQC Labs 10/12/24 05:40 10/12/24 05:40 Labs: Laboratory Results - last 24 hr 10/11/24 10/12/24 12:35 05:40 MCV 87.2 86.0 MCH 27.1 27.3 MCHC 31.0 31.7 RDW 14.8 14.5 Plt Count 226 230 MPV 9.5 9.7 Absolute Nucleated RBC 0.000 0.000 Nucleated RBC % (auto) 0.0 0.0 Anion Gap 10 L 13 Estim Creat Clear Calc 182.6 179.7 Estimated GFR > 60 > 60 Random Glucose 75 80 Calcium 8.4 8.3 L Procedures Date of Service Date of Service: 10/12/24 Progress Note: A&P Assessment and plan (1) Partial obstruction of small intestine: Status: Acute Assessment and Plan: Symptoms seems resolved Abdomen is soft and benign Looks well clinically Denies abdominal pain As per recommendations by speech pathologist - should have solids, nectar thick liquids Time Spent With Patient Time: Total time managing care of this patient today ____ minutes. Quality Stroke Does the patient have a stroke diagnosis?: No VTE Prior VTE?: No VTE Risk Level:: Medical - moderate - high VTE Device Contraindication: N/A - Device Ordered VTE Drug Contraindication: Treatment Not Indicated
[2024-10-12] MEDS: Fluticasone/Vilanterol 100/25 BLST.W.DEV 1 PUFF INHALE (08:02)
[2024-10-12 08:05] VITALS: PULSE 88; RESP 18; O2SAT 93
[2024-10-12] MEDS: 0.9 % Sodium Chloride Flush 3 ML SYRINGE IVFLUSH (08:36)
[2024-10-12 08:39] VITALS: BP 146/71; PULSE 91
[2024-10-12] MEDS: Pantoprazole Sodium 40 MG/10 ML VIAL IVPUSH (08:41)
[2024-10-12] MEDS: Metoprolol Tartrate 50 MG TABLET PO ×2 (08:42→21:07)
[2024-10-12] MEDS: Multivitamin TABLET 1 TAB PO (08:42)
[2024-10-12] MEDS: polyethylene glycoL 3350 17 GM POWD.PACK PO ×2 (08:42→21:07)
[2024-10-12] MEDS: amLODIPine Besylate 10 MG TABLET PO (08:42)
--- NOTE | 2024-10-12 09:39 | P.PNIM_ITS ---
Subjective Subjective Date of Service: 10/12/24 Interval History: NGT removed, clinically doing well, cooperative. starting diet today Physical Exam 2 Vital Signs: Vital Signs: Last Vital Signs Temp 98.6 F 10/12/24 06:48 Pulse 91 10/12/24 08:39 Resp 18 10/12/24 08:05 BP 146/71 H 10/12/24 08:39 Pulse Ox 94 10/12/24 06:48 O2 Del Method Room Air 10/12/24 03:43 O2 Flow Rate 2 10/10/24 06:45 BMI result Body Mass Index 38.1 Const: Other: alert, no distress cv rrr s1s2 lungs cta abdominal exam bening, +bs, nt neuro: nf deficit Objective Data Active Medications Al Hydroxide/Mg Hydroxide (Magnesium Hydrox/Alum Hydrox 30 Ml Oral.Susp) 30 ml PO Q4H PRN PRN Reason: GI upset Albuterol Sulfate (Albuterol Sulfate (0.083%) 2.5 Mg/3 Ml Vial.Neb) 2.5 mg INHALE RQ6H WHILE AWAKE PRN PRN Reason: Shortness Of Breath Or Wheezing Amlodipine Besylate (Amlodipine Besylate 10 Mg Tablet) 10 mg PO DAILY [facility]; Protocol Last Admin: 10/12/24 08:42 Dose: 10 mg Documented By: GERMANIA Atorvastatin Calcium (Atorvastatin Calcium 10 Mg Tablet) 10 mg PO BEDTIME [facility] Last Admin: 10/11/24 20:14 Dose: 10 mg Documented By: TONY Bisacodyl (Bisacodyl 10 Mg Supp.Rect) 10 mg [place] DAILY PRN PRN Reason: Constipation Docusate Sodium (Docusate Sodium 100 Mg Capsule) 100 mg PO BEDTIME [facility] Last Admin: 10/11/24 20:13 Dose: 100 mg Documented By: TONY Fluticasone/Vilanterol (Fluticasone/Vilanterol 100/25 Blst.W.Dev) 1 puff INHALE RDAILY [facility] Last Admin: 10/12/24 08:02 Dose: 1 puff Documented By: JADE Guaifenesin (Guaifenesin 200 Mg/10 Ml 10 Ml Liquid) 10 ml PO Q4H PRN PRN Reason: Cough Sodium Chloride (Ns) 1,000 mls @ 125 mls/hr IVCONT .Q8H [facility] Last Admin: 10/12/24 03:43 Dose: 125 mls/hr Documented By: TONY Acetaminophen (Ofirmev) 1,000 mg in 100 mls @ 400 mls/hr IV Q6H PRN PRN Reason: Pain, Mild 1-3,fever,headache Lorazepam (Lorazepam 2 Mg/Ml Vial) 2 mg IVPUSH ONCE PRN PRN Reason: restlessness Last Admin: 10/09/24 21:30 Dose: 2 mg Documented By: EMIR Metoprolol Tartrate (Metoprolol Tartrate 50 Mg Tablet) 50 mg PO BID [facility]; Protocol Last Admin: 10/12/24 08:42 Dose: 50 mg Documented By: GERMANIA Morphine Sulfate (Morphine Sulfate 4 Mg/Ml Cartridge) 3 mg IVPUSH Q4H PRN; Protocol PRN Reason: Pain, Severe (Pain Scale 7-10) Multivitamins/Vitamin C (Multivitamin Tablet) 1 tab PO DAILY [facility] Last Admin: 10/12/24 08:42 Dose: 1 tab Documented By: GERMANIA Naloxone HCl (Naloxone Hcl Nasal 4 Mg [place]) 4 mg NOSTRILALT Q3M PRN PRN Reason: Opioid Overdose Non-Formulary Medication (Chlorhexidine Gluconate [Hibiclens]) 1 appl TOPICAL DAILY [facility] Olanzapine (Olanzapine 5 Mg Tablet) 5 mg PO BEDTIME [facility] Last Admin: 10/11/24 20:14 Dose: 5 mg Documented By: TONY Omeprazole (Omeprazole 20 Mg Capsule.Dr) 20 mg PO DAILY@0630 [facility] Last Admin: 10/12/24 05:51 Dose: 20 mg Documented By: TONY Ondansetron HCl (Ondansetron Odt 4 Mg Tab.Rapdis) 4 mg TRANSLINGU Q4H PRN PRN Reason: Nausea Pantoprazole Sodium (Pantoprazole Sodium 40 Mg/10 Ml Vial) 40 mg IVPUSH DAILY MRX1 [facility] Last Admin: 10/12/24 08:41 Dose: 40 mg Documented By: GERMANIA Polyethylene Glycol (Polyethylene Glycol 3350 17 Gm Powd.Pack) 17 gm PO BID [facility] Last Admin: 10/12/24 08:42 Dose: 17 gm Documented By: GERMANIA Senna (Sennosides 8.6 Mg Tablet) 8.6 mg PO DAILY PRN PRN Reason: Constipation Sodium Biphosphate/Sodium Phosphate (Sodium Phosphate,[place]-Dibasic 133 Ml Enema) 118 ml [place] DAILY PRN PRN Reason: Constipation Sodium Chloride (0.9 % Sodium Chloride Flush 3 Ml Syringe) 3 ml IVFLUSH QSHIFT [facility] Last Admin: 10/12/24 08:36 Dose: 3 ml Documented By: GERMANIA Tramadol HCl (Tramadol Hcl 50 Mg Tablet) 50 mg PO TID PRN PRN Reason: Pain, Moderate(Pain Scale 4-6) Last Admin: 10/10/24 20:11 Dose: 50 mg Documented By: MANDYQC Labs 10/12/24 05:40 10/12/24 05:40 Labs: Laboratory Results - last 24 hr 10/11/24 10/12/24 12:35 05:40 MCV 87.2 86.0 MCH 27.1 27.3 MCHC 31.0 31.7 RDW 14.8 14.5 Plt Count 226 230 MPV 9.5 9.7 Absolute Nucleated RBC 0.000 0.000 Nucleated RBC % (auto) 0.0 0.0 Anion Gap 10 L 13 Estim Creat Clear Calc 182.6 179.7 Estimated GFR > 60 > 60 Random Glucose 75 80 Calcium 8.4 8.3 L Assessment and Plan (1) Partial obstruction of small intestine: Status: Acute Plan 54-year-old male from [facility] long-term care facility with a history of hypertension (HTN), hyperlipidemia (HLD), early dementia, and mood disorder presented to the ED with acute onset of coffee-ground emesis and upper abdominal pain. CT abdomen and pelvis: High-grade small bowel obstruction (SBO) Small Bowel Obstruction (SBO): conservatively managed, and clinically resolved Nasogastric tube (NGT) remove Management per surgery If surgical intervention is indicated, no further cardiopulmonary testing required prior to surgery Upper GI Bleeding (Coffee-Ground Emesis), appear self-limitted and H/H is stable IV PPI to oral PPI once eating Monitor hemoglobin and hematocrit (H&H) No indication for GI at this time. Hypertension (HTN): Continue amlodipine (Norvasc) and metoprolol Can resume lisinopril once eating Hyperlipidemia (HLD): Continue atorvastatin (Lipitor) Mood Disorder: Continue olanzapine at bedtime DVT Prophylaxis: sequential compression devices Consider pharmacologic prophylaxis as appropriate based on further bleeding risk assessment Quality Stroke Does the patient have a stroke diagnosis?: No VTE Prior VTE?: No VTE Risk Level:: Medical - moderate - high VTE Device Contraindication: N/A - Device Ordered VTE Drug Contraindication: Treatment Not Indicated
--- NOTE | 2024-10-12 10:02 | HO.VASCPN ---
Subjective Subjective Date of Service: 10/12/24 Interval history: Jose Manuel is doing well this morning. He does continue to endorse abdominal discomfort. He denies any concerns with his left groin area. Physical Exam Vital Signs: Vital Signs: Last Vital Signs Temp 98.6 F 10/12/24 06:48 Pulse 91 10/12/24 08:39 Resp 18 10/12/24 08:05 BP 146/71 H 10/12/24 08:39 Pulse Ox 94 10/12/24 06:48 O2 Del Method Room Air 10/12/24 03:43 O2 Flow Rate 2 10/10/24 06:45 BMI result Body Mass Index 38.1 Const: General: comfortable and no acute distress Orientation/consciousness: patient oriented x3 HEENT: Ears: hearing grossly normal bilaterally Resp: Effort & Inspection: normal respiratory effort and able to speak in complete sentences Auscultation: clear to auscultation bilaterally Cardio: Rate: regular rate Rhythm: regular rhythm Heart sounds: S1 normal heart sound present and S2 normal heart sound present Bruits: no abdominal aortic bruits, no carotid bruits, no femoral bruits and no renal bruits GI: Palpation (GI): No Abdominal aortic bruit present : Other: Left groin: Palpable pulsatile mass noted Neuro: General: patient oriented x3 Cranial nerves: Yes CN's II-XII intact bilaterally Extrem: Other: Bilateral lower extremities: Palpable DP pulses Progress Note: A&P Assessment and plan (1) Femoral artery pseudo-aneurysm, left: Status: Acute Assessment and Plan: Jose Manuel remains stable from a vascular standpoint. We will follow up with him outpatient once he stabilizes. Thank you for the consult. If there are any questions or concerns, please do not hesitate to reach out to us. Time Spent With Patient Time: Total time managing care of this patient today ____ minutes. Procedures Date of Service Date of Service: 10/12/24 Quality Stroke Does the patient have a stroke diagnosis?: No VTE Prior VTE?: No VTE Risk Level:: Medical - moderate - high VTE Device Contraindication: N/A - Device Ordered VTE Drug Contraindication: Treatment Not Indicated
--- NOTE | 2024-10-12 15:30 | MHC.SL.SWA ---
Speech Pathologist Impression: Mild oropharyngeal dysphagia at baseline, pt tolerating modified diet without overt concerns, 1:1 during PO recommended Risk of Aspiration Due to: Dysphagia at baseline Liquid Consistency: [place] Thick Liquid Intake Strategies: Small Sips Solid Food Consistency: Dietary Recommendations: Chopped/Advanced (NDD3) Additional Modifications to Solid Foods: Oral Medication Intake: Crushed with Puree Please contact the pharmacy regarding appropriate crushable or liquid drug formulations that are available whenever modified delivery is recommended. Compensatory Strategies and Precautions to be Taken for Safe Swallow: Sitting Upright (90 deg) Small Bites and Sips Alternate Liquids/Solids Rate of Ingestion Change Supervision While Eating and Drinking for Safe Swallow: Foods to Avoid: Swallowing Recommended Treatments: Compens. Strategy Educat. Recommendation for Speech: Inpatient Speech Therapy Comment: NUCLEAR MEDICINE SPECIALIST to f/u as indicated Frequency/Duration: Date Range for Service Req: Timeline to reassess: Library Information Technician Clinican/Clinical Fellow: No Supervisory Statement: I have reviewed and agree with the student/clinical fellow's documentation: N/A Speech Language Pathologist: Jessica Whiting M.S., CCC-NUCLEAR MEDICINE SPECIALIST
[2024-10-12 15:36] VITALS: BP 172/77; PULSE 89; RESP 18; TEMP 37.1; O2SAT 94
--- NOTE | 2024-10-12 16:04 | MHC.CM.PN ---
Patient from [facility], [facility] TBI. DX Partial SBO medically managed and resolved. NG tube dc'd today and diet started. DP return to [facility] via BLS.
--- NOTE | 2024-10-12 16:40 | PM.EVENT ---
Event Note Date of Service: 10/14/24 Event Note: Seen on afternoon rounds According to nursing staff, has been tolerating his diet No reported nausea or vomiting Abdomen remained soft, very benign Clinically looks well If he continues to do well, possible DC home tomorrow Time Spent With Patient Time: Total time managing care of this patient today ____ minutes.
[2024-10-12] MEDS: 0.9 % Sodium Chloride 1,000 ML 60 ML IVCONT ×2 (16:57→23:48)
[2024-10-12 19:07] VITALS: BP 157/66; PULSE 93; RESP 18; TEMP 37.7; O2SAT 93
[2024-10-12] MEDS: OLANZapine 5 MG TABLET PO (21:07)
[2024-10-12] MEDS: Docusate Sodium 100 MG CAPSULE PO (21:07)
[2024-10-12] MEDS: Atorvastatin Calcium 10 MG TABLET PO (21:07)
[2024-10-13 03:51] VITALS: BP 168/74; PULSE 89; RESP 18; TEMP 36.1; O2SAT 93
[2024-10-13] MEDS: Omeprazole 20 MG CAPSULE.DR PO (06:22)
[2024-10-13 07:51] VITALS: BP 150/69; PULSE 85; RESP 18; TEMP 36.6; O2SAT 91
--- NOTE | 2024-10-13 08:35 | PM.PNGS ---
Subjective Subjective Date of Service: 10/13/24 Interval history: As per nursing staff, patient tolerating diet well No events reported The patient comfortable Physical Exam Vital Signs: Vital Signs: Last Vital Signs Temp 97.8 F 10/13/24 07:51 Pulse 85 10/13/24 07:51 Resp 18 10/13/24 07:51 BP 150/69 H 10/13/24 07:51 Pulse Ox 91 L 10/13/24 07:51 O2 Del Method Room Air 10/13/24 07:51 O2 Flow Rate 2 10/10/24 06:45 BMI result Body Mass Index 38.1 Const: Other: Mental status as baseline General: comfortable and no acute distress Resp: Effort & Inspection: normal respiratory effort Cardio: Rate: regular rate GI: Palpation (GI): Soft to palpation, not firm and no guarding Objective Data Active Medications Al Hydroxide/Mg Hydroxide (Magnesium Hydrox/Alum Hydrox 30 Ml Oral.Susp) 30 ml PO Q4H PRN PRN Reason: GI upset Albuterol Sulfate (Albuterol Sulfate (0.083%) 2.5 Mg/3 Ml Vial.Neb) 2.5 mg INHALE RQ6H WHILE AWAKE PRN PRN Reason: Shortness Of Breath Or Wheezing Amlodipine Besylate (Amlodipine Besylate 10 Mg Tablet) 10 mg PO DAILY [facility]; Protocol Last Admin: 10/12/24 08:42 Dose: 10 mg Documented By: GERMANIA Atorvastatin Calcium (Atorvastatin Calcium 10 Mg Tablet) 10 mg PO BEDTIME [facility] Last Admin: 10/12/24 21:07 Dose: 10 mg Documented By: TONY Bisacodyl (Bisacodyl 10 Mg Supp.Rect) 10 mg [place] DAILY PRN PRN Reason: Constipation Docusate Sodium (Docusate Sodium 100 Mg Capsule) 100 mg PO BEDTIME [facility] Last Admin: 10/12/24 21:07 Dose: 100 mg Documented By: TONY Fluticasone/Vilanterol (Fluticasone/Vilanterol 100/25 Blst.W.Dev) 1 puff INHALE RDAILY [facility] Last Admin: 10/13/24 07:44 Dose: Not Given Documented By: SANDY Non-Admin Reason: Patient Asleep Guaifenesin (Guaifenesin 200 Mg/10 Ml 10 Ml Liquid) 10 ml PO Q4H PRN PRN Reason: Cough Sodium Chloride (Ns) 1,000 mls @ 60 mls/hr IVCONT .[id number] [facility] Last Infusion: 10/12/24 23:48 Dose: Infused Documented By: TONY Acetaminophen (Ofirmev) 1,000 mg in 100 mls @ 400 mls/hr IV Q6H PRN PRN Reason: Pain, Mild 1-3,fever,headache Lorazepam (Lorazepam 2 Mg/Ml Vial) 2 mg IVPUSH ONCE PRN PRN Reason: restlessness Last Admin: 10/09/24 21:30 Dose: 2 mg Documented By: EMIR Metoprolol Tartrate (Metoprolol Tartrate 50 Mg Tablet) 50 mg PO BID [facility]; Protocol Last Admin: 10/12/24 21:07 Dose: 50 mg Documented By: TONY Morphine Sulfate (Morphine Sulfate 4 Mg/Ml Cartridge) 3 mg IVPUSH Q4H PRN; Protocol PRN Reason: Pain, Severe (Pain Scale 7-10) Multivitamins/Vitamin C (Multivitamin Tablet) 1 tab PO DAILY [facility] Last Admin: 10/12/24 08:42 Dose: 1 tab Documented By: GERMANIA Naloxone HCl (Naloxone Hcl Nasal 4 Mg [place]) 4 mg NOSTRILALT Q3M PRN PRN Reason: Opioid Overdose Olanzapine (Olanzapine 5 Mg Tablet) 5 mg PO BEDTIME [facility] Last Admin: 10/12/24 21:07 Dose: 5 mg Documented By: TONY Omeprazole (Omeprazole 20 Mg Capsule.Dr) 20 mg PO DAILY@0630 [facility] Last Admin: 10/13/24 06:22 Dose: 20 mg Documented By: TONY Ondansetron HCl (Ondansetron Odt 4 Mg Tab.Rapdis) 4 mg TRANSLINGU Q4H PRN PRN Reason: Nausea Pantoprazole Sodium (Pantoprazole Sodium 40 Mg/10 Ml Vial) 40 mg IVPUSH DAILY MRX1 [facility] Last Admin: 10/12/24 10:20 Dose: Not Given Documented By: GERMANIA Non-Admin Reason: dose administerted earlier Polyethylene Glycol (Polyethylene Glycol 3350 17 Gm Powd.Pack) 17 gm PO BID [facility] Last Admin: 10/12/24 21:07 Dose: 17 gm Documented By: TONY Senna (Sennosides 8.6 Mg Tablet) 8.6 mg PO DAILY PRN PRN Reason: Constipation Sodium Biphosphate/Sodium Phosphate (Sodium Phosphate,[place]-Dibasic 133 Ml Enema) 118 ml [place] DAILY PRN PRN Reason: Constipation Sodium Chloride (0.9 % Sodium Chloride Flush 3 Ml Syringe) [facility] Admin: 10/13/24 00:50 Dose: Not Given Documented By: TONY Non-Admin Reason: IV Running Tramadol HCl (Tramadol Hcl 50 Mg Tablet) 50 mg PO TID PRN PRN Reason: Pain, Moderate(Pain Scale 4-6) Last Admin: 10/10/24 20:11 Dose: 50 mg Documented By: MANDYQC Labs 10/12/24 05:40 10/12/24 05:40 Procedures Date of Service Date of Service: 10/13/24 Progress Note: A&P Assessment and plan (1) Partial obstruction of small intestine: Status: Acute Assessment and Plan: Symptoms have resolved clinically Abdomen is soft and very benign Tolerating diet well Plan to DC back to [facility] today Discussed with the hospitalist service Time Spent With Patient Time: Total time managing care of this patient today ____ minutes. Quality Stroke Does the patient have a stroke diagnosis?: No VTE Prior VTE?: No VTE Risk Level:: Medical - moderate - high VTE Device Contraindication: N/A - Device Ordered VTE Drug Contraindication: Treatment Not Indicated
[2024-10-13] MEDS: 0.9 % Sodium Chloride Flush 3 ML SYRINGE IVFLUSH (08:43)
[2024-10-13] MEDS: Metoprolol Tartrate 50 MG TABLET PO (08:44)
[2024-10-13] MEDS: Multivitamin TABLET 1 TAB PO (08:44)
[2024-10-13] MEDS: polyethylene glycoL 3350 17 GM POWD.PACK PO (08:44)
[2024-10-13] MEDS: amLODIPine Besylate 10 MG TABLET PO (08:44)
[2024-10-13] MEDS: Pantoprazole Sodium 40 MG/10 ML VIAL IVPUSH (08:45)
[2024-10-13 09:17] LABS: Anion Gap 13 (12-20); Blood Urea Nitrogen 5 mg/dL (9-16); Calcium 8.4 mg/dL (8.4-10.2); Carbon Dioxide 22 mmol/L (22-29); Chloride 108 mmol/L (96-108); Creatinine Clr Calc Pharmacy 188.8; Estimated Glomerular Filt Rate > 60; Glucose Random 109 mg/dL (60-115); Sodium 140 mmol/L (135-145)
--- NOTE | 2024-10-13 09:37 | P.TS_ITS ---
Transfer Discharge Sum: Prov Provider Date of admission: 10/09/24 10:05 Primary care physician: Jose Manuel Ontiveros DO Attending physician on admission: Viola Garza Consults: 10/09/24 10:04 Consult to Hospitalist Routine Comment: Consulting Provider: [facility] Hospitalists Reason For Exam: med management 10/10/24 09:00 Consult to Vascular Surgery Routine Consulting Provider: [facility] Vascular Services Reason for consultation: left pseudo aneurysm femoral vessels Attending physician on discharge: Binh Haley Anticipated date of transfer: 10/13/24 DS: Diagnosis Discharge Diagnosis (1) Partial obstruction of small intestine: Status: Acute Transfer Discharge Sum: Med Medications Active and Home Medications: Home Medications acetaminophen 325 mg tablet 650 mg PO Q6H PRN Fever Or Pain 10/11/22 [History Confirmed 10/09/24] aluminum-mag hydroxide-simethicone 200 mg-200 mg-20 mg/5 mL oral susp 30 ml PO Q 4H PRN GI upset 10/11/22 [History Confirmed 10/09/24] amlodipine 10 mg tablet 10 mg PO DAILY 10/11/22 [History Confirmed 10/09/24] aspirin 81 mg tablet,delayed release 81 mg PO DAILY 10/11/22 [History Confirmed 10/09/24] atorvastatin 10 mg tablet 10 mg PO BEDTIME 10/11/22 [History Confirmed 10/09/24] bisacodyl 10 mg rectal suppository (Dulcolax (bisacodyl)) 10 mg [place] DAILY PRN Constipation 10/11/22 [History Confirmed 10/09/24] chlorhexidine gluconate 4 % topical liquid (Hibiclens) 1 appl topical DAILY 10/11/22 [History Confirmed 10/09/24] docusate sodium 100 mg capsule 100 mg PO BEDTIME 10/11/22 [History Confirmed 10/09/24] fluticasone furoate 100 mcg-vilanterol 25 mcg/dose inhalation powder (Breo Ellipta) 1 inh inhalation DAILY 10/11/22 [History Confirmed 10/09/24] guaifenesin 100 mg/5 mL oral liquid 200 mg PO Q4H PRN Cough 10/11/22 [History Confirmed 10/09/24] lisinopril 40 mg tablet 40 mg PO DAILY 10/11/22 [History Confirmed 10/09/24] metoprolol tartrate 50 mg tablet 50 mg PO BID 10/11/22 [History Confirmed 10/09/24] multivitamin 1 tab PO DAILY 10/11/22 [History Confirmed 10/09/24] naloxone 4 mg/actuation nasal spray (Narcan) 4 mg intranasal Q3M PRN Opioid Overdose 10/11/22 [History Confirmed 10/09/24] omeprazole 20 mg capsule,delayed release 20 mg PO DAILY@0630 10/11/22 [History Confirmed 10/09/24] sennosides 8.6 mg tablet (senna) 8.6 mg PO DAILY PRN Constipation 10/11/22 [H istory Confirmed 10/09/24] sodium phosphates 19 gram-7 gram/118 mL enema (Fleet Enema) 118 ml [place] DAILY PRN Constipation 10/11/22 [History Confirmed 10/09/24] tramadol 50 mg tablet 50 mg PO TID 10/11/22 [History Confirmed 10/09/24] turmeric 400 mg capsule 500 mg PO BID 10/11/22 [History Confirmed 10/09/24] albuterol sulfate 2.5 mg/3 mL (0.083 %) solution for nebulization 2.5 mg (3 mL) inhalation RQ6H WHILE AWAKE PRN Shortness Of Breath Or Wheezing #30 ea 10/16/22 [Rx Confirmed 10/09/24] polyethylene glycol 3350 17 gram oral powder packet 17 g PO BID #60 ea 10/16/22 [Rx Confirmed 10/09/24] olanzapine 5 mg tablet 5 mg PO BEDTIME 10/09/24 [History Confirmed 10/09/24] ondansetron HCl 4 mg tablet 4 mg PO Q4H PRN Nausea 10/09/24 [History Confirmed 10/09/24] Active Medications Al Hydroxide/Mg Hydroxide (Magnesium Hydrox/Alum Hydrox 30 Ml Oral.Susp) 30 ml PO Q4H PRN PRN Reason: GI upset Albuterol Sulfate (Albuterol Sulfate (0.083%) 2.5 Mg/3 Ml Vial.Neb) 2.5 mg INHALE RQ6H WHILE AWAKE PRN PRN Reason: Shortness Of Breath Or Wheezing Amlodipine Besylate (Amlodipine Besylate 10 Mg Tablet) 10 mg PO DAILY [facility]; Protocol Last Admin: 10/13/24 08:44 Dose: 10 mg Atorvastatin Calcium (Atorvastatin Calcium 10 Mg Tablet) 10 mg PO BEDTIME [facility] Last Admin: 10/12/24 21:07 Dose: 10 mg Bisacodyl (Bisacodyl 10 Mg Supp.Rect) 10 mg [place] DAILY PRN PRN Reason: Constipation Docusate Sodium (Docusate Sodium 100 Mg Capsule) 100 mg PO BEDTIME [facility] Last Admin: 10/12/24 21:07 Dose: 100 mg Fluticasone/Vilanterol (Fluticasone/Vilanterol 100/25 Blst.W.Dev) 1 puff INHALE RDAILY [facility] Last Admin: 10/13/24 07:44 Dose: Not Given Guaifenesin (Guaifenesin 200 Mg/10 Ml 10 Ml Liquid) 10 ml PO Q4H PRN PRN Reason: Cough Acetaminophen (Ofirmev) 1,000 mg in 100 mls @ 400 mls/hr IV Q6H PRN PRN Reason: Pain, Mild 1-3,fever,headache Lorazepam (Lorazepam 2 Mg/Ml Vial) 2 mg IVPUSH ONCE PRN PRN Reason: restlessness Last Admin: 10/09/24 21:30 Dose: 2 mg Metoprolol Tartrate (Metoprolol Tartrate 50 Mg Tablet) 50 mg PO BID [facility]; Protocol Last Admin: 10/13/24 08:44 Dose: 50 mg Morphine Sulfate (Morphine Sulfate 4 Mg/Ml Cartridge) 3 mg IVPUSH Q4H PRN; Protocol PRN Reason: Pain, Severe (Pain Scale 7-10) Multivitamins/Vitamin C (Multivitamin Tablet) 1 tab PO DAILY [facility] Last Admin: 10/13/24 08:44 Dose: 1 tab Naloxone HCl (Naloxone Hcl Nasal 4 Mg [place]) 4 mg NOSTRILALT Q3M PRN PRN Reason: Opioid Overdose Olanzapine (Olanzapine 5 Mg Tablet) 5 mg PO BEDTIME [facility] Last Admin: 10/12/24 21:07 Dose: 5 mg Omeprazole (Omeprazole 20 Mg Capsule.Dr) 20 mg PO DAILY@0630 [facility] Last Admin: 10/13/24 06:22 Dose: 20 mg Ondansetron HCl (Ondansetron Odt 4 Mg Tab.Rapdis) 4 mg TRANSLINGU Q4H PRN PRN Reason: Nausea Polyethylene Glycol (Polyethylene Glycol 3350 17 Gm Powd.Pack) 17 gm PO BID [facility] Last Admin: 10/13/24 08:44 Dose: 17 gm Senna (Sennosides 8.6 Mg Tablet) 8.6 mg PO DAILY PRN PRN Reason: Constipation Sodium Biphosphate/Sodium Phosphate (Sodium Phosphate,[place]-Dibasic 133 Ml Enema) 118 ml [place] DAILY PRN PRN Reason: Constipation Sodium Chloride (0.9 % Sodium Chloride Flush 3 Ml Syringe) 3 ml IVFLUSH QSHIFT TOYIN Last Admin: 10/13/24 08:43 Dose: 3 ml Tramadol HCl (Tramadol Hcl 50 Mg Tablet) 50 mg PO TID PRN PRN Reason: Pain, Moderate(Pain Scale 4-6) Last Admin: 10/10/24 20:11 Dose: 50 mg Transfer Discharge Sum: Hosp Hospital Course Hospital course: HPI AT ADMISSION: Patient is a 54 year old with a history of GERD, HLD, HTN, hemiplegia and hemiparesis following a CVA, mood disorder, and dysphasia presenting to the emergency department today with nausea, vomiting, and abdominal pain. Patient states that he has been having upper abdominal pain, nausea, and vomiting. [facility] staff states that the patient was vomiting coffee ground emesis. Here CT scan was carried out which showed findings consistent with small-bowel obstruction and NG-tube placed and a large amount of dark fluid immediately returning. Patient has had an episode of partial small bowel obstruction improved with NG tube placement in the past. HOSPITAL COURSE: Patient was admitted to the hospitalist service for further treatment of the SBO. Hospitalist consult was obtained for management of his medical comorbidities. Nonoperative measures were continued with NGT decompression, bowel rest, IVF. Upper GI Bleeding (Coffee-Ground Emesis), appeared self-limited and H/H is stable and PPI was continued without further episodes. He had an uncomplicated hospital course and his SBO improved with conservative measures. His abdomen remained benign and soft. F/u AXR showed air in the colon and his NGT was clamped and removed on HD#2. He failed his bedside swallow exam with the RN and therefore speech was consulted with recommendations as below. His diet was advanced as tolerated. He was tolerating his recommended diet without difficulty with a benign abd exam. He remained medically stable and his home meds were resumed. He was transferred back to [facility] on 10/13/24 in stable condition. He is to follow up with his PCP and vascular surgery upon discharge. Vascular surgery was consulted for the incidental finding of left femoral artery pseudoaneurysm. He was deemed stable from vascular standpoint with f/u on outpatient basis for further investigation. Speech Pathologist Impression: Mild oropharyngeal dysphagia at baseline, pt tolerating modified diet without overt concerns, 1:1 during PO recommended Liquid Consistency: [place] Thick Liquid Intake Strategies: Small Sips Solid Food Consistency:Dietary Recommendations: Chopped/Advanced (NDD3) Oral Medication Intake: Crushed with Puree Time Spent with Patient Time attestation: Total time managing care of this patient today ____ minutes. Physical Exam Vital Signs: Vital Signs: Last Vital Signs Temp 97.8 F 10/13/24 07:51 Pulse 85 10/13/24 07:51 Resp 18 10/13/24 07:51 BP 150/69 H 10/13/24 07:51 Pulse Ox 91 L 10/13/24 07:51 O2 Del Method Room Air 10/13/24 07:51 O2 Flow Rate 2 10/10/24 06:45 BMI result Body Mass Index 38.1 Const: General: comfortable, no acute distress and alert GI: Inspection: No distended Palpation (GI): Soft to palpation and nontender Skin: General skin exam: no rashes or lesions noted Transfer Discharge Sum: Data Data Completed and Pending Completed studies during hospitalization: Procedures Extirpation of Matter from Rectum, Via Natural or Artificial Opening (10/11/22) Transfer Discharge Sum: A/P Plan Overall status at transfer: patient is back to baseline
--- NOTE | 2024-10-13 10:19 | P.PNIM_ITS ---
Subjective Subjective Date of Service: 10/13/24 Interval History: He is tolerating regular diet. Physical Exam 2 Vital Signs: Vital Signs: Last Vital Signs Temp 97.8 F 10/13/24 07:51 Pulse 85 10/13/24 07:51 Resp 18 10/13/24 07:51 BP 150/69 H 10/13/24 07:51 Pulse Ox 91 L 10/13/24 07:51 O2 Del Method Room Air 10/13/24 07:51 O2 Flow Rate 2 10/10/24 06:45 BMI result Body Mass Index 38.1 Const: Other: alert, no distress cv rrr s1s2 lungs cta abdominal exam bening, +bs, nt neuro: nf deficit Objective Data Active Medications Al Hydroxide/Mg Hydroxide (Magnesium Hydrox/Alum Hydrox 30 Ml Oral.Susp) 30 ml PO Q4H PRN PRN Reason: GI upset Albuterol Sulfate (Albuterol Sulfate (0.083%) 2.5 Mg/3 Ml Vial.Neb) 2.5 mg INHALE RQ6H WHILE AWAKE PRN PRN Reason: Shortness Of Breath Or Wheezing Amlodipine Besylate (Amlodipine Besylate 10 Mg Tablet) 10 mg PO DAILY [facility]; Protocol Last Admin: 10/13/24 08:44 Dose: 10 mg Documented By: GERMANIA Atorvastatin Calcium (Atorvastatin Calcium 10 Mg Tablet) 10 mg PO BEDTIME [facility] Last Admin: 10/12/24 21:07 Dose: 10 mg Documented By: TONY Bisacodyl (Bisacodyl 10 Mg Supp.Rect) 10 mg MS DAILY PRN PRN Reason: Constipation Docusate Sodium (Docusate Sodium 100 Mg Capsule) 100 mg PO BEDTIME [facility] Last Admin: 10/12/24 21:07 Dose: 100 mg Documented By: TONY Fluticasone/Vilanterol (Fluticasone/Vilanterol 100/25 Blst.W.Dev) 1 puff INHALE RDAILY [facility] Last Admin: 10/13/24 07:44 Dose: Not Given Documented By: SANDY Non-Admin Reason: Patient Asleep Guaifenesin (Guaifenesin 200 Mg/10 Ml 10 Ml Liquid) 10 ml PO Q4H PRN PRN Reason: Cough Acetaminophen (Ofirmev) 1,000 mg in 100 mls @ 400 mls/hr IV Q6H PRN PRN Reason: Pain, Mild 1-3,fever,headache Lorazepam (Lorazepam 2 Mg/Ml Vial) 2 mg IVPUSH ONCE PRN PRN Reason: restlessness Last Admin: 10/09/24 21:30 Dose: 2 mg Documented By: EMIR Metoprolol Tartrate (Metoprolol Tartrate 50 Mg Tablet) 50 mg PO BID [facility]; Protocol Last Admin: 10/13/24 08:44 Dose: 50 mg Documented By: GERMANIA Morphine Sulfate (Morphine Sulfate 4 Mg/Ml Cartridge) 3 mg IVPUSH Q4H PRN; Protocol PRN Reason: Pain, Severe (Pain Scale 7-10) Multivitamins/Vitamin C (Multivitamin Tablet) 1 tab PO DAILY [facility] Last Admin: 10/13/24 08:44 Dose: 1 tab Documented By: GERMANIA Naloxone HCl (Naloxone Hcl Nasal 4 Mg [place]) 4 mg NOSTRILALT Q3M PRN PRN Reason: Opioid Overdose Olanzapine (Olanzapine 5 Mg Tablet) 5 mg PO BEDTIME [facility] Last Admin: 10/12/24 21:07 Dose: 5 mg Documented By: TONY Omeprazole (Omeprazole 20 Mg Capsule.Dr) 20 mg PO DAILY@0630 [facility] Last Admin: 10/13/24 06:22 Dose: 20 mg Documented By: TONY Ondansetron HCl (Ondansetron Odt 4 Mg Tab.Rapdis) 4 mg TRANSLINGU Q4H PRN PRN Reason: Nausea Polyethylene Glycol (Polyethylene Glycol 3350 17 Gm Powd.Pack) 17 gm PO BID [facility] Last Admin: 10/13/24 08:44 Dose: 17 gm Documented By: GERMANIA Senna (Sennosides 8.6 Mg Tablet) 8.6 mg PO DAILY PRN PRN Reason: Constipation Sodium Biphosphate/Sodium Phosphate (Sodium Phosphate,[place]-Dibasic 133 Ml Enema) 118 ml [place] DAILY PRN PRN Reason: Constipation Sodium Chloride (0.9 % Sodium Chloride Flush 3 Ml Syringe) 3 ml IVFLUSH QSHIFT [facility] Last Admin: 10/13/24 08:43 Dose: 3 ml Documented By: GERMANIA Tramadol HCl (Tramadol Hcl 50 Mg Tablet) 50 mg PO TID PRN PRN Reason: Pain, Moderate(Pain Scale 4-6) Last Admin: 10/10/24 20:11 Dose: 50 mg Documented By: FRANCISCO Labs 10/12/24 05:40 10/13/24 08:01 Labs: Laboratory Results - last 24 hr 10/13/24 08:01 Hold Purple Top SEE NOTE Anion Gap 13 Estim Creat Clear Calc 188.8 Estimated GFR > 60 Random Glucose 109 Calcium 8.4 Assessment and Plan (1) Partial obstruction of small intestine: Status: Acute Plan 54-year-old male from [facility] long-term care facility with a history of hypertension (HTN), hyperlipidemia (HLD), early dementia, and mood disorder presented to the ED with acute onset of coffee-ground emesis and upper abdominal pain. CT abdomen and pelvis: High-grade small bowel obstruction (SBO) Small Bowel Obstruction (SBO): conservatively managed, and clinically resolved Nasogastric tube (NGT) removed, eating regular diet Management per surgery Hypokalemia--oral replacement Upper GI Bleeding (Coffee-Ground Emesis), appear self-limitted and H/H is stable IV PPI to oral PPI once eating Monitor hemoglobin and hematocrit (H&H) No indication for GI at this time. Hypertension (HTN): Continue home meds Hyperlipidemia (HLD): Continue atorvastatin (Lipitor) Mood Disorder: Continue olanzapine at bedtime DVT Prophylaxis: sequential compression devices Consider pharmacologic prophylaxis as appropriate based on further bleeding risk assessment Medically okay to discharge once potassium level is replete level may be recheck on outpatient basis. Quality Stroke Does the patient have a stroke diagnosis?: No VTE Prior VTE?: No VTE Risk Level:: Medical - moderate - high VTE Device Contraindication: N/A - Device Ordered VTE Drug Contraindication: Treatment Not Indicated
[2024-10-13] MEDS: Potassium Chloride Packet 20 MEQ PACKET 40 MEQ PO (10:55)
--- NOTE | 2024-10-13 12:09 | MHC.CM.PN ---
PT CLEARED TO RETURN TO LTC AT [facility] CM ATTEMPTED TO CONTACT PTS MOTHER/GUARDIAN, ROMEO CARMONA [phone], A VM WAS LEFT BLS TRANSPORT ARRANGED VIA [facility] FOR 1500 HOURS
--- NOTE | 2024-10-13 14:34 | MHC.SL.SWA ---
Speech Pathologist Impression: Risk of Aspiration Due to: Dysphasia Diet Status: Recommend continue on diet of Chopped/Advanced (NDD3) with [place] Thick Liquids, Pills crushed in puree. Liquid Consistency and Strategies for Safe Swallow: Liquid Intake Recommendation: [place] Thick Liquid Intake Strategies: Small Sips Solid Food Consistency: Dietary Recommendations: Chopped/Advanced (NDD3) Additional Modifications to Solid Foods: Patient still requires full supervision with assistance as needed, however encourage independence when possible. Oral Medication Intake: Crushed with Puree Please contact the pharmacy regarding appropriate crushable or liquid drug formulations that are available whenever modified delivery is recommended. Compensatory Strategies and Precautions to be Taken for Safe Swallow: Sitting Upright (90 deg) Liquids from Cup Small Bites and Sips Alternate Liquids/Solids Supervision While Eating and Drinking for Safe Swallow: Total Assistance (1:1) Foods to Avoid: Swallowing Recommended Treatments: Compens. Strategy Educat. Recommendation for Speech: Inpatient Speech Therapy Comment: Patient seen at lunch today, with sitter present and closely monitoring patient during his meals. Patient was finishing meal independently at onset of visit, had positioned plate on stomach to allow ease of scooping food, and managed this well. Per sitter, patient feeding self was improvement over this morning when he assisted feeding him, noted patient was coughing frequently. No coughing noted while patient was eating independently. Patient was observed also independently taking sips of NT liquid from cup, preferred having sip cup lid removed, also tolerated well. Patient expressed satisfaction with meal and was pleased to be able to eat independently. Recommend continue on diet of Chopped/Advanced (NDD3) with [place] Thick Liquids, Pills crushed in puree. Frequency/Duration: Date Range for Service Req: Timeline to reassess: Machine Inspector Clinican/Clinical Fellow: No Supervisory Statement: I have reviewed and agree with the student/clinical fellow's documentation: N/A Speech Language Pathologist: [place] Jhaveri M.A., CCC-MASTER AT [employer]
[2024-10-13] MEDS: traMADoL HCL 50 MG TABLET PO (14:55)
[2024-10-13 15:21] VITALS: BP 151/72; TEMP 36.9; O2SAT 97
== END 2024-10-13 17:19 | DRG 389 ==
LOC: HO.ED 10:27 → HO.EDOVER 10:31 → HO.S3 10-10 11:18
PROVIDERS: Internal Medicine; Physician Assistant Medical; Admitting Provider Surgery; Emergency Provider Emergency Medicine; PCP Hospitalist; Visit Provider Surgery
DX: K56.600 Partial intestinal obstruction, unspecified as to cause (principal); K92.0 Hematemesis; F03.90 Unspecified dementia, unspecified severity, without behavioral disturbance, psychotic disturbance, mood disturbance, and anxiety; E87.6 Hypokalemia; R13.12 Dysphagia, oropharyngeal phase; F39 Unspecified mood [affective] disorder; I10 Essential (primary) hypertension; E78.5 Hyperlipidemia, unspecified; K21.9 Gastro-esophageal reflux disease without esophagitis; I72.4 Aneurysm of artery of lower extremity; Z20.822 Contact with and (suspected) exposure to COVID-19; Z79.82 Long term (current) use of aspirin; Z79.51 Long term (current) use of inhaled steroids; Z79.899 Other long term (current) drug therapy
CPT/HCPCS: 0241U; 36415; 71045; 74018; 74178; 80048; 80053; 81001; 83735; 84484; 85025; 85027; 85610; 85730; 86850; 86900; 86901; 92507; 92610; 94640; 99285; J2003; J2060; J2405; J2470; Q9967

== ENCOUNTER → 2024-10-09 07:54 | Outpatient (BNV) | payer MEDICARE, MEDICAID, SELFPAY | PROVIDERS: Emergency Provider Emergency Medicine; PCP Hospitalist; Visit Provider Radiology Diagnostic Radiology | DX: K56.600 Partial intestinal obstruction, unspecified as to cause (principal); Z46.59 Encounter for fitting and adjustment of other gastrointestinal appliance and device; R05.9 Cough, unspecified | CPT/HCPCS: 71045 ==

== ENCOUNTER 2024-10-09 10:05 | Outpatient (BNV) | payer MEDICARE, MEDICAID, SELFPAY | END 2024-10-10 11:20 | PROVIDERS: Admitting Provider Surgery; Emergency Provider Emergency Medicine; PCP Hospitalist; Visit Provider Radiology Diagnostic Radiology | DX: J98.11 Atelectasis (principal); J90 Pleural effusion, not elsewhere classified | CPT/HCPCS: 71045 ==

== ENCOUNTER 2024-10-09 10:05 | Outpatient (BNV) | payer MEDICARE, MEDICAID, SELFPAY | END 2024-10-11 09:00 | PROVIDERS: Admitting Provider Surgery; Emergency Provider Emergency Medicine; PCP Hospitalist; Visit Provider Radiology Diagnostic Radiology | DX: K56.600 Partial intestinal obstruction, unspecified as to cause (principal); J98.11 Atelectasis | CPT/HCPCS: 74018 ==

== ENCOUNTER → 2024-10-09 10:05 | Outpatient (BNV) | payer MEDICARE, MEDICAID, SELFPAY | PROVIDERS: Admitting Provider Surgery; Emergency Provider Emergency Medicine; PCP Hospitalist; Visit Provider Internal Medicine | DX: K56.600 Partial intestinal obstruction, unspecified as to cause (principal) | CPT/HCPCS: 99222; 99232 ==

== ENCOUNTER → 2024-10-09 10:05 | Outpatient (BNV) | payer MEDICARE, MEDICAID, SELFPAY | PROVIDERS: Admitting Provider Surgery; Emergency Provider Emergency Medicine; PCP Hospitalist; Visit Provider Surgery | DX: K56.600 Partial intestinal obstruction, unspecified as to cause (principal) | CPT/HCPCS: 99223 ==

== ENCOUNTER → 2024-10-09 10:05 | Outpatient (BNV) | payer MEDICARE, MEDICAID, SELFPAY | PROVIDERS: Admitting Provider Surgery; Emergency Provider Emergency Medicine; PCP Hospitalist; Visit Provider Physician Assistant Surgical | DX: I72.4 Aneurysm of artery of lower extremity (principal) | CPT/HCPCS: 99222; 99232 ==

== ENCOUNTER 2024-11-08 10:34 | Outpatient (AMB) | payer MEDICARE, MEDICAID, SELFPAY ==
--- NOTE | 2024-11-08 10:32 | MHC.OFFVIS ---
Intake Visit Reasons: hosp follow up fem psuedoanuerysm Intake Note: Patient presents for psuedoanuerysm. Accompanied by: HAND SHAPER Allergies No Known Allergies Allergy (Verified 11/08/24 10:41) HPI HPI hosp follow up fem psuedoanuerysm: Details: The patient is a 54-year-old male presenting with a left groin pseudoaneurysm. This was detected during a CT scan on October 09, 2024, conducted due to abdominal pain and suspected GI bleed amidst a workup for a small bowel obstruction. Following this, he was moved to a rehabilitation facility on October 13, 2024. He reports persistent sensations of his leg falling asleep and associated leg pain. It is unclear what his previous medical history was and whether he had prior cardiac catheterizations. [facility] Medical History Osteoarthritis Mood disorder COPD (chronic obstructive pulmonary disease) Dysarthria Obesity HTN (hypertension) Dementia Social History Household Members: None Housing: Senior Care Do you presently have visiting nurse or other home services: No Unable to assess alcohol history related to: Unknown Alcohol intake: never Comment: 1:1 sitter. Patient Tobacco Use Status: Former Tobacco user service: No Current occupational status: disabled Review of Systems Const All systems reviewed & are unremarkable except as noted in HPI and below Reports no additional complaints ENT Reports Normal hearing present Card Denies chest pain, Denies chest pain at rest, Denies chest pain with activity and Denies pedal edema Resp Denies cough GI Denies abdominal pain Musc Denies abnormal gait, Denies muscle cramps and Denies radiating pain into limb Skin/Breast Denies skin ulcer and Denies wounds Neuro Reports Normal hearing present and Denies abnormal gait Psych Reports no additional complaints Physical Exam Const General: cooperative, healthy appearing and comfortable Orientation/consciousness: oriented to person, oriented to place and oriented to time HEENT Head: Yes normal to inspection Neck Neck: Yes normal visual inspection Carotids: no bruits Chest Chest palpation & inspection: normal inspection of the chest Resp Effort & Inspection: normal respiratory effort and able to speak in complete sentences Auscultation: clear to auscultation bilaterally, no crackles, no rales, no rhonchi and no wheezes Cardio Other: Very prominent left femoral pulse Rate: regular rate Rhythm: regular rhythm Heart sounds: S1 normal heart sound present and S2 normal heart sound present Bruits: no carotid bruits Peripheral pulses: Peripheral pulses 2+ throughout GI Inspection: Yes normal to inspection Skin Wounds: no wounds Hair: normal Neuro General: oriented to person, oriented to place and oriented to time Cranial nerves: Yes CN's II-XII intact bilaterally and Yes Normal hearing present Cognition (Neuro): normal cognition Motor exam (neuro): 5/5 motor strength present throughout Extrem Other: venous exam: No significant superficial varicosities or spider telangiectasias, minimal edema General: No clubbing, No cyanosis and No edema Psych Appearance: grossly normal Mental Status: mental status grossly normal Speech and movement: Normal speech and movement present Results Reviewed Results Reviewed: CT scan from 10/09/2024 was reviewed and does demonstrate a left femoral pseudoaneurysm Assessment & Plan Assessment & Plan (1) Femoral artery pseudo-aneurysm, left: Code(s): I72.4 - Aneurysm of artery of lower extremity Category: Medical Plan: I discussed with the patient the likely presence of a left groin pseudoaneurysm detected on a previous CT scan. The importance of conducting a vascular ultrasound was highlighted to assess blood flow in the lower limb and accurately determine the condition's scope. The potential for pain and paresthesia to be related to vascular insufficiency was noted. I explained all risks, benefits, and alternatives of monitoring and further investigation, ensuring the patient is informed of the ultrasound's necessity. Follow-up planning involves reevaluation post-ultrasound to decide further management strategies based on the precise findings. The patient understood and consented to this plan, eager to proceed with the evaluation. Plan Patient was informed and verbally consented to the use of an ambient scribe for clinic note documentation during this visit. Orders: Orders US arterial duplex LE LT 1 Week I72.4 - Aneurysm of artery of lower extremity Patient Instructions: - Undergo the vascular ultrasound as scheduled. - Monitor for any changes in symptoms, especially increased leg pain or changes in sensation. - Follow up after the ultrasound to discuss results and further management options. - Maintain open communication about any new symptoms or concerns. Coding Level of Care Code Est Pt Level 4 (08607) Complex EM visit Add On G2211 Diagnoses Femoral artery pseudo-aneurysm, left I72.4
--- OUTSIDE RECORDS SUMMARY | 2024-11-08 12:38 | XMS_ITS | Encounter Summary ---
Author Organization [facility] Address [address] [place] [address] Care Team Providers Care Edge Kitter Name Role Phone Jose Manuel Ontiveros MD Primary Care Provider [phone] Reason for Referral * Imaging (Routine) - Authorized Specialty Diagnoses / Procedures Referred By Contac t Referred To Contact Cardiology Diagnoses Abnormal EKG Procedures Transthoracic echocardiogram (TTE) complete with PRN contrast, bubble, strain, and 3D order panel GA TTE W 2D IMAGE COMPLETE W DOPPLER ECHO & COLOR FLOW DOPPLER ECHO GA JOSR 2D COMPLETE W/CONTRAST OR W & WO CONTRAST WITH DOPPLER Mandie Higginbotham NP [address] [place] [address] [address] [place] [address] Phone: tel: fax: [facility] Referral ID Status Reason Start Date Expiration Date V isits Requested Visits Authorized [id number] Authorized 10/25/2024 10/25/2025 1 1 Reason for Visit * Reason Comments Follow-up 1 Year follow up Encounter Details Date Type Department Care Team (Latest Contact Info) Description 10/25/2024 1:10 PM EST Office Visit [facility] Cardiology [facility] [address] [place] [address] Mandie Higginbotham NP [address] [place] [address] Dr [address] [place] [address] Pure hypercholesterolemia (Primary Dx); Abnormal EKG Social History Tobacco Use Types Packs/Day Years [...] on file documented as of this encounter Last Filed Vital Signs Vital Sign Reading Time Taken Comments Blood Pressure 102/60 10/25/2024 1:20 PM EST Pulse 90 10/25/2024 1:20 PM EST Temperature - - Respiratory Rate - - Oxygen Saturation 94% 10/25/2024 1:20 PM EST Inhaled Oxygen Concentration - - Weight 113 kg (250 lb) 10/25/2024 1:20 PM EST Height 181.6 cm (5' 11.5 ) 10/25/2024 1:20 PM ES T Body Mass Index 34.38 10/25/2024 1:20 PM EST documented in this encounter Progress Notes * Mandie Anahy, SENIOR PASTOR - 10/25/2024 1:10 PM EST Images from the original note were not included. [facility] PRIMARY ENTRY LEVEL ACCOUNTANT: Previously seen by Dr. Aristeo Castillo PCP: Jose Manuel Ontiveros MD HPI: Jose Manuel García is a 54 y.o. old male with history of hypertension, hyperlipidemia, CVA, and dementia. Patient is wheelchair-bound. He was last seen by Dr. Castillo 05/2023. Patient had a nuclear stress test using a pharmacological protocol in 2008 which showed no evidenceof ischemia or infarction. I have obtained verbal consent from Jose Manuel García prior to the recording. I have advised Jose Manuel García that he may refuse the recording and require the recording to be turned off at any time during this encounter. History of Present Illness The patient presents today for a routine cardiac follow-up with a history of hypertension and hyperlipidemia. He has been under the care of Dr. Castillo for his hypertension, which he reports as being elevatedin the past. He is currently residing in a facility where his blood pressure is intermittently monitored. He believes his blood pressure is well-managed. He has made lifestyle modifications, including dietary changes such as avoiding greasy foods, salt, and popsicles, and has successfully quit smoking. He reports no issues with medication adherence. His current antihypertensive regimen includes amlodipine 10 mg daily, lisinopril 40 mg daily, and metoprolol 50 mg twice daily. He reports no history of myocardial infarction or angina. His mobility is limited, primarily transitioning from bed to wheelchair, and he spends the majority of his day in the wheelchair. He does notexperience dyspnea. Supplemental Information He has a history of stroke and seizure, which occurred following an accident in 1967. This incidentresulted in him becoming wheelchair-bound and requiring residence in a facility. He also reports experiencing abdominal cramps. ACTIVE MEDICATIONS: Current Outpatient Medications Medication Instructions acetaminophen (TYLENOL) 325 mg tablet Take by mouth every 6 hours as needed. amLODIPine (NORVASC) 10 mg tablet Take by mouth daily. aspirin 81 mg EC tablet Take by mouth daily. atorvastatin (LIPITOR) 10 mg tablet Take 10 mg by mouth daily. bisacodyL (DULCOLAX (BISACODYL)) 10 mg, Daily PRN docusate sodium (COLACE) 100 mg, Daily fluticasone furoate-vilanteroL (BREO ELLIPTA) 100-25 mcg/dose inhaler 1 (one) time each day. guaiFENesin (ROBITUSSIN) 100 mg/5 mL liquid 10 mL, Every 4 hours PRN ipratropium-albuteroL (DUONEB) 0.5-2.5 mg/3 mL nebulizer solution 3 mL, As needed lisinopril (PRINIVIL,ZESTRIL) 40 mg tablet Take by mouth daily. metoprolol tartrate (LOPRESSOR) 50 mg tablet Take 50 mg by mouth 2 times daily. MULTIVITAMIN ORAL 1 tablet, Daily naloxone (NARCAN) 4 mg, As needed OLANZapine (ZyPREXA) 5 mg tablet Take 1 Tablet by mouth at bedtime. omeprazole (PriLOSEC) [address] capsule Take 20 mg by mouth daily. ondansetron (ZOFRAN) 4 mg, Every 4 hours PRN polyethylene glycol (MIRALAX) 17 g, Daily senna (SENOKOT) 8.6 mg tablet Take 1 Tablet by mouth as needed. sodium phosphate (Fleet Enema) 19-7 gram/118 mL enema Daily PRN traMADoL (ULTRAM) 50 mg tablet Take 1 Tablet by mouth 3 times daily. turmeric root extract 500 mg capsule 1 capsule 2 (two) times a day. PAST MEDICAL HISTORY: Patient Active Problem List Diagnosis Cerebral infarction due to cerebral artery occlusion (CMS/HCC) Essential hypertension Pure hypercholesterolemia ALLERGIES: No Known Allergies SOCIAL HISTORY: Social History Tobacco Use Smoking status: Never Smokeless tobacco: Never Substance Use Topics Alcohol use: Not Currently PHYSICAL EXAM: Vitals: 10/25/24 1320 BP: 102/60 BP Location: Right arm Patient Position: Sitting BP Cuff Size: Adult Pulse: 90 SpO2: 94% Weight: 113 kg (250 lb) Height: 1.816 m (71.5 ) Physical Exam Constitutional: General: He is not in acute distress. Appearance: He is not diaphoretic. HENT: Head: Normocephalic. Eyes: Pupils: Pupils are equal, round, and reactive to light. Neck: Vascular: No carotid bruit. Cardiovascular: Rate and Rhythm: Normal rate and regular rhythm. Pulses: Normal pulses. Heart sounds: Normal heart sounds. No murmur heard. No friction rub. Pulmonary: Effort: Pulmonary effort is normal. No respiratory distress. Breath sounds: No stridor. Wheezing present. No rhonchi or rales. Chest: Chest wall: No tenderness. Abdominal: General: Bowel sounds are normal. There is no distension. Palpations: Abdomen is soft. Tenderness: There is no abdominal tenderness. Musculoskeletal: General: No deformity. Cervical back: Normal range of motion. Right lower leg: No edema. Left lower leg: No edema. Skin: General: Skin is warm and dry. Neurological: Mental Status: He is alert and oriented to person, place, and time. Mental status is at baseline. Sensory: Sensory deficit present. Motor: Weakness present. Coordination: Coordination abnormal. Comments: Wheelchair-bound Psychiatric: Mood and Affect: Mood normal. EKG: Encounter Date: 10/25/24 ECG 12 lead Result Value Ventricular Rate ECG 89 Atrial Rate 89 P-R Interval 200 QRS Duration 106 Q-T Interval 368 QTc 447 P Wave [place] 35 R [place] 73 T [place] 40 ECG Interpretation Normal sinus rhythm Cannot rule out Inferior infarct , age undetermined Cannot rule out Anterior infarct , age undetermined Abnormal ECG No previous ECGs available *Note: Due to a large number of results and/or encounters for the requested time period, some results have not been displayed. A complete set of results can be found in Results Review. TESTING: Lab Results Component Value Date CHOL 115 08/22/2024 CHOL 110 07/07/2024 Lab Results Component Value Date HDL 38 (L) 08/22/2024 HDL 35 (L) 07/07/2024 Lab Results Component Value Date LDLCALC 55 08/22/2024 LDLCALC 52 07/07/2024 Lab Results Component Value Date TRIG 110 08/22/2024 TRIG 116 07/07/2024 Lab Results Component Value Date CHOLHDL 3.0 08/22/2024 CHOLHDL 3.1 07/07/2024 ASSESSMENT/PLAN: As per AHA guidelines and previously established plan of care , we discussed the following today: Assessment & Plan 1. Hypertension. His blood pressure is under excellent control with a reading today of 102/60. He will continue on amlodipine 10 mg once a day, lisinopril 40 mg once a day, and metoprolol 50 mg two times a day as prescribed. 2. Hyperlipidemia. He continues on atorvastatin. Last LDL 55. 3. Abnormal EKG. His EKG today shows normal sinus rhythm with Q waves noted in inferior leads. An echocardiogram will be arranged for completeness. If the echocardiogram is within normal limits, he does not need to return for ongoing cardiac care unless symptoms develop. I personally spent a total of 67 minutes, including both cpmi-ki-ikwe and tcl-negv-ky-face time on the date of the encounter, addressing the above diagnoses. Extensive review of records dating back to 2013. Patient has been following with Dr. Castillo for 10 yrs for hypertension and hyperlipidemia. [facility] Cosigned by Franc Smith MD at 10/25/2024 5:51 PM EST documented in this encounter Plan of Treatment Upcoming Encounters Date Type Department Care Team (Late st Contact Info) Description 12/30/2024 9:00 AM EDT Ancillary Procedure [facility] - [address] [place] [address] Scheduled Orders Name Type Priority Associated Diagnoses Order Schedule Transthoracic echocardiogram (TTE) complete with PRN contrast, bubble, strain, and 3D order panel Echocardiography Routine Abnormal EKG 1 Occurrences starting 10/25/2024 until 10/25/2025 documented as of this encounter Procedures Procedure Name Priority Date/Time Associated Diagnosis Comments ECG 12-LEAD Routine 10/25/2024 4:01 PM EST Pure hypercholesterolemia documented in this encounter Results * ECG 12 lead (10/25/2024 4:01 PM EST) Ventricular Rate ECG 89 BPM GEMUSE Atrial Rate 89 BPM GEMUSE P-R Interval 200 ms GEMUSE QRS Duration 106 ms GEMUSE Q-T Interval 368 ms GEMUSE QTc 447 ms GEMUSE P Wave [place] 35 degrees GEMUSE R [place] 73 degrees GEMUSE T [place] 40 degrees GEMUSE ECG Interpretation Normal sinus rhythm Cannot rule out Inferior infarct , age undetermined Cannot rule out Anterior infarct , age undetermined Abnormal ECG No previous ECGs available Confirmed by FRANC SMITH ([id number]) on 10/25/2024 5:03:42 PM GEMUSE 10/25/2024 1:43 PM EST 10/25/2024 5:03 PM EST us Mandie Higginbotham NP ECG ORDERABLES Edited Resul t - Final KEVIN documented in this encounter Visit Diagnoses Diagnosis Pure hypercholesterolemia- Primary Abnormal EKG Nonspecific abnormal electrocardiogram (ECG) (EKG) documented in this encounter Discontinued Medications Medication Sig Discontinue Reason Start Date End Da te loperamide (IMODIUM) 2 mg capsule Take 2 Capsules by mouth daily. Discontinued by another clinician 10/25/2024 ibuprofen (ADVIL,MOTRIN) 800 mg tablet Take 800 mg by mouth every 8 hours as needed. Discontinued by another clinician 10/25/2024 documented as of this encounter Historical Medications * This list may reflect changes made after this encounter. polyethylene glycol (Miralax) 17 gram/dose oral powder Take 17 g by mouth 1 (one) time each day. MULTIVITAMIN ORAL Take 1 tablet by mouth 1 (one) time each day. naloxone (Narcan) 4 mg/0.1 mL nasal spray Administer 1 each (4 mg total) into affected nostril(s) if needed for opioid reversal. Give 4 mg (1 spray) into one nostril. May repeat every 2-3 minutes if needed, alternating nostrils, until medical assistance becomes available. ondansetron (ZOFRAN) 4 mg tablet Take 1 tablet (4 mg total) by mouth every 4 (four) hours if needed for nausea or vomiting. guaiFENesin (ROBITUSSIN) 100 mg/5 mL liquid Take 10 mL by mouth every 4 (four) hours if needed for cough. sodium phosphate (Fleet Enema) 19-7 gram/118 mL enema Insert into the rectum 1 (one) time each day if needed. bisacodyL (Dulcolax, bisacodyl,) 10 mg suppository Insert 1 suppository (10 mg total) into the rectum 1 (one) time each day if needed for constipation. docusate sodium (COLACE) 100 mg capsule Take 1 capsule (100 mg total) by mouth 1 (one) time each day. ipratropium-albut Maryjane (DUONEB) 0.5-2.5 mg/3 mL nebulizer solution Take 3 mL by nebulization if needed for wheezing. added in this encounter Care Teams Edge Kitter Relationship Specialty Start Date End Date Jose Manuel Ontiveros MD [address] [place] [address] Dr [address] [facility] KELSEY Feldman PCP - General 12/13/12 documented as of this encounter
--- OUTSIDE RECORDS SUMMARY | 2024-11-08 12:38 | XMS_ITS | Clinical Summary ---
Author Organization [employer] Address [address] [facility] [address] [place] [address] Care Team Providers Care Real Estate Associate Attorney Name Role Phone Unavailable Primary Care Provider Unavailabl e Social History Tobacco Use Types Packs/Day Years Used Date Smoking Tobacco: Never Assessed Sex and Gender Information Value Date Recorded Sex Assigned at Male 06/30/2022 10:33 AM EDT Legal Sex Male 10:33 AM EDT Gender Identity Not on file Sexual Orientation Not on file Plan of Treatment Health Maintenance Due Date Last Done Comments CT Colonography 1968 Colonoscopy 1968 Colorectal Cancer Screening 1968 Depression Screening 1968 FIT DNA/Cologuard 1968 FIT 1968 FOBT 1968 Lipid Panel 1968 Sigmoidoscopy 1968 Alcohol/Substance Use Screening 1980 Tobacco Screening 1980 DTaP/Tdap/Td Vaccines (1 - Tdap) 1987 Hepatitis B Vaccines (1 of 3 - 19+ 3-dose series) 1987 Pneumococcal Vaccine: 50+ Ye ars (1 of 1 - PCV) 2018 Zoster Vaccines (1 of 2) 2018 COVID-19 Vaccine ( - 2023-2 5 season) 2024 Influenza Vaccine (#1) 2024 RSV Patients and Pa tients Aged 60 years or older (1 - 1-dose 75+ series) 2043 HIB Vaccines Aged Out No longer eligi [...] patient's age to complete this topic Meningococcal Vaccine Aged Out No boby claudia eligible based on patient's age to complete this topic Pneumococcal Vaccine: Pediat rics (0 to 5 Years) and At-Risk Patients (6 to 49) Years) Aged Out No longer eligible b ased on patient's age to complete this topic RSV under 20 months Aged Out No longe r eligible based on patient's age to complete this topic Rotavirus Vaccines Aged Out No longer eligible based on patient's age to complete this topic
--- OUTSIDE RECORDS SUMMARY | 2024-11-08 12:38 | XMS_ITS | Encounter Summary ---
Author Organization [facility] Address [address] [place] [address] Care Team Providers Care Curing Room Supervisor Name Role Phone Jose Manuel Ontiveros MD Primary Care Provider [phone] Reason for Visit * Reason Onset Date Comments vascular consult 10/26/2024 Encounter Details Date Type Department Care Team (Late st Contact Info) Description 10/26/2024 Telephone [facility] Cardiology [facility] [address] [place] [address] [address] [place] [address] Mandie Higginbotham NP [address] [place] [address] [address] [place] [address] vascular consult Social History Tobacco Use Types Packs/Day Years [...] on file documented as of this encounter Progress Notes * Eduarda Douglas RN - 10/26/2024 1:52 PM EST I spoke to Jannette. She stated pt was consulted by Vascular Surgery at [facility] earlier this month and they recommended outpatient follow up on the finding of left femoral artery pseudoaneurysm. Jannette would like pt to follow up with our vascular team instead of [facility]. * Eduarda Douglas RN - 10/26/2024 9:23 AM EST Shakila, can you obtain the records from [facility] visit on 10/09/24? Thank you. * Yecenia Graham - 10/26/2024 8:50 AM EST I called the patient to schedule the echocardiogram ordered yesterday. I was transferred to his line palletizer Jannette at [facility] and she scheduled the echo with me. 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 She was under the impression he would get a vascular consult but it was not mentioned during the visit. She is requesting a callback at [phone]. documented in this encounter Plan of Treatment Upcoming Encounters Date Type Department Care Team (Late st Contact Info) Description 12/30/2024 9:00 AM EDT Ancillary Procedure [facility] - [address] [place] [address] documented as of this encounter Visit Diagnoses Not on filedocumented in this encounter Care Teams Curing Room Supervisor Relationship Specialty Start Date End Date Jose Manuel Ontiveros MD [address] [place] [address] [address] [place], [place] PCP - General 12/13/12 documented as of this encounter
--- OUTSIDE RECORDS SUMMARY | 2024-11-08 12:39 | XMS_ITS | Encounter Summary ---
Author Organization [email or web address] Address [address] [facility] [address] [place] [address] Care Team Providers Care Senior Data Quality Analyst Name Role Phone Unavailable Primary Care Provider Unavailabl e Encounter Details Date Type Department Care Team (Latest Contact Info) Description 04/08/2019 Abstract [facility] Dental, Provider, DDS Social History Tobacco Use Types Packs/Day Years Used Date Smoking Tobacco: Never Assessed Sex and Gender Information Value Date Recorded Sex Assigned at Male 06/30/2022 10:33 AM EDT Legal Sex Male 10:33 AM EDT Gender Identity Not on file Sexual Orientation Not on file documented as of this encounter Plan of Treatment Not on file documented as of this encounter Visit Diagnoses Not on filedocumented in this encounter
--- OUTSIDE RECORDS SUMMARY | 2024-11-08 12:39 | XMS_ITS | Encounter Summary ---
Author Organization [facility] Address [address] [place] [address] Care Team Providers Care Glost Kiln Placer Name Role Phone Jose Manuel Ontiveros MD Primary Care Provider Encounter Details Date Type Department Care Team (Late st Contact Info) Description 08/22/2024 Lab Requisition [facility] - Main Lab [address] [facility] [place] [address] Jose Manuel Ontiveros MD [address] [place] [address] [address] [place], [place] Obesity, unspecified; Dysphagia, oropharyngeal phase; Encounter for screening for malignant neoplasm of prostate; Hyperlipidemia, unspecified; Other specified intracranial injury without loss of consciousness, initial encounter (CMS/[facility]) Social History Tobacco Use Types Packs/Day Years [...] Description 12/30/2024 9:00 AM EDT Ancillary Procedure [facility] [address] [place] [address] documented as of this encounter Procedures Procedure [...] injury without loss of consciousness, initial encounter ([facility]) Obesity, unspecified CBC WITH AUTO DIFFERENTIAL Routine 08/22/2024 6:45 AM EST Dysphagia, oropharyngeal phase Encounter for screening for malignant neoplasm of prostate Hyperlipidemia, unspecified Other specified intracranial injury without loss of consciousness, initial encounter ([facility]) Obesity, unspecified CBC AND DIFFERENTIAL Routine 08/22/2024 6:45 AM EST Dysphagia, oropharyngeal phase Encounter for screening for malignant neoplasm of prostate Hyperlipidemia, unspecified Other specified intracranial injury without loss of consciousness, initial encounter ([facility]) Obesity, unspecified THYROID STIMULATING HORMONE Routine 08/22/2024 6:45 AM EST Dysphagia, oropharyngeal phase Encounter for screening for malignant neoplasm of prostate Hyperlipidemia, unspecified Other specified intracranial injury without loss of consciousness, initial encounter ([facility]) Obesity, unspecified COMPREHENSIVE METABOLIC PANEL Routine 08/22/2024 6:45 AM EST Dysphagia, oropharyngeal phase Encounter for screening for malignant neoplasm of prostate Hyperlipidemia, unspecified Other specified intracranial injury without loss of consciousness, initial encounter ([facility]) Obesity, unspecified documented in this encounter Results * (ABNORMAL) CBC auto differential (08/22/2024 6:45 AM EST) WBC 9.6 4.8 - 10.8 K/mcL LAB HEMETOLOGY METHOD 08/22/2024 8:34 AM EST [facility] RBC 5.30 4.50 - 5.50 M/[facility] LAB HEMETOLOGY METHOD 08/22/2024 8:34 AM EST [facility] Hemoglobin 14.3 13.5 - 17.5 g/dL LAB HEMETOLOGY METHOD 08/22/2024 8:34 AM EST [facility] Hematocrit 46.2 42.0 - 54.0 % LAB HEMETOLOGY METHOD 08/22/2024 8:34 AM [facility] MCV 87.2 79.0 - 98.0 FL LAB HEMETOLOGY METHOD 08/22/2024 8:34 AM [facility] MCH 27.0 27.0 - 32.0 pcg LAB HEMETOLOGY METHOD 08/22/2024 8:34 AM [facility] MCHC 31.0(L) 32.0 - 37.0 g/dL LAB HEMETOLOGY METHOD 08/22/2024 8:34 AM [facility] RDW 14.6 11.0 - 15.0 % LAB HEMETOLOGY METHOD 08/22/2024 8:34 AM [facility] Platelets 339 130 - 400 K/mcL LAB HEMETOLOGY METHOD 08/22/2024 8:34 AM [facility] MPV 9.6 7.0 - 11.0 FL LAB HEMETOLOGY METHOD 08/22/2024 8:34 AM [facility] NRBC 0.0 <1.0 % LAB HEMETOLOGY METHOD 08/22/2024 8:34 AM [facility] NRBC Absolute 0.00 <0.10 K/mcL LAB HEMETOLOGY METHOD 08/22/2024 8:34 AM [facility] Neutrophils Relative 67.7 % LAB HEMETOLOGY METHOD 08/22/2024 8:34 AM [facility] Lymphocytes Relative 17.8 % LAB HEMETOLOGY METHOD 08/22/2024 8:34 AM [facility] Monocytes Relative 8.1 % LAB HEMETOLOGY METHOD 08/22/2024 8:34 AM [facility] Eosinophils Relative 5.4 % LAB HEMETOLOGY METHOD 08/22/2024 8:34 AM [facility] Basophils Relative 0.4 % LAB HEMETOLOGY METHOD 08/22/2024 8:34 AM EST [facility] Immature Granulocytes Relative 0.6 % LAB HEMETOLOGY METHOD 08/22/2024 8:34 AM [facility] Neutrophils Absolute 6.51 1.50 - 7.00 K/mcL LAB HEMETOLOGY METHOD 08/22/2024 8:34 AM EST [facility] Lymphocytes Absolute 1.71 1.00 - 5.00 K/mcL LAB HEMETOLOGY METHOD 08/22/2024 8:34 AM EST [facility] Monocytes Absolute 0.78 0.20 - 1.00 K/mcL LAB HEMETOLOGY METHOD 08/22/2024 8:34 AM [facility] Eosinophils Absolute 0.52(H) 0.00 - 0.50 K/mcL LAB HEMETOLOGY METHOD 08/22/2024 8:34 AM EST [facility] Basophils Absolute 0.04 0.00 - 0.20 K/mcL LAB HEMETOLOGY METHOD 08/22/2024 8:34 AM [facility] Immature Granulocytes Absolute 0.06(H) 0.00 - 0.03 K/mcL LAB HEMETOLOGY METHOD 08/22/2024 8:34 AM [facility] Blood Venous blood specimen / Unknown 08/22/2024 6:45 AM EST 08/22/2024 7:25 AM EST us Jose Manuel Ontiveros MD LAB BLOOD ORDERABLES Final Resul t [facility] [address] [place] [address], * Prostate specific antigen diagnostic (08/22/2024 6:45 AM EST) PSA 1.68 0.00 - 4.00 ng/mL LAB CHEMISTRY METHOD 08/22/2024 9:48 AM EST [facility] Blood Venous blood specimen / Unknown 08/22/2024 6:45 AM EST 08/22/2024 7:25 AM EST Narrative [facility] - 08/22/2024 9:48 AM EST The Siemens Advia Centaur Chemiluminescent Immunoassay is used. Results obtained with different assay methods or kits cannot be used interchangeably. Results cannot be interpreted as absolute evidence of the presence or absence of malignant disease. us Jose Manuel Ontiveros MD LAB BLOOD ORDERABLES Final Resul t Performing Organization Address [facility]/ZIP Co de Phone Number [facility] [address] [place] [address], [place] [phone] * Thyroid stimulating hormone (08/22/2024 6:45 AM EST) TSH 2.06 0.40 - 4.00 mcIU/mL LAB CHEMISTRY METHOD 08/22/2024 9:47 AM EST [facility] Blood Venous blood specimen / Unknown 08/22/2024 6:45 AM EST 08/22/2024 7:25 AM EST us Jose Manuel Ontiveros MD LAB BLOOD ORDERABLES Final Resul t Performing Organization Address [facility]/ZIP Co de Phone Number [facility] [address] [place] [address], [place] [phone] * (ABNORMAL) Lipid panel with reflex to direct LDL (08/22/2024 6:45 AM EST) Cholesterol 115 0 - 200 mg/dL LAB CHEMISTRY METHOD 08/22/2024 9:37 AM EST [facility] Triglycerides 110 0 - 150 mg/dL LAB CHEMISTRY METHOD 08/22/2024 9:37 AM EST [facility] HDL 38(L) >=40 mg/dL LAB CHEMISTRY METHOD 08/22/2024 9:37 AM EST [facility] LDL Calculated 55 0 - 100 mg/dL LAB CHEMISTRY METHOD 08/22/2024 9:37 AM EST [facility] VLDL Cholesterol Kamron 22 mg/dL LAB CHEMISTRY METHOD 08/22/2024 9:37 AM EST [facility] Non HDL Chol. (LDL+VLDL) 77 <145 mg/dL LAB CHEMISTRY METHOD 08/22/2024 9:37 AM [facility] Chol/HDL Ratio 3.0 0.0 - 4.4 LAB CHEMISTRY METHOD 08/22/2024 9:37 AM [facility] Blood Venous blood specimen / Unknown 08/22/2024 6:45 AM EST 08/22/2024 7:25 AM EST us Jose Manuel Ontiveros MD LAB BLOOD ORDERABLES Final Resul t [facility] [address] [place] [address], * (ABNORMAL) Comprehensive metabolic panel (08/22/2024 6:45 AM EST) Sodium 139 133 - 145 mmol/L LAB CHEMISTRY METHOD 08/22/2024 8:44 AM [facility] Potassium 4.8 3.5 - 5.5 mmol/L LAB CHEMISTRY METHOD 08/22/2024 8:44 AM [facility] Chloride 107 96 - 110 mmol/L LAB CHEMISTRY METHOD 08/22/2024 8:44 AM [facility] CO2 28 21 - 32 mmol/L LAB CHEMISTRY METHOD 08/22/2024 8:44 AM [facility] Anion Gap 4 3 - 11 LAB CHEMISTRY METHOD 08/22/2024 8:44 AM [facility] Glucose 87 70 - 100 mg/dL LAB CHEMISTRY METHOD 08/22/2024 8:44 AM [facility] BUN 13 5 - 25 mg/dL LAB CHEMISTRY METHOD 08/22/2024 8:44 AM [facility] Creatinine 0.65(L) 0.70 - 1.30 mg/dL LAB CHEMISTRY METHOD 08/22/2024 8:44 AM [facility] eGFR 111 >=60 mL/min/1. 73m2 LAB CHEMISTRY METHOD 08/22/2024 8:44 AM [facility] Comment:Calculation based on the??Chronic Kidney Disease Epidemiology Collaboration (CKD-EPI) equation refit??without adjustment for race. BUN/Creatinine Ratio 20.0 LAB CHEMISTRY METHOD 08/22/2024 8:44 AM [facility] Calcium 8.9 8.5 - 10.5 mg/dL LAB CHEMISTRY METHOD 08/22/2024 8:44 AM [facility] AST (SGOT) 18 10 - 42 unit/L LAB CHEMISTRY METHOD 08/22/2024 8:44 AM [facility] ALT (SGPT) 21 10 - 60 unit/L LAB CHEMISTRY METHOD 08/22/2024 8:44 AM [facility] Alkaline Phosphatase 108 42 - 121 unit/L LAB CHEMISTRY METHOD 08/22/2024 8:44 AM [facility] Total Protein 7.1 6.0 - 8.0 g/dL LAB CHEMISTRY METHOD 08/22/2024 8:44 AM [facility] Albumin 3.4 3.2 - 5.0 g/dL LAB CHEMISTRY METHOD 08/22/2024 8:44 AM [facility] Total Bilirubin 0.3 0.0 - 1.4 mg/dL LAB CHEMISTRY METHOD 08/22/2024 8:44 AM [facility] Blood Venous blood specimen / Unknown 08/22/2024 6:45 AM EST 08/22/2024 7:25 AM EST us Jose Manuel Ontiveros MD LAB BLOOD ORDERABLES Final Resul t [facility] [address] [place] [address], documented in this encounter Visit Diagnoses Diagnosis Obesity, unspecified Dysphagia, oropharyngeal phase Encounter for screening for malignant neoplasm of prostate Hyperlipidemia, unspecified Other specified intracranial injury without loss of consciousness, initial encounter ([facility]) documented in this encounter Care Teams Glost Kiln Placer Relationship Specialty Start Date End Date Jose Manuel Ontiveros MD [address] [place], [place] PCP - General 12/13/12 documented as of this encounter
--- OUTSIDE RECORDS SUMMARY | 2024-11-08 12:39 | XMS_ITS | Encounter Summary ---
Author Organization [facility] Address [address] [place] [address] Care Team Providers Care Treasury Director Name Role Phone Jose Manuel Ontiveros MD Primary Care Provider Encounter Details Date Type Department Care Team (Late st Contact Info) Description 07/07/2024 Lab Requisition [facility] - Main Lab [address] [facility] [place] [address] Jose Manuel Ontiveros MD [address] [place] [address] [address] [place], [place] Hyperlipidemia, unspecified; Other specified intracranial injury [...] Description 12/30/2024 9:00 AM EDT Ancillary Procedure [facility] - [address] [place] [address] documented as of this encounter [...] mg/dL LAB CHEMISTRY METHOD 07/07/2024 8:16 AM [facility] Triglycerides 116 0 - 150 mg/dL LAB CHEMISTRY METHOD 07/07/2024 8:16 AM [facility] HDL 35(L) >=40 mg/dL LAB CHEMISTRY METHOD 07/07/2024 8:16 AM [facility] LDL Calculated 52 0 - 100 mg/dL LAB CHEMISTRY METHOD 07/07/2024 8:16 AM [facility] VLDL Cholesterol Kamron 23.2 mg/dL LAB CHEMISTRY METHOD 07/07/2024 8:16 AM [facility] Non HDL Chol. (LDL+VLDL) 75 <145 mg/dL LAB CHEMISTRY METHOD 07/07/2024 8:16 AM [facility] Chol/HDL Ratio 3.1 0.0 - 4.4 LAB CHEMISTRY METHOD 07/07/2024 8:16 AM [facility] Blood Venous blood specimen / Unknown 07/07/2024 5:35 AM EST 07/07/2024 6:26 AM EST us Jose Manuel Ontiveros MD LAB BLOOD ORDERABLES Final Resul t [facility] [address] [place] [address], documented in this encounter Visit Diagnoses Diagnosis Hyperlipidemia, unspecified Other specified intracranial injury without loss of consciousness, sequela (CMS/HCC) documented in this encounter Care Teams Treasury Director Relationship Specialty Start Date End Date Jose Manuel Ontiveros MD [address] [place] [address] Dr [address] [place] [address] [place] PCP - General 12/13/12 documented as of this encounter
--- OUTSIDE RECORDS SUMMARY | 2024-11-08 12:39 | XMS_ITS | Patient Health Record ---
Author Organization [facility] Address [address] [place] [address] Care Team Providers Care Manager Msw Name Role Phone Rupali Ontiveros Primary Care Provider Yoandy Jama Jr Unavailable Allergies No Known Allergies Reason For Referral No Information Medications Medication SIG (Take, Route, Frequency, Duration) Notes [...] 1 tab Oral for 14 days Active Immunizations Vaccine Route Administration Date Status Comme nts Influenza Unknown 07/03/2021 Administered Social History Tobacco Use: Social History Observation Description Date Details (start date - stop date) Never Smoker NA - NA Tobacco Use/Smoking Question Answer Notes Patient is a nonsmoker Alcohol Screen Question Answer Notes Did you have a drink containing alcohol in the p ast year? No Points 0 Interpretation Negative Problems Problem Type SNOMED Code ICD Code Onset Dates Problem Status W/U Status Risk Notes Problem [id number] Colon cancer screening (Z12.11) Active confirmed Problem Constipation (47624282) Constipation (K59.00) Active confirmed Plan Of Treatment No Information Insurance Providers Payer Name Payer Address Payer Phone Subscriber Number Group Number Insured Name Patient Relationship to Insured Coverage Start Date Coverage End Date MEDICARE OF [place] [address] [place] [address] [phone] [id number] [place] USERUPALI Self - patient is the insured CARE [address] [address] [id number] [place] USE RUPALI Self - patient is the insured Medical (General) History Medical History History ICD Code concussion with [...]
--- OUTSIDE RECORDS SUMMARY | 2024-11-08 12:40 | XMS_ITS | Clinical Summary ---
Author Organization [address] Address [address] [place] [address] Phone Care Team Providers Care Applications Systems Analyst Name Role Phone Jose Manuel Ontiveros MD Primary Care Provider [phone] Allergies No known active allergies Medications acetaminophen (TYLENOL) 325 mg tablet Take by mouth every 6 hours as needed. Active amLODIPine (NORVASC) 10 mg tablet Take by mouth daily. Active aspirin 81 mg EC tablet Take by mouth daily. Active atorvastatin (LIPITOR) 10 mg tablet Take 10 mg by mouth daily. Active fluticasone furoate-vilante roL (BREO ELLIPTA) 100-25 mcg/dose inhaler 1 (one) time each day. Active lisinopril (PRINIVIL,ZESTR IL) 40 mg tablet Take by mouth daily. Active metoprolol tartrate (LOPRESSOR) [...] Active turmeric root extract 500 mg capsule 1 capsule 2 (two) times a day. Active ipratropium-alb uteroL (DUONEB) 0.5-2.5 mg/3 mL nebulizer solution Take 3 mL by nebulization if needed for wheezing. Active docusate sodium (COLACE) 100 mg capsule Take 1 capsule (100 mg total) by mouth 1 (one) time each day. Active bisacodyL (Dulcolax, bisacodyl,) 10 mg suppository Insert 1 suppository (10 mg total) into the rectum 1 (one) time each day if needed for constipation. Active sodium phosphate (Fleet Enema) 19-7 gram/118 mL enema Insert into the rectum 1 (one) time each day if needed. Active guaiFENesin (ROBITUSSIN) 100 mg/5 mL liquid Take 10 mL by mouth every 4 (four) hours if needed for cough. Active ondansetron (ZOFRAN) 4 mg tablet Take 1 tablet (4 mg total) by mouth every 4 (four) hours if needed for nausea or vomiting. Active naloxone (Narcan) 4 mg/0.1 mL nasal spray Administer 1 each (4 mg total) into affected nostril(s) if needed for opioid reversal. Give 4 mg (1 spray) into one nostril. May repeat every 2-3 minutes if needed, alternating nostrils, until medical assistance becomes available. Active MULTIVITAMIN ORAL Take 1 tablet by mouth 1 (one) time each day. Active polyethylene glycol (Miralax) 17 gram/dose oral powder Take 17 g by mouth 1 (one) time each day. Active ibuprofen (ADVIL,MOTRIN) 800 mg tablet Take 800 mg by mouth every 8 hours as needed. Discontinu ed(Discont inued by another clinician) loperamide (IMODIUM) 2 mg capsule Take 2 Capsules by mouth daily. Discontinu ed(Discont inued by another clinician) Active Problems Problem Noted Date Diagnosed Date [...] Encounters Date Type Department Care Team Description 10/26/2024 Telephone [facility] Cardiology [facility] [address] [place] [address] Mandie Higginbotham NP vascular consult 10/25/2024 1:10 PM EST Office Visit [facility] Cardiology [facility] [address] [place] [address] Mandie Higginbotham NP Pure hypercholesterolemia (Primary Dx); Abnormal EKG 08/22/2024 Lab Requisition [facility] - Main Lab [address] [facility] [place] [address] Jose Manuel Ontiveros MD Obesity, unspecified; Dysphagia, oropharyngeal phase; Encounter for screening for malignant neoplasm of prostate; Hyperlipidemia, unspecified; Other specified intracranial injury without loss of consciousness, initial encounter ([facility]) from Last 3 Months Medical History Medical History Date Comments Cerebrovascular accident (CVA) ([facility]) DX:Cerebrovascular accident (CVA) ([facility]) Social History Tobacco Use Types [...] Mass Index 34.38 10/25/2024 1:20 PM EST Plan of Treatment Upcoming Encounters Date Type Department Care Team (Late st Contact Info) Description 12/30/2024 9:00 AM EDT Ancillary Procedure [facility] Cardiology [facility] [address] [place] [address] Health Maintenance Due Date Last Done Comments DTaP,Tdap,and Td Vaccines (1 - Tdap) 1987 Hepatitis B Vaccines (1 of 3 - 19+ 3-dose series) 1987 Pneumococcal Vaccine: 50+ Years (1 of 1 - PCV) 2018 Zoster Vaccines (1 of 2) 2018 Colorectal Cancer Screening: Colonoscopy 08/02/2022 Depression Screening 08/02/2022 HIV Screening 08/02/2022 Hepatitis C Screening 08/02/2022 Medicare Annual Wellness Visit 08/02/2022 Social Influencers of Health Screening 08/02/2022 COVID-19 Vaccine ( season) 2024 05/29/2022, 01/22/2022, 06/19/2021, Additional history exists Influenza Vaccine (#1) 2024 07/07/2023, 2020 Hypertension/CHF/CAD Annual BMP Blood Test 08/22/2025 08/22/2024 [...] patient's age to complete this topic Meningococcal B Vacine Aged Out No lo nger eligible based on patient's age to complete this topic Pneumococcal Vaccine: Pediatrics (0 to 5 Years) and At-Risk Patients (6 to 64 Years) Aged Out No longer eligible based on patient's age to complete this topic RSV Immunization Patients Under 20 months Aged Out No longer eligible based on patient's age to complete this topic Varicella Vaccines Aged Out No longer eligible based on patient's age to complete this topic Procedures Procedure Name Priority Date/Time Associated Diagnosis Comments ECG 12-LEAD Routine 10/25/2024 4:01 PM EST Pure hypercholesterolemia CBC WITH AUTO DIFFERENTIAL Routine 08/22/2024 6:45 AM EST Dysphagia, oropharyngeal phase Encounter for screening for malignant neoplasm of prostate Hyperlipidemia, unspecified Other specified intracranial injury without loss of consciousness, initial encounter ([facility]) Obesity, unspecified PROSTATE SPECIFIC ANTIGEN DIAGNOSTIC Routine 08/22/2024 6:45 AM EST Dysphagia, oropharyngeal phase Encounter for screening for malignant neoplasm of prostate Hyperlipidemia, unspecified Other specified intracranial injury without loss of consciousness, initial encounter ([facility]) Obesity, unspecified THYROID STIMULATING HORMONE Routine 08/22/2024 6:45 AM EST Dysphagia, oropharyngeal phase Encounter for screening for malignant neoplasm of prostate Hyperlipidemia, unspecified Other specified intracranial injury without loss of consciousness, initial encounter ([facility]) Obesity, unspecified LIPID PANEL WITH REFLEX TO DIRECT LDL Routine 08/22/2024 6:45 AM EST Dysphagia, oropharyngeal phase Encounter for screening for malignant neoplasm of prostate Hyperlipidemia, unspecified Other specified intracranial injury without loss of consciousness, initial encounter ([facility]) Obesity, unspecified COMPREHENSIVE METABOLIC PANEL Routine 08/22/2024 6:45 AM EST Dysphagia, oropharyngeal phase Encounter for screening for malignant neoplasm of prostate Hyperlipidemia, unspecified Other specified intracranial injury without loss of consciousness, initial encounter ([facility]) Obesity, unspecified CBC AND DIFFERENTIAL Routine 08/22/2024 6:45 AM EST Dysphagia, oropharyngeal phase Encounter for screening for malignant neoplasm of prostate Hyperlipidemia, unspecified Other specified intracranial injury without loss of consciousness, initial encounter ([facility]) Obesity, unspecified from Last 3 Months Results * ECG 12 lead (10/25/2024 4:01 PM EST) Ventricular Rate ECG 89 BPM GEMUSE Atrial Rate 89 BPM GEMUSE P-R Interval 200 ms GEMUSE QRS Duration 106 ms GEMUSE Q-T Interval 368 ms GEMUSE QTc 447 ms GEMUSE P Wave [place] 35 degrees GEMUSE R [place] 73 degrees GEMUSE T [place] 40 degrees GEMUSE ECG Interpretation Normal sinus rhythm Cannot rule out Inferior infarct , age undetermined Cannot rule out Anterior infarct , age undetermined Abnormal ECG No previous ECGs available Confirmed by FRANC SMITH ([id number]) on 10/25/2024 5:03:42 PM GEMUSE 10/25/2024 1:43 PM EST 10/25/2024 5:03 PM EST us Mandie Higginbotham CHILD NUTRITION ASSISTANT ECG ORDERABLES Edited Resul t - Final KEVIN * (ABNORMAL) Lipid panel with reflex to direct LDL (08/22/2024 6:45 AM EST) Cholesterol 115 0 - 200 mg/dL LAB CHEMISTRY METHOD 08/22/2024 9:37 AM EST [facility] Triglycerides 110 0 - 150 mg/dL LAB CHEMISTRY METHOD 08/22/2024 9:37 AM EST [facility] HDL 38(L) >=40 mg/dL LAB CHEMISTRY METHOD 08/22/2024 9:37 AM EST [facility] LDL Calculated 55 0 - 100 mg/dL LAB CHEMISTRY METHOD 08/22/2024 9:37 AM EST [facility] VLDL Cholesterol Kamron 22 mg/dL LAB CHEMISTRY METHOD 08/22/2024 9:37 AM EST [facility] Non HDL Chol. (LDL+VLDL) 77 <145 mg/dL LAB CHEMISTRY METHOD 08/22/2024 9:37 AM EST [facility] Chol/HDL Ratio 3.0 0.0 - 4.4 LAB CHEMISTRY METHOD 08/22/2024 9:37 AM EST [facility] Blood Venous blood specimen / Unknown 08/22/2024 6:45 AM EST 08/22/2024 7:25 AM EST us Jose Manuel Ontiveros MD LAB BLOOD ORDERABLES Final Resul t [facility] [address] [place] [address], [place] [phone] * Prostate specific antigen diagnostic (08/22/2024 6:45 AM EST) [facility] [address] PSA 1.68 0.00 - 4.00 ng/mL LAB CHEMISTRY METHOD 08/22/2024 9:48 AM EST [facility] Blood Venous blood specimen / Unknown 08/22/2024 6:45 AM EST 08/22/2024 7:25 AM EST [facility] - 08/22/2024 9:48 AM EST The [employer] Chemiluminescent Immunoassay is used. Results obtained with different assay methods or kits cannot be used interchangeably. Results cannot be interpreted as absolute evidence of the presence or absence of malignant disease. Jose Manuel Ontiveros MD LAB BLOOD ORDERABLES Final Resul t [facility] [address] [place] [address], [place] [phone] * (ABNORMAL) CBC auto differential (08/22/2024 6:45 AM EST) [facility] [address] WBC 9.6 4.8 - 10.8 K/mcL LAB HEMETOLOGY METHOD 08/22/2024 8:34 AM [facility] RBC 5.30 4.50 - 5.50 M/mcL LAB HEMETOLOGY METHOD 08/22/2024 8:34 AM [facility] Hemoglobin 14.3 13.5 - 17.5 g/dL LAB HEMETOLOGY METHOD 08/22/2024 8:34 AM [facility] Hematocrit 46.2 42.0 - 54.0 % LAB HEMETOLOGY METHOD 08/22/2024 8:34 AM [facility] MCV 87.2 79.0 - 98.0 FL LAB HEMETOLOGY METHOD 08/22/2024 8:34 AM [facility] MCH 27.0 27.0 - 32.0 pcg LAB HEMETOLOGY METHOD 08/22/2024 8:34 AM [facility] MCHC 31.0(L) 32.0 - 37.0 g/dL LAB HEMETOLOGY METHOD 08/22/2024 8:34 AM [facility] RDW 14.6 11.0 - 15.0 % LAB HEMETOLOGY METHOD 08/22/2024 8:34 AM [facility] Platelets 339 130 - 400 K/mcL LAB HEMETOLOGY METHOD 08/22/2024 8:34 AM [facility] MPV 9.6 7.0 - 11.0 FL LAB HEMETOLOGY METHOD 08/22/2024 8:34 AM [facility] NRBC 0.0 <1.0 % LAB HEMETOLOGY METHOD 08/22/2024 8:34 AM [facility] NRBC Absolute 0.00 <0.10 K/mcL LAB HEMETOLOGY METHOD 08/22/2024 8:34 AM [facility] Neutrophils Relative 67.7 % LAB HEMETOLOGY METHOD 08/22/2024 8:34 AM [facility] Lymphocytes Relative 17.8 % LAB HEMETOLOGY METHOD 08/22/2024 8:34 AM [facility] Monocytes Relative 8.1 % LAB HEMETOLOGY METHOD 08/22/2024 8:34 AM [facility] Eosinophils Relative 5.4 % LAB HEMETOLOGY METHOD 08/22/2024 8:34 AM [facility] Basophils Relative 0.4 % LAB HEMETOLOGY METHOD 08/22/2024 8:34 AM [facility] Immature Granulocytes Relative 0.6 % LAB HEMETOLOGY METHOD 08/22/2024 8:34 AM [facility] Neutrophils Absolute 6.51 1.50 - 7.00 K/mcL LAB HEMETOLOGY METHOD 08/22/2024 8:34 AM EST [facility] Lymphocytes Absolute 1.71 1.00 - 5.00 K/mcL LAB HEMETOLOGY METHOD 08/22/2024 8:34 AM EST [facility] Monocytes Absolute 0.78 0.20 - 1.00 K/mcL LAB HEMETOLOGY METHOD 08/22/2024 8:34 AM EST [facility] Eosinophils Absolute 0.52(H) 0.00 - 0.50 K/[facility] LAB HEMETOLOGY METHOD 08/22/2024 8:34 AM EST [facility] Basophils Absolute 0.04 0.00 - 0.20 K/[facility] LAB HEMETOLOGY METHOD 08/22/2024 8:34 AM EST [facility] Immature Granulocytes Absolute 0.06(H) 0.00 - 0.03 K/[facility] LAB HEMETOLOGY METHOD 08/22/2024 8:34 AM EST [facility] Blood Venous blood specimen / Unknown 08/22/2024 6:45 AM EST 08/22/2024 7:25 AM EST us Jose Manuel Ontiveros MD LAB BLOOD ORDERABLES Final Resul t Performing Organization Address [facility] Co de Phone Number [facility] [address] [place] [address], * Thyroid stimulating hormone (08/22/2024 6:45 AM EST) TSH 2.06 0.40 - 4.00 mcIU/mL LAB CHEMISTRY METHOD 08/22/2024 9:47 AM EST [facility] Blood Venous blood specimen / Unknown 08/22/2024 6:45 AM EST 08/22/2024 7:25 AM EST us Jose Manuel Ontiveros MD LAB BLOOD ORDERABLES Final Resul t [facility] [address] [place] [address], * (ABNORMAL) Comprehensive metabolic panel (08/22/2024 6:45 AM EST) Sodium 139 133 - 145 mmol/L LAB CHEMISTRY METHOD 08/22/2024 8:44 AM [facility] Potassium 4.8 3.5 - 5.5 mmol/L LAB CHEMISTRY METHOD 08/22/2024 8:44 AM [facility] Chloride 107 96 - 110 mmol/L LAB CHEMISTRY METHOD 08/22/2024 8:44 AM [facility] CO2 28 21 - 32 mmol/L LAB CHEMISTRY METHOD 08/22/2024 8:44 AM [facility] Anion Gap 4 3 - 11 LAB CHEMISTRY METHOD 08/22/2024 8:44 AM [facility] Glucose 87 70 - 100 mg/dL LAB CHEMISTRY METHOD 08/22/2024 8:44 AM [facility] BUN 13 5 - 25 mg/dL LAB CHEMISTRY METHOD 08/22/2024 8:44 AM [facility] Creatinine 0.65(L) 0.70 - 1.30 mg/dL LAB CHEMISTRY METHOD 08/22/2024 8:44 AM [facility] eGFR 111 >=60 mL/min/1. 73m2 LAB CHEMISTRY METHOD 08/22/2024 8:44 AM [facility] Comment:Calculation based on the??Chronic Kidney Disease Epidemiology Collaboration (CKD-EPI) equation refit??without adjustment for race. BUN/Creatinine Ratio 20.0 LAB CHEMISTRY METHOD 08/22/2024 8:44 AM [facility] Calcium 8.9 8.5 - 10.5 mg/dL LAB CHEMISTRY METHOD 08/22/2024 8:44 AM [facility] AST (SGOT) 18 10 - 42 unit/L LAB CHEMISTRY METHOD 08/22/2024 8:44 AM [facility] ALT (SGPT) 21 10 - 60 unit/L LAB CHEMISTRY METHOD 08/22/2024 8:44 AM [facility] Alkaline Phosphatase 108 42 - 121 unit/L LAB CHEMISTRY METHOD 08/22/2024 8:44 AM [facility] Total Protein 7.1 6.0 - 8.0 g/dL LAB CHEMISTRY METHOD 08/22/2024 8:44 AM [facility] Albumin 3.4 3.2 - 5.0 g/dL LAB CHEMISTRY METHOD 08/22/2024 8:44 AM [facility] Total Bilirubin 0.3 0.0 - 1.4 mg/dL LAB CHEMISTRY METHOD 08/22/2024 8:44 AM [facility] Blood Venous blood specimen / Unknown 08/22/2024 6:45 AM EST 08/22/2024 7:25 AM EST us Jose Manuel Ontiveros MD LAB BLOOD ORDERABLES Final Resul t [facility] [address] [place] [address], from Last 3 Months Insurance MEDICARE Care Teams Applications Systems Analyst Relationship Specialty Start Date End Date Jose Manuel Ontiveros MD [address] [place] [address] Dr [address] KELSEY Feldman PCP - General 12/13/12
== END 2024-11-08 10:50 | disposition home or self-care (01) ==
LOC: HO.HVS 10:34
PROVIDERS: PCP Hospitalist; Visit Provider Surgery Vascular Surgery
DX: I72.4 Aneurysm of artery of lower extremity (principal)
CPT/HCPCS: 99214; G2211

== ENCOUNTER → 2024-11-08 10:34 | Outpatient (BNVA) | payer MEDICARE, MEDICAID, SELFPAY | PROVIDERS: PCP Hospitalist; Visit Provider Surgery Vascular Surgery | DX: I72.4 Aneurysm of artery of lower extremity (principal) | CPT/HCPCS: 99212 ==

== ENCOUNTER 2024-12-05 14:14 | Outpatient (REF) | payer MEDICARE, MEDICAID, SELFPAY ==
--- NOTE | ~2024-12-05 | US_ITS ---
EXAMINATION: US NONINVASIVE ASSESSMENT OF LEFT COMMON FEMORAL ARTERY, LEFT SUPERFICIAL FEMORAL ARTERY PROXIMAL SEGMENT AND FEMORAL PROFUNDA ARTERIES. CLINICAL INFORMATION: Pseudoaneurysm, left femoral artery. COMPARISON: Correlated to CT GI bleed dated October 09, 2024. TECHNIQUE: Duplex Doppler techniques interrogation of the left superficial femoral artery and vein, proximal segments as well as left common femoral artery and vein and femoral profunda. FINDINGS: There is flow between the left common femoral artery and vein in the proximal segment. There is normal patency of the interrogated vessels. US/US arterial duplex LE LT IMPRESSION: Arteriovenous fistula, left superficial femoral artery and vein, proximal segment. Positive exam. Electronically signed by: Christiano Curran MD 12/06/2024 07:41 AM EDT
--- OUTSIDE RECORDS SUMMARY | 2024-12-05 17:02 | XMS_ITS | Clinical Summary ---
Author Organization [employer] Address [address] [facility] [address] [place] [address] Care Team Providers Care Book Sewing Machine Operator Name Role Phone Unavailable Primary Care Provider [...]
--- OUTSIDE RECORDS SUMMARY | 2024-12-05 17:02 | XMS_ITS | Clinical Summary ---
Author Organization [address] Address [address] [place] [address] Phone Care Team Providers Care Aircraft Sheet Metal Mechanic Name Role Phone Jose Manuel Ontiveros MD Primary Care Provider [phone] Allergies No known active allergies Medications acetaminophen [...] mouth 1 (one) time each day. Active Active Problems Problem Noted Date Diagnosed [...] Encounters Date Type Department Care Team Description 11/21/2024 Lab Requisition [facility] - Main Lab [address] [facility] [place] [address] Jose Manuel Ontiveros MD Other specified intracranial injury without loss of consciousness, sequela ([facility]) 10/26/2024 Telephone [facility] Cardiology [facility] [address] [place] [address] Mandie Higginbotham NP vascular consult 10/25/2024 1:10 PM EST Office Visit [facility] Cardiology [facility] [address] [place] [address] Mandie Higginbotham NP Pure hypercholesterolemia (Primary Dx); Abnormal EKG from Last 3 Months Medical History Medical History Date Comments Cerebrovascular accident (CVA) (CMS/HCC) DX:Cerebrovascular accident (CVA) (HCC) Social History Tobacco Use Types Packs/Day Years [...] Description 12/30/2024 9:00 AM EDT Ancillary Procedure [facility] Cardiology [facility] [address] [place] [address] Health Maintenance Due Date Last [...] 01/22/2022, 06/19/2021, Additional history exists Influenza Vaccine (Season Ended) 2025 07/07/2023, 07/03/2021, 06/13/2021 Hypertension/CHF/CAD Annual BMP Blood Test 11/21/2025 11/21/2024, 08/22/2024 Cholesterol Screening (Lipid Panel) 08/22/2029 08/22/2024, [...] age to complete this topic Meningococcal B Vaccine Aged Out No l onger eligible based on patient's age to complete [...] Procedure Name Priority Date/Time Associated Diagnosis Comments COMPREHENSIVE METABOLIC PANEL Routine 11/21/2024 6:40 AM EDT Other specified intracranial injury without loss of consciousness, sequela (CMS/HCC) ECG 12-LEAD Routine 10/25/2024 4:01 PM EST Pure hypercholesterolemia LIPID PANEL WITH REFLEX TO DIRECT LDL Routine 08/22/2024 6:45 AM EST Dysphagia, oropharyngeal phase Encounter for screening for malignant neoplasm of prostate Hyperlipidemia, unspecified Other specified intracranial injury without loss of consciousness, initial encounter ([facility]) Obesity, unspecified from Last 3 Months or Most Recently Relevant to Health Maintenance Results * (ABNORMAL) Comprehensive metabolic panel (11/21/2024 6:40 AM EDT) Sodium 142 133 - 145 mmol/L LAB CHEMISTRY METHOD 11/21/2024 8:49 AM [facility] Potassium 4.4 3.5 - 5.5 mmol/L LAB CHEMISTRY METHOD 11/21/2024 8:49 AM [facility] Chloride 108 96 - 110 mmol/L LAB CHEMISTRY METHOD 11/21/2024 8:49 AM [facility] CO2 29 21 - 32 mmol/L LAB CHEMISTRY METHOD 11/21/2024 8:49 AM [facility] Anion Gap 5 3 - 11 LAB CHEMISTRY METHOD 11/21/2024 8:49 AM [facility] Glucose 97 70 - 100 mg/dL LAB CHEMISTRY METHOD 11/21/2024 8:49 AM [facility] BUN 14 5 - 25 mg/dL LAB CHEMISTRY METHOD 11/21/2024 8:49 AM [facility] Creatinine 0.65(L) 0.70 - 1.30 mg/dL LAB CHEMISTRY METHOD 11/21/2024 8:49 AM [facility] eGFR 111 >=60 mL/min/1. 73m2 LAB CHEMISTRY METHOD 11/21/2024 8:49 AM [facility] Comment:Calculation based on the??Chronic Kidney Disease Epidemiology Collaboration (CKD-EPI) equation refit??without adjustment for race. BUN/Creatinine Ratio 21.5 LAB CHEMISTRY METHOD 11/21/2024 8:49 AM [facility] Calcium 8.6 8.5 - 10.5 mg/dL LAB CHEMISTRY METHOD 11/21/2024 8:49 AM EDT [facility] AST (SGOT) 12 10 - 42 unit/L LAB CHEMISTRY METHOD 11/21/2024 8:49 AM T [facility] ALT (SGPT) 16 10 - 60 unit/L LAB CHEMISTRY METHOD 11/21/2024 8:49 AM EDT [facility] Alkaline Phosphatase 116 42 - 121 unit/L LAB CHEMISTRY METHOD 11/21/2024 8:49 AM EDT [facility] Total Protein 6.7 6.0 - 8.0 g/dL LAB CHEMISTRY METHOD 11/21/2024 8:49 AM T [facility] Albumin 3.4 3.2 - 5.0 g/dL LAB CHEMISTRY METHOD 11/21/2024 8:49 AM [facility] Total Bilirubin 0.3 0.0 - 1.4 mg/dL LAB CHEMISTRY METHOD 11/21/2024 8:49 AM EDT [facility] Blood Venous blood specimen / Unknown 11/21/2024 6:40 AM EDT 11/21/2024 8:11 AM EDT Jose Manuel Ontiveros MD LAB BLOOD ORDERABLES Final Resul t [facility] [address] [place] [address], * ECG 12 lead (10/25/2024 4:01 PM EST) Ventricular Rate ECG 89 BPM GEMUSE Atrial Rate 89 BPM GEMUSE P-R Interval 200 ms GEMUSE QRS Duration 106 ms GEMUSE Q-T Interval 368 ms GEMUSE QTc 447 ms GEMUSE P Wave [place] 35 degrees GEMUSE R [place] 73 degrees GEMUSE T [place] 40 degrees GEMUSE ECG Interpretation Normal sinus rhythm Cannot rule out Inferior infarct , age undetermined Cannot rule out Anterior infarct , age undetermined Abnormal ECG No previous ECGs available Confirmed by FRANC SMITH ([id number]) on 10/25/2024 5:03:42 PM GEMUSE 10/25/2024 1:43 PM EST 10/25/2024 5:03 PM EST Mandie Higginbotham BLOOD BANK ORDER CONTROL CLERK ECG ORDERABLES Edited Resul t - Final Performing Organization Address [facility]/ZIP Co de Phone Number KEVIN * (ABNORMAL) Lipid panel with reflex to direct LDL (08/22/2024 6:45 AM EST) Cholesterol 115 0 - 200 mg/dL LAB CHEMISTRY METHOD 08/22/2024 9:37 AM EST [facility] Triglycerides 110 0 - 150 mg/dL LAB CHEMISTRY METHOD 08/22/2024 9:37 AM EST [facility] HDL 38(L) >=40 mg/dL LAB CHEMISTRY METHOD 08/22/2024 9:37 AM [facility] LDL Calculated 55 0 - 100 mg/dL LAB CHEMISTRY METHOD 08/22/2024 9:37 AM EST [facility] VLDL Cholesterol Kamron 22 mg/dL LAB CHEMISTRY METHOD 08/22/2024 9:37 AM EST [facility] Non HDL Chol. (LDL+VLDL) 77 <145 mg/dL LAB CHEMISTRY METHOD 08/22/2024 9:37 AM EST [facility] Chol/HDL Ratio 3.0 0.0 - 4.4 LAB CHEMISTRY METHOD 08/22/2024 9:37 AM [facility] Blood Venous blood specimen / Unknown 08/22/2024 6:45 AM EST 08/22/2024 7:25 AM EST Jose Manuel Ontiveros MD LAB BLOOD ORDERABLES Final Resul t [facility] [address] [place] [address], [place] [phone] from Last 3 Months or Most Recently Relevant to Health Maintenance Insurance MEDICARE [place]ID - [place] Member Subscriber Plan / Payer (Ef fective 2024-Present) Name:Jose Manuel García Member ID:[id number] Relation to Subscriber:Self Name:Jose Manuel García Subscriber ID:[id number] Payer ID:[id number] Group ID:Not on file Type:Not on file Address: [address] [place] [id number] Care Teams Aircraft Sheet Metal Mechanic Relationship Specialty Start Date End Date Jose Manuel Ontiveros MD [address] [place] [address] [address] [place] PCP - General 12/13/12
--- OUTSIDE RECORDS SUMMARY | 2024-12-05 17:02 | XMS_ITS | Encounter Summary ---
Author Organization [facility] Address [address] [place] [address] Care Team Providers Care Care Attendant Name Role Phone Jose Manuel Ontiveros MD Primary Care Provider Encounter Details Date Type Department Care Team (Late st Contact Info) Description 08/22/2024 Lab Requisition [facility] - Main Lab [address] [facility] [email or web address] [address] Jose Manuel Ontiveros MD [address] [place] [address] [address] [place], [place] Obesity, unspecified; Dysphagia, oropharyngeal phase; Encounter for screening for malignant neoplasm of prostate; Hyperlipidemia, unspecified; Other specified intracranial injury without loss of consciousness, initial encounter (CMS/[facility]) Social History Tobacco Use Types Packs/Day Years [...] Description 12/30/2024 9:00 AM EDT Ancillary Procedure [facility] [address] [place] [address] documented as of this encounter [...] of consciousness, initial encounter ([facility]) Obesity, unspecified CBC WITH AUTO DIFFERENTIAL Routine 08/22/2024 6:45 AM EST Dysphagia, oropharyngeal phase Encounter for screening for malignant neoplasm of prostate Hyperlipidemia, unspecified Other specified intracranial injury without loss of consciousness, initial encounter ([facility]) Obesity, unspecified CBC AND DIFFERENTIAL Routine 08/22/2024 6:45 AM EST Dysphagia, oropharyngeal phase Encounter for screening for malignant neoplasm of prostate Hyperlipidemia, unspecified Other specified intracranial injury without loss of consciousness, initial encounter ([facility]) Obesity, unspecified THYROID STIMULATING HORMONE Routine 08/22/2024 6:45 AM EST Dysphagia, oropharyngeal phase Encounter for screening for malignant neoplasm of prostate Hyperlipidemia, unspecified Other specified intracranial injury without loss of consciousness, initial encounter ([facility]) Obesity, unspecified COMPREHENSIVE METABOLIC PANEL Routine 08/22/2024 6:45 AM EST Dysphagia, oropharyngeal phase Encounter for screening for malignant neoplasm of prostate Hyperlipidemia, unspecified Other specified intracranial injury without loss of consciousness, initial encounter ([facility]) Obesity, unspecified documented in this encounter Results * (ABNORMAL) CBC auto differential (08/22/2024 6:45 AM EST) WBC 9.6 4.8 - 10.8 K/mcL LAB HEMETOLOGY METHOD 08/22/2024 8:34 AM EST [facility] RBC 5.30 4.50 - 5.50 M/[facility] LAB HEMETOLOGY METHOD 08/22/2024 8:34 AM EST [facility] Hemoglobin 14.3 13.5 - 17.5 g/dL LAB HEMETOLOGY METHOD 08/22/2024 8:34 AM EST [facility] Hematocrit 46.2 42.0 - 54.0 % LAB HEMETOLOGY METHOD 08/22/2024 8:34 AM [facility] MCV 87.2 79.0 - 98.0 FL LAB HEMETOLOGY METHOD 08/22/2024 8:34 AM [facility] MCH 27.0 27.0 - 32.0 pcg LAB HEMETOLOGY METHOD 08/22/2024 8:34 AM [facility] MCHC 31.0(L) 32.0 - 37.0 g/dL LAB HEMETOLOGY METHOD 08/22/2024 8:34 AM [facility] RDW 14.6 11.0 - 15.0 % LAB HEMETOLOGY METHOD 08/22/2024 8:34 AM [facility] Platelets 339 130 - 400 K/mcL LAB HEMETOLOGY METHOD 08/22/2024 8:34 AM [facility] MPV 9.6 7.0 - 11.0 FL LAB HEMETOLOGY METHOD 08/22/2024 8:34 AM [facility] NRBC 0.0 <1.0 % LAB HEMETOLOGY METHOD 08/22/2024 8:34 AM [facility] NRBC Absolute 0.00 <0.10 K/mcL LAB HEMETOLOGY METHOD 08/22/2024 8:34 AM [facility] Neutrophils Relative 67.7 % LAB HEMETOLOGY METHOD 08/22/2024 8:34 AM [facility] Lymphocytes Relative 17.8 % LAB HEMETOLOGY METHOD 08/22/2024 8:34 AM [facility] Monocytes Relative 8.1 % LAB HEMETOLOGY METHOD 08/22/2024 8:34 AM [facility] Eosinophils Relative 5.4 % LAB HEMETOLOGY METHOD 08/22/2024 8:34 AM [facility] Basophils Relative 0.4 % LAB HEMETOLOGY METHOD 08/22/2024 8:34 AM EST [facility] Immature Granulocytes Relative 0.6 % LAB HEMETOLOGY METHOD 08/22/2024 8:34 AM [facility] Neutrophils Absolute 6.51 1.50 - 7.00 K/mcL LAB HEMETOLOGY METHOD 08/22/2024 8:34 AM EST [facility] Lymphocytes Absolute 1.71 1.00 - 5.00 K/mcL LAB HEMETOLOGY METHOD 08/22/2024 8:34 AM EST [facility] Monocytes Absolute 0.78 0.20 - 1.00 K/mcL LAB HEMETOLOGY METHOD 08/22/2024 8:34 AM [facility] Eosinophils Absolute 0.52(H) 0.00 - 0.50 K/mcL LAB HEMETOLOGY METHOD 08/22/2024 8:34 AM EST [facility] Basophils Absolute 0.04 0.00 - 0.20 K/mcL LAB HEMETOLOGY METHOD 08/22/2024 8:34 AM [facility] Immature Granulocytes Absolute 0.06(H) 0.00 - 0.03 K/mcL LAB HEMETOLOGY METHOD 08/22/2024 8:34 AM [facility] Blood Venous blood specimen / Unknown 08/22/2024 6:45 AM EST 08/22/2024 7:25 AM EST us Jose Manuel Ontiveros MD LAB BLOOD ORDERABLES Final Resul t [facility] [address] [place] [address], * Prostate specific antigen diagnostic (08/22/2024 6:45 AM EST) PSA 1.68 0.00 - 4.00 ng/mL LAB CHEMISTRY METHOD 08/22/2024 9:48 AM EST [facility] Blood Venous blood specimen / Unknown 08/22/2024 6:45 AM EST 08/22/2024 7:25 AM EST Narrative [facility] - 08/22/2024 9:48 AM EST The Siemens Advia Centaur Chemiluminescent Immunoassay is used. Results obtained with different assay methods or kits cannot be used interchangeably. Results cannot be interpreted as absolute evidence of the presence or absence of malignant disease. us Jose Manuel Ontiveros MD LAB BLOOD ORDERABLES Final Resul t Performing Organization Address [facility]/ZIP Co de Phone Number [facility] [address] [place] [address], [place] [phone] * Thyroid stimulating hormone (08/22/2024 6:45 AM EST) TSH 2.06 0.40 - 4.00 mcIU/mL LAB CHEMISTRY METHOD 08/22/2024 9:47 AM EST [facility] Blood Venous blood specimen / Unknown 08/22/2024 6:45 AM EST 08/22/2024 7:25 AM EST us Jose Manuel Ontiveros MD LAB BLOOD ORDERABLES Final Resul t Performing Organization Address [facility]/ZIP Co de Phone Number [facility] [address] [place] [address], [place] [phone] * (ABNORMAL) Lipid panel with reflex to direct LDL (08/22/2024 6:45 AM EST) Cholesterol 115 0 - 200 mg/dL LAB CHEMISTRY METHOD 08/22/2024 9:37 AM EST [facility] Triglycerides 110 0 - 150 mg/dL LAB CHEMISTRY METHOD 08/22/2024 9:37 AM EST [facility] HDL 38(L) >=40 mg/dL LAB CHEMISTRY METHOD 08/22/2024 9:37 AM EST [facility] LDL Calculated 55 0 - 100 mg/dL LAB CHEMISTRY METHOD 08/22/2024 9:37 AM EST [facility] VLDL Cholesterol Kamron 22 mg/dL LAB CHEMISTRY METHOD 08/22/2024 9:37 AM EST [facility] Non HDL Chol. (LDL+VLDL) 77 <145 mg/dL LAB CHEMISTRY METHOD 08/22/2024 9:37 AM [facility] Chol/HDL Ratio 3.0 0.0 - 4.4 LAB CHEMISTRY METHOD 08/22/2024 9:37 AM [facility] Blood Venous blood specimen / Unknown 08/22/2024 6:45 AM EST 08/22/2024 7:25 AM EST us Jose Manuel Ontiveros MD LAB BLOOD ORDERABLES Final Resul t [facility] [address] [place] [address], * (ABNORMAL) Comprehensive metabolic panel (08/22/2024 6:45 AM EST) Sodium 139 133 - 145 mmol/L LAB CHEMISTRY METHOD 08/22/2024 8:44 AM [facility] Potassium 4.8 3.5 - 5.5 mmol/L LAB CHEMISTRY METHOD 08/22/2024 8:44 AM [facility] Chloride 107 96 - 110 mmol/L LAB CHEMISTRY METHOD 08/22/2024 8:44 AM [facility] CO2 28 21 - 32 mmol/L LAB CHEMISTRY METHOD 08/22/2024 8:44 AM [facility] Anion Gap 4 3 - 11 LAB CHEMISTRY METHOD 08/22/2024 8:44 AM [facility] Glucose 87 70 - 100 mg/dL LAB CHEMISTRY METHOD 08/22/2024 8:44 AM [facility] BUN 13 5 - 25 mg/dL LAB CHEMISTRY METHOD 08/22/2024 8:44 AM [facility] Creatinine 0.65(L) 0.70 - 1.30 mg/dL LAB CHEMISTRY METHOD 08/22/2024 8:44 AM [facility] eGFR 111 >=60 mL/min/1. 73m2 LAB CHEMISTRY METHOD 08/22/2024 8:44 AM [facility] Comment:Calculation based on the??Chronic Kidney Disease Epidemiology Collaboration (CKD-EPI) equation refit??without adjustment for race. BUN/Creatinine Ratio 20.0 LAB CHEMISTRY METHOD 08/22/2024 8:44 AM [facility] Calcium 8.9 8.5 - 10.5 mg/dL LAB CHEMISTRY METHOD 08/22/2024 8:44 AM [facility] AST (SGOT) 18 10 - 42 unit/L LAB CHEMISTRY METHOD 08/22/2024 8:44 AM [facility] ALT (SGPT) 21 10 - 60 unit/L LAB CHEMISTRY METHOD 08/22/2024 8:44 AM [facility] Alkaline Phosphatase 108 42 - 121 unit/L LAB CHEMISTRY METHOD 08/22/2024 8:44 AM [facility] Total Protein 7.1 6.0 - 8.0 g/dL LAB CHEMISTRY METHOD 08/22/2024 8:44 AM [facility] Albumin 3.4 3.2 - 5.0 g/dL LAB CHEMISTRY METHOD 08/22/2024 8:44 AM [facility] Total Bilirubin 0.3 0.0 - 1.4 mg/dL LAB CHEMISTRY METHOD 08/22/2024 8:44 AM [facility] Blood Venous blood specimen / Unknown 08/22/2024 6:45 AM EST 08/22/2024 7:25 AM EST us Jose Manuel Ontiveros MD LAB BLOOD ORDERABLES Final Resul t [facility] [address] [place] [address], documented in this encounter Visit Diagnoses Diagnosis Obesity, unspecified Dysphagia, oropharyngeal phase Encounter for screening for malignant neoplasm of prostate Hyperlipidemia, unspecified Other specified intracranial injury without loss of consciousness, initial encounter ([facility]) documented in this encounter Care Teams Care Attendant Relationship Specialty Start Date End Date Jose Manuel Ontiveros MD [address] [place], [place] PCP - General 12/13/12 documented as of this encounter
--- OUTSIDE RECORDS SUMMARY | 2024-12-05 17:02 | XMS_ITS | Encounter Summary ---
Author Organization [facility] Address [address] [place] [address] Care Team Providers Care Tabular Typist Name Role Phone Jose Manuel Ontiveros MD Primary Care Provider [phone] Encounter Details Date Type Department Care Team (Late st Contact Info) Description 07/07/2024 Lab Requisition [facility] - Main Lab [address] [facility] [place] [address] Jose Manuel Ontiveros MD [address] [place] [address] [address] [place], [place] Hyperlipidemia, unspecified; Other specified intracranial injury [...] Description 12/30/2024 9:00 AM EDT Ancillary Procedure [facility] - [address] [place] [address] documented as of this encounter [...] mg/dL LAB CHEMISTRY METHOD 07/07/2024 8:16 AM [facility] Triglycerides 116 0 - 150 mg/dL LAB CHEMISTRY METHOD 07/07/2024 8:16 AM [facility] HDL 35(L) >=40 mg/dL LAB CHEMISTRY METHOD 07/07/2024 8:16 AM [facility] LDL Calculated 52 0 - 100 mg/dL LAB CHEMISTRY METHOD 07/07/2024 8:16 AM [facility] VLDL Cholesterol Kamron 23.2 mg/dL LAB CHEMISTRY METHOD 07/07/2024 8:16 AM [facility] Non HDL Chol. (LDL+VLDL) 75 <145 mg/dL LAB CHEMISTRY METHOD 07/07/2024 8:16 AM [facility] Chol/HDL Ratio 3.1 0.0 - 4.4 LAB CHEMISTRY METHOD 07/07/2024 8:16 AM [facility] Blood Venous blood specimen / Unknown 07/07/2024 5:35 AM EST 07/07/2024 6:26 AM EST us Jose Manuel Ontiveros MD LAB BLOOD ORDERABLES Final Resul t [facility] [address] [place] [address], documented in this encounter Visit Diagnoses Diagnosis Hyperlipidemia, unspecified Other specified intracranial injury without loss of consciousness, sequela (CMS/HCC) documented in this encounter Care Teams Tabular Typist Relationship Specialty Start Date End Date Jose Manuel Ontiveros MD [address] [place] [address] Dr [address] [place] [address] [place] PCP - General 12/13/12 documented as of this encounter
--- OUTSIDE RECORDS SUMMARY | 2024-12-05 17:02 | XMS_ITS | Encounter Summary ---
Author Organization [facility] Address [address] [place] [address] Care Team Providers Care Healthcare Interpreter Name Role Phone Jose Manuel Ontiveros MD Primary Care Provider Encounter Details Date Type Department Care Team (Late Contact Info) Description 11/21/2024 Lab Requisition [facility] - Main Lab [address] [facility] [place] [address] Jose Manuel Ontiveros MD [address] [place] [address] [address] [place], [place] Other specified intracranial injury without loss of [...] [facility] - [address] [place] [address] documented as of this encounter Procedures Procedure Name Priority Date/Time Associated Diagnosis Comments COMPREHENSIVE METABOLIC PANEL Routine 11/21/2024 6:40 AM EDT Other specified intracranial injury without loss of consciousness, sequela (CMS/HCC) documented in this encounter Results * (ABNORMAL) Comprehensive metabolic panel (11/21/2024 6:40 AM EDT) Sodium 142 133 - 145 mmol/L LAB CHEMISTRY METHOD 11/21/2024 8:49 AM [facility] Potassium 4.4 3.5 - 5.5 mmol/L LAB CHEMISTRY METHOD 11/21/2024 8:49 AM [facility] Chloride 108 96 - 110 mmol/L LAB CHEMISTRY METHOD 11/21/2024 8:49 AM [facility] CO2 29 21 - 32 mmol/L LAB CHEMISTRY METHOD 11/21/2024 8:49 AM [facility] Anion Gap 5 3 - 11 LAB CHEMISTRY METHOD 11/21/2024 8:49 AM [facility] Glucose 97 70 - 100 mg/dL LAB CHEMISTRY METHOD 11/21/2024 8:49 AM [facility] BUN 14 5 - 25 mg/dL LAB CHEMISTRY METHOD 11/21/2024 8:49 AM [facility] Creatinine 0.65(L) 0.70 - 1.30 mg/dL LAB CHEMISTRY METHOD 11/21/2024 8:49 AM [facility] eGFR 111 >=60 mL/min/1. 73m2 LAB CHEMISTRY METHOD 11/21/2024 8:49 AM [facility] Comment:Calculation based on the??Chronic Kidney Disease Epidemiology Collaboration (CKD-EPI) equation refit??without adjustment for race. BUN/Creatinine Ratio 21.5 LAB CHEMISTRY METHOD 11/21/2024 8:49 AM [facility] Calcium 8.6 8.5 - 10.5 mg/dL LAB CHEMISTRY METHOD 11/21/2024 8:49 AM [facility] AST (SGOT) 12 10 - 42 unit/L LAB CHEMISTRY METHOD 11/21/2024 8:49 AM [facility] ALT (SGPT) 16 10 - 60 unit/L LAB CHEMISTRY METHOD 11/21/2024 8:49 AM EDT [facility] Alkaline Phosphatase 116 42 - 121 unit/L LAB CHEMISTRY METHOD 11/21/2024 8:49 AM EDT [facility] Total Protein 6.7 6.0 - 8.0 g/dL LAB CHEMISTRY METHOD 11/21/2024 8:49 AM [facility] Albumin 3.4 3.2 - 5.0 g/dL LAB CHEMISTRY METHOD 11/21/2024 8:49 AM [facility] Total Bilirubin 0.3 0.0 - 1.4 mg/dL LAB CHEMISTRY METHOD 11/21/2024 8:49 AM [facility] Blood Venous blood specimen / Unknown 11/21/2024 6:40 AM EDT 11/21/2024 8:11 AM EDT us Jose Manuel Ontiveros MD LAB BLOOD ORDERABLES Final Resul t [facility] [address] [place] [address], documented in this encounter Visit Diagnoses Diagnosis Other specified intracranial injury without loss of consciousness, sequela (CMS/HCC) documented in this encounter Care Teams Healthcare Interpreter Relationship Specialty Start Date End Date Jose Manuel Ontiveros MD [address] [place] [address] Dr [address] [place], [place] PCP - General 12/13/12 documented as of this encounter
--- OUTSIDE RECORDS SUMMARY | 2024-12-05 17:02 | XMS_ITS | Patient Health Record ---
Author Organization [facility] Address [address] [place] [address] Care Team Providers Care Dice Table Person Name Role Phone Rupali Ontiveros Primary Care [...] Problem Status W/U Status Risk Notes Problem [id number] Colon cancer screening (Z12.11) Active confirmed Problem Constipation (35946536) Constipation (K59.00) Active confirmed Plan Of Treatment No Information Insurance Providers Payer Name Payer Address Payer Phone Subscriber Number Group Number Insured Name Patient Relationship to Insured Coverage Start Date Coverage End Date MEDICARE OF [place] [address] [place] [address] [id number] [place]OR[place] USERUPALI Self - patient is the insured CARE [address] [address] [id number] [place] USE RUPALI Self - patient is [...]
--- OUTSIDE RECORDS SUMMARY | 2024-12-05 17:02 | XMS_ITS | Encounter Summary ---
Author Organization [employer] Address [address] [facility] [address] [place] [address] Care Team Providers Care Hearing Therapy Director Name Role Phone Unavailable Primary Care Provider Unavailabl e Encounter Details Date Type Department Care Team (Latest Contact Info) Description 04/08/2019 Abstract [facility] CONVERSIONS Dental, Provider, DDS Social History Tobacco [...]
== END 2024-12-05 14:15 | disposition home or self-care (01) ==
LOC: HO.US 14:14
PROVIDERS: PCP Hospitalist; Visit Provider Surgery Vascular Surgery
DX: I72.4 Aneurysm of artery of lower extremity (principal)
CPT/HCPCS: 93926

== ENCOUNTER → 2024-12-05 14:21 | Outpatient (BNV) | payer MEDICARE, MEDICAID, SELFPAY | PROVIDERS: PCP Hospitalist; Visit Provider Radiology Diagnostic Radiology | DX: I77.0 Arteriovenous fistula, acquired (principal) | CPT/HCPCS: 93926 ==

== ENCOUNTER 2024-12-22 13:49 | Outpatient (AMB) | payer MEDICARE, MEDICAID, SELFPAY ==
--- NOTE | 2024-12-22 13:55 | A.OFFVIS_ITS ---
Intake Visit Reasons: Follow Up Arterial US 12/05/24 Intake Note: follow up Left LE Arterial 12/05/24. Hair Blender Required: No Accompanied by: Self / Same As Patient Allergies No Known Allergies Allergy (Verified 12/22/24 14:02) [facility] HPI Follow Up Arterial US 12/05/24: Details: Pleasant 54-year-old gentleman presents for routine arterial surveillance follow-up. He had a left groin pseudoaneurysm which was detected on a CAT scan dated 10/09/2024. This was a workup for GI bleed. He subsequently has undergone ultrasound. He is mostly wheelchair-bound. Significant confusion. He now presents for vascular follow-up. Of note he is mostly wheelchair-bound and requires use of a [place] lift. [facility] Medical History Osteoarthritis Mood disorder COPD (chronic obstructive pulmonary disease) Dysarthria Obesity HTN (hypertension) Dementia Social History Household Members: None Housing: [facility] Do you presently have visiting nurse or other home services: No Unable to assess alcohol history related to: Unknown Alcohol intake: never Comment: 1:1 sitter. Patient Tobacco Use Status: Former Tobacco user service: No Current occupational status: disabled Review of Systems Const All systems reviewed & are unremarkable except as noted in HPI and below Reports no additional complaints ENT Reports Normal hearing present Card Denies chest pain, Denies chest pain at rest, Denies chest pain with activity and Denies pedal edema Resp Denies cough GI Denies abdominal pain Musc Denies abnormal gait, Denies muscle cramps and Denies radiating pain into limb Skin/Breast Denies skin ulcer and Denies wounds Neuro Reports Normal hearing present and Denies abnormal gait Psych Reports no additional complaints Physical Exam Const General: cooperative, healthy appearing and comfortable Orientation/consciousness: oriented to person, oriented to place and oriented to time HEENT Head: Yes normal to inspection Neck Neck: Yes normal visual inspection Carotids: no bruits Chest Chest palpation & inspection: normal inspection of the chest Resp Effort & Inspection: normal respiratory effort and able to speak in complete sentences Auscultation: clear to auscultation bilaterally, no crackles, no rales, no rhonchi and no wheezes Cardio Other: Very prominent left groin pulse Rate: regular rate Rhythm: regular rhythm Heart sounds: S1 normal heart sound present and S2 normal heart sound present Bruits: no carotid bruits Peripheral pulses: Peripheral pulses 2+ throughout GI Inspection: Yes normal to inspection Skin Wounds: no wounds Hair: normal Neuro General: oriented to person, oriented to place and oriented to time Cranial nerves: Yes CN's II-XII intact bilaterally and Yes Normal hearing present Cognition (Neuro): normal cognition Motor exam (neuro): 5/5 motor strength present throughout Extrem Other: venous exam: No significant superficial varicosities or spider telangiectasias, minimal edema General: No clubbing, No cyanosis and No edema Psych Appearance: grossly normal Mental Status: mental status grossly normal Speech and movement: Normal speech and movement present Results Reviewed Results Reviewed: Ultrasound dated 12/05/2024 is concerning for an AV fistula in the left superficial femoral artery and vein in the proximal segment. Assessment & Plan Assessment & Plan (1) Femoral artery pseudo-aneurysm, left: Code(s): I72.4 - Aneurysm of artery of lower extremity Category: Medical Plan: In short patient has left femoral pseudo aneurysm. It does appear to be stable. Due to his overall condition and his nonambulatory status would not recommend any surgical intervention at the current time. Would continue to manage this conservatively. He will follow up with us on an as-needed basis. Thank you for allowing us to assist in his care. If there are any questions or concerns please do not hesitate to contact us Coding Level of Care Code Est Pt Level 4 (75514) Diagnoses Femoral artery pseudo-aneurysm, left I72.4
--- OUTSIDE RECORDS SUMMARY | 2024-12-22 16:15 | XMS_ITS | Clinical Summary ---
Author Organization [email or web address] Address [address] [facility] [address] [place] [address] Care Team Providers Care Supervisor Winding Department Name Role Phone Unavailable Primary Care Provider [...]
--- OUTSIDE RECORDS SUMMARY | 2024-12-22 16:15 | XMS_ITS | Encounter Summary ---
Author Organization [facility] Address [address] [place] [address] Care Team Providers Care Edge Drummer Name Role Phone Jose Manuel Ontiveros MD Primary Care Provider Encounter Details Date Type Department Care Team (Late Contact Info) Description 11/21/2024 Lab Requisition [facility] - Main Lab [address] [facility] [employer] [place] [address] Jose Manuel Ontiveros MD [address] [place] [address] Dr [address] [place], [place] Other specified intracranial injury without loss of consciousness, sequela (CMS/HCC V24) Social History Tobacco Use Types Packs/Day Years [...] Description 12/30/2024 9:00 AM EDT Ancillary Procedure [facility] - [address] [place] [address] documented as of this encounter Procedures Procedure Name Priority Date/Time Associated Diagnosis Comments COMPREHENSIVE METABOLIC PANEL Routine 11/21/2024 6:40 AM EDT Other specified intracranial injury without loss of consciousness, sequela (CMS/HCC) documented in this encounter Results * (ABNORMAL) Comprehensive metabolic panel (11/21/2024 6:40 AM EDT) [facility] Sodium 142 133 - 145 mmol/L LAB CHEMISTRY METHOD 11/21/2024 8:49 AM [facility] Potassium 4.4 3.5 - 5.5 mmol/L LAB CHEMISTRY METHOD 11/21/2024 8:49 AM [facility] Chloride 108 96 - 110 mmol/L LAB CHEMISTRY METHOD 11/21/2024 8:49 AM [facility] CO2 29 21 - 32 mmol/L LAB CHEMISTRY METHOD 11/21/2024 8:49 AM [facility] Anion Gap 5 3 - 11 LAB CHEMISTRY METHOD 11/21/2024 8:49 AM [facility] Glucose 97 70 - 100 mg/dL LAB CHEMISTRY METHOD 11/21/2024 8:49 AM [facility] BUN 14 5 - 25 mg/dL LAB CHEMISTRY METHOD 11/21/2024 8:49 AM [facility] Creatinine 0.65(L) 0.70 - 1.30 mg/dL LAB CHEMISTRY METHOD 11/21/2024 8:49 AM [facility] eGFR 111 >=60 mL/min/1. 73m2 LAB CHEMISTRY METHOD 11/21/2024 8:49 AM [facility] Comment:Calculation based on the??Chronic Kidney Disease Epidemiology Collaboration (CKD-EPI) equation refit??without adjustment for race. BUN/Creatinine Ratio 21.5 LAB CHEMISTRY METHOD 11/21/2024 8:49 AM [facility] Calcium 8.6 8.5 - 10.5 mg/dL LAB CHEMISTRY METHOD 11/21/2024 8:49 AM [facility] AST (SGOT) 12 10 - 42 unit/L LAB CHEMISTRY METHOD 11/21/2024 8:49 AM [facility] ALT (SGPT) 16 10 - 60 unit/L LAB CHEMISTRY METHOD 11/21/2024 8:49 AM EDT [facility] Alkaline Phosphatase 116 42 - 121 unit/L LAB CHEMISTRY METHOD 11/21/2024 8:49 AM EDT [facility] Total Protein 6.7 6.0 - 8.0 g/dL LAB CHEMISTRY METHOD 11/21/2024 8:49 AM EDT [facility] Albumin 3.4 3.2 - 5.0 g/dL LAB CHEMISTRY METHOD 11/21/2024 8:49 AM EDT [facility] Total Bilirubin 0.3 0.0 - 1.4 mg/dL LAB CHEMISTRY METHOD 11/21/2024 8:49 AM EDT [facility] Blood Venous blood specimen / Unknown 11/21/2024 6:40 AM EDT 11/21/2024 8:11 AM EDT us Jose Manuel Ontiveros MD LAB BLOOD ORDERABLES Final Resul t [facility] [address] [place] [address], documented in this encounter Visit Diagnoses Diagnosis Other specified intracranial injury without loss of consciousness, sequela (CMS/HCC V24) documented in this encounter Care Teams Edge Drummer Relationship Specialty Start Date End Date Jose Manuel Ontiveros MD [address] [place] [address] Dr [address] [place] PCP - General 12/13/12 documented as of this encounter
--- OUTSIDE RECORDS SUMMARY | 2024-12-22 16:15 | XMS_ITS | Encounter Summary ---
Author Organization [facility] Address [address] [place] [address] Care Team Providers Care Logging Crew Supervisor Name Role Phone Jose Manuel Ontiveros MD Primary Care Provider [phone] Encounter Details Date Type Department Care Team (Late st Contact Info) Description 07/07/[address] [facility] - Main Lab 299 [facility] [employer] [place] [address] Jose Manuel Ontiveros MD [address] [place] [address] [address] [place], [place] Hyperlipidemia, unspecified; Other specified intracranial injury [...] Description 12/30/2024 9:00 AM EDT Ancillary Procedure [facility] - [address] [place] [address] documented as of this encounter [...] mg/dL LAB CHEMISTRY METHOD 07/07/2024 8:16 AM [facility] Triglycerides 116 0 - 150 mg/dL LAB CHEMISTRY METHOD 07/07/2024 8:16 AM [facility] HDL 35(L) >=40 mg/dL LAB CHEMISTRY METHOD 07/07/2024 8:16 AM [facility] LDL Calculated 52 0 - 100 mg/dL LAB CHEMISTRY METHOD 07/07/2024 8:16 AM [facility] VLDL Cholesterol Kamron 23.2 mg/dL LAB CHEMISTRY METHOD 07/07/2024 8:16 AM [facility] Non HDL Chol. (LDL+VLDL) 75 <145 mg/dL LAB CHEMISTRY METHOD 07/07/2024 8:16 AM [facility] Chol/HDL Ratio 3.1 0.0 - 4.4 LAB CHEMISTRY METHOD 07/07/2024 8:16 AM [facility] Blood Venous blood specimen / Unknown 07/07/2024 5:35 AM EST 07/07/2024 6:26 AM EST us Jose Manuel Ontiveros MD LAB BLOOD ORDERABLES Final Resul t [facility] [address] [place] [address], documented in this encounter Visit Diagnoses Diagnosis Hyperlipidemia, unspecified Other specified intracranial injury without loss of consciousness, sequela (CMS/HCC V24) documented in this encounter Care Teams Logging Crew Supervisor Relationship Specialty Start Date End Date Jose Manuel Ontiveros MD [address] [place] [address] Dr [address] [place] [address] PCP - General 12/13/12 documented as of this encounter
--- OUTSIDE RECORDS SUMMARY | 2024-12-22 16:15 | XMS_ITS | Encounter Summary ---
Author Organization [facility] Address [address] [place] [address] Care Team Providers Care Feed Elevator Worker Name Role Phone Jose Manuel Ontiveros MD Primary Care Provider [phone] Encounter Details Date Type Department Care Team (Late st Contact Info) Description 08/22/2024 Lab Requisition [facility] - Main Lab 299 [facility] [employer] [place] [address] Jose Manuel Ontiveros MD [address] [place] [address] Dr [address] [place], [place] Obesity, unspecified; Dysphagia, oropharyngeal phase; Encounter for screening for malignant neoplasm of prostate; Hyperlipidemia, unspecified; Other specified intracranial injury without loss of consciousness, initial encounter ([facility] V24, [facility] V28) Social History Tobacco Use Types Packs/Day Years [...] Description 12/30/2024 9:00 AM EDT Ancillary Procedure [facility] - [address] [place] [address] documented as of this encounter Procedures Procedure Name Priority Date/Time Associated Diagnosis Comments LIPID PANEL WITH REFLEX TO DIRECT LDL Routine 08/22/2024 6:45 AM EST Dysphagia, oropharyngeal phase Encounter for screening for malignant neoplasm of prostate Hyperlipidemia, unspecified Other specified intracranial injury without loss of consciousness, initial encounter ([facility]) Obesity, unspecified PROSTATE SPECIFIC ANTIGEN DIAGNOSTIC Routine 08/22/2024 6:45 AM EST Dysphagia, oropharyngeal phase Encounter for screening for malignant neoplasm of prostate Hyperlipidemia, unspecified Other specified intracranial injury without loss of consciousness, initial encounter ([facility]) Obesity, unspecified CBC WITH AUTO DIFFERENTIAL Routine 08/22/2024 6:45 AM EST Dysphagia, oropharyngeal phase Encounter for screening for malignant neoplasm of prostate Hyperlipidemia, unspecified Other specified intracranial injury without loss of consciousness, initial encounter ([facility]) Obesity, unspecified CBC AND DIFFERENTIAL Routine 08/22/2024 6:45 AM EST Dysphagia, oropharyngeal phase Encounter for screening for malignant neoplasm of prostate Hyperlipidemia, unspecified Other specified intracranial injury without loss of consciousness, initial encounter ([facility]) Obesity, unspecified THYROID STIMULATING HORMONE Routine 08/22/2024 6:45 AM EST Dysphagia, oropharyngeal phase Encounter for screening for malignant neoplasm of prostate Hyperlipidemia, unspecified Other specified intracranial injury without loss of consciousness, initial encounter ([facility]) Obesity, unspecified COMPREHENSIVE METABOLIC PANEL Routine 08/22/2024 6:45 AM EST Dysphagia, oropharyngeal phase Encounter for screening for malignant neoplasm of prostate Hyperlipidemia, unspecified Other specified intracranial injury without loss of consciousness, initial encounter ([facility]) Obesity, unspecified documented in this encounter Results * (ABNORMAL) CBC auto differential (08/22/2024 6:45 AM EST) WBC 9.6 4.8 - 10.8 [facility] HEMETOLOGY METHOD 08/22/2024 8:34 AM EST [facility] RBC 5.30 4.50 - 5.50 [facility] HEMETOLOGY METHOD 08/22/2024 8:34 AM EST [facility] Hemoglobin 14.3 13.5 - 17.5 g/dL LAB HEMETOLOGY METHOD 08/22/2024 8:34 AM EST [facility] Hematocrit 46.2 42.0 - 54.0 % LAB HEMETOLOGY METHOD 08/22/2024 8:34 AM [facility] MCV 87.2 79.0 - 98.0 FL LAB HEMETOLOGY METHOD 08/22/2024 8:34 AM [facility] MCH 27.0 27.0 - 32.0 pcg LAB HEMETOLOGY METHOD 08/22/2024 8:34 AM [facility] MCHC 31.0(L) 32.0 - 37.0 g/dL LAB HEMETOLOGY METHOD 08/22/2024 8:34 AM [facility] RDW 14.6 11.0 - 15.0 % LAB HEMETOLOGY METHOD 08/22/2024 8:34 AM [facility] Platelets 339 130 - 400 K/mcL LAB HEMETOLOGY METHOD 08/22/2024 8:34 AM [facility] MPV 9.6 7.0 - 11.0 FL LAB HEMETOLOGY METHOD 08/22/2024 8:34 AM [facility] NRBC 0.0 <1.0 % LAB HEMETOLOGY METHOD 08/22/2024 8:34 AM [facility] NRBC Absolute 0.00 <0.10 K/mcL LAB HEMETOLOGY METHOD 08/22/2024 8:34 AM [facility] Neutrophils Relative 67.7 % LAB HEMETOLOGY METHOD 08/22/2024 8:34 AM [facility] Lymphocytes Relative 17.8 % LAB HEMETOLOGY METHOD 08/22/2024 8:34 AM [facility] Monocytes Relative 8.1 % LAB HEMETOLOGY METHOD 08/22/2024 8:34 AM [facility] Eosinophils Relative 5.4 % LAB HEMETOLOGY METHOD 08/22/2024 8:34 AM [facility] Basophils Relative 0.4 % LAB HEMETOLOGY METHOD 08/22/2024 8:34 AM EST [facility] Immature Granulocytes Relative 0.6 % LAB HEMETOLOGY METHOD 08/22/2024 8:34 AM [facility] Neutrophils Absolute 6.51 1.50 - 7.00 K/mcL LAB HEMETOLOGY METHOD 08/22/2024 8:34 AM EST [facility] Lymphocytes Absolute 1.71 1.00 - 5.00 K/mcL LAB HEMETOLOGY METHOD 08/22/2024 8:34 AM EST [facility] Monocytes Absolute 0.78 0.20 - 1.00 K/mcL LAB HEMETOLOGY METHOD 08/22/2024 8:34 AM EST [facility] Eosinophils Absolute 0.52(H) 0.00 - 0.50 K/mcL LAB HEMETOLOGY METHOD 08/22/2024 8:34 AM EST [facility] Basophils Absolute 0.04 0.00 - 0.20 K/mcL LAB HEMETOLOGY METHOD 08/22/2024 8:34 AM EST [facility] Immature Granulocytes Absolute 0.06(H) 0.00 - 0.03 K/mcL LAB HEMETOLOGY METHOD 08/22/2024 8:34 AM [facility] Blood Venous blood specimen / Unknown 08/22/2024 6:45 AM EST 08/22/2024 7:25 AM EST us Jose Manuel Ontiveros MD LAB BLOOD ORDERABLES Final Resul t [facility] [address] [place] [address], * Prostate specific antigen diagnostic (08/22/2024 6:45 AM EST) PSA 1.68 0.00 - 4.00 ng/mL LAB CHEMISTRY METHOD 08/22/2024 9:48 AM EST [facility] Blood Venous blood specimen / Unknown 08/22/2024 6:45 AM EST 08/22/2024 7:25 AM EST Narrative [facility] - 08/22/2024 9:48 AM EST The Siemens Advia Centaur Chemiluminescent Immunoassay is used. Results obtained with different assay methods or kits cannot be used interchangeably. Results cannot be interpreted as absolute evidence of the presence or absence of malignant disease. us Jose Manuel Ontiveros MD LAB BLOOD ORDERABLES Final Resul t Performing Organization Address [facility]/ZIP Co de Phone Number [facility] [address] [place] [address], [place] [phone] * Thyroid stimulating hormone (08/22/2024 6:45 AM EST) TSH 2.06 0.40 - 4.00 mcIU/mL LAB CHEMISTRY METHOD 08/22/2024 9:47 AM EST [facility] Blood Venous blood specimen / Unknown 08/22/2024 6:45 AM EST 08/22/2024 7:25 AM EST us Jose Manuel Ontiveros MD LAB BLOOD ORDERABLES Final Resul t Performing Organization Address [facility]/ZIP Co de Phone Number [facility] [address] [place] [address], [place] [phone] * (ABNORMAL) Lipid panel with reflex to direct LDL (08/22/2024 6:45 AM EST) Cholesterol 115 0 - 200 mg/dL LAB CHEMISTRY METHOD 08/22/2024 9:37 AM EST [facility] Triglycerides 110 0 - 150 mg/dL LAB CHEMISTRY METHOD 08/22/2024 9:37 AM EST [facility] HDL 38(L) >=40 mg/dL LAB CHEMISTRY METHOD 08/22/2024 9:37 AM EST [facility] LDL Calculated 55 0 - 100 mg/dL LAB CHEMISTRY METHOD 08/22/2024 9:37 AM EST [facility] VLDL Cholesterol Kamron 22 mg/dL LAB CHEMISTRY METHOD 08/22/2024 9:37 AM [facility] Non HDL Chol. (LDL+VLDL) 77 <145 mg/dL LAB CHEMISTRY METHOD 08/22/2024 9:37 AM [facility] Chol/HDL Ratio 3.0 0.0 - 4.4 LAB CHEMISTRY METHOD 08/22/2024 9:37 AM [facility] Blood Venous blood specimen / Unknown 08/22/2024 6:45 AM EST 08/22/2024 7:25 AM EST us Jose Manuel Ontiveros MD LAB BLOOD ORDERABLES Final Resul t [facility] [address] [place] [address], * (ABNORMAL) Comprehensive metabolic panel (08/22/2024 6:45 AM EST) Sodium 139 133 - 145 mmol/L LAB CHEMISTRY METHOD 08/22/2024 8:44 AM [facility] Potassium 4.8 3.5 - 5.5 mmol/L LAB CHEMISTRY METHOD 08/22/2024 8:44 AM [facility] Chloride 107 96 - 110 mmol/L LAB CHEMISTRY METHOD 08/22/2024 8:44 AM [facility] CO2 28 21 - 32 mmol/L LAB CHEMISTRY METHOD 08/22/2024 8:44 AM [facility] Anion Gap 4 3 - 11 LAB CHEMISTRY METHOD 08/22/2024 8:44 AM [facility] Glucose 87 70 - 100 mg/dL LAB CHEMISTRY METHOD 08/22/2024 8:44 AM [facility] BUN 13 5 - 25 mg/dL LAB CHEMISTRY METHOD 08/22/2024 8:44 AM [facility] Creatinine 0.65(L) 0.70 - 1.30 mg/dL LAB CHEMISTRY METHOD 08/22/2024 8:44 AM [facility] eGFR 111 >=60 mL/min/1. 73m2 LAB CHEMISTRY METHOD 08/22/2024 8:44 AM [facility] Comment:Calculation based on the??Chronic Kidney Disease Epidemiology Collaboration (CKD-EPI) equation refit??without adjustment for race. BUN/Creatinine Ratio 20.0 LAB CHEMISTRY METHOD 08/22/2024 8:44 AM [facility] Calcium 8.9 8.5 - 10.5 mg/dL LAB CHEMISTRY METHOD 08/22/2024 8:44 AM [facility] AST (SGOT) 18 10 - 42 unit/L LAB CHEMISTRY METHOD 08/22/2024 8:44 AM [facility] ALT (SGPT) 21 10 - 60 unit/L LAB CHEMISTRY METHOD 08/22/2024 8:44 AM [facility] Alkaline Phosphatase 108 42 - 121 unit/L LAB CHEMISTRY METHOD 08/22/2024 8:44 AM [facility] Total Protein 7.1 6.0 - 8.0 g/dL LAB CHEMISTRY METHOD 08/22/2024 8:44 AM [facility] Albumin 3.4 3.2 - 5.0 g/dL LAB CHEMISTRY METHOD 08/22/2024 8:44 AM [facility] Total Bilirubin 0.3 0.0 - 1.4 mg/dL LAB CHEMISTRY METHOD 08/22/2024 8:44 AM [facility] Blood Venous blood specimen / Unknown 08/22/2024 6:45 AM EST 08/22/2024 7:25 AM EST us Jose Manuel Ontiveros MD LAB BLOOD ORDERABLES Final Resul t [facility] [address] [place] [address], documented in this encounter Visit Diagnoses Diagnosis Obesity, unspecified Dysphagia, oropharyngeal phase Encounter for screening for malignant neoplasm of prostate Hyperlipidemia, unspecified Other specified intracranial injury without loss of consciousness, initial encounter ([facility] V24, [facility] V28) documented in this encounter Care Teams Feed Elevator Worker Relationship Specialty Start Date End Date Jose Manuel Ontiveros MD [address] [place] [address] Dr [address] [place], [place] PCP - General 12/13/12 documented as of this encounter
--- OUTSIDE RECORDS SUMMARY | 2024-12-22 16:15 | XMS_ITS | Clinical Summary ---
Author Organization [address] Address [address] [place] [address] Phone Care Team Providers Care Glass Block Installer Name Role Phone Jose Manuel Ontiveros MD Primary Care Provider [phone] Allergies No known active allergies Medications acetaminophen [...] Date Diagnosed Date Cerebral infarction due to c erebral artery occlusion ([facility] V24, [facility] V28) 07/01/2021 Essential hypertension 07/01/2021 Overview (08/04/2024): Last [...] Department Care Team Description 11/21/2024 Lab Requisition [facility] - Main Lab [address] [facility] [place] [address] Jose Manuel Ontiveros MD Other specified intracranial injury without loss of consciousness, sequela ([facility] V24) 10/26/2024 Telephone [facility] [address] [place] [address] Mandie Higginbotham NP vascular consult 10/25/2024 1:10 PM EST Office Visit [facility] [address] [place] [address] Mandie Higginbotham NP Pure hypercholesterolemia (Primary Dx); Abnormal EKG from Last 3 Months Medical History Medical History Date Comments Cerebrovascular accident (CV A) ([facility] V24, [facility] V28) DX:Cerebrovascular accident (CVA) ([facility]) Social History Tobacco Use Types [...] 12/30/2024 9:00 AM EDT Ancillary Procedure [facility] [address] [place] [address] Health Maintenance Due Date Last [...] injury without loss of consciousness, initial encounter ([facility]) Obesity, unspecified from Last 3 Months or Most Recently Relevant to Health Maintenance Results * (ABNORMAL) Comprehensive metabolic panel (11/21/2024 6:40 AM EDT) Sodium 142 133 - 145 mmol/L LAB CHEMISTRY METHOD 11/21/2024 8:49 AM [facility] Potassium 4.4 3.5 - 5.5 mmol/L LAB CHEMISTRY METHOD 11/21/2024 8:49 AM [facility] Chloride 108 96 - 110 mmol/L LAB CHEMISTRY METHOD 11/21/2024 8:49 AM [facility] CO2 29 21 - 32 mmol/L LAB CHEMISTRY METHOD 11/21/2024 8:49 AM [facility] Anion Gap 5 3 - 11 LAB CHEMISTRY METHOD 11/21/2024 8:49 AM [facility] Glucose 97 70 - 100 mg/dL LAB CHEMISTRY METHOD 11/21/2024 8:49 AM [facility] BUN 14 5 - 25 mg/dL LAB CHEMISTRY METHOD 11/21/2024 8:49 AM [facility] Creatinine 0.65(L) 0.70 - 1.30 mg/dL LAB CHEMISTRY METHOD 11/21/2024 8:49 AM [facility] eGFR 111 >=60 mL/min/1. 73m2 LAB CHEMISTRY METHOD 11/21/2024 8:49 AM [facility] Comment:Calculation based on the??Chronic Kidney Disease Epidemiology Collaboration (CKD-EPI) equation refit??without adjustment for race. BUN/Creatinine Ratio 21.5 LAB CHEMISTRY METHOD 11/21/2024 8:49 AM [facility] Calcium 8.6 8.5 - 10.5 mg/dL LAB CHEMISTRY METHOD 11/21/2024 8:49 AM [facility] AST (SGOT) 12 10 - 42 unit/L LAB CHEMISTRY METHOD 11/21/2024 8:49 AM [facility] ALT (SGPT) 16 10 - 60 unit/L LAB CHEMISTRY METHOD 11/21/2024 8:49 AM [facility] Alkaline Phosphatase 116 42 - 121 unit/L LAB CHEMISTRY METHOD 11/21/2024 8:49 AM EDT [facility] Total Protein 6.7 6.0 - 8.0 g/dL LAB CHEMISTRY METHOD 11/21/2024 8:49 AM [facility] Albumin 3.4 3.2 - 5.0 g/dL LAB CHEMISTRY METHOD 11/21/2024 8:49 AM [facility] Total Bilirubin 0.3 0.0 - 1.4 mg/dL LAB CHEMISTRY METHOD 11/21/2024 8:49 AM [facility] Blood Venous blood specimen / Unknown 11/21/2024 6:40 AM EDT 11/21/2024 8:11 AM EDT us Jose Manuel Ontiveros MD LAB BLOOD ORDERABLES Final Resul t [facility] [address] [place] [address], * ECG 12 lead (10/25/2024 4:01 PM EST) Ventricular Rate ECG 89 BPM GEMUSE Atrial Rate 89 BPM GEMUSE P-R Interval 200 ms GEMUSE QRS Duration 106 ms GEMUSE Q-T Interval 368 ms GEMUSE QTc 447 ms GEMUSE P Wave [place] 35 degrees GEMUSE R [place] 73 degrees GEMUSE T [place] 40 degrees GEMUSE ECG Interpretation Normal sinus rhythm Cannot rule out Inferior infarct , age undetermined Cannot rule out Anterior infarct , age undetermined Abnormal ECG No previous ECGs available Confirmed by FRANC SMITH ([id number]) on 10/25/2024 5:03:42 PM GEMUSE 10/25/2024 1:43 PM EST 10/25/2024 5:03 PM EST Mandie Higginbotham [employer] ECG ORDERABLES Edited Resul t - Final KEVIN * (ABNORMAL) Lipid panel with reflex to direct LDL (08/22/2024 6:45 AM EST) Cholesterol 115 0 - 200 mg/dL LAB CHEMISTRY METHOD 08/22/2024 9:37 AM EST [facility] Triglycerides 110 0 - 150 mg/dL LAB CHEMISTRY METHOD 08/22/2024 9:[address] [facility] HDL 38(L) >=40 mg/dL LAB CHEMISTRY METHOD 08/22/2024 9:37 AM EST [facility] LDL Calculated 55 0 - 100 mg/dL LAB CHEMISTRY METHOD 08/22/2024 9:37 AM EST [facility] VLDL Cholesterol [place] 22 mg/dL LAB CHEMISTRY METHOD 08/22/2024 9:37 AM EST [facility] Non HDL Chol. (LDL+VLDL) 77 <145 mg/dL LAB CHEMISTRY METHOD 08/22/2024 9:37 AM EST [facility] Chol/HDL Ratio 3.0 0.0 - 4.4 LAB CHEMISTRY METHOD 08/22/2024 9:37 AM EST [facility] Blood Venous blood specimen / Unknown 08/22/2024 6:45 AM EST 08/22/2024 7:25 AM EST Jose Manuel Ontiveros MD LAB BLOOD ORDERABLES Final Resul t [facility] [address] [place] [address], from Last 3 Months or Most Recently Relevant to Health Maintenance Insurance MEDICARE MEDICAID - [place] Care Teams Glass Block Installer Relationship Specialty Start Date End Date Jose Manuel Ontiveros MD [address] [place] [address] Dr [address] [place] PCP - General 12/13/12
--- OUTSIDE RECORDS SUMMARY | 2024-12-22 16:15 | XMS_ITS | Encounter Summary ---
Author Organization [employer] Address [address] [facility] [address] [place] [address] Care Team Providers Care Technical Coordinator Name Role Phone Unavailable Primary Care Provider Unavailabl e Encounter Details Date Type Department Care Team (Latest Contact Info) Description 04/08/2019 Abstract [facility] CONVERSIONS Dental, Provider, DDS Social [...]
== END 2024-12-22 14:20 | disposition home or self-care (01) ==
LOC: HO.HVS 13:50
PROVIDERS: PCP Hospitalist; Visit Provider Surgery Vascular Surgery
DX: I72.4 Aneurysm of artery of lower extremity (principal)
CPT/HCPCS: 99214

== ENCOUNTER → 2024-12-22 13:49 | Outpatient (BNVA) | payer MEDICARE, MEDICAID, SELFPAY | PROVIDERS: PCP Hospitalist; Visit Provider Surgery Vascular Surgery | DX: I72.4 Aneurysm of artery of lower extremity (principal) | CPT/HCPCS: 99212 ==